=== PATIENT | male | born 1945 | race Caucasian/White ===

== ENCOUNTER 2024-07-22 11:20 | Emergency (ER) | payer MEDICARE, MEDICAID, SELFPAY ==
[2024-07-22] VITALS (18 sets, daily range): BP systolic 132–164; BP diastolic 54–86; PULSE 56–82; RESP 10–20; TEMP 36.4; O2SAT 97–100
--- NOTE | ~2024-07-22 | CT_ITS ---
CT brain wo con Ordering provider: Miller Arevalo MD History: 79 years Male with . syncope . Comparison: None. Technique: CT of the head without contrast. Radiation reduction technique utilized.The dose-length product was 681 mGy-cm. FINDINGS: BRAIN PARENCHYMA AND CSF SPACES: Mild leukoaraiosis and diffuse cortical atrophy. Mild atheromatous d isease. Old lacunar infarct in the body of the left caudate nucleus. No midline shift, mass effect or hemorrhage. The brain parenchyma and CSF spaces are otherwise norm al. VISUALIZED PARANASAL SINUSES: Well aerated. MASTOIDS: Well aerated. BONES: The bones appear intact. SOFT TISSUES: Visualized nasopharynx is normal. Superficial soft tissues are normal. IMPRESSION: No acute intracranial findings. Reviewed, dictated and finalized at location A.
--- NOTE | 2024-07-22 11:27 | ECG_ITS ---
Test Date: 2024-07-22 11:41:22 Measurements Intervals [place] Rate: 61 P: 14 RI: 130 QRS: 47 QRSD: 88 T: 61 QT: 427 QTc: 433 Interpretive Statements SINUS RHYTHM No previous ECG available for comparison Electronically Signed On 07-22-2024 11:55:29 CDT by Real Carr M.D.
[2024-07-22 11:50] LABS: Basophils Absolute Auto 0.1 K/mm3 (0.0-0.1); Basophils Percent Auto 0.6 % (0.2-1.2); Eosinophils Absolute Auto 0.4 K/mm3 (0-0.3); Eosinophils Percent Auto 2.8 % (0-4.4); Hematocrit 35.9 % (42.0-52.0); Hemoglobin 11.6 g/dL (14.0-18.0); Immature Granulocyte Absolute 0.09 K/mm3 (0.00-0.031); Immature Granulocyte Percent A 0.7 % (0-0.5); Lymphocytes Absolute Auto 1.68 K/mm3 (0.9-3.2); Lymphocytes Percent Auto 12.5 % (18.3-44.2); Mean Corpuscular HGB Conc 32.3 g/dl (32-36); Mean Corpuscular Hemoglobin 30.4 pg (26-34); Mean Platelet Volume 11.1 fl (7.4-10.4); Monocytes Absolute Auto 0.8 K/mm3 (0.1-0.6); Neutrophils Absolute Auto 10.4 K/mm3 (1.3-6.7); Neutrophils Percent Auto 77.4 % (45.5-73.1); Platelet Count Result 314 k/mm3 (150-375); Red Blood Count 3.82 M/mm3 (4.6-6.20); Red Cell Distribution Width 15.7 % (11.5-14.5); White Blood Count 13.4 K/mm3 (4.5-10.0)
[2024-07-22 11:57] LABS: Add Urine Microscopic? NO; Appearance Urine Clear (Clear); Bilirubin Urine Negative (Negative); Blood Urine Negative (Negative); Color Urine Yellow (Yellow); Glucose Urine UA Negative (Negative); Ketones Urine Negative (Negative); Leukocyte Esterase Ur Negative LEU/UL (Negative); Nitrate Urine Negative (Negative); Protein Urine Negative (Negative); Specific Grav Ur 1.014 (1.001-1.035); Urobilinogen Urine 0.2 mg/dL (<2.0); pH Urine 5.5 (5.0-9.0)
[2024-07-22 11:58] LABS: Alanine Aminotransferase 14 U/L (6-50); Albumin Level 3.4 g/dL (3.5-5.1); Alkaline Phosphatase 113 U/L (38-126); Anion Gap 11 mmol/L (4-12); Aspartate Amino Transferase 31 U/L (17-59); Bilirubin,Total 0.7 mg/dL (0.2-1.3); Blood Urea Nitrogen 17 mg/dL (9-20); Calcium 8.8 mg/dL (8.4-10.2); Carbon Dioxide 25 mmol/L (22-30); Chloride 103 mmol/L (98-107); Estimated CRCL calculation 43 ml/min; Estimated Glomerular Filt Rate > 60; Glucose 105 mg/dL (65-110); Sodium 139 mmol/L (137-145)
[2024-07-22 13:06] LABS: Troponin I < 0.012 ng/mL (0.000-0.034)
--- NOTE | 2024-07-22 13:10 | ED_ITS ---
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 Today patient presents to the emergency department for evaluation after a witnessed syncopal event. Patient was exercising during physical therapy today his care facility when he felt lightheaded and staff noted that he lost consciousness briefly. Patient presently is awake alert oriented x4 and states that he has no complaints. He states that he was feeling lightheaded and dizzy as he was having to sit up and stand up frequently during the evaluation for physical therapy. He denies any headache or vision changes, no new weakness, denies any chest pain, abdominal pain, back pain. He is answering all questions appropriately and denies any complaints at this time. No fall or trauma. Denies taking blood thinners. Related Data Allergies Allergy/AdvReac Type Severity Reaction Status Date / Time No Known Allergies Allergy Verified 07/22/24 11:26 Review of Systems 2 Review of Systems: As reviewed above in HPI Exam 2 Narrative: GENERAL: Thin and frail, elderly appearing, not in any acute distress, awake and answering questions appropriately per HEAD: [Normocephalic, atraumatic.] EYES: [PERRLA and EOMI.] ENT: Nares clear, no rhinorrhea or epistaxis. Mucous membranes moist. NECK: Supple. CHEST: [Clear to auscultation. No respiratory distress.] HEART: [Regular rate and rhythm]. No murmur heard. [Normal peripheral pulses.] ABDOMEN: [Soft, nondistended], [nontender], [No rigidity or guarding] EXTREMITIES: Normal range of motion. [No edema.] SKIN: Warm, dry, no rash. NEURO: No new focal deficits, hemiparesis affecting his right side, chronic. Awake alert oriented x4, answering questions appropriately. PSYCH: [Normal mood and affect.] Course Vital Signs Vital signs: Vital Signs Temperature 36.4 C 07/22/24 11:18 Pulse Rate 60 07/22/24 11:18 Respiratory Rate 13 07/22/24 11:18 Blood Pressure 132/54 L 07/22/24 11:18 Pulse Oximetry 100 07/22/24 11:18 Oxygen Delivery Room Air 03/10/25 11:18 Temperature 36.4 C 07/22/24 11:18 Pulse Rate 62 07/22/24 14:15 Respiratory Rate 18 07/22/24 13:45 Blood Pressure 154/72 H 07/22/24 14:15 Pulse Oximetry 99 07/22/24 13:45 Oxygen Delivery Room Air 07/22/24 11:33 MDM - Altered Mental Status MDM Narrative Medical decision making narrative: 79-year-old male with a past medical history including prior stroke with residual hemiparesis, vascular dementia. Patient presents to the ED after a syncopal event while exercising for physical therapy. Patient himself remembers the event and states that he was feeling lightheaded and dizzy after having to sit and stand several times repeatedly for PT/OT. He reportedly lost consciousness briefly and is presently awake and answering all questions appropriately. Patient denies any complaints denies any headache, vision change, nausea, vomiting. He has residual hemiparesis from his prior stroke but no new neurological deficits on exam. He has stable vital signs with any tachycardia, fever, hypoxia blood pressure concerns. He appears elderly and thin and frail but not any acute distress. Considerations presently are for orthostasis, vasovagal event, less likely intracranial process such as new stroke or bleed, less likely cardiac syncope. Workup was ordered this time including a CBC, CMP, troponin, EKG, chest x-ray and a CT of the head as well as urinalysis. Patient was placed on cardiac monitoring telemetry and re-evaluated frequently. Patient's workup shows a minor leukocytosis 13.4 but nonspecific as patient has no infectious symptoms and otherwise unremarkable workup. Hemoglobin 11.6 with no baseline to compare to.Normal coagulation studies. Electrolytes all within normal limits, normal renal function panel, normal hepatic function panel. Negative troponin. Urinalysis without any signs of infection. Patient's head CT shows old lacunar infarct but no acute intracranial findings. EKG is nonischemic with normal sinus rhythm. No ectopy or interval prolongation. Orthostatic vitals were obtained and showed no difference. Patient is hemodynamically stable, has no complaints, overall has a likely benign-appearing explanation for his syncope based on the relation to his physical therapy and exercises today. He is safe and stable for discharge home at this time with regular PCP follow-up and patient was comfortable with this plan and expressed desire to be discharged back to his facility as well. Medical Records Attestation: I reviewed the patient's medical records. Lab Data Attestation: I reviewed the patient's lab results. 07/22/24 11:42 07/22/24 11:42 Labs: Lab Results 07/22/24 07/22/24 07/22/24 Range/Units 11:42 11:51 13:12 WBC 13.4 H (4.5-10.0) K/mm3 RBC 3.82 L (4.6-6.20) M/mm3 Hgb 11.6 L (14.0-18.0) g/dL Hct 35.9 L (42.0-52.0) % MCV 94.0 (80-100) fl MCH 30.4 (26-34) pg MCHC 32.3 (32-36) g/dl RDW 15.7 H (11.5-14.5) % Plt Count 314 (150-375) k/mm3 MPV 11.1 H (7.4-10.4) fl Immature Gran % (Auto) 0.7 H (0-0.5) % Neut % (Auto) 77.4 H (45.5-73.1) % Lymph % (Auto) 12.5 L (18.3-44.2) % [place] % (Auto) 6.0 (2.6-8.5) % Eos % (Auto) 2.8 (0-4.4) % Baso % (Auto) 0.6 (0.2-1.2) % Lymph # (Auto) 1.68 (0.9-3.2) K/mm3 [place] # (Auto) 0.8 H (0.1-0.6) K/mm3 Eos # (Auto) 0.4 H (0-0.3) K/mm3 Baso # (Auto) 0.1 (0.0-0.1) K/mm3 Abs Immat Gran (auto) 0.09 H (0.00-0.031) K/mm3 Absolute Neuts (auto) 10.4 H (1.3-6.7) K/mm3 Absolute Nucleated RBC 0.000 (0.0-0.012) K/mm3 Nucleated RBC % 0.0 (0.0-0.2) % PT 13.2 (11.1-14.7) Seconds INR 1.0 APTT 28.3 (22.3-36.8) Seconds Sodium 139 (137-145) mmol/L Potassium 4.0 (3.4-5.0) mmol/L Chloride 103 (98-107) mmol/L Carbon Dioxide 25 (22-30) mmol/L Anion Gap 11 (4-12) mmol/L BUN 17 (9-20) mg/dL Creatinine 1.13 (0.7-1.3) mg/dL Estim Creat Clear Calc 43 ml/min Estimated GFR > 60 (59 - ) Glucose 105 (65-110) mg/dL Calcium 8.8 (8.4-10.2) mg/dL Total Bilirubin 0.7 (0.2-1.3) mg/dL AST 31 (17-59) U/L ALT 14 (6-50) U/L Alkaline Phosphatase 113 (38-126) U/L Troponin I < 0.012 (0.000-0.034) ng/mL Total Protein 6.0 L (6.3-8.2) g/dL Albumin 3.4 L (3.5-5.1) g/dL Urine Color Yellow (Yellow) Urine Appearance Clear (Clear) Urine pH 5.5 (5.0-9.0) Ur Specific [place] 1.014 (1.001-1.035) Urine Protein Negative (Negative) mg/dL Urine Glucose (UA) Negative (Negative) mg/dL Urine Ketones Negative (Negative) mg/dL Ur Blood (Man) Negative (Negative) Urine Nitrate Negative (Negative) Urine Bilirubin Negative (Negative) Urine Urobilinogen 0.2 (<2.0) mg/dL Leukocyte Esterase Rfl Negative (Negative) NOAH/UL Imaging Data Attestation: I personally reviewed and interpreted this imaging study as follows: My impression: Impressions Head CT 07/22/24 12:54 IMPRESSION: No acute intracranial findings. ECG Data EKG #1: Attestation: I personally reviewed and interpreted this ECG as follows: ECG completion date: 07/22/24 ECG completion time: 11:41 Prior ECG tracings: not available for review Interpretation: Normal sinus rhythm, regular rate, regular rhythm and axis. HI interval 130, QTC interval 433, QRS 88. No ST segment elevations, depressions. No previous EKG for comparison. Overall final interpretation normal sinus rhythm. Discharge Plan Discharge Clinical Impression: Syncope, History of stroke Patient Disposition: [facility] Nursing Home/Asst Living Condition: Stable Instructions: Antibiotic Form, Syncope (DC) Additional Instructions: Your cardiac workup was reassuring, head CT without any acute findings. Normal electrolytes and normal organ function. You are safe and stable for discharge at this time, follow-up with regular doctor, return if you have any new or worsening concerns at any time. Patient Language: Georgian Follow-up/Referrals: UNKNOWN,DOCTOR [Primary Care Provider] - Stand Alone Forms: Retirement Discharge Time of Disposition: 14:22
[2024-07-22 13:32] LABS: Prothrombin Time 13.2 Seconds (11.1-14.7)
[2024-07-22 13:33] LABS: Partial Thromboplastin Time 28.3 Seconds (22.3-36.8)
--- NOTE | 2024-07-22 15:00 | PC.NURSE ---
Report called to Simba RICHARDS at [facility]. All questions answered. Awaiting transport.
--- NOTE | 2024-07-22 15:33 | PC.NURSE ---
Patient changed and cleaned up. Waiting on EMS to transport patient back to facility
== END 2024-07-22 16:13 ==
PROVIDERS: Emergency Medicine; Emergency Provider Student in an Organized Health Care Education/Training Program
DX: R55 Syncope and collapse (principal); I69.951 Hemiplegia and hemiparesis following unspecified cerebrovascular disease affecting right dominant side; F01.50 Vascular dementia, unspecified severity, without behavioral disturbance, psychotic disturbance, mood disturbance, and anxiety; K21.9 Gastro-esophageal reflux disease without esophagitis
CPT/HCPCS: 36415; 70450; 80053; 81003; 84484; 85025; 85610; 85730; 93005; 99284

== ENCOUNTER 2024-07-29 11:49 | Inpatient (IN) | payer MEDICARE, MEDICAID, SELFPAY ==
[2024-07-29] VITALS (19 sets, daily range): BP systolic 121–154; BP diastolic 59–87; PULSE 60–79; RESP 11–20; TEMP 36.1–36.6; O2SAT 97–100
--- NOTE | ~2024-07-29 | XR_ITS ---
XR chest 1V Ordering provider: Ludin Ferreira MD History: 79 years Male with . pre-op LEFT SIDE HIP DISLOCATION . Comparison: None. FINDINGS: MEDIASTINUM: The cardiac silhouette is not enlarged. Prominent amber more on the left side. LUNGS: No effusions or pneumothorax. Left perihilar and left lower lobe prominent markings. OTHER: No free air under the diaphragm. IMPRESSION: Prominent markings in the lower lobes more on the left side. Bronchitis cannot be excluded. Clinical correlation advised. Reviewed, dictated and finalized at location A.
--- NOTE | ~2024-07-29 | XR_ITS ---
EXAMINATION: XR hip LT 1V w AP pelvis DATE: 07/31/2024 14:05 INDICATION: Postoperative evaluation TECHNIQUE: 2 views of the left hip were performed FINDINGS: There is a left total hip arthroplasty in expected position. Subcutaneous gas with soft ti ssue swelling are consistent with recent surgery. IMPRESSION: Expected perioperative appearance of a left-sided total hip arthroplasty. Reviewed, dictated and finalized at location A.
--- NOTE | ~2024-07-29 | XR_ITS ---
EXAMINATION: XR hip LT 2V w AP pelvis DATE: 07/29/2024 12:52 INDICATION: Left hip pain and medial rotation of the left leg post fall TECHNIQUE: Anteroposterior view of the pelvis and anteroposterior and cross-table lateral views of th e left hip were obtained. COMPARISON: None. FINDINGS: The entirety of a bipolar type left hip hemiarthroplasty is dislocated from the left acetabulum and a long with the largest left femur is displaced cephalad with inward rotation. No fracture identified. Superolateral rim of the left acetabulum is obscured by the femoral head component of the arthroplast y. No periprosthetic lucency to suggest loosening. Mild right hip and bilateral sacroiliac osteoarthr itis. Likely at least moderate lumbar spondylosis. IMPRESSION: 1. Bipolar type left hip hemiarthroplasty with superior dislocation and rotation. No evident fracture or loosening of the arthroplasty. Reviewed, dictated and finalized at location A. IMPRESSION: 1. Bipolar type left hip hemiarthroplasty with superior dislocation and rotatio n. No evident fracture or loosening of the arthroplasty.
--- NOTE | ~2024-07-29 | CT_ITS ---
Procedure: CT hip LT wo con Ordering provider: Ludin Ferreira MD History: . dislocation . Comparison: None. Technique: Thin slice axial CT of the No IV contrast was given. Sagittal and coronal reformatted imag es were also obtained and reviewed. Radiation reduction technique utilized The dose-length product wa s 464.95 mGy-cm. Findings: BONES: Undisplaced Fracture of the posterior lip of the left acetabulum is seen. Possibility of fract ure of the anterior left is not excluded. JOINT SPACES: Dislocation of the left hip arthroplasty is seen posteriorly. SOFT TISSUES: Soft tissue density is seen in the acetabulum which may be fluid or hematoma. IMPRESSION: Dislocated left hip arthroplasty involving the acetabular and femoral portions. Fracture of the anterior and posterior left the left acetabulum. Reviewed, dictated and finalized at location A.
--- NOTE | ~2024-07-29 | XR_ITS ---
HISTORY: LEFT HIP REDUCTION IN OR WITH XRAY COMPARISON: Reference is made to previous examination performed 4 hours earlier. TECHNIQUE: 2 views of the left hip along with an AP view of the pelvis FINDINGS: Redemonstration of dislocation of the left hip arthroplasty. Diffuse bony demineralization. IMPRESSION: Redemonstration of left hip arthroplasty dislocation Reviewed, dictated and finalized at location A.
--- NOTE | ~2024-07-29 | XR_ITS ---
CORRECTED REPORT corrected order to XR Surgery ortho no charge [facility] 07/31/24 This report was recreated on 07/31/24. Original report was SINGLE VIEW LEFT HIP Ordering provider: Tim Lopez MD History: . REVISION LEFT BIPOLAR . Comparison: None. FINDINGS/impression: Left hip arthroplasty femoral portion is noted with postoperative changes seen in the left subcutaneous tissues. Reviewed, dictated and finalized at location A. [facility]
--- NOTE | ~2024-07-29 | XR_ITS ---
EXAMINATION: XR hip LT 1V DATE: 07/29/2024 14:26 INDICATION: Post attempted reduction left hip dislocation TECHNIQUE: Anteroposterior view of the left hip was obtained. COMPARISON: 07/29/2024 FINDINGS: Bipolar type left hip hemiarthroplasty with persistent superior dislocation of the head of the arthro plasty relative to the left acetabulum. No fracture. Mild osteoarthritis at the bilateral sacral remedios c joints. Moderate to severe lower lumbar spondylosis. There is some heterotopic ossification about t he margins of the left lesser trochanter. IMPRESSION: 1. Persistent superior dislocation of the left hip hemiarthroplasty. Reviewed, dictated and finalized at location A.
--- NOTE | ~2024-07-29 | XR_ITS ---
XR knee LT 3V 08/03/2024 13:28 Indication: Left knee pain Procedure: 3 views left knee Comparison: No prior studies for comparison. 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 No significant joint effusi on. No fracture or traumatic malalignment. Osteopenia. 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 Reviewed, dictated and finalized at location B. 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
[2024-07-29 12:52] LABS: INR 1.1
[2024-07-29 12:53] LABS: Partial Thromboplastin Time 24.8 Seconds (22.3-36.8)
--- NOTE | 2024-07-29 13:35 | ED_ITS ---
HPI - General Adult General Chief complaint: Extremity Injury, Lower Stated complaint: hip pain after fall Time Seen by Provider: 07/29/24 12:14 History of Present Illness HPI narrative: 79-year-old male presenting to the emergency department for evaluation for a left hip distally. Related Data Home Medications ?Medication ?Instructions ?Recorded ?Confirmed ?Last Taken ?Type acetaminophen 325 mg capsule 650 mg PO TID PRN pain 07/29/24 07/29/24 07/29/24 06:55 History amlodipine 10 mg tablet 10 mg PO DAILY 07/29/24 07/29/24 07/29/24 09:05 History aspirin 81 mg tablet,delayed 81 mg PO HS 07/29/24 07/29/24 07/28/24 08:25 History release (Adult Aspirin Regimen) atorvastatin 20 mg tablet 20 mg PO HS 07/29/24 07/29/24 07/28/24 08:25 History bisacodyl 5 mg tablet,delayed 10 mg PO DAILY 07/29/24 07/29/24 Unknown History release bupropion HCl 100 mg tablet,12 hr 100 mg PO DAILY 07/29/24 07/29/24 07/29/24 07:00 History sustained-release (Wellbutrin SR) famotidine 20 mg tablet 20 mg PO HS 07/29/24 07/29/24 Unknown History metoprolol tartrate 25 mg tablet 12.5 mg PO BID 07/29/24 07/29/24 07/29/24 07:00 History pantoprazole 20 mg tablet,delayed 20 mg PO BID 07/29/24 07/29/24 Unknown History release polyethylene glycol 3350 17 17 g PO DAILY 07/29/24 07/29/24 Unknown History gram/dose oral powder (Miralax) sennosides 8.6 mg tablet (senna) 17.2 mg PO BID 07/29/24 07/29/24 Unknown History tramadol 50 mg tablet 50 mg PO Q6H PRN pain 07/29/24 07/29/24 Unknown History Allergies Allergy/AdvReac Type Severity Reaction Status Date / Time No Known Allergies Allergy Verified 07/22/24 11:26 Review of Systems 2 Review of Systems: All systems reviewed & are unremarkable except as noted in HPI and below PMFSH Past Medical History Medical History (Updated 07/29/24 @ 22:12 by Ludin Ferreira MD) Dementia Hypertension CVA (cerebral vascular accident) Exam 2 Narrative: APPEARANCE: Comfortable-appearing at time of examination HEAD: normocephalic, atraumatic. EYES: PERRLA/EOMI, conjunctivae clear. NOSE: Normal no drainage EARS:TMS clear with good light reflex. THROAT: Pharynx clear, no exudate. NECK: Supple. No adenopathy, no masses. RESPIRATORY: Airway patent, respirations nonlabored. Clear to auscultation bilaterally, no rales, rhonchi, wheezing. CARDIOVASCULAR: Regular rate and rhythm without murmurs rubs or gallops. ABDOMINAL: Soft, nontender, nondistended, normal bowel sounds MUSCULOSKELETAL: Left hip dislocation NEURO: Alert. Cranial nerves II through XII intact. Good gait. Good coordination SKIN: Warm, dry. Normal Color Course Vital Signs Vital signs: Vital Signs Temperature 97.6 F 07/29/24 11:57 Pulse Rate 63 07/29/24 11:57 Respiratory Rate 16 07/29/24 11:57 Blood Pressure 124/62 07/29/24 11:57 Pulse Oximetry 100 07/29/24 11:57 Temperature 97.0 F L 07/29/24 17:24 Pulse Rate 67 07/29/24 21:00 Respiratory Rate 16 07/29/24 21:00 Blood Pressure 132/74 07/29/24 21:00 Pulse Oximetry 98 07/29/24 21:00 Oxygen Delivery Room Air 07/29/24 21:00 Oxygen Flow Rate 8 07/29/24 17:50 Procedures Orthopedic Joint Reduction Joint #1: Time Out Performed: Yes Side: left Joint Reduction Location: hip Analgesia: procedural sedation Pre-Procedure Neuro Vascular Exam: normal Shoulder Technique Used (if applicable): traction/counter-traction Technique used: traction/counter-traction Post-reduction neuro exam: intact Post-reduction vascular: intact Post Reduction X-Ray Obtained: Yes Post Reduction X-Ray Results: not reduced Patient Tolerated Procedure: well Additional Comments: Patient did require some bagging Medical Decision Making MDM Narrative Medical decision making narrative: 79-year-old male presents emergency department for evaluation for left hip dislocation. Patient denies any prior issues with sedation. Patient has a Mallampati of 1. Patient's dentures were removed. Patient was ordered to to IV morphine IV fluids and will be sedated using propofol. Reduction of the left hip was not successful. Case was discussed with Orthopedics and they were consulted for taking the patient to the or for reduction. Patient was admitted to the hospitalist. Differential Diagnosis Differential Diagnosis: Hip dislocation, hip fracture Vital Signs Vital Signs: Vital Signs Temperature 97.6 F 07/29/24 11:57 Pulse Rate 63 07/29/24 11:57 Respiratory Rate 16 07/29/24 11:57 Blood Pressure 124/62 07/29/24 11:57 Pulse Oximetry 100 07/29/24 11:57 Temperature 97.0 F L 07/29/24 17:24 Pulse Rate 67 07/29/24 21:00 Respiratory Rate 16 07/29/24 21:00 Blood Pressure 132/74 07/29/24 21:00 Pulse Oximetry 98 07/29/24 21:00 Oxygen Delivery Room Air 07/29/24 21:00 Oxygen Flow Rate 8 07/29/24 17:50 Lab Data Lab results reviewed: Yes I reviewed the patient's lab results. 07/29/24 15:14 Labs: Lab Results 07/29/24 07/29/24 Range/Units 12:32 15:14 WBC 18.2 H (4.5-10.0) K/mm3 RBC 3.60 L (4.6-6.20) M/mm3 Hgb 11.1 L (14.0-18.0) g/dL Hct 34.6 L (42.0-52.0) % MCV 96.1 (80-100) fl MCH 30.8 (26-34) pg MCHC 32.1 (32-36) g/dl RDW 15.9 H (11.5-14.5) % Plt Count 292 (150-375) k/mm3 MPV 11.5 H (7.4-10.4) fl Immature Gran % (Auto) 0.6 H (0-0.5) % Neut % (Auto) 85.5 H (45.5-73.1) % Lymph % (Auto) 7.3 L (18.3-44.2) % [place] % (Auto) 5.4 (2.6-8.5) % Eos % (Auto) 0.8 (0-4.4) % Baso % (Auto) 0.4 (0.2-1.2) % Lymph # (Auto) 1.33 (0.9-3.2) K/mm3 [place] # (Auto) 1.0 H (0.1-0.6) K/mm3 Eos # (Auto) 0.1 (0-0.3) K/mm3 Baso # (Auto) 0.1 (0.0-0.1) K/mm3 Abs Immat Gran (auto) 0.11 H (0.00-0.031) K/mm3 Absolute Neuts (auto) 15.6 H (1.3-6.7) K/mm3 Absolute Nucleated RBC 0.000 (0.0-0.012) K/mm3 Nucleated RBC % 0.0 (0.0-0.2) % PT 14.0 (11.1-14.7) Seconds INR 1.1 APTT 24.8 (22.3-36.8) Seconds Imaging Data Radiologist's impression: Impressions Chest X-Ray 07/29/24 12:54 IMPRESSION: Prominent markings in the lower lobes more on the left side. Bronchitis cannot be excluded. Clinical correlation advised. Hip/Pelvis X-Ray 07/29/24 12:55 IMPRESSION: 1. Bipolar type left hip hemiarthroplasty with superior dislocation and rotation. No evident fracture or loosening of the arthroplasty. Hip X-Ray 07/29/24 14:42 IMPRESSION: 1. Persistent superior dislocation of the left hip hemiarthroplasty. Hip CT 07/29/24 15:03 IMPRESSION: Dislocated left hip arthroplasty involving the acetabular and femoral portions. Fracture of the anterior and posterior left the left acetabulum. Hip/Pelvis X-Ray 07/29/24 18:01 IMPRESSION: Redemonstration of left hip arthroplasty dislocation Discharge Plan Discharge Clinical Impression: Dislocation of hip, left, closed Patient Disposition: Still a Patient Condition: Stable
[2024-07-29] MEDS: SODIUM CHLORIDE 0.9% IV 1,000 ML 125 ML IV CONT (14:00)
[2024-07-29] MEDS: MORPHINE SULFATE (*CRX) 2 MG/ML INJ IV PUSH (14:10)
[2024-07-29] MEDS: PROPOFOL IV EMULSION 200 MG/20 ML VIAL 40 MG IV PUSH (14:15)
--- OUTSIDE RECORDS SUMMARY | 2024-07-29 14:38 | XMS_ITS | Continuity of Care Document ---
Author Organization [employer] [place] Address [address] [place] [address] Phone Care Team Providers Care Sociology Teacher Name Role Phone Angeles Oreilly DO Unavailable Unavailable Allergies, Adverse Reactions, Alerts Substance Reaction Status Criticality No Known Allergies Active No Inform ation Medications Medication Instructions Dosage Effective Dates (start - stop) Status Comments ATORVASTATIN 20 MG TABLET TAKE 1 TABLET BY MOUTH NIGHTLY AT BEDTIME - Active BUPROPION HCL XL 150 MG TABLET TAKE 1 TABLET BY MOUTH EVERY DAY - Active Pepcid 20 mg tablet take 1 tablet by oral route every day at bedtime - Active pantoprazole 20 mg tablet,delayed release take 1 tablet by oral route 2 times every day 20 MG - Active aspirin 81 mg tablet,delayed release take 1 tablet by oral route every other day - Active Century Men 50 Plus 300 mcg-60 mcg-600 mcg-300 mcg tablet take 1 tablet by oral route every day 1 tablet - Active Flonase Allergy Relief 50 mcg/actuation nasal spray,suspension spray 1 - 2 spray by intranasal route every day in each nostril as needed 50-100 MCG - Active Procedures Procedure Date BASIC METABOLIC PANEL(BMP) CBC, INC PLATELETS AND DIFFERENTIAL Pt inelig neg scrn depres Admin influenza virus vac RIV3 VACCINE NO PRESERV IM OFFICE [id number] BODY MASS INDEX DOCD SYST BP >= 140 MM HG6 IT DIAST BP < 80 MM HG ROUTINE VENIPUNCTURE [place] BASIC METABOLIC PANEL(BMP) CBC, INC PLATELETS AND DIFFERENTIAL OFFICE [id number] BODY MASS INDEX DOCD SYST BP LT 130 MM HG DIAST BP < 80 MM HG ROUTINE VENIPUNCTURE [place] BASIC METABOLIC PANEL(BMP) CBC, INC PLATELETS AND DIFFERENTIAL Depression screen annual Clin depression screen doc OFFICE [id number] BODY MASS INDEX DOCD SYST BP LT 130 MM HG DIAST BP < 80 MM HG ROUTINE VENIPUNCTURE [place] Removal Of Sutures Or [place], Not Requi ring Anesthesia OFFICE [id number] BODY MASS INDEX DOCD SYST BP GE 130 - 139MM HG DIAST BP < 80 MM HG ROUTINE VENIPUNCTURE [place] CBC, INC PLATELETS AND DIFFERENTIAL CBC, INC PLATELETS AND DIFFERENTIAL COMPREHEN METABOLIC PANEL CMP LIPID PANEL HEMOGLOBIN A1C HGA1C, GLYCO FALL RISK ASSESSMENT DOC'D PRES/ABSN URINE INCON ASSESS Depression screen annual Clin depression screen doc PNEUMOVAX ADM MEDICARE Pneumococcal Conjugate Vaccine (PCV20) A OFFICE [id number] BODY MASS INDEX DOCD SYST BP >= 140 MM HG6 IT DIAST BP < 80 MM HG ROUTINE VENIPUNCTURE [place] Advance Directives Directive Yes / No Effective Date File Name Life Support Not Answered N/A N/A Intubation Not Answered N/A N/A Antibiotics Not Answered N/A N/A IV Fluid Support Not Answered N/A N/A Tube Feed Not Answered N/A N/A Other Directive N/A N/A WARNING:The information contained in this section is historical and is provided for information only and does not constitute a legal document or any assurance that the information is still accurate. Please verify the information with the monge of the legal document before using it for clinical purposes. Encounters Encounter Description Practice Location Reason(s) For Visit Diagnoses Date Provider Providers Copied on Encounter [facility], [address], [place], [place], [address] , [place] tel: [phone] [facility] [place] No Information 5 Afia Reynoso. [address], [place], [id number] , [place]. tel: [phone] [facility], [address], [place], [place], [address] , [place] tel: [phone] [facility] No Information 4 English Thompson. [address] [place], [place], [address] , [place]. tel: [phone] [facility], [address], [place], [place], [address] , [place] tel: [phone] [facility] No Information 4 Eun Viveros. [address] [address], [place], [place], [address] , [place]. tel: [phone] Referring Provider: Jay Soriano, [address] [place], [address] . tel:[phone] OFFICE [id number]-YF TAILED [facility], [address], [place], [place], [address] , [place] tel: [phone] [facility] chr conditions (chief complaint) Leukocytosis, unspecified typeHypertensive chronic kidney disease with stage 1 through stage 4 chronic kidney disease, or unspecified chronic kidney diseaseHistory of CVA (cerebrovascular accident) 4 English Thompson. [address] [place], [place], [address] , . tel: [phone] Referring Provider: Jay Soriano, [address] [place], [address] . tel:[phone] [facility], [address], [place], [place], [address] , tel: [phone] [facility] No Information 4 Makenna Maria. [address] [place], [place], [address] , [place]. tel: [phone] [facility], [address], [place], [place], [address] , [place] tel: [phone] [facility] No Information 4 Eun Viveros. [address] [place] [address], [id number] , . tel: [phone] Referring Provider: Candace Mensah, [address] [place], [address] . tel:[phone] OFFICE [id number]-TR TAILED [facility], [address], [place], [place], [address] , [place] tel: [phone] [facility] weakness/di zziness (chief complaint) Leukocytosis, unspecified typeHoarseness of voiceHypertensive chronic kidney disease with stage 1 through stage 4 chronic kidney disease, or unspecified chronic kidney diseaseStage 3 chronic kidney disease, unspecified whether stage 3a or 3b CKDHistory of CVA (cerebrovascular accident) 4 Makenna Maria. [address] [place], [place], [address] , [place]. tel: [phone] Referring Provider: Jay Soriano, [address] [place], [address] . tel:[phone] [facility], [address], [place], [place], [address] , tel: [phone] [facility] No Information 4 Eun Fry [address], [id number] , [place]. tel: [phone] Referring Provider: Jay Soriano, [address] [place], [address] . tel:[phone] OFFICE [id number] TAILED [facility], [address], [place], [place], [address] , [place] tel: [phone] [facility] chronic condition (chief complaint) Leukocytosis, unspecified typeHypertensive chronic kidney disease with stage 1 through stage 4 chronic kidney disease, or unspecified chronic kidney diseaseNonhealing skin ulcer, limited to breakdown of skinSenile purpuraHoarseness of voice 4 English Thompson. [address] [place], [place], [address] , [place]. tel: [phone] Referring Provider: Jay Soriano, [place], [address] . tel:[phone] OFFICE JPCON-STY-KW PANDED [facility], [address], [place], [place], [address] , [place] tel: [phone] [facility] ER followup (chief complaint) Laceration of scalp, initial encounterEncounter for removal of sutures 4 Makenna Maria. [address] [place], [place], [address] , [place]. tel: [phone] Referring Provider: Pr[place], [address] . tel:[phone] [facility], [address], [place], [place], [address] , [place] tel: [phone] [facility] Leukocytosis, unspecified type 4 English Thompson. [address] [place], [place], [address] , [place]. tel: [phone] Referring Provider: Pr[place], [address] . tel:[phone] [facility], [address], [place], [place], [address] , tel: [phone] [facility] No Information 4 Eun Viveros. [address], [id number] , . tel: [phone] Referring Provider: Jay Soriano, [address] [place], [address] . tel:[phone] [facility], [address], [place], [place], [address] , tel: [phone] [facility] No Information 4 Eun Viveros. [address], [id number] , . tel: [phone] Referring Provider: Canadce Mensah, [address] [place], [address] . tel:[phone] OFFICE [id number]-QEO-WA -MED [facility], [address], [place], [place], [address] , tel: [phone] [facility] SHIP CARPENTER (chief complaint) Hypertensive chronic kidney disease with stage 1 through stage 4 chronic kidney disease, or unspecified chronic kidney diseaseStage 3 chronic kidney disease, unspecified whether stage 3a or 3b CKDTobacco useHyperlipidemia, unspecified hyperlipidemia typeHistory of CVA (cerebrovascular accident)Hemipares is affecting right side as late effect of strokeRoutine medical examWeaknessGait instabilityDysphag ia, unspecified typeModerate major depressionAlcohol abuse, in remissionElevated glucoseCough, unspecified type 4 Makenna Maria. [address] [place], [place], [address] , [place]. tel: [phone] Referring Provider: Jay Soriano, [address] [place], [address] . tel:[phone] Family History Family Member Type Diagnosis Age At Onset Father Problem Diabetes mellitus Mother Problem Cancer, breast Father Problem Hypertension Immunizations Vaccine Date Status Comments Flublok, Trivalent, preservative free, 18+ yrs, 0.5mL dosage administered Source: New Immuniza tion Record Pneumococcal conjugate PCV20 administered Source: New Immunization Record Payers Payer name Insurance type Covered republican ID Jonathan calle(s) Jiberish [id number] [employer] [id number] Social History Type Description Quantity Date Captured Comments Alcohol Use Details Unknown Caffeine Use Details Unknown Tobacco Use Status Smoking Status No Information Sex Male Sexual Orientation Straight or heterosexual Gender Identity Male Chief Complaint And Reason For Visit No Information Reason For Referral Reason For Referral No Information Plan Of Treatment Date Type Action Status Goal Tobacco cessation counseling completed Goal Tobacco cessation counseling completed Referral Ordered: Physical Therapy (related to History of CVA (cerebrovascular accident)) ordered Referral Referred To: Physical Therapy Ordered: Referrals: Physical Therapy. Evaluate and treat - Level 2 ordered Referral Ordered: Jay Sheth DO -Hematology Oncology (related to Leukocytosis, unspecified type) ordered Referral Referred To: Jay Sheth DO [address] [facility] [place], [phone] Ordered: Referrals: Hematology Oncology. Jay Sheth DO. Evaluation/diagnostic/treatment - Level 3 ordered Referral Ordered: Gary Faith MD -Otolaryngology (related to Hoarseness of voice) ordered Referral Referred To: Gary Faith MD [address] [place], [phone] Ordered: Referrals: Otolaryngology. Gary Faith MD. Evaluation/diagnostic/treatment - Level 3 ordered Referral Ordered: Physical Therapy [facility] Physical Therapy (related to Gait instability) ordered Referral Referred To: Dora Hendrickson
[facility] [address] [place], [phone] Ordered: Chest x-ray, PA and lateral ordered Referral Referred To: Physical Therapy [address] [place], [phone] Ordered: Referrals: Physical Therapy. Location: [facility]. Evaluate and treat - Level 2 ordered Referral Referred To: Dr Castañeda [address] [place], [place], [phone] Ordered: Referrals: Neurology. Dr Castañeda. Evaluation/diagnostic/treatment - Level 3 ordered History Of Present Illness Encounter Date Complaint History Of Prese nt Illness chr conditions left hand weakne ss---- cant fully openct showed lacunar infarctsleujocytosis-- smoking less, never saw hemehad stroke on [facility]-- 140s at home weakness/dizziness 78 year old f mychal who presents for evaluation of falling. He went to physical therapy and they had concern of orthostatic hypotension. He takes HCTZ for HTN. His BP has been 100/60sHe is following with neurologist for weakness, frequent falls with weakness in legs. He has been using a rollator walker. He had MRI brain which showed multiple lacunar infarcts with small vessel disease. MRA head and neck with no significant stenosis. MRI c-cpine showed no cord compression. MRA neck with no ICA stenosis. Per neuro phone message, weakness likely explained by significant cerebral small vessel disease and multiple infarcts. His next appt is 10/24He has had hoarse voice, slurring of speech and difficulty clearing his phlegm. He is following with ENT nowHe is going to PT and OT. He needs reauthorization. He also has elevated white blood cell count. We will refer to administrative office clerk if still elevated chronic condition leukocytosis-- probably from smokinghtn-- controlled on mednon healing mfoot ulcer-- no obvious signs of infectionhoarseness--has long hx of smoking ER followup 78 year old male who presents for ER followup. He was evaluated in ER on 12/05 after a fall. He fell backwards and hit his head. He had episode of dizziness prior to fall. This has been an ongoing complaint and he has been referred to neurologist. He had scalp laceration repaired in ER with [address] He [address] head and Cspine which showed no acute findings. He has had no problems with laceration. Denies pain, drainage, redness, swelling. SHIP CARPENTER Patient presents to establish care as a new patient. Patient's last visit to a primary care provider was in March [address] Polanco. He lives in [place] with his partner. AcutePatient reports having difficulty with movement in hands and having a weaker voice in the past few years. He has history of CVA that affected his right side. He currently has worse symptoms on left side but is also occurring on the right side. He has difficulty gripping. His voice has become weaker over the past year. He is using a walker intermittently but has had 10 falls in the past year due to gait instability and weakness. He has dizziness at times or just collapses from weakness. He reports having difficulty swallowing phlegm and cannot cough it up. His voice is very weaker and clears throat frequentlyHe has depression symptoms and is interested in talking about medication. He thinks this is due mostly to loss of functionChronicAlcohol AbuseHe has been in AA for the past 45 years.HLDTakes atorvastatin daily with no side effects. HTNTakes HCTZHome BP readings: noneAllergiesUses Flonase almost dailyCKDDue to HTN. Reviewed previous labs. Last GFR was 44 in 03/2023Right hemiparesisDue to CVAHistory of CVATakes statin daily. Diagnosed in 2005Tobacco UseSmokes 1/2 ppd x 60 years agoSpecialists/Other Providers: noneAllergies: NKDATobacco/Alcohol/Drugs: 1/2 ppd/former quit 45 years ago/noImmunizationsCOVID - DUE FOR BOOSTERPneumonia - DUE NOWShingrix - DUE NOWScreeningsColonoscopy - DUE NOW Functional Status Date Functional Assessmen t No Information Instructions Date Instruction Additional Infor jesus continue medslow salt dietcheck bmp Related to Hypertensive chronic kidney disease with stage 1 through stage 4 chronic kidney disease, or unspecified chronic kidney disease will send to PT Related to Histo ry of CVA (cerebrovascular accident) will recheck and seen to wilner dunham to Leukocytosis, unspecified type Medication management STOP HYDROCHLOROTHIA ZIDEMonitor BP at home and call us if BP >140/90 consistentlyStay hydrated Related to Hypertensive chronic kidney disease with stage 1 through stage 4 chronic kidney disease, or unspecified chronic kidney disease We will recheck toda yif still high, will send to administrative office clerk/oncologist Related to Leukocytosis, unspecified type Continue to follow with ENT Rela alex to Hoarseness of voice Continue to follow with neurolog ist Related to History of CVA (cerebrovascular accident) We will continue to monitorStay hydrated Related to Stage 3 chronic kidney disease, unspecified whether stage 3a or 3b CKD will send to ENT Related to Hoar seness of voice will continue to monitor Related to Senile purpura will send abx Related to Nonhe aling skin ulcer, limited to breakdown of skin continue medslow salt diet Relat ed to Hypertensive chronic kidney disease with stage 1 through stage 4 chronic kidney disease, or unspecified chronic kidney disease will recheckif still high, will send to heme/onc Related to Leukocytosis, unspecified type Medication management [place] removed with no complicationContinue to use baby soapApply vaseline once daily Related to Encounter for removal of sutures [place] removed with no complicationContinue to use baby soapApply vaseline once daily Related to Laceration of scalp, initial encounter We recommend getting the updated COVID booster if you have not yet. You should wait at least 2 months after your last COVID vaccine to get this updated vaccine Recommend the new Shingrix vaccine- check with insurance to find out what your insurance coverage is for this and go to the pharmacy for administration if you wish to proceed with vaccination. Related to Routine medical exam We will refer you to neurologist today and physical therapy todayUse walker at all times Related to Gait instability We will refer you to neurologist today Related to Hemiparesis affecting right side as late effect of stroke Continue to work on increasing exercise such as walking. Continue to limit salt intake. Monitor your home blood pressure. Call our office if blood pressure is consistently over 140/90 Related to Hypertensive chronic kidney disease with stage 1 through stage 4 chronic kidney disease, or unspecified chronic kidney disease We will continue to monitorStay hydrated Related to Stage 3 chronic kidney disease, unspecified whether stage 3a or 3b CKD Work on cutting back on smokingLet us know if you want us to order low dose CT scan for lung cancer screening Related to Tobacco use Continue to work on low fat diet and increase regular exercise with goal of walking at least 30 minutes 3-5 times per week Related to Hyperlipidemia, unspecified hyperlipidemia type We will refer you to neurologist today Related to History of CVA (cerebrovascular accident) We will refer you to neurologist today Related to Weakness BEGIN TAKING BUPROPI ON DAILYLet us know if you have any side effects on medication or if you do not notice a difference in mood in the next 3 weeks Related to Moderate major depression Continue to abstain from alcohol Related to Alcohol abuse, in remission We will refer you to neurologist today Related to Dysphagia, unspecified type Assessments Type Assessment Date No Information Patient Care Teams Name Effective Dates (start - stop) Status Members No Information
--- NOTE | 2024-07-29 14:46 | PC.NURSE ---
Dr. Ferreira attempted to reduce left hip unsuccessful. Left leg rotated inwards, CMS intact
[2024-07-29 15:18] LABS: Basophils Absolute Auto 0.1 K/mm3 (0.0-0.1); Basophils Percent Auto 0.4 % (0.2-1.2); Eosinophils Absolute Auto 0.1 K/mm3 (0-0.3); Eosinophils Percent Auto 0.8 % (0-4.4); Hematocrit 34.6 % (42.0-52.0); Hemoglobin 11.1 g/dL (14.0-18.0); Immature Granulocyte Absolute 0.11 K/mm3 (0.00-0.031); Immature Granulocyte Percent A 0.6 % (0-0.5); Lymphocytes Absolute Auto 1.33 K/mm3 (0.9-3.2); Lymphocytes Percent Auto 7.3 % (18.3-44.2); Mean Corpuscular HGB Conc 32.1 g/dl (32-36); Mean Corpuscular Hemoglobin 30.8 pg (26-34); Mean Corpuscular Volume 96.1 fl (80-100); Mean Platelet Volume 11.5 fl (7.4-10.4); Monocytes Percent Auto 5.4 % (2.6-8.5); Neutrophils Absolute Auto 15.6 K/mm3 (1.3-6.7); Neutrophils Percent Auto 85.5 % (45.5-73.1); Platelet Count Result 292 k/mm3 (150-375); Red Cell Distribution Width 15.9 % (11.5-14.5); White Blood Count 18.2 K/mm3 (4.5-10.0)
--- NOTE | 2024-07-29 15:32 | PC.NURSE ---
RN called report to 3rd Med Surg. Report given to Stacy RICHARDS
--- NOTE | 2024-07-29 15:40 | P.HP_ITS ---
H&P: HPI History of Present Illness Date/Time: 07/29/24 15:40 Chief Complaint: hip pain after fall Narrative: This is a 79-year-old male with a significant past medical history of Dementia, hypertension, CVA, hyperlipidemia, GERD who presented to the emergency room from [facility] After sustaining a ground level fall in developing left hip pain. Patient has been a resident at [facility] after having left bipolar hemiarthroplasty which was performed at [facility] 3 weeks ago. Patient states that he was sitting in a chair and accidentally dropped his cell phone, he bent over to pick it up when he felt his left hip dislocate causing him to fall. Workup in the hospital included a chest x-ray which showed prominent markings in the lower lobes more on the left side bronchiectasis cannot be excluded. Left hip and pelvis x-ray showed bipolar type left hip hemiarthroplasty was superior dislocation and rotation, no evidence of fracture or loosening of the arthroplasty. Left hip x-ray showed persistent superior dislocation of the left hip hemiarthroplasty. Left hip CT scan showed dislocated left hip arthroplasty involving the AC tab alert in femoral portions, undisplaced fracture of the posterior lip of the left acetabulum. Initial labs showed a white blood cell count of 18.2, RBC 3.60, hemoglobin 11.1, INR 1.1. Patient was given pain medication and sedation while in the ED. ED physician was unsuccessful at reducing the dislocation. Orthopedic surgery was consulted and plans to take patient to the OR for reduction of the dislocation. Review of Systems Review of Systems: All systems reviewed & are unremarkable except as noted in HPI and below PMFSH Past Medical History Medical History (Updated 07/30/24 @ 00:42 by Diana Soliz APRN) Hyperlipidemia GERD (gastroesophageal reflux disease) Dementia Hypertension CVA (cerebral vascular accident) Social History Social History Smoking status: Former smoker Alcohol intake: former Substance use: current Substance use type: marijuana Do You Feel Safe in your Home?: Yes Lack of Transportation: No Lack of Food: Never True Current Housing: I Have Housing Concerned About Future Housing: No Difficulty Paying Gas/Electric Bills: No Difficulty Paying for Meds: No Currently Unemployed: No Education: High School Diploma/GED Difficulty w/ Childcare or Family Care: No Spiritual care concerns: No Meds Home Medications and Allergies Home Medications ?Medication ?Instructions ?Recorded ?Confirmed ?Type acetaminophen 325 mg capsule 650 mg PO TID PRN pain 07/29/24 07/29/24 History amlodipine 10 mg tablet 10 mg PO DAILY 07/29/24 07/29/24 History aspirin 81 mg tablet,delayed 81 mg PO HS 07/29/24 07/29/24 History release (Adult Aspirin Regimen) atorvastatin 20 mg tablet 20 mg PO HS 07/29/24 07/29/24 History bisacodyl 5 mg tablet,delayed 10 mg PO DAILY 07/29/24 07/29/24 History release bupropion HCl 100 mg tablet,12 hr 100 mg PO DAILY 07/29/24 07/29/24 History sustained-release (Wellbutrin SR) diclofenac sodium 1 % topical gel 2 g topical QID 07/29/24 07/29/24 History (Arthritis Pain (diclofenac)) famotidine 20 mg tablet 20 mg PO HS 07/29/24 07/29/24 History magnesium hydroxide 400 mg/5 mL 30 ml PO DAILY PRN constipation 07/29/24 07/29/24 History oral suspension (Dulcolax (magnesium hydroxide)) metoprolol tartrate 25 mg tablet 12.5 mg PO BID 07/29/24 07/29/24 History pantoprazole 20 mg tablet,delayed 20 mg PO BID 07/29/24 07/29/24 History release polyethylene glycol 3350 17 17 g PO DAILY 07/29/24 07/29/24 History gram/dose oral powder (Miralax) sennosides 8.6 mg tablet (senna) 17.2 mg PO BID 07/29/24 07/29/24 History tramadol 50 mg tablet 50 mg PO Q6H PRN pain 07/29/24 07/29/24 History Allergies Allergy/AdvReac Type Severity Reaction Status Date / Time No Known Allergies Allergy Verified 07/22/24 11:26 Vital Signs Vital Signs - 24 hr 07/29/24 11:57 07/29/24 14:15 07/29/24 14:29 Temperature 97.6 F 97.6 F Pulse Rate 63 Pulse Rate [Apical] 60 Respiratory Rate 16 14 16 Blood Pressure 124/62 Blood Pressure [Left Arm] 154/75 H Blood Pressure [Left Radial Artery] Pulse Oximetry 100 99 99 Oxygen Delivery Bag Valve Mask Oxygen Flow Rate 10 07/29/24 14:29 07/29/24 14:30 07/29/24 15:26 Temperature 97.6 F 97.8 F 97.8 F Pulse Rate 68 Pulse Rate [Apical] 68 66 Respiratory Rate 16 16 16 Blood Pressure 128/87 Blood Pressure [Left Arm] 148/63 H Blood Pressure [Left Radial Artery] 121/78 Pulse Oximetry 99 99 99 Oxygen Delivery Nasal Cannula Nasal Cannula Oxygen Flow Rate 2 2 Exam Narrative: General: In no acute distress, well nourished Head: atraumatic, no encephalopathy Eyes: PERRLA, sclera clear ENT: moist mucous membranes, nasal passages clear Neck: supple, no JVD, no adenopathy, trachea midline Cardiac: Normal S1 and S2. No murmur, gallops or friction rubs, peripheral pulses intact. Respiratory: Lungs clear to auscultation, no adventitious lung sounds currently on room air Gastrointestinal: soft, non-distended, non-tender, normoactive bowel sounds. : voiding without difficulty. Extremities: limited range of motion of left lower extremity,moves all other extremities well, no edema Skin: clean, dry, intact. No wounds or lesions. Neuro: Alert and oriented x4, cranial nerves intact, no neuro deficits. Psych: normal mood, normal affect, interactive H&P: Results Labs Labs: Short CBC 07/29/24 Range/Units 15:14 WBC 18.2 H (4.5-10.0) K/mm3 Hgb 11.1 L (14.0-18.0) g/dL Hct 34.6 L (42.0-52.0) % Plt Count 292 (150-375) k/mm3 Imaging Chest x-ray: Radiologist's impression: XR chest 1V Ordering provider: Ludin Ferreira MD History: 79 years Male with . pre-op LEFT SIDE HIP DISLOCATION . Comparison: None. FINDINGS: MEDIASTINUM: The cardiac silhouette is not enlarged. Prominent amber more on the left side. LUNGS: No effusions or pneumothorax. Left perihilar and left lower lobe prominent markings. OTHER: No free air under the diaphragm. IMPRESSION: Prominent markings in the lower lobes more on the left side. Bronchitis cannot be excluded. Clinical correlation advised. Reviewed, dictated and finalized at location A. hip and pelvis x-ray: Radiologist's impression: EXAMINATION: XR hip LT 2V w AP pelvis DATE: 07/29/2024 12:52 INDICATION: Left hip pain and medial rotation of the left leg post fall TECHNIQUE: Anteroposterior view of the pelvis and anteroposterior and cross- table lateral views of the left hip were obtained. COMPARISON: None. FINDINGS: The entirety of a bipolar type left hip hemiarthroplasty is dislocated from the left acetabulum and along with the largest left femur is displaced cephalad with inward rotation. No fracture identified. Superolateral rim of the left acetabulum is obscured by the femoral head component of the arthroplasty. No periprosthetic lucency to suggest loosening. 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 Likely at least moderate lumbar spondylosis. IMPRESSION: 1. Bipolar type left hip hemiarthroplasty with superior dislocation and rotation. No evident fracture or loosening of the arthroplasty. Reviewed, dictated and finalized at location A. left hip x-ray: Radiologist's impression: EXAMINATION: XR hip LT 1V DATE: 07/29/2024 14:26 INDICATION: Post attempted reduction left hip dislocation TECHNIQUE: Anteroposterior view of the left hip was obtained. COMPARISON: 07/29/2024 FINDINGS: Bipolar type left hip hemiarthroplasty with persistent superior dislocation of the head of the arthroplasty relative to the left acetabulum. No fracture. Mild osteoarthritis at the bilateral sacral iliac joints. Moderate to severe lower lumbar spondylosis. There is some heterotopic ossification about the margins of the left lesser trochanter. IMPRESSION: 1. Persistent superior dislocation of the left hip hemiarthroplasty. Reviewed, dictated and finalized at location A. left hip CT: Radiologist's impression: Procedure: CT hip LT wo con Ordering provider: Ludin Ferreira MD History: . dislocation . Comparison: None. Technique: Thin slice axial CT of the No IV contrast was given. Sagittal and coronal reformatted images were also obtained and reviewed. Radiation reduction technique utilized The dose-length product was 464.95 mGy-cm. Findings: BONES: Undisplaced Fracture of the posterior lip of the left acetabulum is seen. Possibility of fracture of the anterior left is not excluded. JOINT SPACES: Dislocation of the left hip arthroplasty is seen posteriorly. SOFT TISSUES: Soft tissue density is seen in the acetabulum which may be fluid or hematoma. IMPRESSION: Dislocated left hip arthroplasty involving the acetabular and femoral portions. Fracture of the anterior and posterior left the left acetabulum. Reviewed, dictated and finalized at location A. Assessment and Plan Assessment and plan (1) Failure of left total hip arthroplasty with dislocation of hip: Code(s): T84.021A - Dislocation of internal left hip prosthesis, initial encounter Status: Acute Assessment and Plan: * left hip and pelvis x-ray showed bipolar type left hip hemiarthroplasty was superior dislocation and rotation, no evidence of fracture or loosening of the arthroplasty * left hip x-ray showed persistent superior dislocation of the left hip hemiarthroplasty * left hip CT showed dislocated left hip arthroplasty involving the acetabulum and femoral portions, fracture of the anterior and posterior left acetabulum * Orthopedic surgery consulted * Plan for reduction with Orthopedic surgery/ anesthesia in the OR * continue pain control * tramadol ordered for pain (2) Fracture of left acetabulum: Code(s): S32.402A - Unspecified fracture of left acetabulum, initial encounter for closed fracture Status: Acute Assessment and Plan: see above plan of care (3) Fall: Code(s): W19.XXXA - Unspecified fall, initial encounter Status: Acute Assessment and Plan: * continue fall precautions * PT and OT ordered (4) Hyperlipidemia: Code(s): E78.5 - Hyperlipidemia, unspecified Status: Acute Assessment and Plan: * continue aspirin and atorvastatin (5) GERD (gastroesophageal reflux disease): Code(s): K21.9 - Gastro-esophageal reflux disease without esophagitis Status: Acute Assessment and Plan: * continue Pepcid Quality VTE Prophylaxis VTE prophylaxis: mechanical ordered Hospitalist MIPS Advance Care Plan I have confirmed that the patient's Advanced Care Plan is present, code status is documented, or surrogate decision maker is listed in patient medical record.: Yes Medication Reconciliation I have utilized all available resources to obtain, update and review the patients current medications (includes all prescriptions, OTC, herbals, cannabis, and nutritional supplements).: Yes
--- NOTE | 2024-07-29 16:24 | P.CONOP_ITS ---
Assessment and Plan Assessment and plan (1) Failure of left total hip arthroplasty with dislocation of hip: Qualifiers: Encounter type: initial encounter Qualified Code(s): T84.021A - Dislocation of internal left hip prosthesis, initial encounter Code(s): T84.021A - Dislocation of internal left hip prosthesis, initial encounter Status: Acute Assessment and Plan: Patient is a 79-year-old gentleman who presented the emergency room from the [facility] where he has been a resident since his left bipolar hemiarthroplasty performed at [facility] 3 weeks ago. Earlier today he was sitting in a chair and dropped his cell phone and bent over to pick it up and in the process he dislocated his left bipolar hemiarthroplasty falling in the process. X-rays were obtained of his left hip on admission which showed posterior superior dislocation. His leg is hyper internally rotated. A CT scan was obtained which showed suggestion of a nondisplaced fracture of the posterior rim of the acetabulum association with a cyst in the bone at that location. The CT scan also shows heterotopic bone formation around the lesser trochanter. No evidence of proximal femur fracture. His laboratory studies show a white count of 18.2. I spoke to his significant other on the telephone, she who is also the patient's [id number]. Telephone [phone]. Apparently during his hospitalization in [facility] his white count was persistently elevated and the never figured out why. A CMP was obtained 1 week ago that is in the records for review. His protime is 14.0 INR is 1.1. APTT is normal. His medication list from the care home includes aspirin 81 mg at bedtime, Tylenol 2 tablets 3 times a day, atorvastatin 20 mg at bedtime, bisacodyl 5 mg tablet once daily 2 tablets. Diclofenac sodium gel 4 times a day to the left knee, metoprolol 25 mg twice a day receiving a half tablet or actually 12.5 mg twice a day. MiraLax 17 g daily, pantoprazole 20 mg 1 twice a day, Pepcid 20 mg at bedtime, senna 8.6 mg 2 tablets twice a day, tramadol 50 mg as needed, Wellbutrin SR 100 mg sustained release once a day, amlodipine 10 mg once a day,. His list of medications includes vascular dementia, history of stroke, hemiplegia hemiparesis affecting the right side, unspecified severe protein calorie malnutrition, essential hypertension, hypercholesterolemia, chronic idiopathic constipation, depression, pain left knee, gastroesophageal reflex disease without esophagitis. Patient was living at home with his significant other Artem until 1 week before . He had been periodically falling but 1 week before he became unresponsive. He was brought to the hospital and evaluated had extensive neurological evaluation and MRI scan showed that he had evidence of several small more recent asymptomatic strokes. He had a significant stroke in 2005. The conclusion was that he had vascular dementia by the [facility] neurologist. He was transferred to the care home in case he feel worried had 4 more falls the last 1 3 weeks ago that resulted in the left femoral neck fracture that was treated with the bipolar hemiarthroplasty. After that surgery he was transferred to [facility] rehab where he has been doing some walking and progressing well. EKG was performed 7 days ago and showed normal sinus rhythm no significant abnormalities. Physical examination On exam today he did answer some yes or no questions. He was not able to communicate more than that. He stated he he could feel me when I touched his toes. He wiggles his toes up and down on command on the left foot. I could not feel pedal pulses. He has a chronic appearing pressure sore in the back the heel which looks like it is partially healed. There is no open area. There is skin desquamation about 3 x 4 cm. He has a normal appearing incision on the posterolateral aspect of his left hip. It was closed with benji in the benji have been removed and there is no erythema or swelling there a looks very benign. His left lower extremity is hyper internally rotated by about 90?. He denies any other injury except for pain in the left hip. Assessment and plan Patient has a posterior dislocation of his bipolar hemiarthroplasty left hip. This occurred when he is essentially fell out of the chair hyper flexing his left hip trying to reach a cell phone between his feet that he had dropped. I have recommended closed reduction under anesthesia with full muscle paralysis. I have discussed this with his significant other Artem. I have explained that there are some risks. It is possible that the dislocation may not be reducible if the femoral head has buttonholed through a longitudinal rent in the posterior capsule. It is possible that the femoral head can associated from the trunnion of the femoral component while trying to reduce it which would require open reduction and replacement onto the trunnion. There is risk of nerve injury and fracture of femur or acetabulum. He does have a small chip fracture of the posterior acetabular margin which is nondisplaced I think it is probably stable and would not be likely to become displaced into the joint with reduction and incarcerated however this is a possibility. After reduction he will need to have extensive protection and usually we would use a abduction pillow a full- time basis removing it only during ambulation to prevent him from hyperflexing his hip again. His elevated white count is of unclear etiology. It is possible he could have a deep infection in the hip wound and have a completely benign appearing incision superficially. We will obtain a C-reactive protein and sedimentation rate and consider aspiration of the hip particularly if the C-reactive protein is greater than 10 times normal range which in the 3 weeks after surgery would be highly suspicious for wound infection. We will proceed shortly as discussed. 60 minutes were spent in total care this patient today to this point (2) Fracture of left acetabulum: Qualifiers: Encounter type: initial encounter Sublocation of acetabulum: posterior wall Fracture type: closed Fracture alignment: nondisplaced Qualified Code(s): S32.425A - Nondisplaced fracture of posterior wall of left acetabulum, initial encounter for closed fracture Code(s): S32.402A - Unspecified fracture of left acetabulum, initial encounter for closed fracture Status: Acute History of Present Illness HPI Consult date: 07/29/24 Chief complaint: hip pain after fall Meds Home Medications and Allergies Allergies Allergy/AdvReac Type Severity Reaction Status Date / Time No Known Allergies Allergy Verified 07/22/24 11:26 Vital Signs Vital Signs - 24 hr 07/29/24 11:57 07/29/24 14:15 07/29/24 14:29 Temperature 36.4 C 36.4 C Pulse Rate 63 Pulse Rate [Apical] 60 Respiratory Rate 16 14 16 Blood Pressure 124/62 Blood Pressure [Left Arm] 154/75 H Blood Pressure [Left Radial Artery] Pulse Oximetry 100 99 99 Oxygen Delivery Bag Valve Mask Oxygen Flow Rate 10 07/29/24 14:29 07/29/24 14:30 07/29/24 15:21 Temperature 36.4 C 36.6 C 36.1 C L Pulse Rate 70 Pulse Rate [Apical] 68 66 Respiratory Rate 16 16 20 Blood Pressure 136/68 Blood Pressure [Left Arm] 148/63 H Blood Pressure [Left Radial Artery] 121/78 Pulse Oximetry 99 99 99 Oxygen Delivery Nasal Cannula Nasal Cannula Nasal Cannula Oxygen Flow Rate 2 2 2 07/29/24 15:26 Temperature 36.6 C Pulse Rate 68 Pulse Rate [Apical] Respiratory Rate 16 Blood Pressure 128/87 Blood Pressure [Left Arm] Blood Pressure [Left Radial Artery] Pulse Oximetry 99 Oxygen Delivery Oxygen Flow Rate Results Labs 07/29/24 15:14 Labs: Abnormal lab results 07/29/24 Range/Units 15:14 WBC 18.2 H (4.5-10.0) K/mm3 RBC 3.60 L (4.6-6.20) M/mm3 Hgb 11.1 L (14.0-18.0) g/dL Hct 34.6 L (42.0-52.0) % RDW 15.9 H (11.5-14.5) % MPV 11.5 H (7.4-10.4) fl Immature Gran % (Auto) 0.6 H (0-0.5) % Neut % (Auto) 85.5 H (45.5-73.1) % Lymph % (Auto) 7.3 L (18.3-44.2) % [place] # (Auto) 1.0 H (0.1-0.6) K/mm3 Abs Immat Gran (auto) 0.11 H (0.00-0.031) K/mm3 Absolute Neuts (auto) 15.6 H (1.3-6.7) K/mm3 H & H 07/29/24 Range/Units 15:14 Hgb 11.1 L (14.0-18.0) g/dL Hct 34.6 L (42.0-52.0) % Coagulation 07/29/24 Range/Units 12:32 INR 1.1 All other labs normal.
--- NOTE | 2024-07-29 16:36 | WPDANESEPPF ---
Anes - Initial Pre Proc Eval Procedure: Operation Date: 07/29/24 16:00 Proposed Procedures p Closed Reduction Left Hip - Tim Lopez MD Date/Time: 07/29/24 16:36 Pre Op Diagnosis: hip pain after fall Patient Data Age: 79 Gender: M Height: 1.77 m Weight: 61.9 kg Last Vital Signs Temp 36.6 C 07/29/24 15:26 Pulse 68 07/29/24 15:26 Resp 16 07/29/24 15:26 BP 128/87 07/29/24 15:26 Pulse Ox 99 07/29/24 15:26 O2 Del Method Nasal Cannula 07/29/24 15:21 O2 Flow Rate 2 07/29/24 15:21 Allergies Allergy/AdvReac Type Severity Reaction Status Date / Time No Known Allergies Allergy Verified 07/22/24 11:26 Laboratory Tests 07/29/24 07/29/24 12:32 15:14 WBC 18.2 H K/mm3 (4.5-10.0) RBC 3.60 L M/mm3 (4.6-6.20) Hgb 11.1 L g/dL (14.0-18.0) Hct 34.6 L % (42.0-52.0) MCV 96.1 fl (80-100) MCH 30.8 pg (26-34) MCHC 32.1 g/dl (32-36) RDW 15.9 H % (11.5-14.5) Plt Count 292 k/mm3 (150-375) MPV 11.5 H fl (7.4-10.4) Immature Gran % (Auto) 0.6 H % (0-0.5) Neut % (Auto) 85.5 H % (45.5-73.1) Lymph % (Auto) 7.3 L % (18.3-44.2) [place] % (Auto) 5.4 % (2.6-8.5) Eos % (Auto) 0.8 % (0-4.4) Baso % (Auto) 0.4 % (0.2-1.2) Lymph # (Auto) 1.33 K/mm3 (0.9-3.2) [place] # (Auto) 1.0 H K/mm3 (0.1-0.6) Eos # (Auto) 0.1 K/mm3 (0-0.3) Baso # (Auto) 0.1 K/mm3 (0.0-0.1) Abs Immat Gran (auto) 0.11 H K/mm3 (0.00-0.031) Absolute Neuts (auto) 15.6 H K/mm3 (1.3-6.7) Absolute Nucleated RBC 0.000 K/mm3 (0.0-0.012) Nucleated RBC % 0.0 % (0.0-0.2) PT 14.0 Seconds (11.1-14.7) INR 1.1 APTT 24.8 Seconds (22.3-36.8) Patient hx anesthesia problems: none Family hx anesthesia problems: none Results Review: All pre-operative results and documents have been reviewed as part of the pre-operative evaluation. [facility] Past Medical History Medical History (Updated 07/29/24 @ 16:51 by Raymond Schwartz DO) Dementia Hypertension CVA (cerebral vascular accident) Anes - Eval Final PreProcedure Day of Procedure 07/29/24 16:36 Patient weight: normal Heart: regular rate and rhythm Lungs: clear to auscultation and normal air movement Airway: Mallampati scale class III Neurological: alert and oriented Last oral intake: >/= 8 hours ASA classification: IV Emergent: no Anesthetic plan: proceed Anesthesia type and monitoring: general GIVS and standard monitoring Results Review: All pre-operative results and documents have been reviewed as part of the pre-operative evaluation. Informed Consent: The patient's anesthetic plan and its attendant risks and benefits were discussed with the patient/family/POA. Questions were solicited and answers provided to the satisfaction of the patient/family/POA.
--- NOTE | 2024-07-29 17:41 | W.PM.PROC2 ---
Procedure Note - Detailed Date of Procedure 07/29/24 Pre-op Diagnosis Dislocation left bipolar hemiarthroplasty Post-op Diagnosis Other (Dissociation of bipolar head from inner head left bipolar hemiarthroplasty) Procedure Performed Attempted close reduction left bipolar hemiarthroplasty dislocation Surgeon Tim Lopez MD Anesthesia General Description of Procedure Patient was brought to the operating room and general anesthesia was administered. He was completely paralyzed with paralyzing agent. I climbed on top of the gurney with the hip flexed 90? and internally rotated and applied gentle traction and the the hip seemed to come out to length but without the usual clunk 1 would expect with a large bipolar head. Intraoperative x-ray showed that the 28 mm inner head resting within the acetabulum but the bipolar head remained posterior improving dissociation of the implant. Cross-table lateral view again suggested the 28 mm head within the acetabular fossa the bipolar head posterior. Since we do not know the brand of implant, I am going to obtain medical records from [facility] to make sure that we would have compatible the implants and he will require revision of the bipolar head component. Since the plastic locking ring mechanism has failed a new one will be necessary to revise the bipolar hemiarthroplasty we will need to obtain the proper implants to do that. In the recovery room, the gentleman had active dorsiflexion of his toes and foot and plantar flexion and he denied numbness to light touch testing in the left foot. [facility] Billing Surgery - Charge Forward: Surgery Billing (Attempted closed reduction dislocated left bipolar hemiarthroplasty)
[2024-07-29] MEDS: LACTATED RINGERS 1,000 ML 30 ML IV CONT (17:42)
--- NOTE | 2024-07-29 18:14 | ECG_ITS ---
Test Date: 2024-07-29 18:35:43 Measurements Intervals [place] Rate: 68 P: 78 LA: 153 QRS: 43 QRSD: 81 T: 70 QT: 405 QTc: 433 Interpretive Statements SINUS RHYTHM Compared to ECG 07/22/2024 11:41:22 No significant changes Electronically Signed On 07-30-2024 16:44:32 CDT by Mathew Sparks M.D.
--- NOTE | 2024-07-29 18:53 | SUR.PHASEI ---
1850 EKG DONE, SHOWS NSR WITH ARTIFACT, RHYTHM SIMILAR TO MONITOR RHYTHM, DR VILLARREAL AND ANESTH. AWARE.
--- NOTE | 2024-07-29 19:24 | SUR.PHASEI ---
PT INCONTINENT, MURIEL CARE GIVEN, NEW DEPENDS APPLIED
--- NOTE | 2024-07-29 19:40 | SUR.PHASEI ---
Less artifact noted on monitor, nsr
--- NOTE | 2024-07-29 20:43 | SUR.PHASEI ---
DELAY IN PT TRANSFER DUE TO REGISTRATION ERROR
[2024-07-29 23:31] LABS: CRP 1.1 mg/dL (<1.0)
[2024-07-30] VITALS (8 sets, daily range): BP systolic 127–128; BP diastolic 55–63; PULSE 63–78; RESP 16–20; TEMP 35.9–37.1; O2SAT 97–98; BMI 19.8
[2024-07-30 00:04] LABS: Erythrocyte Sedimentation Rate 25 mm/hr (0-20)
[2024-07-30] MEDS: traMADol HCL (*CRX) 50 MG TABLET PO (01:33)
[2024-07-30 06:42] LABS: Basophils Absolute Auto 0.1 K/mm3 (0.0-0.1); Basophils Percent Auto 0.6 % (0.2-1.2); Eosinophils Absolute Auto 0.1 K/mm3 (0-0.3); Eosinophils Percent Auto 0.8 % (0-4.4); Hematocrit 31.7 % (42.0-52.0); Hemoglobin 9.8 g/dL (14.0-18.0); Immature Granulocyte Absolute 0.12 K/mm3 (0.00-0.031); Immature Granulocyte Percent A 0.8 % (0-0.5); Lymphocytes Absolute Auto 1.42 K/mm3 (0.9-3.2); Lymphocytes Percent Auto 9.1 % (18.3-44.2); Mean Corpuscular HGB Conc 30.9 g/dl (32-36); Mean Corpuscular Volume 96.9 fl (80-100); Mean Platelet Volume 11.9 fl (7.4-10.4); Monocytes Absolute Auto 1.2 K/mm3 (0.1-0.6); Monocytes Percent Auto 7.4 % (2.6-8.5); Neutrophils Absolute Auto 12.7 K/mm3 (1.3-6.7); Neutrophils Percent Auto 81.3 % (45.5-73.1); Platelet Count Result 270 k/mm3 (150-375); Red Blood Count 3.27 M/mm3 (4.6-6.20); Red Cell Distribution Width 15.9 % (11.5-14.5); White Blood Count 15.6 K/mm3 (4.5-10.0)
[2024-07-30 06:59] LABS: Alanine Aminotransferase 15 U/L (6-50); Albumin Level 3.1 g/dL (3.5-5.1); Alkaline Phosphatase 91 U/L (38-126); Anion Gap 5 mmol/L (4-12); Aspartate Amino Transferase 27 U/L (17-59); Blood Urea Nitrogen 16 mg/dL (9-20); Calcium 8.8 mg/dL (8.4-10.2); Carbon Dioxide 26 mmol/L (22-30); Chloride 106 mmol/L (98-107); Estimated CRCL calculation 42 ml/min; Estimated Glomerular Filt Rate > 60; Glucose 85 mg/dL (65-110); Magnesium 1.8 mg/dL (1.6-2.3); Potassium 4.2 mmol/L (3.4-5.0); Sodium 137 mmol/L (137-145)
--- OUTSIDE RECORDS SUMMARY | 2024-07-30 09:39 | XMS_ITS | Continuity of Care Document ---
Author Organization [employer] [place] Address [address] [place] [address] Phone Care Team Providers Care Heel Cover Softener Name Role Phone Angeles Oreilly DO Unavailable [...] vac RIV3 VACCINE NO PRESERV IM OFFICE [id number] BODY MASS INDEX DOCD SYST BP >= 140 MM HG6 IT DIAST BP < 80 MM HG ROUTINE VENIPUNCTURE [place] BASIC METABOLIC PANEL(BMP) CBC, INC PLATELETS AND DIFFERENTIAL OFFICE [id number] BODY MASS INDEX DOCD SYST BP LT 130 MM HG DIAST BP < 80 MM HG ROUTINE VENIPUNCTURE [place] BASIC METABOLIC PANEL(BMP) CBC, INC PLATELETS AND DIFFERENTIAL Depression screen annual Clin depression screen doc OFFICE [id number]-YHA-[id number] BODY MASS INDEX DOCD SYST BP LT 130 MM HG DIAST BP < 80 MM HG ROUTINE VENIPUNCTURE [place] Removal Of Sutures Or Asia, Not Requi ring Anesthesia OFFICE [id number]-ORL-[id number] BODY MASS INDEX DOCD SYST BP GE [...] MEDICARE Pneumococcal Conjugate Vaccine (PCV20) A OFFICE HKDDC-[id number]-WLOE-MED BODY MASS INDEX DOCD SYST BP >= [...] Diagnoses Date Provider Providers Copied on Encounter [facility], [address], [place], [place], [address] , [place] tel: [phone] [facility] [place] No Information 5 Afia Reynoso. [address] [place], [place], [address] , [place]. tel: [phone] [facility], [address], [place], [place], [address] , [place] tel: [phone] [facility] No Information 4 English Thompson. [address] [place], [place], [address] , [place]. tel: [phone] [facility], [address], [place], [place], [address] , [place] tel: [phone] [facility] No Information 4 Eun Viveros. [address] [address], [place], [place], [address] , [place]. tel: [phone] Referring Provider: Jay Soriano, [address] [place], [address] . tel:[phone] OFFICE IJCYF-UES-ZA TAILED [facility], [address], [place], [place], [address] , [place] tel: [phone] [facility] chr conditions (chief complaint) Leukocytosis, unspecified typeHypertensive chronic kidney disease with stage 1 through stage 4 chronic kidney disease, or unspecified chronic kidney diseaseHistory of CVA (cerebrovascular accident) 4 English Thompson. [address] [place], [place], [address] , . tel: [phone] Referring Provider: Jay Soriano, [address] [place], [address] . tel:[phone] [facility], [address], [place], [place], [address] , tel: [phone] [facility] No Information 4 Makenna Maria. [address] [place], [address] , [place]. tel: [phone] [facility], [address], [place], [place], [address] , [place] tel: [phone] [facility] No Information 4 Eun Viveros. [address] [place] [address], [id number] , . tel: [phone] Referring Provider: Candace Mensah, [address] [place], [address] . tel:[phone] OFFICE ULPAK-EBZ-CW TAILED [facility], [address], [place], [place], [address] , [place] tel: [phone] [facility] weakness/di zziness (chief complaint) Leukocytosis, unspecified typeHoarseness of voiceHypertensive chronic kidney disease with stage 1 through stage 4 chronic kidney disease, or unspecified chronic kidney diseaseStage 3 chronic kidney disease, unspecified whether stage 3a or 3b CKDHistory of CVA (cerebrovascular accident) 4 Makenna Maria. [address] [place], [address] , [place]. tel: [phone] Referring Provider: Jay Soriano, [address] [place], [address] . tel:[phone] [facility], [address], [place], [place], [address] , tel: [phone] [facility] No Information 4 Eun Fry [address], [id number] , [place]. tel: [phone] Referring Provider: Jay Soriano, [address] [place], [address] . tel:[phone] OFFICE QXXSP-LOK-AW TAILED [facility], [address], [place], [place], [address] , [place] tel: [phone] [facility] chronic condition (chief complaint) Leukocytosis, unspecified typeHypertensive chronic kidney disease with stage 1 through stage 4 chronic kidney disease, or unspecified chronic kidney diseaseNonhealing skin ulcer, limited to breakdown of skinSenile purpuraHoarseness of voice 4 English Thompson. [address] [place], [place], [address] , [place]. tel: [phone] Referring Provider: Jay Soriano, [place], [address] . tel:[phone] OFFICE SESUB-YSA-OY PANDED [facility], [address], [place], [place], [address] , [place] tel: [phone] [facility] ER followup (chief complaint) Laceration of scalp, initial encounterEncounter for removal of sutures 4 Makenna Maria. [address] [place], [place], [address] , [place]. tel: [phone] Referring Provider: [place], [address] . tel:[phone] [facility], [address], [place], [place], [address] , [place] tel: [phone] [facility] Leukocytosis, unspecified type 4 English Thompson. [address] [place], [place], [address] , [place]. tel: [phone] Referring Provider: [place], [address] . tel:[phone] [facility], [address], [place], [place], [address] , tel: [phone] [facility] No Information 4 Eun Viveros. [address], [id number] , . tel: [phone] Referring Provider: Jay Soriano, [address] [place], [address] . tel:[phone] [facility], [address], [place], [place], [address] , tel: [phone] [facility] No Information 4 Eun Viveros. [address], [id number] , . tel: [phone] Referring Provider: Candace Mensah, [address] [place], [address] . 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 [address] [place], [address] , [place]. tel: [phone] Referring Provider: Jay Soriano, [address] [place], [address] . tel:[phone] Family History Family Member Type Diagnosis Age At Onset Father Problem Diabetes mellitus Mother Problem Cancer, breast Father Problem Hypertension Immunizations Vaccine Date Status Comments Flublok, Trivalent, preservative free, 18+ yrs, 0.5mL dosage administered Source: New Immuniza tion Record Pneumococcal conjugate PCV20 administered Source: New Immunization Record Payers Payer name Insurance type Covered constitution party ID Jonathan calle(s) Vastari [id number] Vastari [id number] Social History Type Description Quantity Date Captured [...] Referral Referred To: Jay Sheth DO [address] [facility]
[place], [phone] Ordered: Referrals: Hematology Oncology. Jay Sheth DO. Evaluation/diagnostic/treatment - Level 3 ordered Referral Ordered: Gary Faith MD -Otolaryngology (related to Hoarseness of voice) ordered Referral Referred To: Gary Faith MD [address] [place], [phone] Ordered: Referrals: Otolaryngology. Gary Faith MD. Evaluation/diagnostic/treatment - Level 3 ordered Referral Ordered: Physical Therapy [facility] Physical Therapy (related to Gait instability) ordered Referral Referred To: Dora Hendrickson
[facility] [address] [place], [phone] Ordered: Chest x-ray, PA and lateral ordered Referral Referred To: Physical Therapy [address] [place], [phone] Ordered: Referrals: Physical Therapy. Location: [facility]. Evaluate and treat - Level 2 ordered Referral Referred To: Dr Castañeda [address] [place], [place], [phone] Ordered: Referrals: Neurology. Dr Castañeda. Evaluation/diagnostic/treatment - Level 3 ordered History Of Present Illness Encounter Date Complaint History Of Prese nt Illness chr conditions left hand weakne ss---- cant fully openct showed lacunar infarctsleujocytosis-- smoking less, [facility] 140s at home weakness/dizziness 78 year old [...] blood cell count. We will refer to stope miner if still elevated chronic condition leukocytosis-- probably [...] with laceration. Denies pain, drainage, redness, swelling. 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 Patient's last visit to a primary care provider was in March [address] Polanco. He lives in [place] with his partner. AcutePatient reports having difficulty [...] toda yif still high, will send to stope miner/oncologist Related to Leukocytosis, unspecified type Continue to [...] Related to Leukocytosis, unspecified type Medication management [place] removed with no complicationContinue to use baby [...] lung cancer screening Related to Tobacco use We will refer you to neurologist today Related to Weakness Continue to work on low fat diet and increase regular exercise with goal of walking at least 30 minutes 3-5 times per week Related to Hyperlipidemia, unspecified hyperlipidemia type We will refer you to neurologist today Related to History of CVA (cerebrovascular accident) BEGIN TAKING BUPROPI ON DAILYLet us know [...]
--- OUTSIDE RECORDS SUMMARY | 2024-07-30 09:49 | XMS_ITS | Continuity of Care Document ---
Author Organization [employer] [place] Address [address] [place] [address] Phone Care Team Providers Care Printing Services Coordinator Name Role Phone Angeles Oreilly DO Unavailable [...] vac RIV3 VACCINE NO PRESERV IM OFFICE [id number]-ENS-[id number] BODY MASS INDEX DOCD SYST BP >= 140 MM HG6 IT DIAST BP < 80 MM HG ROUTINE VENIPUNCTURE [place] BASIC METABOLIC PANEL(BMP) CBC, INC PLATELETS AND DIFFERENTIAL OFFICE QZNIR-RAS-GDVWENLI BODY MASS INDEX DOCD SYST BP LT 130 MM HG DIAST BP < 80 MM HG ROUTINE VENIPUNCTURE [place] BASIC METABOLIC PANEL(BMP) CBC, INC PLATELETS AND DIFFERENTIAL Depression screen annual Clin depression screen doc OFFICE [id number] BODY MASS INDEX DOCD SYST BP LT 130 MM HG DIAST BP < 80 MM HG ROUTINE VENIPUNCTURE [place] Removal Of Sutures Or Asia, Not Requi ring Anesthesia OFFICE QZHKB-AIG-JVLBEZIY BODY MASS INDEX DOCD SYST BP GE [...] MEDICARE Pneumococcal Conjugate Vaccine (PCV20) A OFFICE QFKBY-UVP-ZIHV-MED BODY MASS INDEX DOCD SYST BP >= [...] Diagnoses Date Provider Providers Copied on Encounter [facility], [address], [place], [place], [address] , [place] tel: [phone] [facility] [place] No Information 5 Afia Reynoso. [address] [place], [place], [address] , [place]. tel: [phone] [facility], [address], [place], [place], [address] , [place] tel: [phone] [facility] No Information 4 English Thompson. [address] [place], [place], [address] , [place]. tel: [phone] [facility], [address], [place], [place], [address] , [place] tel: [phone] [facility] No Information 4 Eun Viveros. [address] [address], [place], [place], [address] , [place]. tel: [phone] Referring Provider: Jay Soriano, [address] [place], [address] . tel:[phone] OFFICE JHERO-XGD-BE TAILED [facility], [address], [place], [place], [address] , [place] tel: [phone] [facility] chr conditions (chief complaint) Leukocytosis, unspecified typeHypertensive chronic kidney disease with stage 1 through stage 4 chronic kidney disease, or unspecified chronic kidney diseaseHistory of CVA (cerebrovascular accident) 4 English Thompson. [address] [place], [place], [address] , . tel: [phone] Referring Provider: Jay Soriano, [address] [place], [address] . tel:[phone] [facility], [address], [place], [place], [address] , tel: [phone] [facility] No Information 4 Makenna Maria. [address] [place], [place], [address] , [place]. tel: [phone] [facility], [address], [place], [place], [address] , [place] tel: [phone] [facility] No Information 4 Eun Viveros. [address] [place] [address], [address] , . tel: [phone] Referring Provider: Candace Mensah, [address] [place], [address] . tel:[phone] OFFICE FIZRC-DPS-XU TAILED [facility], [address], [place], [place], [address] , [place] tel: [phone] [facility] weakness/di zziness (chief complaint) Leukocytosis, unspecified typeHoarseness of voiceHypertensive chronic kidney disease with stage 1 through stage 4 chronic kidney disease, or unspecified chronic kidney diseaseStage 3 chronic kidney disease, unspecified whether stage 3a or 3b CKDHistory of CVA (cerebrovascular accident) 4 Makenna Maria. [address] [place], [place], [address] , [place]. tel: [phone] Referring Provider: Jay Soriano, [address] [place], [address] . tel:[phone] [facility], [address], [place], [place], [address] , tel: [phone] [facility] No Information 4 Eun Fry [address], [id number] , [place]. tel: [phone] Referring Provider: Jay Soriano, [address] [place], [address] . tel:[phone] OFFICE VTZYN-RIW-NG TAILED [facility], [address], [place], [place], [address] , [place] tel: [phone] [facility] chronic condition (chief complaint) Leukocytosis, unspecified typeHypertensive chronic kidney disease with stage 1 through stage 4 chronic kidney disease, or unspecified chronic kidney diseaseNonhealing skin ulcer, limited to breakdown of skinSenile purpuraHoarseness of voice 4 English Thompson. [address] [place], [place], [address] , [place]. tel: [phone] Referring Provider: Jay Soriano, [place], [address] . tel:[phone] OFFICE PHBWZ-LNO-IQ PANDED [facility], [address], [place], [place], [address] , [place] tel: [phone] [facility] ER followup (chief complaint) Laceration of scalp, initial encounterEncounter for removal of sutures 4 Makenna Maria. [address] [place], [place], [address] , [place]. tel: [phone] Referring Provider: [place], [address] . tel:[phone] [facility], [address], [place], [place], [address] , [place] tel: [phone] [facility] Leukocytosis, unspecified type 4 English Thompson. [address] [place], [place], [address] , [place]. tel: [phone] Referring Provider: [place], [address] . tel:[phone] [facility], [address], [place], [place], [address] , tel: [phone] [facility] No Information 4 Eun Viveros. [address], [id number] , . tel: [phone] Referring Provider: Jay Soriano, [address] [place], [address] . tel:[phone] [facility], [address], [place], [place], [address] , tel: [phone] [facility] No Information 4 Eun Viveros. [address], [address] , . tel: [phone] Referring Provider: Candace Mensah, [address] [place], [address] . tel:[phone] OFFICE EKFSN-BJZ-XA -MED 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 [address] [place], [place], [address] , [place]. tel: [phone] Referring Provider: Jay Soriano, [address] [place], [address] . tel:[phone] Family History Family Member Type Diagnosis Age At Onset Father Problem Diabetes mellitus Mother Problem Cancer, breast Father Problem Hypertension Immunizations Vaccine Date Status Comments Flublok, Trivalent, preservative free, 18+ yrs, 0.5mL dosage administered Source: New Immuniza tion Record Pneumococcal conjugate PCV20 administered Source: New Immunization Record Payers Payer name Insurance type Covered republican ID Jonathan calle(s) [email or web address] [id number] [email or web address] [id number] Social History Type Description Quantity Date Captured [...] Referral Referred To: Jay Sheth DO [address] [facility] [place], [phone] Ordered: Referrals: Hematology Oncology. Jay Sheth DO. Evaluation/diagnostic/treatment - Level 3 ordered Referral Ordered: Gary Faith MD -Otolaryngology (related to Hoarseness of voice) ordered Referral Referred To: Gary Faith MD [address] [place], [phone] Ordered: Referrals: Otolaryngology. Gary Faith MD. Evaluation/diagnostic/treatment - Level 3 ordered Referral Ordered: Physical Therapy [facility] Physical Therapy (related to Gait instability) ordered Referral Referred To: Dora Hendrickson
[facility] [address] [place], [phone] Ordered: Chest x-ray, PA and lateral ordered Referral Referred To: Physical Therapy [address] [place], [phone] Ordered: Referrals: Physical Therapy. Location: [facility]. Evaluate and treat - Level 2 ordered Referral Referred To: Dr Castañeda [address] [place], [place], [phone] Ordered: Referrals: Neurology. Dr Castañeda. Evaluation/diagnostic/treatment - Level 3 ordered History Of Present Illness Encounter Date Complaint History Of Prese nt Illness chr conditions left hand weakne ss---- cant fully openct showed lacunar infarctsleujocytosis-- smoking less, never saw hemehad stroke [facility]-- 140s at home weakness/dizziness 78 year [...] blood cell count. We will refer to director special education if still elevated chronic condition leukocytosis-- probably [...] with laceration. Denies pain, drainage, redness, swelling. 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 Patient's last visit to a primary care provider was in March [address] Polanco. He lives in [place] with his partner. AcutePatient reports having difficulty [...] toda yif still high, will send to director special education/oncologist Related to Leukocytosis, unspecified type Continue to [...] Related to Leukocytosis, unspecified type Medication management [place] removed with no complicationContinue to use baby [...]
--- NOTE | 2024-07-30 11:53 | P.PNOP_ITS ---
Progress Note: A&P Assessment and Plan (1) Fracture of left acetabulum: Qualifiers: Encounter type: initial encounter Sublocation of acetabulum: posterior wall Fracture type: closed Fracture alignment: nondisplaced Qualified Code(s): S32.425A - Nondisplaced fracture of posterior wall of left acetabulum, initial encounter for closed fracture Code(s): S32.402A - Unspecified fracture of left acetabulum, initial encounter for closed fracture Status: Acute Assessment and Plan: Patient was seen. He is awake and answers questions yes or no. His memory is poor and he has a hard time providing much history. The denies any numbness to light touch testing in the left foot and he is able to dorsiflex the toes and ankle and plantar flex. He is wearing the abductor pillow and there was no pressure on his heels as he h as a pillow under the calves. The records from [facility] came in last night about 1:00 p.m. and I reviewed these. His surgeon was Dr. Tio Christine and the surgery was on June 19, approximately 5 and half weeks ago. Posterior approach was utilized. Becerra and nephew Richco bipolar hip replacement was utilized. Implant stickers indicated the size 54 head size 28 by +0 inner head. I reviewed the technical manual and the design of the locking mechanism is a ring that is clicked on after the small head is inserted into the bipolar head which will necessitate disimpaction of the 28 mm head from his femoral component to properly assembled the bipolar head construct. I have spoken with Dr. Gtz and he is going to help me with the surgery. He is a posterior approach hip replacement surgeon with vast experience with posterior approach. I am anticipating that there may be difficulty repairing the posterior soft tissues which will put him at increased risk for recurrent dislocation. It is possible that the external rotators may have pulled off prior to his dislocation and may be retracted and may be unable to be mobilized. I spoke with Artem a little while ago his par returning and I explained the revision procedure to her. We would plan to leave the femoral component in place as it is likely fairly well ingrown by now at 5 and half weeks and there should be no reason to exchange that. The bipolar head and in her head will have to be exchanged to complete the reconstruction and then posterior soft tissues repaired. His C-reactive protein was 1.1 normal is 1 and a sedimentation rate was minimally elevated at 25. Is almost normal CRP strongly argues against acute postop infection around the prosthesis. His white count yesterday was 18,000 which raise the concern. Patient had persistently elevated white count even higher than that while he was at [facility] and no explanation for that was identified but it does not seem to be related to any infection as no infection as manifest. Therefore we will give him the normal IV antibiotics preoperatively Ancef and vancomycin. I explained to her that after surgery there is significant risk of recurrent dislocation unfortunately. Therefore I would recommend that he wear a knee brace full-time for 6 weeks holding the knee in full extension so he cannot hyperflex his left hip and hopefully this will be sufficient. Hip guide spica brace is another option but he would have to wear it 247 including sleeping which will be very difficult for him to tolerate. If he does not wear it sleepi ng there is too high a risk that he will inadvertently hyperflexes hip were get out of bed and hyperflex his hip without the guide brace on. Risk of infection, blood clots, nerve injury, and medical complications associated with surgery and anesthesia were reviewed. I explained that I think his risk of DVT may be a little bit higher wearing the brace and having a 2nd surgery and a short period of time and we will plan to use Eliquis for 6 weeks after surgery. All of her questions were answered. We will proceed as discussed. (2) Failure of left total hip arthroplasty with dislocation of hip: Qualifiers: Encounter type: initial encounter Qualified Code(s): T84.021A - Dislocation of internal left hip prosthesis, initial encounter Code(s): T84.021A - Dislocation of internal left hip prosthesis, initial encounter Status: Acute Subjective Subjective Date/Time Seen: 07/30/24 11:53 Objective Data Vital Signs Vital Signs: Vital Signs - 24 hr 07/29/24 11:57 07/29/24 14:15 07/29/24 14:29 Temperature 36.4 C 36.4 C Pulse Rate 63 Pulse Rate [Apical] 60 Respiratory Rate 16 14 16 Blood Pressure 124/62 Blood Pressure [Left Arm] 154/75 H Blood Pressure [Left Radial Artery] Pulse Oximetry 100 99 99 Oxygen Delivery Bag Valve Mask Oxygen Flow Rate 10 07/29/24 14:29 07/29/24 14:30 07/29/24 15:21 Temperature 36.4 C 36.6 C 36.1 C L Pulse Rate 70 Pulse Rate [Apical] 68 66 Respiratory Rate 16 16 20 Blood Pressure 136/68 Blood Pressure [Left Arm] 148/63 H Blood Pressure [Left Radial Artery] 121/78 Pulse Oximetry 99 99 99 Oxygen Delivery Nasal Cannula Nasal Cannula Nasal Cannula Oxygen Flow Rate 2 2 2 07/29/24 15:26 07/29/24 17:24 07/29/24 17:35 Temperature 36.6 C 36.1 C L Pulse Rate 68 60 66 Pulse Rate [Apical] Respiratory Rate 16 20 17 Blood Pressure 128/87 130/62 138/68 Blood Pressure [Left Arm] Blood Pressure [Left Radial Artery] Pulse Oximetry 99 100 100 Oxygen Delivery Simple Face Mask Simple Face Mask Oxygen Flow Rate 8 8 07/29/24 17:50 07/29/24 18:05 07/29/24 18:20 Temperature Pulse Rate 75 65 69 Pulse Rate [Apical] Respiratory Rate 16 18 13 Blood Pressure 146/66 H 135/63 141/59 H Blood Pressure [Left Arm] Blood Pressure [Left Radial Artery] Pulse Oximetry 100 100 97 Oxygen Delivery Simple Face Mask Room Air Room Air Oxygen Flow Rate 8 07/29/24 18:35 07/29/24 18:50 07/29/24 19:05 Temperature Pulse Rate 69 68 65 Pulse Rate [Apical] Respiratory Rate 18 11 L 14 Blood Pressure 123/69 123/69 146/60 H Blood Pressure [Left Arm] Blood Pressure [Left Radial Artery] Pulse Oximetry 97 97 98 Oxygen Delivery Room Air Room Air Room Air Oxygen Flow Rate 07/29/24 19:20 07/29/24 19:35 07/29/24 19:50 Temperature Pulse Rate 65 67 79 Pulse Rate [Apical] Respiratory Rate 20 15 16 Blood Pressure 137/64 138/60 136/62 Blood Pressure [Left Arm] Blood Pressure [Left Radial Artery] Pulse Oximetry 98 98 98 Oxygen Delivery Room Air Room Air Room Air Oxygen Flow Rate 07/29/24 20:30 07/29/24 21:00 07/29/24 21:34 Temperature Pulse Rate 68 67 Pulse Rate [Apical] Respiratory Rate 16 16 Blood Pressure 132/70 132/74 Blood Pressure [Left Arm] Blood Pressure [Left Radial Artery] Pulse Oximetry 98 98 Oxygen Delivery Room Air Room Air Room Air Oxygen Flow Rate 07/30/24 00:00 07/30/24 00:15 07/30/24 04:45 Temperature 37.1 C 35.9 C L Pulse Rate 70 70 63 Pulse Rate [Apical] Respiratory Rate 20 18 Blood Pressure 127/61 127/55 L Blood Pressure [Left Arm] Blood Pressure [Left Radial Artery] Pulse Oximetry 97 98 Oxygen Delivery Oxygen Flow Rate 07/30/24 09:24 Temperature Pulse Rate Pulse Rate [Apical] Respiratory Rate Blood Pressure Blood Pressure [Left Arm] Blood Pressure [Left Radial Artery] Pulse Oximetry 97 Oxygen Delivery Room Air Oxygen Flow Rate Intake/Output Intake/Output: Intake & Output 07/27/24 07/28/24 07/29/24 07/30/24 23:59 23:59 23:59 23:59 Intake Total 1300 50 Output Total 200 Balance 1300 -150 Meds/Results Medications: Active Medications Generic Name Dose Route Start Last Admin Trade Name Freq PRN Reason Stop Dose Admin Acetaminophen 650 mg 07/29/24 15:53 Acetaminophen 325 Mg Tablet PO Q4H PRN Mild Pain (1-3) or Fever Acetaminophen 650 mg 07/29/24 21:05 Acetaminophen 325 Mg Tablet PO TID PRN pain 1-3 Amlodipine Besylate 10 mg 07/30/24 09:00 Amlodipine Besylate 10 Mg Tablet PO DAILY AMELIA Aspirin 81 mg 07/29/24 21:05 07/30/24 00:00 Aspirin 81 Mg Enteric Tablet PO 81 mg HS AMELIA Administration Atorvastatin Calcium 20 mg 07/29/24 21:05 07/30/24 00:00 Atorvastatin 20 Mg Tablet PO 20 mg HS AMELIA Administration Bisacodyl 10 mg 07/30/24 09:00 Bisacodyl 5 Mg Tablet Ec PO DAILY AMELIA Bupropion HCl 100 mg 07/30/24 09:00 Bupropion Hcl Sr (12hr) 100 Mg Tabcr PO DAILY AMELIA Famotidine 20 mg 07/29/24 21:05 07/30/24 00:00 Famotidine 20 Mg Tablet PO 20 mg HS AMELIA Administration Metoprolol Tartrate 12.5 mg 07/29/24 21:00 07/30/24 00:00 Metoprolol Tartrate 12.5 Mg Tablet PO 12.5 mg Q12HR AMELIA Administration Ondansetron HCl 4 mg 07/29/24 15:53 Ondansetron Inj 4 Mg/2 Ml Vial IV PUSH Q6H PRN Nausea And Vomiting Pantoprazole Sodium 20 mg 07/30/24 21:00 Pantoprazole Sod Sesquihydrate 20 Mg Tab PO Q12HR [facility] Polyethylene Glycol 17 gm 07/30/24 09:00 Polyethylene Glycol 3350 17 Gm Powd.Pack PO DAILY [facility] Senna 17.2 mg 07/30/24 09:00 Sennosides 8.6 Mg Tablet PO BID [facility] Tramadol HCl 50 mg 07/29/24 21:05 07/30/24 01:33 Tramadol Hcl (*Crx) 50 Mg Tablet PO 50 mg Q6H PRN Administration pain 4-6 Radiology Results: ITS Impressions Chest X-Ray 07/29/24 12:54 IMPRESSION: Prominent markings in the lower lobes more on the left side. Bronchitis cannot be excluded. Clinical correlation advised. Hip X-Ray 07/29/24 14:42 IMPRESSION: 1. Persistent superior dislocation of the left hip hemiarthroplasty. Hip CT 07/29/24 15:03 IMPRESSION: Dislocated left hip arthroplasty involving the acetabular and femoral portions. Fracture of the anterior and posterior left the left acetabulum. Hip/Pelvis X-Ray 07/29/24 18:01 IMPRESSION: Redemonstration of left hip arthroplasty dislocation Labs Labs: Laboratory Results - last 24 hr 07/29/24 07/29/24 07/29/24 12:32 15:14 23:07 WBC 18.2 H RBC 3.60 L Hgb 11.1 L Hct 34.6 L MCV 96.1 MCH 30.8 MCHC 32.1 RDW 15.9 H Plt Count 292 MPV 11.5 H Immature Gran % (Auto) 0.6 H Neut % (Auto) 85.5 H Lymph % (Auto) 7.3 L [place]mer[place]da % (Auto) 5.4 Eos % (Auto) 0.8 Baso % (Auto) 0.4 Lymph # (Auto) 1.33 [place]mer[place]da # (Auto) 1.0 H Eos # (Auto) 0.1 Baso # (Auto) 0.1 Abs Immat Gran (auto) 0.11 H Absolute Neuts (auto) 15.6 H Absolute Nucleated RBC 0.000 Nucleated RBC % 0.0 ESR 25 H PT 14.0 INR 1.1 APTT 24.8 Sodium Potassium Chloride Carbon Dioxide Anion Gap BUN Creatinine Estim Creat Clear Calc Estimated GFR Glucose Calcium Magnesium Total Bilirubin AST ALT Alkaline Phosphatase C-Reactive Protein 1.1 Total Protein Albumin 07/30/24 06:07 WBC 15.6 H RBC 3.27 L Hgb 9.8 L Hct 31.7 L MCV 96.9 MCH 30.0 MCHC 30.9 L RDW 15.9 H Plt Count 270 MPV 11.9 H Immature Gran % (Auto) 0.8 H Neut % (Auto) 81.3 H Lymph % (Auto) 9.1 L Esmer[place]da % (Auto) 7.4 Eos % (Auto) 0.8 Baso % (Auto) 0.6 Lymph # (Auto) 1.42 [place]mer[place]da # (Auto) 1.2 H Eos # (Auto) 0.1 Baso # (Auto) 0.1 Abs Immat Gran (auto) 0.12 H Absolute Neuts (auto) 12.7 H Absolute Nucleated RBC 0.000 Nucleated RBC % 0.0 ESR PT INR APTT Sodium 137 Potassium 4.2 Chloride 106 Carbon Dioxide 26 Anion Gap 5 BUN 16 Creatinine 1.12 Estim Creat Clear Calc 42 Estimated GFR > 60 Glucose 85 Calcium 8.8 Magnesium 1.8 Total Bilirubin 1.0 AST 27 ALT 15 Alkaline Phosphatase 91 C-Reactive Protein Total Protein 5.0 L Albumin 3.1 L
--- NOTE | 2024-07-30 14:52 | WPDANESPN ---
Anes - Prog Note Post-Op Date/Time: 07/30/24 14:52 Cardiovascular status: normal Respiratory status: normal Airway patency: baseline Mental status: baseline Post-Op hydration status: normal Vital Signs: Last Vital Signs Temp 97.9 F 07/30/24 14:00 Pulse 71 07/30/24 14:00 Resp 16 07/30/24 14:00 BP 128/63 07/30/24 14:00 Pulse Ox 98 07/30/24 14:00 O2 Del Method Room Air 07/30/24 09:24 O2 Flow Rate 8 07/29/24 17:50 Pain Score (VAS): 0/10 I/O: Intake & Output 07/29/24 07/30/24 07/30/24 23:59 07:59 15:59 Intake Total 300 50 Output Total 200 Balance 300 -150 Laboratory Tests 07/30/24 06:07 07/30/24 06:07 07/29/24 07/29/24 07/30/24 15:14 23:07 06:07 WBC 18.2 H 15.6 H RBC 3.60 L 3.27 L Hgb 11.1 L 9.8 L Hct 34.6 L 31.7 L MCV 96.1 96.9 MCH 30.8 30.0 MCHC 32.1 30.9 L RDW 15.9 H 15.9 H Plt Count 292 270 MPV 11.5 H 11.9 H Immature Gran % (Auto) 0.6 H 0.8 H Neut % (Auto) 85.5 H 81.3 H Lymph % (Auto) 7.3 L 9.1 L [place] % (Auto) 5.4 7.4 Eos % (Auto) 0.8 0.8 Baso % (Auto) 0.4 0.6 Lymph # (Auto) 1.33 1.42 [place] # (Auto) 1.0 H 1.2 H Eos # (Auto) 0.1 0.1 Baso # (Auto) 0.1 0.1 Abs Immat Gran (auto) 0.11 H 0.12 H Absolute Neuts (auto) 15.6 H 12.7 H Absolute Nucleated RBC 0.000 0.000 Nucleated RBC % 0.0 0.0 ESR 25 H Sodium 137 Potassium 4.2 Chloride 106 Carbon Dioxide 26 Anion Gap 5 BUN 16 Creatinine 1.12 Estim Creat Clear Calc 42 Estimated GFR > 60 Glucose 85 Calcium 8.8 Magnesium 1.8 Total Bilirubin 1.0 AST 27 ALT 15 Alkaline Phosphatase 91 C-Reactive Protein 1.1 Total Protein 5.0 L Albumin 3.1 L Blood Type Antibody Screen 07/30/24 12:54 WBC RBC Hgb Hct MCV MCH MCHC RDW Plt Count MPV Immature Gran % (Auto) Neut % (Auto) Lymph % (Auto) [place] % (Auto) Eos % (Auto) Baso % (Auto) Lymph # (Auto) [place] # (Auto) Eos # (Auto) Baso # (Auto) Abs Immat Gran (auto) Absolute Neuts (auto) Absolute Nucleated RBC Nucleated RBC % ESR Sodium Potassium Chloride Carbon Dioxide Anion Gap BUN Creatinine Estim Creat Clear Calc Estimated GFR Glucose Calcium Magnesium Total Bilirubin AST ALT Alkaline Phosphatase C-Reactive Protein Total Protein Albumin Blood Type B Positive Antibody Screen Negative Post-procedural complaints: none Patient Feedback: Patient satisfied with anesthetic care.
--- NOTE | 2024-07-30 15:12 | PCPTNOTE ---
Patient is pending surgery. Will follow.
--- NOTE | 2024-07-30 15:20 | SUR.PREOP ---
Patient was brought to Outpatient room 17 to prepare for his upcoming procedure. We were then notified that the patient had to be canceled for today and his procedure would be moved to tomorrow. Patient was promptly returned to his room 322 and report was given to his nurse Rafia.
--- NOTE | 2024-07-30 15:28 | PC.NURSE ---
pt to surgery via bed
--- NOTE | 2024-07-30 15:43 | PC.NURSE ---
pt returned to room, unable to do surgery today due to surgery schedule, I called JEN and updated her on the new time of 1200 07/31/2024
[2024-07-30] MEDS: ENOXAPARIN 40 MG/0.4 ML SYRINGE SUB-Q (17:04)
[2024-07-30] MEDS: METOPROLOL TARTRATE 12.5 MG TABLET PO ×3 (17:04→21:24)
[2024-07-30] MEDS: buPROPion HCL SR (12HR) 100 MG TABCR PO (17:07)
[2024-07-30] MEDS: ACETAMINOPHEN 325 MG TABLET 650 MG PO (17:07)
[2024-07-30] MEDS: ATORVASTATIN 20 MG TABLET PO ×2 (21:24)
[2024-07-30] MEDS: ASPIRIN 81 MG ENTERIC TABLET PO ×2 (21:24)
[2024-07-30] MEDS: PANTOPRAZOLE SOD SESQUIHYDRATE 20 MG TAB PO (21:24)
[2024-07-30] MEDS: FAMOTIDINE 20 MG TABLET PO ×2 (21:24)
[2024-07-31] VITALS (15 sets, daily range): BP systolic 100–158; BP diastolic 47–79; PULSE 58–96; RESP 14–18; TEMP 36.2–37.1; O2SAT 95–100
[2024-07-31 07:00] LABS: Basophils Absolute Auto 0.1 K/mm3 (0.0-0.1); Basophils Percent Auto 0.8 % (0.2-1.2); Eosinophils Absolute Auto 0.4 K/mm3 (0-0.3); Hematocrit 29.5 % (42.0-52.0); Hemoglobin 9.4 g/dL (14.0-18.0); Immature Granulocyte Absolute 0.08 K/mm3 (0.00-0.031); Immature Granulocyte Percent A 0.6 % (0-0.5); Lymphocytes Absolute Auto 1.53 K/mm3 (0.9-3.2); Lymphocytes Percent Auto 11.3 % (18.3-44.2); Mean Corpuscular HGB Conc 31.9 g/dl (32-36); Mean Corpuscular Hemoglobin 30.8 pg (26-34); Mean Corpuscular Volume 96.7 fl (80-100); Monocytes Absolute Auto 1.4 K/mm3 (0.1-0.6); Monocytes Percent Auto 10.1 % (2.6-8.5); Neutrophils Absolute Auto 10.1 K/mm3 (1.3-6.7); Neutrophils Percent Auto 74.2 % (45.5-73.1); Platelet Count Result 247 k/mm3 (150-375); Red Blood Count 3.05 M/mm3 (4.6-6.20); Red Cell Distribution Width 15.6 % (11.5-14.5); White Blood Count 13.6 K/mm3 (4.5-10.0)
[2024-07-31 07:06] LABS: Alanine Aminotransferase 16 U/L (6-50); Albumin Level 2.9 g/dL (3.5-5.1); Alkaline Phosphatase 87 U/L (38-126); Anion Gap 5 mmol/L (4-12); Aspartate Amino Transferase 35 U/L (17-59); Bilirubin,Total 0.6 mg/dL (0.2-1.3); Blood Urea Nitrogen 22 mg/dL (9-20); Calcium 8.9 mg/dL (8.4-10.2); Carbon Dioxide 29 mmol/L (22-30); Chloride 103 mmol/L (98-107); Estimated CRCL calculation 45 ml/min; Estimated Glomerular Filt Rate > 60; Glucose 92 mg/dL (65-110); Magnesium 1.9 mg/dL (1.6-2.3); Potassium 3.9 mmol/L (3.4-5.0); Sodium 137 mmol/L (137-145)
--- NOTE | 2024-07-31 07:54 | P.PNOP_ITS ---
Progress Note: A&P Assessment and Plan (1) Failure of left total hip arthroplasty with dislocation of hip: Qualifiers: Encounter type: initial encounter Qualified Code(s): T84.021A - Dislocation of internal left hip prosthesis, initial encounter Code(s): T84.021A - Dislocation of internal left hip prosthesis, initial encounter Status: Acute Assessment and Plan: We had planned for revision of his bipolar head left hip yesterday at 2:00 p.m. but scheduling problems in the OR prevented that from happening and a have given us 12 noon as a surgical time. Patient is resting comfortably fortunately and he has active dorsiflexion of his left ankle and toes. No signs of sciatic nerve palsy. Plan to proceed as discussed today. I did give him 1 dose of Lovenox 40 mg subQ at approximately 2:00 p.m. yesterday when we learned that the surgery plans were canceled. The Subjective Subjective Date/Time Seen: 07/31/24 07:54 Objective Data Vital Signs Vital Signs: Vital Signs - 24 hr 07/30/24 08:15 07/30/24 09:24 07/30/24 14:00 Temperature 36.6 C Pulse Rate 71 Respiratory Rate 16 Blood Pressure 128/63 Pulse Oximetry 97 98 Oxygen Delivery Room Air Room Air 07/30/24 17:04 07/30/24 20:00 07/30/24 21:24 Temperature Pulse Rate 76 78 Respiratory Rate Blood Pressure Pulse Oximetry Oxygen Delivery Room Air 07/30/24 21:34 07/31/24 05:39 Temperature 36.4 C 36.7 C Pulse Rate 74 58 L Respiratory Rate 16 16 Blood Pressure 127/62 129/48 L Pulse Oximetry 97 98 Oxygen Delivery Intake/Output Intake/Output: Intake & Output 07/28/24 07/29/24 07/30/24 07/31/24 23:59 23:59 23:59 23:59 Intake Total 1300 530 Output Total 800 550 Balance 1300 -270 -550 Meds/Results Medications: Active Medications Generic Name Dose Route Start Last Admin Trade Name Freq PRN Reason Stop Dose Admin Acetaminophen 650 mg 07/29/24 15:53 07/30/24 17:07 Acetaminophen 325 Mg Tablet PO 650 mg Q4H PRN Administration Mild Pain (1-3) or Fever Amlodipine Besylate 10 mg 07/30/24 09:00 07/30/24 09:00 Amlodipine Besylate 10 Mg Tablet PO Not Given DAILY AMELIA Aspirin 81 mg 07/29/24 21:05 07/30/24 21:24 Aspirin 81 Mg Enteric Tablet PO 81 mg HS AMELIA Administration Atorvastatin Calcium 20 mg 07/29/24 21:05 07/30/24 21:24 Atorvastatin 20 Mg Tablet PO 20 mg HS AMELIA Administration Bisacodyl 10 mg 07/30/24 09:00 07/30/24 09:00 Bisacodyl 5 Mg Tablet Ec PO Not Given DAILY AMELIA Bupropion HCl 100 mg 07/30/24 09:00 07/30/24 17:07 Bupropion Hcl Sr (12hr) 100 Mg Tabcr PO 100 mg DAILY AMELIA Administration Famotidine 20 mg 07/29/24 21:05 07/30/24 21:24 Famotidine 20 Mg Tablet PO 20 mg HS AMELIA Administration Tranexamic Acid/Sodium Chloride 1,000 mg in 100 mls @ 200 mls/hr 07/31/24 11:00 Tranexamic Acid 1,000mg/[id number] IVPB 07/31/24 11:29 ONCE ONE Cefazolin Sodium 2 gm in 50 mls @ 100 mls/hr 07/31/24 11:00 Ancef 2 Gm/D5w 50 Ml IVPB 07/31/24 11:29 ONCE ONE Vancomycin HCl 1,000 mg in 250 mls @ 250 mls/hr 07/31/24 10:30 Vancomycin 1,000 Mg/Ns 250 Ml IVPB 07/31/24 11:29 ONCE ONE Metoprolol Tartrate 12.5 mg 07/29/24 21:00 07/30/24 21:24 Metoprolol Tartrate 12.5 Mg Tablet PO 12.5 mg Q12HR AMELIA Administration Ondansetron HCl 4 mg 07/29/24 15:53 Ondansetron Inj 4 Mg/2 Ml Vial IV PUSH Q6H PRN Nausea And Vomiting Pantoprazole Sodium 20 mg 07/30/24 21:00 07/30/24 21:24 Pantoprazole Sod Sesquihydrate 20 Mg Tab PO 20 mg Q12HR AMELIA Administration Polyethylene Glycol 17 gm 07/30/24 09:00 07/30/24 09:00 Polyethylene Glycol 3350 17 Gm Powd.Pack PO Not Given DAILY AMELIA Senna 17.2 mg 07/30/24 09:00 07/30/24 17:07 Sennosides 8.6 Mg Tablet PO Not Given BID AMELIA Tramadol HCl 50 mg 07/29/24 21:05 07/30/24 01:33 Tramadol Hcl (*Crx) 50 Mg Tablet PO 50 mg Q6H PRN Administration pain 4-6 Radiology Results: ITS Impressions Chest X-Ray 07/29/24 12:54 IMPRESSION: Prominent markings in the lower lobes more on the left side. Bronchitis cannot be excluded. Clinical correlation advised. Hip X-Ray 07/29/24 14:42 IMPRESSION: 1. Persistent superior dislocation of the left hip hemiarthroplasty. Hip CT 07/29/24 15:03 IMPRESSION: Dislocated left hip arthroplasty involving the acetabular and femoral portions. Fracture of the anterior and posterior left the left acetabulum. Hip/Pelvis X-Ray 07/29/24 18:01 IMPRESSION: Redemonstration of left hip arthroplasty dislocation Labs Labs: Laboratory Results - last 24 hr 07/30/24 07/31/24 12:54 06:26 WBC 13.6 H RBC 3.05 L Hgb 9.4 L Hct 29.5 L MCV 96.7 MCH 30.8 MCHC 31.9 L RDW 15.6 H Plt Count 247 MPV 12.0 H Immature Gran % (Auto) 0.6 H Neut % (Auto) 74.2 H Lymph % (Auto) 11.3 L [place] % (Auto) 10.1 H Eos % (Auto) 3.0 Baso % (Auto) 0.8 Lymph # (Auto) 1.53 [place] # (Auto) 1.4 H Eos # (Auto) 0.4 H Baso # (Auto) 0.1 Abs Immat Gran (auto) 0.08 H Absolute Neuts (auto) 10.1 H Absolute Nucleated RBC 0.000 Nucleated RBC % 0.0 Sodium 137 Potassium 3.9 Chloride 103 Carbon Dioxide 29 Anion Gap 5 BUN 22 H Creatinine 1.06 Estim Creat Clear Calc 45 Estimated GFR > 60 Glucose 92 Calcium 8.9 Magnesium 1.9 Total Bilirubin 0.6 AST 35 ALT 16 Alkaline Phosphatase 87 Total Protein 5.0 L Albumin 2.9 L Blood Type B Positive Antibody Screen Negative
[2024-07-31] MEDS: VANCOMYCIN 1,000 MG/NS 250 ML 1,000 MG/250 ML BAG 250 MG IVPB ×2 (09:58→22:13)
--- NOTE | 2024-07-31 09:59 | PC.NURSE ---
pt did not want to take PO a.m medications at this time, he states he will take them after he gets his surgery over with, ALFREDOS
--- NOTE | 2024-07-31 10:50 | PC.NURSE ---
pt to surgery via bed
[2024-07-31] MEDS: TRANEXAMIC ACID 1,000MG/ISO100 1,000 MG/100 ML BAG 200 MG IVPB (11:08)
--- NOTE | 2024-07-31 11:49 | WPDANESEPPF ---
Anes - Initial Pre Proc Eval Procedure: Operation Date: 07/29/24 16:00 Proposed Procedures p Closed Reduction Left Hip - Tim Lopez MD Operation Date: 07/31/24 12:00 Proposed Procedures p Revision Left Bipolar Hip Replacement - Tim Lopez MD Date/Time: 07/31/24 11:49 Surgeon: Tim Lopez MD Pre Op Diagnosis: hip pain after fall Patient Data Age: 79 Gender: M Height: 1.77 m Weight: 61.9 kg Last Vital Signs Temp 36.6 C 07/31/24 11:46 Pulse 64 07/31/24 11:46 Resp 16 07/31/24 05:39 BP 148/57 H 07/31/24 11:46 Pulse Ox 98 07/31/24 11:46 O2 Del Method Room Air 07/31/24 11:46 O2 Flow Rate 8 07/29/24 17:50 Allergies Allergy/AdvReac Type Severity Reaction Status Date / Time No Known Allergies Allergy Verified 07/31/24 11:03 Home Medications ?Medication ?Instructions ?Recorded ?Confirmed ?Type acetaminophen 325 mg capsule 650 mg PO TID PRN pain 07/29/24 07/29/24 History amlodipine 10 mg tablet 10 mg PO DAILY 07/29/24 07/29/24 History aspirin 81 mg tablet,delayed 81 mg PO HS 07/29/24 07/29/24 History release (Adult Aspirin Regimen) atorvastatin 20 mg tablet 20 mg PO HS 07/29/24 07/29/24 History bisacodyl 5 mg tablet,delayed 10 mg PO DAILY 07/29/24 07/29/24 History release bupropion HCl 100 mg tablet,12 hr 100 mg PO DAILY 07/29/24 07/29/24 History sustained-release (Wellbutrin SR) diclofenac sodium 1 % topical gel 2 g topical QID 07/29/24 07/29/24 History (Arthritis Pain (diclofenac)) famotidine 20 mg tablet 20 mg PO HS 07/29/24 07/29/24 History magnesium hydroxide 400 mg/5 mL 30 ml PO DAILY PRN constipation 07/29/24 07/29/24 History oral suspension (Dulcolax (magnesium hydroxide)) metoprolol tartrate 25 mg tablet 12.5 mg PO BID 07/29/24 07/29/24 History pantoprazole 20 mg tablet,delayed 20 mg PO BID 07/29/24 07/29/24 History release polyethylene glycol 3350 17 17 g PO DAILY 07/29/24 07/29/24 History gram/dose oral powder (Miralax) sennosides 8.6 mg tablet (senna) 17.2 mg PO BID 07/29/24 07/29/24 History tramadol 50 mg tablet 50 mg PO Q6H PRN pain 07/29/24 07/29/24 History Laboratory Tests 07/30/24 07/31/24 12:54 06:26 WBC 13.6 H K/mm3 (4.5-10.0) RBC 3.05 L M/mm3 (4.6-6.20) Hgb 9.4 L g/dL (14.0-18.0) Hct 29.5 L % (42.0-52.0) MCV 96.7 fl (80-100) MCH 30.8 pg (26-34) MCHC 31.9 L g/dl (32-36) RDW 15.6 H % (11.5-14.5) Plt Count 247 k/mm3 (150-375) MPV 12.0 H fl (7.4-10.4) Immature Gran % (Auto) 0.6 H % (0-0.5) Neut % (Auto) 74.2 H % (45.5-73.1) Lymph % (Auto) 11.3 L % (18.3-44.2) [place] % (Auto) 10.1 H % (2.6-8.5) Eos % (Auto) 3.0 % (0-4.4) Baso % (Auto) 0.8 % (0.2-1.2) Lymph # (Auto) 1.53 K/mm3 (0.9-3.2) [place] # (Auto) 1.4 H K/mm3 (0.1-0.6) Eos # (Auto) 0.4 H K/mm3 (0-0.3) Baso # (Auto) 0.1 K/mm3 (0.0-0.1) Abs Immat Gran (auto) 0.08 H K/mm3 (0.00-0.031) Absolute Neuts (auto) 10.1 H K/mm3 (1.3-6.7) Absolute Nucleated RBC 0.000 K/mm3 (0.0-0.012) Nucleated RBC % 0.0 % (0.0-0.2) Sodium 137 mmol/L (137-145) Potassium 3.9 mmol/L (3.4-5.0) Chloride 103 mmol/L (98-107) Carbon Dioxide 29 mmol/L (22-30) Anion Gap 5 mmol/L (4-12) BUN 22 H mg/dL (9-20) Creatinine 1.06 mg/dL (0.7-1.3) Estim Creat Clear Calc 45 ml/min Estimated GFR > 60 (59 - ) Glucose 92 mg/dL (65-110) Calcium 8.9 mg/dL (8.4-10.2) Magnesium 1.9 mg/dL (1.6-2.3) Total Bilirubin 0.6 mg/dL (0.2-1.3) AST 35 U/L (17-59) ALT 16 U/L (6-50) Alkaline Phosphatase 87 U/L (38-126) Total Protein 5.0 L g/dL (6.3-8.2) Albumin 2.9 L g/dL (3.5-5.1) Blood Type B Positive Antibody Screen Negative Patient hx anesthesia problems: none Family hx anesthesia problems: none Results Review: All pre-operative results and documents have been reviewed as part of the pre-operative evaluation. [facility] Past Medical History Medical History Hyperlipidemia GERD (gastroesophageal reflux disease) Dementia Hypertension CVA (cerebral vascular accident) Social History Social History Smoking status: Former smoker Alcohol intake: former Substance use: current Substance use type: marijuana Do You Feel Safe in your Home?: Yes Lack of Transportation: No Lack of Food: Never True Current Housing: I Have Housing Concerned About Future Housing: No Difficulty Paying Gas/Electric Bills: No Difficulty Paying for Meds: No Currently Unemployed: No Education: High School Diploma/GED Difficulty w/ Childcare or Family Care: No Spiritual care concerns: No Anes - Eval Final PreProcedure Day of Procedure 07/31/24 11:49 Patient weight: thin Heart: regular rate and rhythm Lungs: decreased breath sounds Airway: Mallampati scale class II Neurological: other (alert) Last oral intake: >/= 8 hours ASA classification: IV Emergent: no Anesthetic plan: proceed Anesthesia type and monitoring: general LMA and standard monitoring Results Review: All pre-operative results and documents have been reviewed as part of the pre-operative evaluation. Informed Consent: The patient's anesthetic plan and its attendant risks and benefits were discussed with the patient/family/POA. Questions were solicited and answers provided to the satisfaction of the patient/family/POA.
--- NOTE | 2024-07-31 11:57 | WPDHPUPDATE1 ---
History and Physical Update Update Date/Time: 07/31/24 11:57 History and Physical has been reviewed, including an updated exam of the patient. There are NO changes in the patient's condition.Alert and communicative. Normal motor snsery left ankle. Risks, benefits, and alternatives have been discussed and questions answered. Patient agrees to proceed with procedure.
[2024-07-31] MEDS: LACTATED RINGERS 1,000 ML 30 ML IV CONT ×2 (12:01→13:40)
[2024-07-31] MEDS: ceFAZolin 2 GM/D5W 50 ML 2 GM/50 ML BAG IVPB ×2 (12:03→19:50)
[2024-07-31] MEDS: SODIUM CHLORIDE 0.9% IV 38.7 ML, MORPHINE SULFATE INJ (*CRX) 2 MG, ROPivacaine HCL 1% 2... INFILTRATE (12:56)
[2024-07-31] MEDS: ceFAZolin SODIUM 1 GM VIAL 3 GM (12:58)
[2024-07-31] MEDS: ceFAZolin SODIUM 1 GM VIAL IV PUSH (13:27)
--- NOTE | 2024-07-31 13:29 | W.PM.PROC2 ---
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 Gtz to assist me with this surgery as he is an experienced posterior approach hip surgeon with experience with revision through the posterior approach. Patient was brought to the operative room and general anesthesia was administered. He was placed in lateral decubitus position and the left hip and buttock prepped draped usual fashion after a thorough scrub with chlorhexidine cloth. He received 2 g of Ancef weight based vancomycin of 1 g of TXA preoperatively. The previous incision looks completely benign and well healed and was marked. Previous incision was utilized. The gluteus radha was split just anterior to the line of the incision and the split extended to the iliotibial band distally. There was a deep capsular membrane under the gluteus radha and this was incised and hematoma evacuated. The femoral head was present just posterior to this split the gluteus radha and it was removed without difficulty. On inspection of the bipolar head, the locking mechanism complete appeared completely intact. The external rotators were identified. The stump was covered with a synovial membrane suggesting that they had been pulled off for some time. The split at the superior edge of the piriformis associated with the capsule posterior superior split had retorn on look more fresh. These structures were tagged. A acetabulum looked normal. I could not perceive any fracture of the rim of the acetabulum and the labrum overlying the posterior and anterior acetabulum was intact. There was bulky accumulation of firm tissue anteriorly that with hip dislocated obscured visualization of the anterior acetabular and was firm and I suspected this represented heterotopic ossification similar to what we could see that he had around the lesser trochanter the CT scan unlikely involving the iliopsoas tendon. A small amount of this was debulked as it appeared that it would cause impingement anteriorly and possibly lead to recurrent dislocation of left alone. This gave appropriate exposure of the acetabulum anteriorly. The 28 x 0 femoral head was still attached to the trunnion and this was disengaged easily with a single tapped with a bone tamp. At the end of procedure I did try and push the femoral head back through the polyethylene locking ring but I could not. I felt that a new head should be utilized since the bipolar locking mechanism had failed once it appears that most of failed by Plastic deformation that was transient. We trialed with the 54 head trial which is size that he has and I thought it was a perfect fit and fit snugly the acetabulum. We trialed the +0 head and the 54 bipolar head and took an intraoperative x-ray. It appeared that the leg lengths were equal by a line drawn across the roto gravure press operator foramina referencing the lesser trochanters. I thought the offset was a little bit less on the right than on the left. He had extension of his hip with 0 to 0? when he was a little bit stiff. The femoral head slid out of the acetabulum with adduction and internal rotation without a sense of resistance. We trialed with the +4 head and he had the same extension range 0? but on dislocation maneuver it had a little more resistance dislocation so we felt that since he has had 1 dislocation going up to a +4 head would seem appropriate. The wound was thoroughly irrigated with antibiotic solution. The the +4, 28 mm head was assembled into the 54 mm bipolar head and the locking ring snapped in place without difficulty and after irrigation of the wound and trunnion and drying the 54 head was impacted on the trunnion without difficulty with a tight fit the hip reduced stability range of motion reconfirmed. The external rotators were reconstructed using 5. Ethibonds through the posterior greater trochanter with a [place] type weave in the tendon stumps and the posterior superior capsular split also reapproximated with 5. Ethibond. The gluteus radha split was reapproximated with interrupted 2. Vicryl was and running 1. Unidirectional barbed Stratafix suture and a secure repair particularly the distal part of the split involving the iliotibial band was achieved. Skin was closed with 2.o Vicryl and glue. There is essentially no bleeding during the procedure. I estimated blood loss at most 75 cc. 3rd g of Ancef given at time of wound closure. He was transferred postop recovery room in stable condition. No known complications. He was placed in the abductor pillow. Intraoperative x-ray showed no radiographic complication. Estimated Blood Loss 75 Urine Output 350 [facility] Billing Surgery - Charge Forward: Surgery Billing (Revision bipolar hemiarthroplasty single component left hip)
--- NOTE | 2024-07-31 13:35 | PCPTNOTE ---
Attempted to see for PT evaluation, pt still off floor for surgery at 1335. Will continue to follow.
[2024-07-31] MEDS: fentaNYL CITRATE INJ (*CRX) 100 MCG/2 ML VIAL 25 MCG IV PUSH (14:04)
--- NOTE | 2024-07-31 14:11 | PM.OP ---
Procedure Note - Brief Procedure Note - Brief Date of procedure: 07/31/24 hip pain after fall Procedure performed: Revision left bipolar hemiarthroplasty Surgeon: MONICA Holloway Findings: 79-year-old male who underwent revision of his left bipolar hemiarthroplasty on 07/31. I was involved in the procedure including positioning the patient on the OR table and 1st assisting through the time surgery. Total time spent was 2 hours Urine output (mL): 350
--- NOTE | 2024-07-31 14:42 | P.OP_ITS ---
Procedure Note - Detailed Date of Procedure 07/31/24 Pre-op Diagnosis Prosthetic dissociation of left bipolar hemiarthroplasty Post-op Diagnosis Same Procedure Performed Revision bipolar hemiarthroplasty, left hip. Surgeon Surgeon public aid eligibility assistant: Jevon Gtz MD Anesthesia General Description of Procedure I assisted the procedure due to the requirement for a posterior approach to the hip. This is my routine hip exposure and due to my experience, I assisted with the exposure, acetabular preparation, assembly of trial implants, hip reduction, stability assessment, and capsule and short external rotator closure. Estimated Blood Loss 75 Urine Output 350 Pathology None sent Complications No immediate complications [facility] Billing Surgery - Charge Forward: Surgery Billing (surgeon public aid eligibility assistant)
--- NOTE | 2024-07-31 14:47 | PC.NURSE ---
pt returned from surgery via bed
[2024-07-31] MEDS: SODIUM CHLORIDE 0.9% IV 1,000 ML 125 ML IV CONT (16:15)
--- NOTE | 2024-07-31 16:15 | PC.NURSE ---
pt very sleepy following surgery and he is not wanting to take medications at this time, he had requested to take meds after surgery this morning due to being NPO, starting IVFs due to limited PO intake and being drowsy
[2024-07-31] MEDS: ACETAMINOPHEN 325 MG TABLET 650 MG PO ×2 (18:52→22:13)
[2024-07-31] MEDS: ATORVASTATIN 20 MG TABLET PO (19:49)
[2024-07-31] MEDS: traMADol HCL (*CRX) 50 MG TABLET PO (19:49)
[2024-07-31] MEDS: METOPROLOL TARTRATE 12.5 MG TABLET PO (19:49)
[2024-07-31] MEDS: ASPIRIN 81 MG ENTERIC TABLET PO (19:50)
[2024-07-31] MEDS: PANTOPRAZOLE SOD SESQUIHYDRATE 20 MG TAB PO (19:50)
[2024-07-31] MEDS: FAMOTIDINE 20 MG TABLET PO (19:50)
[2024-08-01] VITALS (7 sets, daily range): BP systolic 110–145; BP diastolic 49–75; PULSE 66–80; RESP 16–18; TEMP 36.1–36.8; O2SAT 98–99; BMI 10.0
[2024-08-01] MEDS: traMADol HCL (*CRX) 50 MG TABLET PO ×3 (03:52→21:06)
[2024-08-01] MEDS: SODIUM CHLORIDE 0.9% IV 1,000 ML 125 ML IV CONT ×3 (03:59→21:08)
[2024-08-01] MEDS: ACETAMINOPHEN 325 MG TABLET 650 MG PO ×5 (03:59→21:07)
[2024-08-01] MEDS: ceFAZolin 2 GM/D5W 50 ML 2 GM/50 ML BAG IVPB ×2 (04:57→13:18)
[2024-08-01 06:58] LABS: Basophils Absolute Auto 0.1 K/mm3 (0.0-0.1); Basophils Percent Auto 0.6 % (0.2-1.2); Eosinophils Absolute Auto 0.1 K/mm3 (0-0.3); Eosinophils Percent Auto 0.9 % (0-4.4); Hematocrit 26.8 % (42.0-52.0); Hemoglobin 8.4 g/dL (14.0-18.0); Immature Granulocyte Absolute 0.08 K/mm3 (0.00-0.031); Immature Granulocyte Percent A 0.6 % (0-0.5); Immature Platelet Fraction Pct 6.1 % (0.9-11.2); Lymphocytes Absolute Auto 1.27 K/mm3 (0.9-3.2); Mean Corpuscular HGB Conc 31.3 g/dl (32-36); Mean Corpuscular Hemoglobin 30.1 pg (26-34); Mean Corpuscular Volume 96.1 fl (80-100); Mean Platelet Volume 12.5 fl (7.4-10.4); Monocytes Absolute Auto 1.5 K/mm3 (0.1-0.6); Monocytes Percent Auto 10.7 % (2.6-8.5); Neutrophils Absolute Auto 11.1 K/mm3 (1.3-6.7); Neutrophils Percent Auto 78.2 % (45.5-73.1); Nucleated Red Blood Cells Perc 0.1 % (0.0-0.2); Platelet Count Result 239 k/mm3 (150-375); Red Blood Count 2.79 M/mm3 (4.6-6.20); Red Cell Distribution Width 15.5 % (11.5-14.5); White Blood Count 14.2 K/mm3 (4.5-10.0)
[2024-08-01 07:14] LABS: Alanine Aminotransferase 12 U/L (6-50); Albumin Level 2.8 g/dL (3.5-5.1); Alkaline Phosphatase 77 U/L (38-126); Anion Gap 8 mmol/L (4-12); Aspartate Amino Transferase 41 U/L (17-59); Bilirubin,Total 0.5 mg/dL (0.2-1.3); Blood Urea Nitrogen 17 mg/dL (9-20); Calcium 8.2 mg/dL (8.4-10.2); Carbon Dioxide 21 mmol/L (22-30); Chloride 107 mmol/L (98-107); Estimated CRCL calculation 49 ml/min; Estimated Glomerular Filt Rate > 60; Glucose 90 mg/dL (65-110); Magnesium 1.8 mg/dL (1.6-2.3); Potassium 3.9 mmol/L (3.4-5.0); Sodium 136 mmol/L (137-145)
[2024-08-01] MEDS: polyethylene glycoL 3350 17 GM POWD.PACK PO (10:29)
[2024-08-01] MEDS: VANCOMYCIN 1,000 MG/NS 250 ML 1,000 MG/250 ML BAG 250 MG IVPB (10:29)
[2024-08-01] MEDS: SENNOSIDES 8.6 MG TABLET 17.2 MG PO ×2 (10:29→17:36)
[2024-08-01] MEDS: BISACODYL 5 MG TABLET EC 10 MG PO (10:29)
[2024-08-01] MEDS: PANTOPRAZOLE SOD SESQUIHYDRATE 20 MG TAB PO ×2 (10:30→21:08)
[2024-08-01] MEDS: buPROPion HCL SR (12HR) 100 MG TABCR PO (10:30)
[2024-08-01] MEDS: amLODIPine BESYLATE 10 MG TABLET PO (10:30)
[2024-08-01] MEDS: METOPROLOL TARTRATE 12.5 MG TABLET PO ×2 (10:30→21:07)
[2024-08-01] MEDS: APIXABAN 2.5 MG TABLET PO ×2 (10:30→21:07)
--- NOTE | 2024-08-01 12:04 | P.PNOP_ITS ---
Progress Note: A&P Assessment and Plan (1) Dislocation of hip, left, closed: Qualifiers: Encounter type: sequela Qualified Code(s): S73.005S - Unspecified dislocation of left hip, sequela Code(s): S73.005A - Unspecified dislocation of left hip, initial encounter Status: Acute (2) Left peroneal nerve palsy: Code(s): G57.32 - Lesion of lateral popliteal nerve, left lower limb Status: Acute Assessment and Plan: Patient is postop day 2 after revision of bipolar hemiarthroplasty left hip. I saw him at 7:15 a.m. this morning and he was in the knee brace overnight and he had no active left foot dorsiflexion eversion or toe extension and reported numbness the top of this foot on questioning. He had normal plantar flexion toe flexion and sensation of the bottom of his foot. I believe this represents a peroneal nerve palsy and I believe this is due to his not tolerating the knee brace therefore removed the knee brace placed him back into the abductor pillow at 7:15 a.m. this morning. I have just reexamine him now at noon and he has 4- /5 dorsiflexion and eversion strength and lesser toe extension strength. Extensor hallucis longus is 3/5 I believe. That is difficult to assess. He reports that he can feel light touch on the top of his foot now but admits that it is diminished compared to the bottom of his foot. This constellation of findings suggests a peroneal nerve palsy at the level of the fibular neck most likely rather than sciatic nerve palsy. The fact that over the last 4-1/2 hours he has had significant improvement in sensory and motor function is promising and hopefully he will have full return peroneal nerve function although the timing is unpredictable. We will follow this along closely and determine whether he will need a brace to prevent footdrop while walking. This morning he asked me about boots that he had had at the other facility. I am going to order [place] vascular boots which I think will be helpful for this gentleman given his propensity for pressure sores. 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 We need to make sure that the pillow was properly positioned under the calf so that the heel is off the bed. He has no drainage from the wound. His hemoglobin this morning is 8.4. White count 14.2. His albumin is low at 2.8 total protein 5.0. His BMI is only 19.9. He is malnourished I believe and does have protein deficiency we will ask the dietitian to see him. Subjective Subjective Date/Time Seen: 08/01/24 12:04 Objective Data Vital Signs Vital Signs: Vital Signs - 24 hr 07/31/24 13:40 07/31/24 13:55 07/31/24 14:05 Temperature 36.2 C L Pulse Rate 96 82 76 Respiratory Rate 14 16 16 Blood Pressure 149/79 H 106/77 100/62 Pulse Oximetry 100 98 100 Oxygen Delivery Simple Face Mask Simple Face Mask Simple Face Mask Oxygen Flow Rate 8 8 8 07/31/24 14:20 07/31/24 14:30 07/31/24 15:00 Temperature 36.2 C L 36.6 C Pulse Rate 66 66 64 Respiratory Rate 16 14 18 Blood Pressure 118/59 L 138/49 L 125/55 L Pulse Oximetry 96 95 97 Oxygen Delivery Room Air Room Air Oxygen Flow Rate 07/31/24 15:15 07/31/24 15:15 07/31/24 15:45 Temperature 36.5 C 36.5 C 36.6 C Pulse Rate 62 62 70 Respiratory Rate 16 16 16 Blood Pressure 117/50 L 117/50 L 124/47 L Pulse Oximetry 98 98 97 Oxygen Delivery Oxygen Flow Rate 07/31/24 16:11 07/31/24 16:45 07/31/24 19:49 Temperature 36.9 C Pulse Rate 66 74 74 Respiratory Rate 18 Blood Pressure 121/57 L Pulse Oximetry 100 Oxygen Delivery Oxygen Flow Rate 07/31/24 20:00 07/31/24 20:22 07/31/24 23:53 Temperature 36.6 C 37.1 C Pulse Rate 86 72 Respiratory Rate 18 16 Blood Pressure 158/52 H 146/63 H Pulse Oximetry 99 98 Oxygen Delivery Room Air Oxygen Flow Rate 08/01/24 04:22 08/01/24 08:22 08/01/24 10:30 Temperature 36.4 C 36.1 C L Pulse Rate 66 66 66 Respiratory Rate 18 18 Blood Pressure 141/49 H 114/52 L Pulse Oximetry 98 98 Oxygen Delivery Oxygen Flow Rate Intake/Output Intake/Output: Intake & Output 07/29/24 07/30/24 07/31/24 08/01/24 23:59 23:59 23:59 23:59 Intake Total 1300 043 359 7116 Output Total 800 2650 400 Balance 9039 -159 -9961 968 Meds/Results Medications: Active Medications Generic Name Dose Route Start Last Admin Trade Name Jacq PRN Reason Stop Dose Admin Acetaminophen 650 mg 07/31/24 15:00 08/01/24 10:44 Acetaminophen 325 Mg Tablet PO 650 mg Q4H AMELIA Administration Amlodipine Besylate 10 mg 07/30/24 09:00 08/01/24 10:30 Amlodipine Besylate 10 Mg Tablet PO 10 mg DAILY AMELIA Administration Apixaban 2.5 mg 08/01/24 09:00 08/01/24 10:30 Apixaban 2.5 Mg Tablet PO 2.5 mg Q12HR AMELIA Administration Aspirin 81 mg 07/29/24 21:05 07/31/24 19:50 Aspirin 81 Mg Enteric Tablet PO 81 mg HS AMELIA Administration Atorvastatin Calcium 20 mg 07/29/24 21:05 07/31/24 19:49 Atorvastatin 20 Mg Tablet PO 20 mg HS AMELIA Administration Bisacodyl 10 mg 07/30/24 09:00 08/01/24 10:29 Bisacodyl 5 Mg Tablet Ec PO 10 mg DAILY AMELIA Administration Bupropion HCl 100 mg 07/30/24 09:00 08/01/24 10:30 Bupropion Hcl Sr (12hr) 100 Mg Tabcr PO 100 mg DAILY AMELIA Administration Famotidine 20 mg 07/29/24 21:05 07/31/24 19:50 Famotidine 20 Mg Tablet PO 20 mg HS AMELIA Administration Sodium Chloride 1,000 mls @ 125 mls/hr 07/31/24 14:37 08/01/24 03:59 Normal Saline Iv IV CONT 125 mls/hr .Q8H AMELIA Administration Cefazolin Sodium 2 gm in 50 mls @ 100 mls/hr 07/31/24 21:00 08/01/24 05:27 Ancef 2 Gm/D5w 50 Ml IVPB 08/01/24 13:29 Infused Q8H AMELIA Infusion Metoprolol Tartrate 12.5 mg 07/29/24 21:00 08/01/24 10:30 Metoprolol Tartrate 12.5 Mg Tablet PO 12.5 mg Q12HR AMELIA Administration Naloxone HCl 0.1 mg 07/31/24 14:37 Naloxone Hcl 0.4 Mg/Ml Vial IV PUSH Q2M PRN Opiate Reversal Ondansetron HCl 4 mg 07/31/24 14:37 Ondansetron Inj 4 Mg/2 Ml Vial IV PUSH Q4H PRN Nausea And Vomiting Pantoprazole Sodium 20 mg 07/30/24 21:00 08/01/24 10:30 Pantoprazole Sod Sesquihydrate 20 Mg Tab PO 20 mg Q12HR AMELIA Administration Polyethylene Glycol 17 gm 07/30/24 09:00 08/01/24 10:29 Polyethylene Glycol 3350 17 Gm Powd.Pack PO 17 gm DAILY AMELIA Administration Senna 17.2 mg 07/30/24 09:00 08/01/24 10:29 Sennosides 8.6 Mg Tablet PO 17.2 mg BID AMELIA Administration Tramadol HCl 50 mg 07/29/24 21:05 08/01/24 10:44 Tramadol Hcl (*Crx) 50 Mg Tablet PO 50 mg Q6H PRN Administration pain 4-6 Radiology Results: ITS Impressions Chest X-Ray 07/29/24 12:54 IMPRESSION: Prominent markings in the lower lobes more on the left side. Bronchitis cannot be excluded. Clinical correlation advised. Hip X-Ray 07/29/24 14:42 IMPRESSION: 1. Persistent superior dislocation of the left hip hemiarthroplasty. Hip CT 07/29/24 15:03 IMPRESSION: Dislocated left hip arthroplasty involving the acetabular and femoral portions. Fracture of the anterior and posterior left the left acetabulum. Hip/Pelvis X-Ray 07/31/24 15:24 IMPRESSION: Expected perioperative appearance of a left-sided total hip arthroplasty. Labs Labs: Laboratory Results - last 24 hr 08/01/24 06:29 WBC 14.2 H RBC 2.79 L Hgb 8.4 L Hct 26.8 L MCV 96.1 MCH 30.1 MCHC 31.3 L RDW 15.5 H Plt Count 239 MPV 12.5 H Immature Gran % (Auto) 0.6 H Neut % (Auto) 78.2 H Lymph % (Auto) 9.0 L [place] % (Auto) 10.7 H Eos % (Auto) 0.9 Baso % (Auto) 0.6 Lymph # (Auto) 1.27 [place] # (Auto) 1.5 H Eos # (Auto) 0.1 Baso # (Auto) 0.1 Abs Immat Gran (auto) 0.08 H Absolute Neuts (auto) 11.1 H Absolute Nucleated RBC 0.020 H Nucleated RBC % 0.1 % Immature Plt Fraction 6.1 Sodium 136 L Potassium 3.9 Chloride 107 Carbon Dioxide 21 L Anion Gap 8 BUN 17 Creatinine 0.96 Estim Creat Clear Calc 49 Estimated GFR > 60 Glucose 90 Calcium 8.2 L Magnesium 1.8 Total Bilirubin 0.5 AST 41 ALT 12 Alkaline Phosphatase 77 Total Protein 5.0 L Albumin 2.8 L
--- NOTE | 2024-08-01 13:46 | P.PNAN_ITS ---
Anes - Prog Note Post-Op Date/Time: 08/01/24 13:46 Cardiovascular status: normal Respiratory status: normal Airway patency: baseline Mental status: baseline Post-Op hydration status: normal Vital Signs: Last Vital Signs Temp 96.9 F L 08/01/24 08:22 Pulse 66 08/01/24 10:30 Resp 18 08/01/24 08:22 BP 114/52 L 08/01/24 08:22 Pulse Ox 98 08/01/24 08:22 O2 Del Method Room Air 07/31/24 20:00 O2 Flow Rate 8 07/31/24 14:05 Pain Score (VAS): 0/10 I/O: Intake & Output 07/31/24 08/01/24 08/01/24 23:59 07:59 15:59 Intake Total 540 1250 118 Output Total 1050 400 Balance -510 850 118 Laboratory Tests 08/01/24 06:29 08/01/24 06:29 08/01/24 06:29 WBC 14.2 H RBC 2.79 L Hgb 8.4 L Hct 26.8 L MCV 96.1 MCH 30.1 MCHC 31.3 L RDW 15.5 H Plt Count 239 MPV 12.5 H Immature Gran % (Auto) 0.6 H Neut % (Auto) 78.2 H Lymph % (Auto) 9.0 L [place] % (Auto) 10.7 H Eos % (Auto) 0.9 Baso % (Auto) 0.6 Lymph # (Auto) 1.27 [place] # (Auto) 1.5 H Eos # (Auto) 0.1 Baso # (Auto) 0.1 Abs Immat Gran (auto) 0.08 H Absolute Neuts (auto) 11.1 H Absolute Nucleated RBC 0.020 H Nucleated RBC % 0.1 % Immature Plt Fraction 6.1 Sodium 136 L Potassium 3.9 Chloride 107 Carbon Dioxide 21 L Anion Gap 8 BUN 17 Creatinine 0.96 Estim Creat Clear Calc 49 Estimated GFR > 60 Glucose 90 Calcium 8.2 L Magnesium 1.8 Total Bilirubin 0.5 AST 41 ALT 12 Alkaline Phosphatase 77 Total Protein 5.0 L Albumin 2.8 L Post-procedural complaints: none Patient Feedback: Patient satisfied with anesthetic care.
[2024-08-01] MEDS: ASPIRIN 81 MG ENTERIC TABLET PO (21:06)
[2024-08-01] MEDS: FAMOTIDINE 20 MG TABLET PO (21:07)
[2024-08-01] MEDS: ATORVASTATIN 20 MG TABLET PO (21:07)
[2024-08-02] VITALS: BP 113/71; PULSE 77; RESP 16; O2SAT 96
[2024-08-02] MEDS: SODIUM CHLORIDE 0.9% IV 1,000 ML 125 ML IV CONT ×3 (06:06→13:44)
[2024-08-02 06:11] LABS: Basophils Absolute Auto 0.1 K/mm3 (0.0-0.1); Basophils Percent Auto 0.6 % (0.2-1.2); Eosinophils Absolute Auto 0.5 K/mm3 (0-0.3); Eosinophils Percent Auto 4.3 % (0-4.4); Hematocrit 25.6 % (42.0-52.0); Hemoglobin 8.1 g/dL (14.0-18.0); Immature Granulocyte Absolute 0.07 K/mm3 (0.00-0.031); Immature Granulocyte Percent A 0.6 % (0-0.5); Lymphocytes Percent Auto 9.7 % (18.3-44.2); Mean Corpuscular HGB Conc 31.6 g/dl (32-36); Mean Corpuscular Hemoglobin 31.2 pg (26-34); Mean Corpuscular Volume 98.5 fl (80-100); Mean Platelet Volume 12.2 fl (7.4-10.4); Monocytes Absolute Auto 1.3 K/mm3 (0.1-0.6); Monocytes Percent Auto 10.1 % (2.6-8.5); Neutrophils Absolute Auto 9.3 K/mm3 (1.3-6.7); Neutrophils Percent Auto 74.7 % (45.5-73.1); Platelet Count Result 235 k/mm3 (150-375); Red Cell Distribution Width 15.5 % (11.5-14.5); White Blood Count 12.4 K/mm3 (4.5-10.0)
[2024-08-02 06:22] LABS: Alanine Aminotransferase 10 U/L (6-50); Albumin Level 2.7 g/dL (3.5-5.1); Alkaline Phosphatase 76 U/L (38-126); Anion Gap 8 mmol/L (4-12); Aspartate Amino Transferase 37 U/L (17-59); Bilirubin,Total 0.6 mg/dL (0.2-1.3); Blood Urea Nitrogen 13 mg/dL (9-20); Calcium 8.3 mg/dL (8.4-10.2); Carbon Dioxide 24 mmol/L (22-30); Chloride 107 mmol/L (98-107); Estimated CRCL calculation 60 ml/min; Estimated Glomerular Filt Rate > 60; Glucose 82 mg/dL (65-110); Potassium 3.3 mmol/L (3.4-5.0); Sodium 139 mmol/L (137-145)
[2024-08-02 08:00] VITALS: O2SAT 96
[2024-08-02] MEDS: polyethylene glycoL 3350 17 GM POWD.PACK PO (09:03)
[2024-08-02] MEDS: buPROPion HCL SR (12HR) 100 MG TABCR PO (09:03)
[2024-08-02] MEDS: SENNOSIDES 8.6 MG TABLET 17.2 MG PO (09:03)
[2024-08-02] MEDS: PANTOPRAZOLE SOD SESQUIHYDRATE 20 MG TAB PO ×2 (09:03→20:38)
[2024-08-02 09:04] VITALS: PULSE 81
[2024-08-02] MEDS: METOPROLOL TARTRATE 12.5 MG TABLET PO ×2 (09:04→20:40)
[2024-08-02] MEDS: APIXABAN 2.5 MG TABLET PO ×2 (09:04→20:38)
[2024-08-02] MEDS: amLODIPine BESYLATE 10 MG TABLET PO (09:04)
--- NOTE | 2024-08-02 10:01 | PM.PNORT ---
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 He exhibited a week dorsiflexion once and then after that he would wiggle his right foot up and down but not the left foot. He tends to plantar flex the left foot actively. He has not had the knee brace on since I examined him yesterday afternoon and this information causes me to change my opinion regarding possible peroneal nerve palsy. I had concluded that he had peroneal nerve palsy because of his inability to actively dorsiflex the left ankle yesterday morning which then improved after we removed the brace by mid day where was essentially the way it was preop where a I assessed his active range of motion but did not wish to assess his strength with his intra prosthetic dislocation at the left hip for fear of aggravating symptoms there. If the brace was causing a peroneal nerve palsy we would not see it improved and then worsened again with him not using the brace. I think it is more likely that we are seen FX of his left hemiplegia which waxes and wanes depending on his neurologic status. He has decerebrate posturing of the left upper extremity with fixed left elbow flexion contracture and therefore some degree of chronic weakness left lower extremity would be expected. I cannot rule out the possibility of superimposed sciatic nerve problem in the buttock but I think this is unlikely as similarly it would not 10 to wax and wane. I removed peroneal nerve palsy from the diagnosis list since I believe that is not a correct diagnosis. His only complaint when I examined him early yesterday morning was pain the back of his left heel. He was not complaining of any new numbness or weakness that he had noticed. I have encouraged him to try to get up and walk a little bit today and we will see how he does. I spoke to the orthotics specialist at [facility] and they are going to bring the [employer] vascular boots later today if they arrive by overnight male as they were order yesterday morning. Hopefully these will make him more comfortable with respect to his left heel sore. Subjective Subjective Date/Time Seen: 08/02/24 10:01 Objective Data Vital Signs Vital Signs: Vital Signs - 24 hr 08/01/24 10:30 08/01/24 12:22 08/01/24 13:43 Temperature 36.2 C L Pulse Rate 66 74 Respiratory Rate 18 Blood Pressure 110/61 Pulse Oximetry 98 Oxygen Delivery Room Air 08/01/24 16:22 08/01/24 20:00 08/01/24 22:02 Temperature 36.8 C 36.5 C Pulse Rate 80 74 74 Respiratory Rate 16 16 16 Blood Pressure 145/75 H 125/66 Pulse Oximetry 99 98 98 Oxygen Delivery Room Air 08/02/24 00:00 08/02/24 09:04 Temperature Pulse Rate 77 81 Respiratory Rate 16 Blood Pressure 113/71 Pulse Oximetry 96 Oxygen Delivery Intake/Output Intake/Output: Intake & Output 07/30/24 07/31/24 08/01/24 08/02/24 23:59 23:59 23:59 23:59 Intake Total 652 852 0893.3 1372.9 Output Total 800 2650 1700 Balance -270 -1735 1909.3 1372.9 Meds/Results Medications: Active Medications Generic Name Dose Route Start Last Admin Trade Name Jacq PRN Reason Stop Dose Admin Acetaminophen 650 mg 07/31/24 15:00 08/02/24 06:06 Acetaminophen 325 Mg Tablet PO Not Given Q4H AMELIA Amlodipine Besylate 10 mg 07/30/24 09:00 08/02/24 09:04 Amlodipine Besylate 10 Mg Tablet PO 10 mg DAILY AMELIA Administration Apixaban 2.5 mg 08/01/24 09:00 08/02/24 09:04 Apixaban 2.5 Mg Tablet PO 2.5 mg Q12HR AMELIA Administration Aspirin 81 mg 07/29/24 21:05 08/01/24 21:06 Aspirin 81 Mg Enteric Tablet PO 81 mg HS AMELIA Administration Atorvastatin Calcium 20 mg 07/29/24 21:05 08/01/24 21:07 Atorvastatin 20 Mg Tablet PO 20 mg HS AMELIA Administration Bisacodyl 10 mg 07/30/24 09:00 08/02/24 09:05 Bisacodyl 5 Mg Tablet Ec PO Not Given DAILY AMELIA Bupropion HCl 100 mg 07/30/24 09:00 08/02/24 09:03 Bupropion Hcl Sr (12hr) 100 Mg Tabcr PO 100 mg DAILY AMELIA Administration Famotidine 20 mg 07/29/24 21:05 08/01/24 21:07 Famotidine 20 Mg Tablet PO 20 mg HS AMELIA Administration Sodium Chloride 1,000 mls @ 125 mls/hr 07/31/24 14:37 08/02/24 09:05 Normal Saline Iv IV CONT 125 mls/hr .Q8H AMELIA Administration Metoprolol Tartrate 12.5 mg 07/29/24 21:00 08/02/24 09:04 Metoprolol Tartrate 12.5 Mg Tablet PO 12.5 mg Q12HR AMELIA Administration Naloxone HCl 0.1 mg 07/31/24 14:37 Naloxone Hcl 0.4 Mg/Ml Vial IV PUSH Q2M PRN Opiate Reversal Ondansetron HCl 4 mg 07/31/24 14:37 Ondansetron Inj 4 Mg/2 Ml Vial IV PUSH Q4H PRN Nausea And Vomiting Pantoprazole Sodium 20 mg 07/30/24 21:00 08/02/24 09:03 Pantoprazole Sod Sesquihydrate 20 Mg Tab PO 20 mg Q12HR AMELIA Administration Polyethylene Glycol 17 gm 07/30/24 09:00 08/02/24 09:03 Polyethylene Glycol 3350 17 Gm Powd.Pack PO 17 gm DAILY AMELIA Administration Senna 17.2 mg 07/30/24 09:00 08/02/24 09:03 Sennosides 8.6 Mg Tablet PO 17.2 mg BID AMELIA Administration Tramadol HCl 50 mg 07/29/24 21:05 08/01/24 21:06 Tramadol Hcl (*Crx) 50 Mg Tablet PO 50 mg Q6H PRN Administration pain 4-6 Radiology Results: ITS Impressions Chest X-Ray 07/29/24 12:54 IMPRESSION: Prominent markings in the lower lobes more on the left side. Bronchitis cannot be excluded. Clinical correlation advised. Hip X-Ray 07/29/24 14:42 IMPRESSION: 1. Persistent superior dislocation of the left hip hemiarthroplasty. Hip CT 07/29/24 15:03 IMPRESSION: Dislocated left hip arthroplasty involving the acetabular and femoral portions. Fracture of the anterior and posterior left the left acetabulum. Hip/Pelvis X-Ray 07/31/24 15:24 IMPRESSION: Expected perioperative appearance of a left-sided total hip arthroplasty. Labs Labs: Laboratory Results - last 24 hr 08/02/24 05:39 WBC 12.4 H RBC 2.60 L Hgb 8.1 L Hct 25.6 L MCV 98.5 MCH 31.2 MCHC 31.6 L RDW 15.5 H Plt Count 235 MPV 12.2 H Immature Gran % (Auto) 0.6 H Neut % (Auto) 74.7 H Lymph % (Auto) 9.7 L [place] % (Auto) 10.1 H Eos % (Auto) 4.3 Baso % (Auto) 0.6 Lymph # (Auto) 1.20 [place] # (Auto) 1.3 H Eos # (Auto) 0.5 H Baso # (Auto) 0.1 Abs Immat Gran (auto) 0.07 H Absolute Neuts (auto) 9.3 H Absolute Nucleated RBC 0.000 Nucleated RBC % 0.0 Sodium 139 Potassium 3.3 L Chloride 107 Carbon Dioxide 24 Anion Gap 8 BUN 13 Creatinine 0.86 Estim Creat Clear Calc 60 Estimated GFR > 60 Glucose 82 Calcium 8.3 L Total Bilirubin 0.6 AST 37 ALT 10 Alkaline Phosphatase 76 Total Protein 5.0 L Albumin 2.7 L
[2024-08-02] MEDS: CEFDINIR 300 MG CAPSULE PO ×2 (10:39→20:38)
[2024-08-02] MEDS: ACETAMINOPHEN 325 MG TABLET 650 MG PO ×4 (10:39→22:31)
[2024-08-02 14:00] VITALS: BP 150/66; PULSE 72; RESP 20; TEMP 36.4; O2SAT 97
[2024-08-02] MEDS: ATORVASTATIN 20 MG TABLET PO (20:38)
[2024-08-02] MEDS: FAMOTIDINE 20 MG TABLET PO (20:38)
[2024-08-02] MEDS: ASPIRIN 81 MG ENTERIC TABLET PO (20:38)
[2024-08-02 20:40] VITALS: PULSE 76
[2024-08-02 21:50] VITALS: BP 120/69; PULSE 77; RESP 16; TEMP 36.6; O2SAT 98
[2024-08-02] MEDS: traMADol HCL (*CRX) 50 MG TABLET PO (23:02)
[2024-08-03] MEDS: ACETAMINOPHEN 325 MG TABLET 650 MG PO ×5 (05:51→22:58)
[2024-08-03 06:38] VITALS: BP 126/71; PULSE 72; RESP 16; TEMP 36.7; O2SAT 95
[2024-08-03 06:59] LABS: Basophils Absolute Auto 0.1 K/mm3 (0.0-0.1); Basophils Percent Auto 0.6 % (0.2-1.2); Eosinophils Absolute Auto 0.8 K/mm3 (0-0.3); Eosinophils Percent Auto 6.9 % (0-4.4); Hematocrit 25.2 % (42.0-52.0); Hemoglobin 8.1 g/dL (14.0-18.0); Immature Granulocyte Absolute 0.07 K/mm3 (0.00-0.031); Immature Granulocyte Percent A 0.6 % (0-0.5); Lymphocytes Absolute Auto 1.38 K/mm3 (0.9-3.2); Lymphocytes Percent Auto 11.8 % (18.3-44.2); Mean Corpuscular HGB Conc 32.1 g/dl (32-36); Mean Corpuscular Hemoglobin 30.8 pg (26-34); Mean Corpuscular Volume 95.8 fl (80-100); Mean Platelet Volume 11.9 fl (7.4-10.4); Monocytes Absolute Auto 1.1 K/mm3 (0.1-0.6); Monocytes Percent Auto 9.1 % (2.6-8.5); Neutrophils Absolute Auto 8.3 K/mm3 (1.3-6.7); Platelet Count Result 266 k/mm3 (150-375); Red Blood Count 2.63 M/mm3 (4.6-6.20); Red Cell Distribution Width 15.5 % (11.5-14.5); White Blood Count 11.7 K/mm3 (4.5-10.0)
[2024-08-03 07:09] LABS: Alanine Aminotransferase 11 U/L (6-50); Albumin Level 2.6 g/dL (3.5-5.1); Alkaline Phosphatase 83 U/L (38-126); Anion Gap 7 mmol/L (4-12); Aspartate Amino Transferase 37 U/L (17-59); Bilirubin,Total 0.6 mg/dL (0.2-1.3); Blood Urea Nitrogen 13 mg/dL (9-20); Calcium 8.1 mg/dL (8.4-10.2); Carbon Dioxide 24 mmol/L (22-30); Chloride 106 mmol/L (98-107); Estimated CRCL calculation 65 ml/min; Estimated Glomerular Filt Rate > 60; Glucose 124 mg/dL (65-110); Potassium 2.9 mmol/L (3.4-5.0); Sodium 137 mmol/L (137-145)
[2024-08-03] MEDS: METOPROLOL TARTRATE 12.5 MG TABLET PO ×2 (08:36→20:10)
[2024-08-03] MEDS: PANTOPRAZOLE SOD SESQUIHYDRATE 20 MG TAB PO ×2 (08:36→20:09)
[2024-08-03] MEDS: buPROPion HCL SR (12HR) 100 MG TABCR PO (08:36)
[2024-08-03] MEDS: amLODIPine BESYLATE 10 MG TABLET PO (08:36)
[2024-08-03] MEDS: polyethylene glycoL 3350 17 GM POWD.PACK PO (08:36)
[2024-08-03] MEDS: BISACODYL 5 MG TABLET EC 10 MG PO (08:36)
[2024-08-03] MEDS: SENNOSIDES 8.6 MG TABLET 17.2 MG PO (08:36)
[2024-08-03] MEDS: APIXABAN 2.5 MG TABLET PO ×2 (08:36→20:09)
[2024-08-03] MEDS: CEFDINIR 300 MG CAPSULE PO ×2 (08:36→20:09)
--- NOTE | 2024-08-03 11:20 | PM.PNORT ---
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 I have put in an additional communication to the physical therapist who asked about the flexion restriction of the left hip and that is that we strictly avoid flexion past 90? the left hip and the purpose of the knee brace when he is out of bed is to hopefully prevent him from hyperflexing his left hip while he is in the chair and not being observed. He does have dementia and will not be able to reliably remember to observe this restriction and simply having the brace on his leg when he is out of bed should help with that. His hemoglobin is 8.1. He shows no evidence of low blood pressure were tachycardia. His hemoglobin yesterday was 8 point once this is a normal red cell indices. Platelets [id number]. He is on the aspirin for stroke prevention and is on Eliquis for DVT prophylaxis since he is so in mobile which puts him at increased risk for DVT. Patient is more alert and communicative again this afternoon. He is wearing the [employer] vascular boots. He has several little sores around his but no erythema or signs of active pressure now. The The posterolateral left hip incision has had no drainage on the Aquacel dressing. He has no swelling there. His neurologic function left foot shows active eversion dorsiflexion and inversion on command. Again he does have significant left sided hemiplegia. He denies numbness light touch testing in left foot today. His only complaint today is pain below the kneecap of his left knee he does have a 1 in area of ecchymosis the and this is just lateral to the inferior pole of patella and just distal. Palpation of this area shows tenderness. He did not have any effusion in his knee. 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 We will obtain x-rays of his left knee today. Clinically, it is probable that this is a contusion from his fall based on the absence of palpable effusion in the knee or swelling. He states physical therapy is coming back this afternoon and he has decided he is going to try to the chair today. Subjective Subjective Date/Time Seen: 08/03/24 11:20 Objective Data Vital Signs Vital Signs: Vital Signs - 24 hr 08/02/24 14:00 08/02/24 20:00 08/02/24 20:40 Temperature 36.4 C Pulse Rate 72 76 Respiratory Rate 20 Blood Pressure 150/66 H Pulse Oximetry 97 Oxygen Delivery Room Air 08/02/24 21:50 08/03/24 06:38 Temperature 36.6 C 36.7 C Pulse Rate 77 72 Respiratory Rate 16 16 Blood Pressure 120/69 126/71 Pulse Oximetry 98 95 Oxygen Delivery Intake/Output Intake/Output: Intake & Output 07/31/24 08/01/24 08/02/24 08/03/24 23:59 23:59 23:59 23:59 Intake Total 915 3609.3 4174.2 773 Output Total 2650 1700 1350 1250 Balance -1735 1909.3 2824.2 -477 Meds/Results Medications: Active Medications Generic Name Dose Route Start Last Admin Trade Name Jacq PRN Reason Stop Dose Admin Acetaminophen 650 mg 07/31/24 15:00 08/03/24 05:51 Acetaminophen 325 Mg Tablet PO 650 mg Q4H AMELIA Administration Amlodipine Besylate 10 mg 07/30/24 09:00 08/03/24 08:36 Amlodipine Besylate 10 Mg Tablet PO 10 mg DAILY AMELIA Administration Apixaban 2.5 mg 08/01/24 09:00 08/03/24 08:36 Apixaban 2.5 Mg Tablet PO 2.5 mg Q12HR AMELIA Administration Aspirin 81 mg 07/29/24 21:05 08/02/24 20:38 Aspirin 81 Mg Enteric Tablet PO 81 mg HS AMELIA Administration Atorvastatin Calcium 20 mg 07/29/24 21:05 08/02/24 20:38 Atorvastatin 20 Mg Tablet PO 20 mg HS AMELIA Administration Bisacodyl 10 mg 07/30/24 09:00 08/03/24 08:36 Bisacodyl 5 Mg Tablet Ec PO 10 mg DAILY AMELIA Administration Bupropion HCl 100 mg 07/30/24 09:00 08/03/24 08:36 Bupropion Hcl Sr (12hr) 100 Mg Tabcr PO 100 mg DAILY AMELIA Administration Cefdinir 300 mg 08/02/24 10:15 08/03/24 08:36 Cefdinir 300 Mg Capsule PO 300 mg Q12HR AMELIA Administration Famotidine 20 mg 07/29/24 21:05 08/02/24 20:38 Famotidine 20 Mg Tablet PO 20 mg HS AMELIA Administration Metoprolol Tartrate 12.5 mg 07/29/24 21:00 08/03/24 08:36 Metoprolol Tartrate 12.5 Mg Tablet PO 12.5 mg Q12HR AMELIA Administration Naloxone HCl 0.1 mg 07/31/24 14:37 Naloxone Hcl 0.4 Mg/Ml Vial IV PUSH Q2M PRN Opiate Reversal Ondansetron HCl 4 mg 07/31/24 14:37 Ondansetron Inj 4 Mg/2 Ml Vial IV PUSH Q4H PRN Nausea And Vomiting Pantoprazole Sodium 20 mg 07/30/24 21:00 08/03/24 08:36 Pantoprazole Sod Sesquihydrate 20 Mg Tab PO 20 mg Q12HR AMELIA Administration Polyethylene Glycol 17 gm 07/30/24 09:00 08/03/24 08:36 Polyethylene Glycol 3350 17 Gm Powd.Pack PO 17 gm DAILY AMELIA Administration Senna 17.2 mg 07/30/24 09:00 08/03/24 08:36 Sennosides 8.6 Mg Tablet PO 17.2 mg BID AMELIA Administration Tramadol HCl 50 mg 07/29/24 21:05 08/02/24 23:02 Tramadol Hcl (*Crx) 50 Mg Tablet PO 50 mg Q6H PRN Administration pain 4-6 Radiology Results: ITS Impressions Chest X-Ray 07/29/24 12:54 IMPRESSION: Prominent markings in the lower lobes more on the left side. Bronchitis cannot be excluded. Clinical correlation advised. Hip X-Ray 07/29/24 14:42 IMPRESSION: 1. Persistent superior dislocation of the left hip hemiarthroplasty. Hip CT 07/29/24 15:03 IMPRESSION: Dislocated left hip arthroplasty involving the acetabular and femoral portions. Fracture of the anterior and posterior left the left acetabulum. Hip/Pelvis X-Ray 07/31/24 15:24 IMPRESSION: Expected perioperative appearance of a left-sided total hip arthroplasty. Labs Labs: Laboratory Results - last 24 hr 08/03/24 06:34 WBC 11.7 H RBC 2.63 L Hgb 8.1 L Hct 25.2 L MCV 95.8 MCH 30.8 MCHC 32.1 RDW 15.5 H Plt Count 266 MPV 11.9 H Immature Gran % (Auto) 0.6 H Neut % (Auto) 71.0 Lymph % (Auto) 11.8 L [place] % (Auto) 9.1 H Eos % (Auto) 6.9 H Baso % (Auto) 0.6 Lymph # (Auto) 1.38 [place] # (Auto) 1.1 H Eos # (Auto) 0.8 H Baso # (Auto) 0.1 Abs Immat Gran (auto) 0.07 H Absolute Neuts (auto) 8.3 H Absolute Nucleated RBC 0.000 Nucleated RBC % 0.0 Sodium 137 Potassium 2.9 L Chloride 106 Carbon Dioxide 24 Anion Gap 7 BUN 13 Creatinine 0.79 Estim Creat Clear Calc 65 Estimated GFR > 60 Glucose 124 H Calcium 8.1 L Total Bilirubin 0.6 AST 37 ALT 11 Alkaline Phosphatase 83 Total Protein 5.0 L Albumin 2.6 L
--- NOTE | 2024-08-03 11:35 | P.PNIM_ITS ---
Progress Note: A&P Assessment and Plan (1) Failure of left total hip arthroplasty with dislocation of hip: Qualifiers: Encounter type: initial encounter Qualified Code(s): T84.021A - Dislocation of internal left hip prosthesis, initial encounter Code(s): T84.021A - Dislocation of internal left hip prosthesis, initial encounter Status: Acute Assessment and Plan: * left hip and pelvis x-ray showed bipolar type left hip hemiarthroplasty was superior dislocation and rotation, no evidence of fracture or loosening of the arthroplasty * left hip x-ray showed persistent superior dislocation of the left hip hemiarthroplasty * left hip CT showed dislocated left hip arthroplasty involving the acetabulum and femoral portions, fracture of the anterior and posterior left acetabulum * Orthopedic surgery following * Plan for reduction with Orthopedic surgery/ anesthesia in the OR on 07/30/24 and was unsuccessful at reducing the hip joint. * Patient was taken back to OR on the and is currently 3 days post op from revision of left bipolar hemiarthroplasty * hip abduction pillow in place * Continue pain control * Case coordination following for discharge needs (2) Fracture of left acetabulum: Qualifiers: Encounter type: initial encounter Fracture alignment: nondisplaced Fracture type: closed Sublocation of acetabulum: posterior wall Qualified Code(s): S32.425A - Nondisplaced fracture of posterior wall of left acetabulum, initial encounter for closed fracture Code(s): S32.402A - Unspecified fracture of left acetabulum, initial encounter for closed fracture Status: Acute Assessment and Plan: see above plan of care (3) Fall: Code(s): W19.XXXA - Unspecified fall, initial encounter Status: Acute Assessment and Plan: * continue fall precautions * PT and OT ordered (4) Hyperlipidemia: Code(s): E78.5 - Hyperlipidemia, unspecified Status: Acute Assessment and Plan: * continue aspirin and atorvastatin (5) GERD (gastroesophageal reflux disease): Code(s): K21.9 - Gastro-esophageal reflux disease without esophagitis Status: Acute Assessment and Plan: * continue Pepcid Time Spent With Patient Time with patient: 25 - 35 minutes Subjective Date/time seen: 08/03/24 11:35 Interval history: Interval summary: This is a 79-year-old male with a significant past medical history of Dementia, hypertension, CVA, hyperlipidemia, GERD who presented to the emergency room from [facility] After sustaining a ground level fall in developing left hip pain. Patient has been a resident at [facility] after having left bipolar hemiarthroplasty which was performed at [facility] 3 weeks ago. Patient states that he was sitting in a chair and accidentally dropped his cell phone, he bent over to pick it up when he felt his left hip dislocate causing him to fall. Workup in the hospital included a chest x-ray which showed prominent markings in the lower lobes more on the left side bronchiectasis cannot be excluded. Left hip and pelvis x-ray showed bipolar type left hip hemiarthroplasty was superior dislocation and rotation, no evidence of fracture or loosening of the arthroplasty. Left hip x-ray showed persistent superior dislocation of the left hip hemiarthroplasty. Left hip CT scan showed dislocated left hip arthroplasty involving the AC tab alert in femoral portions, undisplaced fracture of the posterior lip of the left acetabulum. Initial labs showed a white blood cell count of 18.2, RBC 3.60, hemoglobin 11.1, INR 1.1. Patient was given pain medication and sedation while in the ED. ED physician was unsuccessful at reducing the dislocation. Orthopedic surgery was consulted and plans to take patient to the OR for reduction of the dislocation. Subjective: Patient denies any new complaints today. Labs reviewed. Review of Systems Review of Systems: All systems reviewed & are unremarkable except as noted in HPI and below Exam Narrative: General: In no acute distress, well nourished Cardiac: Normal S1 and S2. No murmur, gallops or friction rubs, peripheral pulses intact. Respiratory: Lungs clear to auscultation, no adventitious lung sounds currently on room air Gastrointestinal: soft, non-distended, non-tender, normoactive bowel sounds. : voiding without difficulty. Extremities: limited range of motion of left lower extremity,hip abduction pillow in place Skin: OR dressing to left hip Neuro: Alert and oriented x3, cranial nerves intact, no neuro deficits. Objective Data Vital Signs Vital Signs: Vital Signs - 24 hr 08/02/24 14:00 08/02/24 20:00 08/02/24 20:40 Temperature 97.6 F Pulse Rate 72 76 Respiratory Rate 20 Blood Pressure 150/66 H Pulse Oximetry 97 Oxygen Delivery Room Air 08/02/24 21:50 08/03/24 06:38 Temperature 97.9 F 98.0 F Pulse Rate 77 72 Respiratory Rate 16 16 Blood Pressure 120/69 126/71 Pulse Oximetry 98 95 Oxygen Delivery Intake/Output Intake/Output: Intake & Output 07/31/24 08/01/24 08/02/24 08/03/24 23:59 23:59 23:59 23:59 Intake Total 915 3609.3 4174.2 773 Output Total 2650 1700 1350 1250 Balance -1735 1909.3 2824.2 -477 Meds/Results Medications: Active Medications Generic Name Dose Route Start Last Admin Trade Name Freq PRN Reason Stop Dose Admin Acetaminophen 650 mg 07/31/24 15:00 08/03/24 05:51 Acetaminophen 325 Mg Tablet PO 650 mg Q4H AMELIA Administration Amlodipine Besylate 10 mg 07/30/24 09:00 08/03/24 08:36 Amlodipine Besylate 10 Mg Tablet PO 10 mg DAILY AMELIA Administration Apixaban 2.5 mg 08/01/24 09:00 08/03/24 08:36 Apixaban 2.5 Mg Tablet PO 2.5 mg Q12HR AMELIA Administration Aspirin 81 mg 07/29/24 21:05 08/02/24 20:38 Aspirin 81 Mg Enteric Tablet PO 81 mg HS AMELIA Administration Atorvastatin Calcium 20 mg 07/29/24 21:05 08/02/24 20:38 Atorvastatin 20 Mg Tablet PO 20 mg HS AMELIA Administration Bisacodyl 10 mg 07/30/24 09:00 08/03/24 08:36 Bisacodyl 5 Mg Tablet Ec PO 10 mg DAILY AMELIA Administration Bupropion HCl 100 mg 07/30/24 09:00 08/03/24 08:36 Bupropion Hcl Sr (12hr) 100 Mg Tabcr PO 100 mg DAILY AMELIA Administration Cefdinir 300 mg 08/02/24 10:15 08/03/24 08:36 Cefdinir 300 Mg Capsule PO 300 mg Q12HR AMELIA Administration Famotidine 20 mg 07/29/24 21:05 08/02/24 20:38 Famotidine 20 Mg Tablet PO 20 mg HS AMELIA Administration Metoprolol Tartrate 12.5 mg 07/29/24 21:00 08/03/24 08:36 Metoprolol Tartrate 12.5 Mg Tablet PO 12.5 mg Q12HR AMELIA Administration Naloxone HCl 0.1 mg 07/31/24 14:37 Naloxone Hcl 0.4 Mg/Ml Vial IV PUSH Q2M PRN Opiate Reversal Ondansetron HCl 4 mg 07/31/24 14:37 Ondansetron Inj 4 Mg/2 Ml Vial IV PUSH Q4H PRN Nausea And Vomiting Pantoprazole Sodium 20 mg 07/30/24 21:00 08/03/24 08:36 Pantoprazole Sod Sesquihydrate 20 Mg Tab PO 20 mg Q12HR AMELIA Administration Polyethylene Glycol 17 gm 07/30/24 09:00 08/03/24 08:36 Polyethylene Glycol 3350 17 Gm Powd.Pack PO 17 gm DAILY AMELIA Administration Senna 17.2 mg 07/30/24 09:00 08/03/24 08:36 Sennosides 8.6 Mg Tablet PO 17.2 mg BID AMELIA Administration Tramadol HCl 50 mg 07/29/24 21:05 08/02/24 23:02 Tramadol Hcl (*Crx) 50 Mg Tablet PO 50 mg Q6H PRN Administration pain 4-6 Radiology Results: ITS Impressions Chest X-Ray 07/29/24 12:54 IMPRESSION: Prominent markings in the lower lobes more on the left side. Bronchitis cannot be excluded. Clinical correlation advised. Hip X-Ray 07/29/24 14:42 IMPRESSION: 1. Persistent superior dislocation of the left hip hemiarthroplasty. Hip CT 07/29/24 15:03 IMPRESSION: Dislocated left hip arthroplasty involving the acetabular and femoral portions. Fracture of the anterior and posterior left the left acetabulum. Hip/Pelvis X-Ray 07/31/24 15:24 IMPRESSION: Expected perioperative appearance of a left-sided total hip arthroplasty. Labs Labs: Laboratory Results - last 24 hr 08/03/24 06:34 WBC 11.7 H RBC 2.63 L Hgb 8.1 L Hct 25.2 L MCV 95.8 MCH 30.8 MCHC 32.1 RDW 15.5 H Plt Count 266 MPV 11.9 H Immature Gran % (Auto) 0.6 H Neut % (Auto) 71.0 Lymph % (Auto) 11.8 L [place] % (Auto) 9.1 H Eos % (Auto) 6.9 H Baso % (Auto) 0.6 Lymph # (Auto) 1.38 [place] # (Auto) 1.1 H Eos # (Auto) 0.8 H Baso # (Auto) 0.1 Abs Immat Gran (auto) 0.07 H Absolute Neuts (auto) 8.3 H Absolute Nucleated RBC 0.000 Nucleated RBC % 0.0 Sodium 137 Potassium 2.9 L Chloride 106 Carbon Dioxide 24 Anion Gap 7 BUN 13 Creatinine 0.79 Estim Creat Clear Calc 65 Estimated GFR > 60 Glucose 124 H Calcium 8.1 L Total Bilirubin 0.6 AST 37 ALT 11 Alkaline Phosphatase 83 Total Protein 5.0 L Albumin 2.6 L Quality VTE Prophylaxis VTE prophylaxis: mechanical ordered
[2024-08-03 14:35] VITALS: BP 124/56; PULSE 80; RESP 18; TEMP 36.2; O2SAT 98
[2024-08-03] MEDS: traMADol HCL (*CRX) 50 MG TABLET PO (14:51)
[2024-08-03] MEDS: ATORVASTATIN 20 MG TABLET PO (20:09)
[2024-08-03] MEDS: ASPIRIN 81 MG ENTERIC TABLET PO (20:09)
[2024-08-03] MEDS: FAMOTIDINE 20 MG TABLET PO (20:09)
[2024-08-03] MEDS: POTASSIUM CHLORIDE 20 MEQ PACKET (FOR LIQUID) 40 MEQ PO (20:15)
[2024-08-03] MEDS: POTASSIUM CHLORIDE INJ 40 MEQ in SODIUM CHLORIDE 0.9% IV 500 ML 130 MEQ IVPB (20:15)
[2024-08-03 21:27] VITALS: BP 128/62; PULSE 83; RESP 18; TEMP 36.9; O2SAT 99
[2024-08-04 04:59] VITALS: BP 107/55; PULSE 74; RESP 18; TEMP 37; O2SAT 99
[2024-08-04] MEDS: ACETAMINOPHEN 325 MG TABLET 650 MG PO ×2 (07:13→11:31)
[2024-08-04 07:38] LABS: Basophils Absolute Auto 0.1 K/mm3 (0.0-0.1); Basophils Percent Auto 0.8 % (0.2-1.2); Eosinophils Absolute Auto 0.8 K/mm3 (0-0.3); Eosinophils Percent Auto 6.5 % (0-4.4); Hemoglobin 8.6 g/dL (14.0-18.0); Immature Granulocyte Absolute 0.09 K/mm3 (0.00-0.031); Immature Granulocyte Percent A 0.7 % (0-0.5); Lymphocytes Absolute Auto 1.54 K/mm3 (0.9-3.2); Lymphocytes Percent Auto 12.8 % (18.3-44.2); Mean Corpuscular HGB Conc 31.9 g/dl (32-36); Mean Corpuscular Hemoglobin 31.3 pg (26-34); Mean Corpuscular Volume 98.2 fl (80-100); Monocytes Absolute Auto 1.1 K/mm3 (0.1-0.6); Monocytes Percent Auto 9.1 % (2.6-8.5); Neutrophils Absolute Auto 8.4 K/mm3 (1.3-6.7); Neutrophils Percent Auto 70.1 % (45.5-73.1); Platelet Count Result 307 k/mm3 (150-375); Red Blood Count 2.75 M/mm3 (4.6-6.20); Red Cell Distribution Width 15.7 % (11.5-14.5); White Blood Count 12.1 K/mm3 (4.5-10.0)
[2024-08-04 07:50] LABS: Alanine Aminotransferase 19 U/L (6-50); Albumin Level 2.9 g/dL (3.5-5.1); Alkaline Phosphatase 101 U/L (38-126); Anion Gap 5 mmol/L (4-12); Aspartate Amino Transferase 47 U/L (17-59); Bilirubin,Total 0.6 mg/dL (0.2-1.3); Blood Urea Nitrogen 18 mg/dL (9-20); Calcium 8.4 mg/dL (8.4-10.2); Carbon Dioxide 27 mmol/L (22-30); Chloride 105 mmol/L (98-107); Estimated CRCL calculation 60 ml/min; Estimated Glomerular Filt Rate > 60; Glucose 99 mg/dL (65-110); Potassium 4.4 mmol/L (3.4-5.0); Sodium 137 mmol/L (137-145)
--- NOTE | 2024-08-04 07:53 | PM.DS ---
DS: Admitting Diagnosis Discharge Date 08/04/24 Admitting Diagnosis Failure of left total hip arthroplasty with dislocation of hip Fracture of left acetabulum Fall Gerd DS: Discharge Diagnosis Discharge Diagnosis (1) Failure of left total hip arthroplasty with dislocation of hip: Qualifiers: Encounter type: initial encounter Qualified Code(s): T84.021A - Dislocation of internal left hip prosthesis, initial encounter Code(s): T84.021A - Dislocation of internal left hip prosthesis, initial encounter Status: Acute (2) Fracture of left acetabulum: Qualifiers: Encounter type: initial encounter Fracture alignment: nondisplaced Fracture type: closed Sublocation of acetabulum: posterior wall Qualified Code(s): S32.425A - Nondisplaced fracture of posterior wall of left acetabulum, initial encounter for closed fracture Code(s): S32.402A - Unspecified fracture of left acetabulum, initial encounter for closed fracture Status: Acute (3) Fall: Code(s): W19.XXXA - Unspecified fall, initial encounter Status: Acute (4) Hyperlipidemia: Code(s): E78.5 - Hyperlipidemia, unspecified Status: Acute (5) GERD (gastroesophageal reflux disease): Code(s): K21.9 - Gastro-esophageal reflux disease without esophagitis Status: Acute DS: Summary Hospital Course Reason for hospitalization: Failure of left total hip arthroplasty with dislocation of hip Fracture of left acetabulum Fall Gerd Hospital Course: This is a 79-year-old male with a significant past medical history of Dementia, hypertension, CVA, hyperlipidemia, GERD who presented to the emergency room from [facility] After sustaining a ground level fall in developing left hip pain. Patient has been a resident at [facility] after having left bipolar hemiarthroplasty which was performed at [facility] 3 weeks ago. Patient states that he was sitting in a chair and accidentally dropped his cell phone, he bent over to pick it up when he felt his left hip dislocate causing him to fall. Workup in the hospital included a chest x-ray which showed prominent markings in the lower lobes more on the left side bronchiectasis cannot be excluded. Left hip and pelvis x-ray showed bipolar type left hip hemiarthroplasty was superior dislocation and rotation, no evidence of fracture or loosening of the arthroplasty. Left hip x-ray showed persistent superior dislocation of the left hip hemiarthroplasty. Left hip CT scan showed dislocated left hip arthroplasty involving the AC tab alert in femoral portions, undisplaced fracture of the posterior lip of the left acetabulum. Initial labs showed a white blood cell count of 18.2, RBC 3.60, hemoglobin 11.1, INR 1.1. Patient was given pain medication and sedation while in the ED. ED physician was unsuccessful at reducing the dislocation. Orthopedic surgery was consulted and plans to take patient to the OR for reduction of the dislocation. Patient was taken to the OR on 07/29/24 for attempted close reduction left bipolar hemiarthroplasty dislocation and was taken back to the OR on 07/31/2024 for revision bipolar hemiarthroplasty of the left hip. 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 No murmur, gallops or friction rubs, peripheral pulses intact. Respiratory: Lungs clear to auscultation, no adventitious lung sounds currently on room air Gastrointestinal: soft, non-distended, non-tender, normoactive bowel sounds. : voiding without difficulty. Extremities: limited range of motion of left lower extremity,hip abduction pillow in place Skin: OR dressing to left hip Neuro: Alert and oriented x3, cranial nerves intact, no neuro deficits. DS: Data Data Completed and Pending Completed studies during hospitalization: Head CT Chest x-ray Hip/pelvis x-ray x4 Hip x-ray x2 Hip CT Knee x-ray Intraoperative x-ray Pending studies at discharge: None Labs on day of discharge: Labs from last 24 hours 08/04/24 07:12 WBC 12.1 H RBC 2.75 L Hgb 8.6 L Hct 27.0 L MCV 98.2 MCH 31.3 MCHC 31.9 L RDW 15.7 H Plt Count 307 MPV 12.0 H Immature Gran % (Auto) 0.7 H Neut % (Auto) 70.1 Lymph % (Auto) 12.8 L [place] % (Auto) 9.1 H Eos % (Auto) 6.5 H Baso % (Auto) 0.8 Lymph # (Auto) 1.54 [place] # (Auto) 1.1 H Eos # (Auto) 0.8 H Baso # (Auto) 0.1 Abs Immat Gran (auto) 0.09 H Absolute Neuts (auto) 8.4 H Absolute Nucleated RBC 0.000 Nucleated RBC % 0.0 Sodium 137 Potassium 4.4 Chloride 105 Carbon Dioxide 27 Anion Gap 5 BUN 18 Creatinine 0.85 Estim Creat Clear Calc 60 Estimated GFR > 60 Glucose 99 Calcium 8.4 Total Bilirubin 0.6 AST 47 ALT 19 Alkaline Phosphatase 101 Total Protein 6.0 L Albumin 2.9 L Procedures/Treatments: Attempted closed reduction left bipolar hemiarthroplasty dislocation on 07/29/2024 Revision bipolar hemiarthroplasty of the left hip on 07/31/2024 Discharge Plan Discharge Attending physician on discharge: Phil Flowers Consulting providers: Tim Lopez; Diana Soliz Discharging Clinician: Diana Soliz Anticipated Discharge Date/Time: 08/04/24 07:49 Patient Disposition: NH Snf/Asst Living Activity: as tolerated Diet: as tolerated Wound Care Instructions: other - see discharge instructions Discharge Instructions: Patient will remain on the Eliquis 2.5 mg twice daily for 6 weeks postop for DVT prophylaxis. Nursing orders: Patient has a chronic nearly healed pressure sore on the bottom of his left heel and pressure must be kept off the back of the heel by using a pillow under the calves while he is in bed. The [employer] vascular boots are to be worn while the patient is in bed. He has absent pulses and multiple small sores on his feet and ankles and the vascular will optimize blood flow and minimize likelihood of pressure sores. Those boots are not for ambulation. He may wear slippers or shoes for ambulation. Before he gets out of bed the knee immobilizer should be applied to the left leg. The purpose of this is to keep the left knee fairly straight which prevents the left hip from hyperflexing. When he is sitting in a chair with the knee immobilizer on, it will be difficult for him to flex the hip past 90? and preventing flexion of the left hip past 90? is the goal to minimize risk of recurrent dislocation. The knee immobilizer can be removed when he is back in bed and he should be placed back in the abductor pillow when he is in bed and the [employer] vascular boots should be reapplied when he is back in bed. And a pillow late cross ways underneath both calves so there was no pressure the backs of his heels. Remove Aquacel dressing on August 14 and leave incision open to air left hip Physical therapy orders: Patient may be weight-bearing as tolerated on left leg. He has a fairly severe hemiplegia on the left side. Consider walker with forearm rest on the left. Take care to avoid additional internal rotation of the left hip which could stretch the posterior hip soft tissue repair. Please utilize passive abduction to 30? and gentle passive external rotation on the left hip to gently stretch those tight structures. Patient may do quad sets and straight leg raises actively. Has the knee immobilizer applied to the left leg before getting him out of bed and maintains the left knee these are worn while he is out of bed and removed the left knee immobilizer when he is back in bed re-applying the [employer] vascular boot send the abductor pillow with a regular pillow under both calves to keep pressure off the posterior heels. Labs CBC every Monday. Call MD if hemoglobin less than 8 platelets less than 100,000. Patient Instructions: Antibiotic Form, Apixaban (By mouth) Patient Language: Mongolian Stand Alone Forms: General Discharge Information, Usp Discharge Follow-up/Referrals: Tim Lopez MD [Physician] - 08/28/24 Discharge Medications: New cefdinir 300 mg Capsule 300 mg PO Q12HR Qty: 10 0RF Eliquis 2.5 mg Tablet 2.5 mg PO Q12HR Qty: 80 0RF Continued atorvastatin 20 mg tablet 20 mg PO HS pantoprazole 20 mg tablet,delayed release (DR/EC) 20 mg PO BID famotidine 20 mg tablet 20 mg PO HS acetaminophen 325 mg capsule 650 mg PO TID PRN (Reason: pain) aspirin [Adult Aspirin Regimen] 81 mg tablet,delayed release (DR/EC) 81 mg PO HS bisacodyl 5 mg tablet,delayed release (DR/EC) 10 mg PO DAILY metoprolol tartrate 25 mg tablet 12.5 mg PO BID polyethylene glycol 3350 [Miralax] 17 gram/dose powder 17 g PO DAILY sennosides [senna] 8.6 mg tablet 17.2 mg PO BID tramadol 50 mg tablet 50 mg PO Q6H PRN (Reason: pain) bupropion HCl [Wellbutrin SR] 100 mg tablet sustained-release 12 hr 100 mg PO DAILY amlodipine 10 mg tablet 10 mg PO DAILY magnesium hydroxide [Dulcolax (magnesium hydroxide)] 400 mg/5 mL suspension 30 ml PO DAILY PRN (Reason: constipation) Discontinued diclofenac sodium [Arthritis Pain (diclofenac)] 1 % gel 2 g topical QID Rx Instructions: left knee Date of admission: 07/30/24 09:37 Primary Care Provider: UNKNOWN,DOCTOR Admitting Provider: Erica Roy Attending physician on admission: Diana Soliz Condition: Improved Quality VTE Prophylaxis VTE prophylaxis: mechanical ordered Hospitalist MIPS Heart Failure (Exclusion) Patient has history of Heart Transplant or Left Ventricular Assistive Device?: No IF YES, STOP HERE Heart Failure (Qualifier) Patient has current or prior documentation of LVEF less than or equal to 40%, or mod/servere depressed LVSF?: No IF NO, STOP HERE
[2024-08-04 08:43] VITALS: PULSE 76
[2024-08-04] MEDS: polyethylene glycoL 3350 17 GM POWD.PACK PO (08:43)
[2024-08-04] MEDS: buPROPion HCL SR (12HR) 100 MG TABCR PO (08:43)
[2024-08-04] MEDS: METOPROLOL TARTRATE 12.5 MG TABLET PO (08:43)
[2024-08-04] MEDS: SENNOSIDES 8.6 MG TABLET 17.2 MG PO (08:43)
[2024-08-04] MEDS: PANTOPRAZOLE SOD SESQUIHYDRATE 20 MG TAB PO (08:43)
[2024-08-04] MEDS: amLODIPine BESYLATE 10 MG TABLET PO (08:43)
[2024-08-04] MEDS: CEFDINIR 300 MG CAPSULE PO (08:43)
[2024-08-04] MEDS: BISACODYL 5 MG TABLET EC 10 MG PO (08:43)
[2024-08-04] MEDS: APIXABAN 2.5 MG TABLET PO (08:57)
== END 2024-08-04 14:30 | DRG 466 ==
LOC: ANHED 16:13 → ANH3MEDSUR 16:17 → ANHED 07-30 09:11 → ANH3MEDSUR 07-30 09:11
PROVIDERS: Orthopaedic Surgery; Admitting Provider Hospitalist; Emergency Provider Emergency Medicine; Visit Provider Nurse Practitioner Acute Care
PROC: 0SPS0JZ Removal of Synthetic Substitute from Left Hip Joint, Femoral Surface, Open Approach (ICD-10-PCS; principal; 2024-07-29 16:00)
PROC: (CPT 27125; principal; 2024-07-31 12:00)
DX: T84.021A Dislocation of internal left hip prosthesis, initial encounter (principal); S32.492A Other specified fracture of left acetabulum, initial encounter for closed fracture; I69.354 Hemiplegia and hemiparesis following cerebral infarction affecting left non-dominant side; I10 Essential (primary) hypertension; E78.5 Hyperlipidemia, unspecified; K21.9 Gastro-esophageal reflux disease without esophagitis; W07.XXXA Fall from chair, initial encounter; F03.90 Unspecified dementia, unspecified severity, without behavioral disturbance, psychotic disturbance, mood disturbance, and anxiety; Z79.82 Long term (current) use of aspirin; Z87.891 Personal history of nicotine dependence
CPT/HCPCS: 27265; 36415; 71045; 73501; 73502; 73562; 73700; 80053; 83735; 85025; 85055; 85610; 85652; 85730; 86140; 86850; 86900; 86901; 93005; 96374; 96375; 96376; 97110; 97161; 97166; 97530; 97535; 99199; 99212; 99285; A9270; G0378; G0463; J0171; J0461; J0690; J1650; J2270; J2371; J2704; J2795; J3010; J3370; J3480; J7030; J7040; J7120; L1830

== ENCOUNTER 2024-10-24 00:33 | Inpatient (IN) | payer MEDICARE, MEDICAID, SELFPAY ==
[2024-10-24] VITALS (35 sets, daily range): BP systolic 137–179; BP diastolic 59–86; PULSE 67–89; RESP 16–32; TEMP 35.9–36.6; O2SAT 91–96; BMI 17.7
--- NOTE | ~2024-10-24 | CT_ITS ---
Clinical Indication: Altered mental status CT Scan of the Chest, Abdomen, and Pelvis with Contrast: Technique: Contiguous sections were acquired throughout the chest, abdomen, and pelvis after intraven ous administration of 100 cc of Omnipaque 350. Dose reduction technique was used on this scan by [place]uilar[place] automated exposure control and iterative reconstruction technique. The dose-length product (DL P) was 416.91 mGy-cm. Findings: Single borderline enlarged right paratracheal lymph nodes, nonspecific.. The mediastinal soft tissues otherwise appear normal. No pulmonary embolus seen. No aortic aneurysm or dissection. There is no evidence of pleural or pericardial effusion. There is extensive patchy bibasilar consolidation the lower lobes. There is moderate to advanced emph ysema. The liver, spleen, pancreas, gallbladder, adrenals and right kidney are within normal limits. 4.3 cm heterogeneously enhancing mass present at the upper pole the left kidney. There is 3.4 cm infrarenal abdominal aortic aneurysm with extensive atherosclerotic calcification. No lymphadenopathy. No bowel obstruction or bowel wall thickening. There is no evidence to suggest acute appendicitis. Probable circumferential urinary bladder wall thickening. There is streak artifact in the pelvis from left hip arthroplasty. No pelvic mass evident. No ascites. Impression: 4.3 cm left upper pole solid renal mass, suspicious for renal cell carcinoma until proven otherwise. Extensive patchy consolidation in both lower lobes, suspicious for bilateral pneumonia, possibly due to aspiration. Dependent atelectatic changes and alternative consideration. Moderate to advanced emphysema. Probable cystitis. Correlate with urinalysis. 3.4 cm infrarenal abdominal aortic aneurysm. Reviewed, dictated and finalized at [facility]. Impression: 4.3 cm left upper pole solid renal mass, suspicious for renal cell carcinoma un til proven otherwise. Extensive patchy consolidation in both lower lobes, suspicious for bilateral pn eumonia, possibly due to aspiration. Dependent atelectatic changes and alternat esther consideration. Moderate to advanced emphysema. Probable cystitis. Correlate with urinalysis. 3.4 cm infrarenal abdominal aortic aneurysm.
--- NOTE | ~2024-10-24 | XR_ITS ---
XR chest 1V portable Ordering provider: Sadia Coon PA-C History: 79 years Male with . sob . Comparison: July 29, 2024 FINDINGS: MEDIASTINUM: The cardiac silhouette is not enlarged. LUNGS: No effusions or pneumothorax. Bibasilar opacification more on the left side OTHER: No free air under the diaphragm. IMPRESSION: Bibasilar atelectasis versus pneumonia more on the left side. Reviewed, dictated and finalized at location A.
--- NOTE | ~2024-10-24 | XR_ITS ---
MODIFIED ESOPHAGRAM HISTORY: Coughing with liquids TECHNIQUE: Modified barium esophagram was performed on 10/24/2024. I administered fluoroscopy and perf ormed the exam with speech pathologist. Patient was seated for lateral fluoroscopic imaging for vero stion of thin liquids, pudding, solids and quantified amounts, followed by thin liquids in uncontroll ed amounts. This was recorded on tape. A single fluoroscopic spot image was also recorded. The DAP fo r this procedure was 2.545 Gycm2. The amount of fluoroscopy time used during this procedure was 4.9 m inutes. FINDINGS: Oral stage: There is reduced lingual movement. Pharyngeal stage: Reduced laryngeal elevation and adduction. Reduced tongue base retraction and phary ngeal squeeze. There is vallecular residue. There is laryngeal penetration and aspiration. Cervical/esophageal stage: Adequate function. IMPRESSION: Oral pharyngeal dysphagia with laryngeal penetration and aspiration. Please correlate [facility] speech pathologist findings and specific feeding recommendations. Reviewed, dictated and finalized at location A. IMPRESSION: Oral pharyngeal dysphagia with laryngeal penetration and aspiration . Please correlate with speech pathologist findings and specific feeding recom mendations.
--- NOTE | ~2024-10-24 | CT_ITS ---
CT head without contrast Indication: Altered mental status COMPARISON: 07/22/2024 Technique: Serial scans were obtained through the brain without the administration of contrast. Dose reduction technique was used on this scan by utilizing automated exposure control and iterative recon struction technique. The dose-length product (DLP) was 681.00 mGy-cm. Findings: There is no evidence of intracranial hemorrhage, mass lesion, or acute infarct. The ventri cles and subarachnoid spaces are dilated, consistent with moderate atrophy. Low attenuation regions are seen within the periventricular white matter bilaterally, likely representing changes from chroni c microvascular ischemic disease. There is no evidence of edema, mass effect or midline shift. The visualized paranasal sinuses and mastoid air cells are clear. Impression: No intracranial hemorrhage, mass, or acute infarct. Atrophy and chronic white matter changes, as above. Reviewed, dictated and finalized at location . Impression: No intracranial hemorrhage, mass, or acute infarct. Atrophy and chronic white matter changes, as above.
--- NOTE | ~2024-10-24 | MR_ITS ---
MRI of the abdomen: Clinical indication: Renal mass. Technique: Coronal SSFSE ARC, WATER:coronal LAVA-FLEX, Coronal 2D FIESTA FatSat, Axial SSFSE BH ARC, Axial 3D DualEcho BH, Axial SSFSE-IR, Axial DWI b=500, Axial 2D FIESTA FatSat, pre and dynamic postco ntrast Axial LAVA ARC, postcontrast Coronal In and Opposed phase LAVA FLEX . Following intravenous ad ministration of 12 cc MultiHance gadolinium, T1-weighted fat-sat imaging was performed in the axial a nd coronal planes. COMPARISON: CT scan dated 10/24/2024 Findings: Gallbladder unremarkable. The common bile duct is normal in course and caliber. No filling defects are seen within the CBD. No evidence of intrahepatic biliary ductal dilatation. The pancreati c duct is normal in size. As seen on recent CT scan, there is a 3.9 cm left upper pole solid renal mass with heterogeneous post contrast enhancement, compatible with renal cell carcinoma until proven otherwise. Additional simple bilateral renal cysts are present. Liver, spleen, pancreas, and adrenal glands appear normal. The aorta and the paraaortic regions appea r normal. Impression: 3.9 cm solid left upper pole renal mass is compatible with renal cell carcinoma until proven otherwis e. This correlates with prior CT finding. Reviewed, dictated and finalized at [facility]. Impression: 3.9 cm solid left upper pole renal mass is compatible with renal cell carcinoma until proven otherwise. This correlates with prior CT finding.
--- NOTE | 2024-10-24 00:40 | ECG_ITS ---
Test Date: 2024-10-24 00:40:39 Measurements Intervals [place] Rate: 78 P: -27 ME: 100 QRS: 7 QRSD: 85 T: 50 QT: 345 QTc: 395 Interpretive Statements SINUS RHYTHM WITH SHORT ME INTERVAL NONSPECIFIC ST & T-WAVE ABNORMALITY- INFEIROR LEADS BASELINE ARTIFACT- I, II, III, AVR, AVF, V4-V6 BORDERLINE ECG Compared to ECG 07/29/2024 18:35:43 Short ME interval now present Electronically Signed On 10-24-2024 11:01:04 CDT by Roosevelt Spivey D.O.
--- OUTSIDE RECORDS SUMMARY | 2024-10-24 00:41 | XMS_ITS | Clinical Summary ---
Author Organization [facility] [place] Address [address] [place] [address] Care Team Providers Care Director Corporate Sales Name Role Phone Eritrean, Jay Lerner MD Primary Care Provider [phone] Maddy, Juan Carlos Cortez MD Unavailable Allergies No known active allergies Medications atorvastatin (LIPITOR) 20 mg tabletIndications:D yslipidemia,TIA (transient ischemic attack) Take 1 tablet (20 mg total) by mouth nightly 4 Active famotidine (PEPCID) 20 mg tabletIndications:R einke's edema of vocal folds Take 1 tablet (20 mg total) by mouth nightly [address] (PROTONIX) 20 mg EC tabletIndications:R einke's edema of vocal folds Take 1 tablet (20 mg total) by mouth 2 (two) times a day 4 Active acetaminophen (TYLENOL) 325 mg tablet Take 2 tablets (650 mg total) by mouth 3 (three) times a day Active amLODIPine (NORVASC) 10 mg tablet Take 1 tablet (10 mg total) by mouth daily Active buPROPion SR (WELLBUTRIN SR) 100 mg 12 hr tablet Take 1 tablet (100 mg total) by mouth daily Active senna-docusate (PERICOLACE) 8.6-50 mg Take 2 tablets by mouth 2 (two) times a day Active bisacodyL 5 mg tablet Take 10 mg by mouth daily Active diclofenac sodium (VOLTAREN) 1 % gel Apply 2 g topically 4 (four) times a day Left knee Active magnesium hydroxide (MILK OF MAGNESIA) suspension 400 mg/5 mL Take 30 mL by mouth nightly as needed (constipation ) Active polyethylene glycol (MIRALAX) 17 gram packetIndications:c onstipation Take 1 packet (17 g total) by mouth daily Active metoprolol tartrate (LOPRESSOR) 25 mg immediate release tablet Take 0.5 tablets (12.5 mg total) by mouth 2 (two) times a day 30 tablet 11 5 026 Active traMADoL (ULTRAM) 50 mg tabletIndications:P ain Take 1 tablet (50 mg total) by mouth every 6 (six) hours as needed for pain 15 tablet 5 Active aspirin 81 mg enteric coated tablet Take 1 tablet (81 mg total) by mouth 2 (two) times a day for 9 days 18 tablet 5 Active aspirin 81 mg enteric coated tabletIndications:T IA (transient ischemic attack),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 WBC currently 12.6. Continue to monitor. Assessment & Plan (05/27/2024 12:05 PM FIELD INSPECTOR): Etiology unclear - no infectious symptoms. UA checked previously and WNL. Prob inflammatory. Continue to monitor Severe vascular dementia wit hout behavioral disturbance, psychotic disturbance, mood disturbance, or anxiety 05/17/2024 Assessment & Plan (05/21/2024 12:19 PM FIELD INSPECTOR): MOCA 03/08, indicating severe cognitive decline. Patient has become much more interactive, appears to be sleeping better. After discussion with social sciences chair and patient's significant other/caregiver he will need to discharge to a higher level of care after completing rehab. Continue bupropion for mood control, melatonin for sleep. Assessment & Plan (05/17/2024 1:05 PM FIELD INSPECTOR): With history of underlying CVA. [place] 10 indicating significant cognitive decline. Family reports that this has been progressively worsening with an ongoing physical decline as well. SAMPLE SELECTOR following, patient will likely need higher level of care at discharge. Pseudofolliculitis barbae 05/13/2024 Assessment & Plan (05/13/2024 9:42 PM FIELD INSPECTOR): Significant irritation after shaving turner. Continue moisturizer. Will monitor for secondary infection. [employer] notified. Stage 3a chronic kidney disease 05/06/2024 Assessment & Plan (05/31/2024 6:29 PM FIELD INSPECTOR): Renal function stable, BUN/creatinine 26/1.36 with a GFR of 53 Assessment & Plan (05/27/2024 12:02 PM FIELD INSPECTOR): Renal function stable/improved. Bun/Cr 20/1.34, GFR 54. Continue to monitor Assessment & Plan (05/21/2024 12:18 PM FIELD INSPECTOR): Renal function about at baseline, BUN/creatinine 32/1.50 with a GFR of 47 Assessment & Plan (05/13/2024 9:38 PM FIELD INSPECTOR): Renal function about at baseline, BUN/creatinine 25/1.41. With a GFR 51 Constipation 05/06/2024 Assessment & Plan (05/21/2024 12:20 PM FIELD INSPECTOR): Increase Daysi Colace to 1 tablet b.i.d., add MiraLax daily, milk of magnesia p.r.n. Assessment & Plan (05/14/2024 8:28 AM FIELD INSPECTOR): He complains of lack of bowel movement. Milk of magnesia ordered Depression 05/06/2024 Assessment & Plan (05/17/2024 1:04 PM FIELD INSPECTOR): Affect flat, patient remains withdrawn. Patient occasionally has difficulty participating with therapy likely due to underlying dementia. Continue bupropion 100 mg daily Assessment & Plan (05/14/2024 8:28 AM FIELD INSPECTOR): This is chronic and stable. Continue bupropion 100 mg daily. TIA (transient ischemic attack) 04/30/2024 Unresponsiveness 04/30/2024 Assessment & Plan (05/27/2024 12:07 PM FIELD INSPECTOR): Pt with vagel episode this am after a large BM - recovered quickly. Increased bowel regimen to reduce straining. 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 Chronic rhinitis 07/20/2021 Hydrocele 08/07/2017 Actinic keratosis 10/29/2015 Essential hypertension 10/29/2015 Assessment & Plan (05/31/2024 6:28 PM FIELD INSPECTOR): Blood pressure stable, continue amlodipine Assessment & Plan (05/27/2024 12:01 PM FIELD INSPECTOR): Stable, continue norvasc Assessment & Plan (05/21/2024 12:18 PM FIELD INSPECTOR): Blood pressure well controlled, continue amlodipine 10 mg daily Assessment & Plan (05/17/2024 1:03 PM FIELD INSPECTOR): Blood pressure well controlled, continue amlodipine 10 mg daily Assessment & Plan (05/14/2024 8:28 AM FIELD INSPECTOR): This is chronic and currently stable. Continue to monitor serial vital signs for trending. Continue amlodipine as scripted Assessment & Plan (05/13/2024 9:37 PM FIELD INSPECTOR): BP controlled, continue norvasc 10mg daily. 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 Assessment & Plan (05/17/2024 1:06 PM FIELD INSPECTOR): Continue post stroke prophylaxis with aspirin, statin, blood pressure control Assessment & Plan (05/13/2024 9:39 PM FIELD INSPECTOR): No new neurologic changes, therapies are in place, monitor patient's progress. Continue post stroke prophylaxis with aspirin, atorvastatin, blood pressure management Resolved Problems Problem Noted Date Diagnosed Date Resolved Date Upper respiratory infection 06/14/2018 06/02/2024 Encounters Date Type Department Care Team Description 10/03/2024 2:00 PM CDT Office Visit [facility] [address] [place] [id number] Juan Carlos Castañeda Si, MD Multiple lacunar infarcts (HCC) (Primary Dx); Dysarthria; Mild cognitive impairment from Last 3 Months Medical History Medical History Date Comments Anxiety Depression Hypertension Stroke (HCC) Dizziness Family History Medical History Relation Name Comments No Known Problems Father No Known Problems Mother Relation Name Status Comments Father Mother Social History Tobacco Use Types Packs/Day Years Used Date Smoking Tobacco: Every Day Cigarettes 0.2 60 Smokeless Tobacco: Never Tobacco Cessation:Ready to Q uit: Not Asked; Counseling Given: Not Answered [facility] Utilities Answer Date Recorded In the past 12 months has th e [employer], gas, oil, or water [employer] threatened to shut off services in your home? No 06/20/2024 Social Connection and Isolation Panel [NHANES] A nswer Date Recorded In a typical week, how many times do you talk on the phone with family, friends, or neighbors? Three times a week 06/20/2024 How often do you get togethe r with friends or relatives? Three times a week 06/20/2024 How often do you attend [facility] or judaism services? Never 06/20/2024 Do you belong to any clubs o r organizations such as taoism groups, unions, fraternal or athletic groups, or school groups? No 06/20/2024 How often do you attend meet ings of the clubs or organizations you belong to? Never 06/20/2024 Are you , , di vorced, , never , or living with a partner? 06/20/2024 Overall Financial Resource Strain (CARDIA) Answe r Date Recorded How hard is it for you to pa y for the very basics like food, housing, medical care, and heating? Not hard at all 06/20/2024 Hunger Vital Sign Answer Date Recorded Within the past 12 months, y ou worried that your food would run out before you got the money to buy more. Never true 06/20/19 25 Within the past 12 months, t he food you bought just didn't last and you didn't have money to get more. Never true 06/20/2024 PRAPARE - Transportation Answer Date Re corded In the past 12 months, has l ack of transportation kept you from medical appointments or from getting medications? No 10/2024 In the past 12 months, has l ack of transportation kept you from meetings, work, or from getting things needed for daily living? No 06/20/2024 Housing Stability Vital Sign Answer Doron e Recorded In the last 12 months, was t here a time when you were not able to pay the mortgage or rent on time? No 06/20/2024 In the past 12 months, how m any times have you moved where you were living? 0 06/20/2024 At any time in the past 12 m [facility], were you homeless or living in a fpc (including now)? No 06/20/2024 Personal Safety Answer Date Recorded Have you ever been in or are you currently in a harmful physical or emotional relationship or is someone making you feel afraid or unsafe? Denies 06/18/2024 Sex and Gender Information Value Date Recorded Sex Assigned at Not on file Legal Sex Male 4:14 PM CDT Gender Identity Not on file Sexual Orientation Not on file Obstetrics History Last Filed Vital Signs Vital Sign Reading Time Taken Comments Blood Pressure 124/72 10/03/2024 1:58 PM CDT Pulse 86 10/03/2024 1:58 PM CDT Temperature 36.4 C (97.5 F) 06/24/2024 7:35 AM FIELD INSPECTOR Respiratory Rate 16 06/24/2024 7:35 AM FIELD INSPECTOR Oxygen Saturation 100% 10/03/2024 1:58 PM CDT Inhaled Oxygen Concentration - - Weight 62.6 kg (138 lb) 10/03/2024 1:58 PM CDT Height 182.9 cm (6' 0.01) 10/03/2024 1:58 PM CD T Body Mass Index 18.71 10/03/2024 1:58 PM CDT Plan of Treatment Health Maintenance Due Date Last Done Comments Depression Screening 1945 Hepatitis C Screening 1945 DTaP/Tdap/Td Vaccine (1 - Tdap) 1957 Hepatitis B Screening 1964 Zoster Vaccine (1 of 2) 1996 Well Visit 65+ 2011 Covid-19 Vaccine (2023-2 5 season) 2024 04/17/2021, 08/29/2020, 08/06/2020 Fall Risk Assessment 06/24/2025 06/24/2024 Pneumococcal vaccine 65+ Completed 09/07/2023, 03/16 Influenza Vaccine Completed 03/14/2024, , 03/24/2014, Additional history exists Medical Devices Implanted Type Area Simonizer Device Identifier Shelf Expiration Date Model / Serial / Lot [employer]/ Ortho [place] 28mm Taper Neck Primary Hip +0mm 04/27 Head Femoral Cocr [id number] - [id number] Implanted:Qty: 1 on 06/19/2024 by Sky Diaz MD at [facility] Left: Hip [employer]/Or tho [id number] 11/27/2033 [id number] / / [id number] [employer]/ Ortho Tandem Od54 Mm; Id28 Mm Acetabulum Shell/Liner Bipolar Uhmwpe; Co [id number] - [id number] Implanted:Qty: 1 on 06/19/2024 by Sky Diaz MD at [facility] Left: Hip [employer]/Or tho [id number] 04/01/2033 [id number] / / [id number] [employer]/ Ortho Synergy 15mm 165mm Standard Offset Hip Stem Femoral Titanium [id number] - [id number] Implanted:Qty: 1 on 06/19/2024 by Sky Diaz MD at [facility] Left: Hip [employer]/Or tho [id number] 10/10/2033 [id number] / / [id number] [employer]/ Ortho Tandem Od54 Mm; Id28 Mm Acetabulum Shell/Liner Bipolar Uhmwpe; Co [id number] - [id number] Implanted:Qty: 1 on 06/19/2024 by Sky Diaz MD at [facility] Left: Hip [employer]/Or tho [id number] 07/23/2033 [id number] / / [id number] [address] [place] [place] [address] [facility] Advance Directives For more information, please contact: [phone] Documents on File Type Date Recorded Patient Machine Loader Expl anation ADVANCE DIRECTIVE 06/21/2024 10:54 AM Power of Pastor-Medical * Full Code (Latest Code Status on File) Date Activated Date Inactivated Comments 06/19/2024 11:17 AM 06/24/2024 7:18 PM * LIMITED - No CPR Date Activated Date Inactivated Comments 06/18/2024 10:47 PM 06/19/2024 11:17 AM Question Answer Comments Provide aggressive medical m anagement before a full cardiopulmonary arrest occurs. Use antibiotics, IV Fluids, and medical treatment unless specifically selected below: No intubation * LIMITED - No CPR Date Activated Date Inactivated Comments 04/30/2024 6:43 PM 05/04/2024 8:05 PM Question Answer Comments Provide aggressive medical m anagement before a full cardiopulmonary arrest occurs. Use antibiotics, IV Fluids, and medical treatment unless specifically selected below: No intubation Care Teams Director Corporate Sales Relationship Specialty Start Date End Date Jay Soriano MD PCP - General Internal Medicine 09/08/23 MaddyJuan Carlos awan Si, MD [address] [place] [address] [place] [phone] Consulting Physician Neurology 05/04/24
--- OUTSIDE RECORDS SUMMARY | 2024-10-24 00:41 | XMS_ITS | Continuity of Care Document ---
Author Organization [facility] Address [address] [place] [address] Phone Care Team Providers Care Rollway Worker Name Role Phone Surinamese Jay TURNER Unavailable Unavailable Allergies, Adverse Reactions, Alerts Substance [...] vac RIV3 VACCINE NO PRESERV IM OFFICE [id number]-PMR-[id number] BODY MASS INDEX DOCD SYST BP >= 140 MM HG6 IT DIAST BP < 80 MM HG ROUTINE VENIPUNCTURE [place] BASIC METABOLIC PANEL(BMP) CBC, INC PLATELETS AND DIFFERENTIAL OFFICE [id number]-[id number]-[id number] BODY MASS INDEX DOCD SYST BP LT 130 MM HG DIAST BP < 80 MM HG ROUTINE VENIPUNCTURE [place] BASIC METABOLIC PANEL(BMP) CBC, INC PLATELETS AND DIFFERENTIAL Depression screen annual Clin depression screen doc OFFICE [id number] BODY MASS INDEX DOCD SYST BP LT 130 MM HG DIAST BP < 80 MM HG ROUTINE VENIPUNCTURE [place] Removal Of Sutures Or Grimes, Not Requi ring Anesthesia OFFICE [id number]-ILB-[id number] BODY MASS INDEX DOCD SYST BP GE [...] MEDICARE Pneumococcal Conjugate Vaccine (PCV20) A OFFICE [id number]-CIR-EXHP-MED BODY MASS INDEX DOCD SYST BP >= 140 MM HG6 IT DIAST BP < 80 MM HG ROUTINE VENIPUNCTURE [place] Advance Directives Directive Yes / No Effective Date File Name No Information Encounters Encounter Description Practice Location Reason(s) For Visit Diagnoses Date Provider Providers Copied on Encounter [facility], [address], [place], [place], [address] , [place] tel: [phone] [facility] Information 5 English Thompson. [address] [place], [place], [address] , [place]. tel: [phone] Referring Provider: Jay Soriano [address] [place], [address] . tel:[phone] [facility], [address], [place], [place], [address] , [place] tel: [phone] [facility] No Information 4 English Thompson. [address] [place], [place], [address] , [place]. tel: [phone] [facility], [address], [place], [place], [address] , [place] tel: [phone] [facility] No Information 4 Eun Viveros. [address] [address], [place], [place], [address] , [place]. tel: [phone] Referring Provider: [place], [address] . tel:[phone] OFFICE BWRHA-TPF-YY TAILED [facility], [address], [place], [place], [address] , tel: [phone] [facility] chr conditions (chief complaint) Leukocytosis, unspecified typeHypertensive chronic kidney disease with stage 1 through stage 4 chronic kidney disease, or unspecified chronic kidney diseaseHistory of CVA (cerebrovascular accident) 4 English Thompson. Priscila [place], [address] , [place]. tel: [phone] Referring Provider: [place], [address] . tel:[phone] [facility], [address], [place], [place], [address] , [place] tel: [phone] [facility] No Information 4 Makenna Maria. [address] [place], [place], [address] , . tel: [phone] [facility], [address], [place], [place], [address] , tel: [phone] [facility] No Information 4 Eun Viveros. [address] [place] [address], [id number] , . tel: [phone] Referring Provider: Candace Mensah, [address] [place], [address] . tel:[phone] OFFICE HAKPD-TVC-ER [facility], [address], [place], [place], [address] , tel: [phone] [facility] weakness/di zziness (chief complaint) Leukocytosis, unspecified typeHoarseness of voiceHypertensive chronic kidney disease with stage 1 through stage 4 chronic kidney disease, or unspecified chronic kidney diseaseStage 3 chronic kidney disease, unspecified whether stage 3a or 3b CKDHistory of CVA (cerebrovascular accident) 4 Makenna Maria. [address] [place], [place], [address] , [place]. tel: [phone] Referring Provider: Jay Soriano, [address] [place], [address] . tel:[phone] [facility] [address], [place], [place], [address] , tel: [phone] [facility] No Information 4 Eun Viveros. [address] [place] [address], [id number] , . tel: [phone] Referring Provider: Jay Soriano, [address] [place], [address] . tel:[phone] OFFICE VQEZR-SRM-DY [facility], [address] [place] [address], [id number] , [place] tel: [phone] [facility] chronic condition (chief complaint) Leukocytosis, unspecified typeHypertensive chronic kidney disease with stage 1 through stage 4 chronic kidney disease, or unspecified chronic kidney diseaseNonhealing skin ulcer, limited to breakdown of skinSenile purpuraHoarseness of voice 4 English Thompson. [address] [place], [place], [address] , [place]. tel: [phone] Referring Provider: [place], [address] . tel:[phone] OFFICE DXVTS-KBL-ZE PANDED [facility], [address], [place], [place], [address] , [place] tel: [phone] [facility] ER followup (chief complaint) Laceration of scalp, initial encounterEncounter for removal of sutures 4 Makenna Maria. [address] [place], [place], [address] , [place]. tel: [phone] Referring Provider: [place], [address] . tel:[phone] [facility], [address], [place], [place], [address] , [place] tel: [phone] [facility] Leukocytosis, unspecified type 4 English Thompson. Priscila [place], [address] , [place]. tel:[phone] Referring Provider: [place], [address] . tel:[phone] [facility], [address], [place], [place], [address] , [place] tel: [phone] [facility] No Information 4 Eun Viveros. [address] [facility] [address], [place], [place], [address] , [place]. tel: [phone] Referring Provider: [place], [address] . tel:[phone] [facility], [address], [place], [place], [address] , [place] tel: [phone] [facility] No Information 4 Eun Viveros. [address] [facility] [address], [place], [place], [address] , [place]. tel: [phone] Referring Provider: Candace Mensah, [address] [place], [address] . 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 [address] [place], [place], [address] , [place]. tel: [phone] Referring Provider: Jay Soriano, [address] [place], [address] . tel:[phone] Family History Family Member Type Diagnosis Age At Onset Father Problem Diabetes mellitus Mother Problem Cancer, breast Father Problem Hypertension Immunizations Vaccine Date Status Comments Flublok, Trivalent, preservative free, 18+ yrs, 0.5mL dosage administered Source: New Immuniza tion Record Pneumococcal conjugate PCV20 administered Source: New Immunization Record Payers Payer name Insurance type Covered alliance party ID Authoriza tion(s) [employer] [id number] [employer] [id number] Social History Type Description Quantity Date Captured Comments Sex Male Smoking Status No Information Sexual Orientation Straight or heterosexual Gender Identity [...] Referral Referred To: Jay Sheth DO [address] [facility] [place], [phone] Ordered: Referrals: Hematology Oncology. Jay Sheth DO. Evaluation/diagnostic/treatment - Level 3 ordered Referral Ordered: Gary Faith MD -Otolaryngology (related to Hoarseness of voice) ordered Referral Referred To: Gary Faith MD [address] [place], [phone] Ordered: Referrals: Otolaryngology. Gary Faith MD. Evaluation/diagnostic/treatment - Level 3 ordered Referral Ordered: Physical Therapy [facility] Physical [facility] (related to Gait instability) ordered Referral Referred To: [address]
[facility] [address] [place], [phone] Ordered: Chest x-ray, PA and lateral ordered Referral Referred To: Physical Therapy [address] [place], [phone] Ordered: Referrals: Physical Therapy. Location: [facility]. Evaluate and treat - Level 2 ordered Referral Referred To: Dr Castañeda [address] [place], [place], [phone] Ordered: Referrals: Neurology. Dr Castañeda. Evaluation/diagnostic/treatment - Level 3 ordered History Of Present Illness Encounter Date Complaint History Of Prese nt Illness chr conditions left hand weakne ss---- cant fully openct showed lacunar infarctsleujocytosis-- smoking less, never saw hemehad stroke on rigth sidehtn-- 140s at home weakness/dizziness 78 year old [...] blood cell count. We will refer to motor expert if still elevated chronic condition leukocytosis-- probably [...] scalp laceration repaired in ER with [address] head and Cspine which showed no acute findings. He has had no problems with laceration. Denies pain, drainage, redness, swelling. 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 Patient's last visit to a primary care provider was in March [address] Polanco. He lives in [place] with his partner. AcutePatient reports having difficulty [...] 1/2 ppd x 60 years agoSpecialists/Other Providers: Jinaergies: NKDATobacco/Alcohol/Drugs: 05/16 ppd/former quit 45 years ago/noImmunizationsCOVID - DUE [...] accident) will recheck and seen to wilner fernándezd to Leukocytosis, unspecified type Medication management STOP HYDROCHLOROTHIA ZIDEMonitor BP at home and call us if BP >140/90 consistentlyStay hydrated Related to Hypertensive chronic kidney disease with stage 1 through stage 4 chronic kidney disease, or unspecified chronic kidney disease We will recheck toda yif still high, will send to motor expert/oncologist Related to Leukocytosis, unspecified type Continue to [...] Related to Leukocytosis, unspecified type Medication management Grimes removed with no complicationContinue to use baby soapApply vaseline once daily Related to Encounter for removal of sutures Benji removed with no complicationContinue to use baby [...]
--- OUTSIDE RECORDS SUMMARY | 2024-10-24 00:41 | XMS_ITS | Referral Summary ---
Author Organization [facility] Address [address] [place] [address] Care Team Providers Care Typesetter Perforator Operator Name Role Phone Jay Soriano MD Primary Care Provider [phone] Maddy, Juan Carlos Cortez MD Unavailable Encounters Date Type Department Care Team Description 10/03/2024 2:00 PM CDT Office Visit [facility] Neurology [address] [facility] [address] [place] [address] Maddy, Juan Carlos Cortez MD Multiple lacunar infarcts (HCC) (Primary Dx); Dysarthria; Mild cognitive impairment from Last 3 Months Allergies No known active allergies Medications atorvastatin [...] 05/27/2024 Assessment & Plan (05/31/2024 6:30 PM BOX ANNEALER): Patient remains asymptomatic, afebrile. WBC currently 12.6. Continue to monitor. Assessment & Plan (05/27/2024 12:05 PM BOX ANNEALER): Etiology unclear - no infectious symptoms. UA checked previously and WNL. Prob inflammatory. Continue to monitor Severe vascular dementia wit hout behavioral disturbance, psychotic disturbance, mood disturbance, or anxiety 05/17/2024 Assessment & Plan (05/21/2024 12:19 PM BOX ANNEALER): MOCA 10/25, indicating severe cognitive decline. Patient has become much more interactive, appears to be sleeping better. After discussion with child welfare social worker and patient's significant other/caregiver he will need to discharge to a higher level of care after completing rehab. Continue bupropion for mood control, melatonin for sleep. Assessment & Plan (05/17/2024 1:05 PM BOX ANNEALER): With history of underlying CVA. [place] [address] indicating significant cognitive decline. Family reports that this has been progressively worsening with an ongoing physical decline as well. SOFTWARE ASSET MANAGER following, patient will likely need higher level of care at discharge. 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 Continue moisturizer. Will monitor for secondary infection. Podiatric Medicine Professor notified. Stage 3a chronic kidney disease 05/06/2024 Assessment & Plan (05/31/2024 6:29 PM BOX ANNEALER): Renal function stable, BUN/creatinine 26/1.36 with a GFR of 53 Assessment & Plan (05/27/2024 12:02 PM BOX ANNEALER): Renal function stable/improved. Bun/Cr 20/1.34, GFR 54. Continue to monitor Assessment & Plan (05/21/2024 12:18 PM BOX ANNEALER): Renal function about at baseline, BUN/creatinine 32/1.50 with a GFR of 47 Assessment & Plan (05/13/2024 9:38 PM BOX ANNEALER): Renal function about at baseline, BUN/creatinine 25/1.41. With a GFR 51 Constipation 05/06/2024 Assessment & Plan (05/21/2024 12:20 PM BOX ANNEALER): Increase Daysi Colace to 1 tablet b.i.d., add MiraLax daily, milk of magnesia p.r.n. Assessment & Plan (05/14/2024 8:28 AM BOX ANNEALER): He complains of lack of bowel movement. Milk of magnesia ordered Depression 05/06/2024 Assessment & Plan (05/17/2024 1:04 PM BOX ANNEALER): Affect flat, patient remains withdrawn. Patient occasionally has difficulty participating with therapy likely due to underlying dementia. Continue bupropion 100 mg daily Assessment & Plan (05/14/2024 8:28 AM BOX ANNEALER): This is chronic and stable. Continue bupropion 100 mg daily. TIA (transient ischemic attack) 04/30/2024 Unresponsiveness 04/30/2024 Assessment & Plan (05/27/2024 12:07 PM BOX ANNEALER): Pt with vagel episode this am after a large BM - recovered quickly. Increased bowel regimen to reduce straining. 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 Chronic rhinitis 07/20/2021 Hydrocele 08/07/2017 Actinic keratosis 10/29/2015 Essential hypertension 10/29/2015 Assessment & Plan (05/31/2024 6:28 PM BOX ANNEALER): Blood pressure stable, continue amlodipine Assessment & Plan (05/27/2024 12:01 PM BOX ANNEALER): Stable, continue norvasc Assessment & Plan (05/21/2024 12:18 PM BOX ANNEALER): Blood pressure well controlled, continue amlodipine 10 mg daily Assessment & Plan (05/17/2024 1:03 PM BOX ANNEALER): Blood pressure well controlled, continue amlodipine 10 mg daily Assessment & Plan (05/14/2024 8:28 AM BOX ANNEALER): This is chronic and currently stable. Continue to monitor serial vital signs for trending. Continue amlodipine as scripted Assessment & Plan (05/13/2024 9:37 PM BOX ANNEALER): BP controlled, continue norvasc 10mg daily. 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 Assessment & Plan (05/17/2024 1:06 PM BOX ANNEALER): Continue post stroke prophylaxis with aspirin, statin, blood pressure control Assessment & Plan (05/13/2024 9:39 PM BOX ANNEALER): No new neurologic changes, therapies are in place, monitor patient's progress. Continue post stroke prophylaxis with aspirin, atorvastatin, blood pressure management Resolved Problems Problem Noted Date Diagnosed Date Resolved Date Upper respiratory infection 06/14/2018 06/02/2024 Social History Tobacco Use Types Packs/Day Years Used Date Smoking Tobacco: Every Day Cigarettes 0.2 60 Smokeless Tobacco: Never Tobacco Cessation:Ready to Q uit: Not Asked; Counseling Given: Not Answered [facility] Utilities Answer Date Recorded In the past 12 months has [employer], [employer], or water [employer] threatened to shut off services in your [...] week 06/20/2024 How often do you attend chur or hoahaoism services? Never 06/20/2024 Do you belong to any clubs o r organizations such as religion groups, unions, fraternal or athletic groups, or [...] any time in the past 12 [facility], were you homeless or living in a long-term (including now)? No 06/20/2024 Personal Safety Answer [...] on file Sexual Orientation Not on file Last Filed Vital Signs Vital Sign Reading Time Taken Comments Blood Pressure 124/72 10/03/2024 1:58 PM CDT Pulse 86 10/03/2024 1:58 PM CDT Temperature 36.4 C (97.5 F) 06/24/2024 7:35 AM BOX ANNEALER Respiratory Rate 16 06/24/2024 7:35 AM BOX ANNEALER Oxygen Saturation 100% 10/03/2024 1:58 PM CDT Inhaled Oxygen Concentration - - Weight 62.6 kg (138 lb) 10/03/2024 1:58 PM CDT Height 182.9 cm (6' 0.01) 10/03/2024 1:58 PM CD T Body Mass Index 18.71 10/03/2024 1:58 PM CDT Plan of Treatment Not on file Medical Devices Implanted Type Area Hospice Educator Device Identifier Shelf Expiration Date Model / Serial / Lot [employer]/ Ortho [place] 28mm Taper Neck Primary Hip +0mm 04/27 Head Femoral Cocr [id number] - [id number] Implanted:Qty: 1 on 06/19/2024 by Sky Diaz MD at [facility] Left: Hip [employer]/Or tho [id number] 11/27/2033 [id number] / / [id number] [employer]/ Ortho Tandem Od54 Mm; Id28 Mm Acetabulum Shell/Liner Bipolar Uhmwpe; Co [id number] - [id number] Implanted:Qty: 1 on 06/19/2024 by Sky Diaz MD at [facility] Left: Hip [employer]/Or tho [id number] 04/01/2033 [id number] / / [id number] [employer]/ Ortho Synergy 15mm 165mm Standard Offset Hip Stem Femoral Titanium [id number] - [id number] Implanted:Qty: 1 on 06/19/2024 by Sky Diaz MD at [facility] Left: Hip [employer]/Or tho [id number] 10/10/2033 [id number] / / [id number] [employer]/ Ortho Tandem Od54 Mm; Id28 Mm Acetabulum Shell/Liner Bipolar Uhmwpe; Co [id number] - [id number] Implanted:Qty: 1 on 06/19/2024 by Sky Diaz MD at [facility] Left: Hip [employer]/Or tho [id number] 07/23/2033 [id number] / / [id number] Insurance [facility] Advance Directives For more information, please contact: [phone] Documents on File Type Date Recorded Patient Bartender Manager Expl anation ADVANCE DIRECTIVE 06/21/2024 10:54 AM Power of General Pediatrician-Medical * Full Code (Latest Code Status on [...] specifically selected below: No intubation Care Teams Typesetter Perforator Operator Relationship Specialty Start Date End Date Jay Soriano MD PCP - General Internal Medicine [facility] [address] [address] Consulting Physician Neurology 05/04/24
[2024-10-24 01:07] LABS: Lactic Acid Reflex 1.2 mmol/L (0.7-2.0)
[2024-10-24 01:07] LABS: Alanine Aminotransferase 15 U/L (6-50); Albumin Level 3.2 g/dL (3.5-5.1); Alkaline Phosphatase 111 U/L (38-126); Anion Gap 10 mmol/L (4-12); Aspartate Amino Transferase 32 U/L (17-59); Bilirubin,Total 0.5 mg/dL (0.2-1.3); Blood Urea Nitrogen 28 mg/dL (9-20); Calcium 9.4 mg/dL (8.4-10.2); Carbon Dioxide 28 mmol/L (22-30); Chloride 104 mmol/L (98-107); Estimated CRCL calculation 84 ml/min; Estimated Glomerular Filt Rate > 60; Glucose 111 mg/dL (65-110); Potassium 2.9 mmol/L (3.4-5.0); Sodium 142 mmol/L (137-145); Total Protein 6.6 g/dL (6.3-8.2)
[2024-10-24 01:14] LABS: Add Urine Microscopic? YES; Appearance Urine Turbid (Clear); Bacteria Urine 4+ /hpf; Bilirubin Urine Negative (Negative); Blood Urine 1+ (Negative); Color Urine Dark Yellow (Yellow); Glucose Urine UA Negative (Negative); Ketones Urine 1+ mg/dL (Negative); Leukocyte Esterase Ur 3+ LEU/UL (Negative); Nitrate Urine Negative (Negative); Protein Urine 2+ mg/dL (Negative); RBC Urine 0-2 /hpf (0-2); Specific Grav Ur 1.023 (1.001-1.035); Squamous Epithelial Cell Urine Few /hpf (Few); WBC Urine >100 /hpf (0-3); pH Urine 5.5 (5.0-9.0)
[2024-10-24 01:20] LABS: Basophils Absolute Auto 0.1 K/mm3 (0.0-0.1); Basophils Percent Auto 0.2 % (0.2-1.2); Eosinophils Percent Auto 0.1 % (0-4.4); Hematocrit 39.6 % (42.0-52.0); Hemoglobin 12.6 g/dL (14.0-18.0); Immature Granulocyte Absolute 0.75 K/mm3 (0.00-0.031); Immature Granulocyte Percent A 2.9 % (0-0.5); Lymphocytes Absolute Auto 0.81 K/mm3 (0.9-3.2); Lymphocytes Percent Auto 3.1 % (18.3-44.2); Mean Corpuscular HGB Conc 31.8 g/dl (32-36); Mean Corpuscular Hemoglobin 29.3 pg (26-34); Mean Corpuscular Volume 92.1 fl (80-100); Mean Platelet Volume 11.4 fl (7.4-10.4); Monocytes Absolute Auto 1.3 K/mm3 (0.1-0.6); Monocytes Percent Auto 4.9 % (2.6-8.5); Neutrophils Absolute Auto 23.2 K/mm3 (1.3-6.7); Neutrophils Percent Auto 88.8 % (45.5-73.1); Platelet Count Result 401 k/mm3 (150-375); Red Cell Distribution Width 14.3 % (11.5-14.5); White Blood Count 26.1 K/mm3 (4.5-10.0)
[2024-10-24 01:39] LABS: Influenza A QL RT-PCR Negative (Negative); Influenza B QL RT-PCR Negative (Negative); RSV RNA, RT-PCR Negative (Negative); SARS-CoV-2 RNA PCR Negative (Negative)
[2024-10-24 01:39] LABS: INR 1.3; Partial Thromboplastin Time 33.2 Seconds (22.3-36.8); Prothrombin Time 16.1 Seconds (11.1-14.7)
[2024-10-24] MEDS: POTASSIUM CHLORIDE INJ 40 MEQ in SODIUM CHLORIDE 0.9% IV 500 ML 130 MEQ IVPB ×2 (02:01→17:46)
[2024-10-24 02:03] LABS: Anisocytosis 1+; Burr Cells 1+; Ovalocytes 1+; Platelet Estimate Increased (Adequate); Schistocytes None Seen
[2024-10-24] MEDS: LACTATED RINGERS 800 ML 999 ML IV CONT (02:18)
[2024-10-24] MEDS: LACTATED RINGERS 1,000 ML 999 ML IV CONT (02:18)
[2024-10-24] MEDS: SODIUM CHLORIDE 0.9% IV 1,000 ML 100 ML (02:20)
--- NOTE | 2024-10-24 03:10 | PC.NURSE ---
Pt goes by Babatunde Edmond [phone]
[2024-10-24] MEDS: DOXYCYCLINE 100 MG/NS 100 ML 100 MG/100 ML BAG IVPB ×2 (03:14→14:17)
--- NOTE | 2024-10-24 03:59 | ED.GENADULT ---
HPI - General Adult General Chief complaint: Altered Mental Status Stated complaint: sob, ams History of Present Illness HPI narrative: This is a 79-year-old male presenting ED for altered mental status and shortness of breath. The patient is alert but cannot provide me any meaningful information other than his name. long term said that he is usually A&O x4 and he is now A&O times 1-2. Per EMS he was found to be saturating 80% on room air at the [place] [facility], however he is 94% on room air in the ED. Related Data Home Medications ?Medication ?Instructions ?Recorded ?Confirmed ?Last Taken ?Type acetaminophen 325 mg capsule 650 mg PO TID PRN pain 07/29/24 07/29/24 07/29/24 06:55 History amlodipine 10 mg tablet 10 mg PO DAILY 07/29/24 07/29/24 07/29/24 09:05 History aspirin 81 mg tablet,delayed 81 mg PO HS 07/29/24 07/29/24 07/28/24 08:25 History release (Adult Aspirin Regimen) atorvastatin 20 mg tablet 20 mg PO HS 07/29/24 07/29/24 07/28/24 08:25 History bisacodyl 5 mg tablet,delayed 10 mg PO DAILY 07/29/24 07/29/24 Unknown History release bupropion HCl 100 mg tablet,12 hr 100 mg PO DAILY 07/29/24 07/29/24 07/29/24 07:00 History sustained-release (Wellbutrin SR) famotidine 20 mg tablet 20 mg PO HS 07/29/24 07/29/24 Unknown History magnesium hydroxide 400 mg/5 mL 30 ml PO DAILY PRN constipation 07/29/24 07/29/24 Unknown History oral suspension (Dulcolax (magnesium hydroxide)) metoprolol tartrate 25 mg tablet 12.5 mg PO BID 07/29/24 07/29/24 07/29/24 07:00 History pantoprazole 20 mg tablet,delayed 20 mg PO BID 07/29/24 07/29/24 Unknown History release polyethylene glycol 3350 17 17 g PO DAILY 07/29/24 07/29/24 Unknown History gram/dose oral powder (Miralax) sennosides 8.6 mg tablet (senna) 17.2 mg PO BID 07/29/24 07/29/24 Unknown History tramadol 50 mg tablet 50 mg PO Q6H PRN pain 07/29/24 07/29/24 Unknown History Allergies Allergy/AdvReac Type Severity Reaction Status Date / Time No Known Allergies Allergy Verified 09/02/24 11:03 [facility] Past Medical History Medical History Hyperlipidemia GERD (gastroesophageal reflux disease) Dementia Hypertension CVA (cerebral vascular accident) Social History Social History Smoking status: Former smoker Alcohol intake: former Substance use: current Substance use type: marijuana Do You Feel Safe in your Home?: Yes Lack of Transportation: No Lack of Food: Never True Current Housing: I Have Housing Concerned About Future Housing: No Difficulty Paying Gas/Electric Bills: No Difficulty Paying for Meds: No Currently Unemployed: No Education: High School Diploma/GED Difficulty w/ Childcare or Family Care: No Spiritual care concerns: No Exam Narrative: APPEARANCE: Chronically ill-appearing, A&O x1, not answering questions appropriately Head: atraumatic. EYES: EOMI, NOSE: Atraumatic NECK: Trachea midline RESPIRATORY: No increased rate of breathing, bibasilar rhonchi CARDIOVASCULAR: RRR, no peripheral edema ABDOMINAL: Non-distended soft nontender MUSCULOSKELETAl: Left leg is in a knee immobilizer NEURO: Alert. Moving 4/4 extremities SKIN:: Unstageable eschar over the left heel and the left 5th toe. PSYCHIATRIC: Normal affect Course Vital Signs Vital signs: Vital Signs Temperature 97.7 F 10/24/24 00:33 Pulse Rate 30 L 10/24/24 00:33 Respiratory Rate 79 H 10/24/24 00:33 Blood Pressure 168/86 H 10/24/24 00:33 Pulse Oximetry 94 10/24/24 00:33 Oxygen Delivery Room Air 10/24/24 00:33 Temperature 97.7 F 10/24/24 00:33 Pulse Rate 80 10/24/24 00:55 Respiratory Rate 79 H 10/24/24 00:33 Blood Pressure 168/86 H 10/24/24 00:33 Pulse Oximetry 94 10/24/24 00:33 Oxygen Delivery Room Air 10/24/24 00:33 Medical Decision Making [facility] Narrative Medical decision making narrative: -Course: 79-year-old [place] [facility] resident presenting for altered mental status. He can not provide no information to guide a workup. Sepsis workup with [place]os scan obtained. Patient found have bilateral pneumonia, urinary tract infection and a kidney mass concerning for renal cell carcinoma. Review of the nursing patient does not mention any known renal cell carcinoma. Patient received doxycycline and ceftriaxone with 30 cc/kilogram bolus. Patient will be admitted hospital for further management. -DDX includes but is not limited to: Pneumonia UTI sepsis dehydration Vital Signs Vital Signs: Vital Signs Temperature 97.7 F 10/24/24 00:33 Pulse Rate 30 L 10/24/24 00:33 Respiratory Rate 79 H 10/24/24 00:33 Blood Pressure 168/86 H 10/24/24 00:33 Pulse Oximetry 94 10/24/24 00:33 Oxygen Delivery Room Air 10/24/24 00:33 Temperature 97.7 F 10/24/24 00:33 Pulse Rate 80 10/24/24 00:55 Respiratory Rate 79 H 10/24/24 00:33 Blood Pressure 168/86 H 10/24/24 00:33 Pulse Oximetry 94 10/24/24 00:33 Oxygen Delivery Room Air 10/24/24 00:33 Lab Data 10/24/24 00:51 10/24/24 00:50 Labs: Lab Results 10/24/24 10/24/24 Range/Units 00:50 00:51 WBC 26.1 H (4.5-10.0) K/mm3 RBC 4.30 L (4.6-6.20) M/mm3 Hgb 12.6 L D (14.0-18.0) g/dL Hct 39.6 L (42.0-52.0) % MCV 92.1 (80-100) fl MCH 29.3 (26-34) pg MCHC 31.8 L (32-36) g/dl RDW 14.3 (11.5-14.5) % Plt Count 401 H (150-375) k/mm3 MPV 11.4 H (7.4-10.4) fl Immature Gran % (Auto) 2.9 H (0-0.5) % Neut % (Auto) 88.8 H (45.5-73.1) % Lymph % (Auto) 3.1 L (18.3-44.2) % Hardin % (Auto) 4.9 (2.6-8.5) % Eos % (Auto) 0.1 (0-4.4) % Baso % (Auto) 0.2 (0.2-1.2) % Lymph # (Auto) 0.81 L (0.9-3.2) K/mm3 Hardin # (Auto) 1.3 H (0.1-0.6) K/mm3 Eos # (Auto) 0.0 (0-0.3) K/mm3 Baso # (Auto) 0.1 (0.0-0.1) K/mm3 Abs Immat Gran (auto) 0.75 H (0.00-0.031) K/mm3 Absolute Neuts (auto) 23.2 H (1.3-6.7) K/mm3 Absolute Nucleated RBC 0.000 (0.0-0.012) K/mm3 Band Neutrophils % Not Reportable Nucleated RBC % 0.0 (0.0-0.2) % Platelet Estimate Increased (Adequate) Anisocytosis 1+ Ovalocytes 1+ Genet Cells 1+ Schistocytes None seen PT 16.1 H (11.1-14.7) Seconds INR 1.3 APTT 33.2 (22.3-36.8) Seconds Sodium 142 (137-145) mmol/L Potassium 2.9 L (3.4-5.0) mmol/L Chloride 104 (98-107) mmol/L Carbon Dioxide 28 (22-30) mmol/L Anion Gap 10 (4-12) mmol/L BUN 28 H D (9-20) mg/dL Creatinine 0.89 (0.7-1.3) mg/dL Estim Creat Clear Calc 84 ml/min Estimated GFR > 60 (59 - ) Glucose 111 H (65-110) mg/dL Lactic Acid 1.2 (0.7-2.0) mmol/L Calcium 9.4 (8.4-10.2) mg/dL Total Bilirubin 0.5 (0.2-1.3) mg/dL AST 32 (17-59) U/L ALT 15 (6-50) U/L Alkaline Phosphatase 111 (38-126) U/L Total Protein 6.6 (6.3-8.2) g/dL Albumin 3.2 L (3.5-5.1) g/dL Urine Color Dark yellow (Yellow) Urine Appearance Turbid H (Clear) Urine pH 5.5 (5.0-9.0) Ur Specific [place] 1.023 (1.001-1.035) Urine Protein 2+ H (Negative) mg/dL Urine Glucose (UA) Negative (Negative) mg/dL Urine Ketones 1+ H (Negative) mg/dL Ur Blood (Man) 1+ H (Negative) Urine Nitrate Negative (Negative) Urine Bilirubin Negative (Negative) Urine Urobilinogen 1.0 (<2.0) mg/dL Leukocyte Esterase Rfl 3+ H (Negative) NOAH/UL Urine RBC 0-2 (0-2) /hpf Urine WBC >100 H (0-3) /hpf Ur Squamous Epith Cells Few (Few) /hpf Urine Bacteria 4+ H /hpf Urine Casts 11-20 Influenza A (RT-PCR) Negative (Negative) Influenza B (RT-PCR) Negative (Negative) RSV (RT-PCR) Negative (Negative) SARS-CoV-2 RNA (RT-PCR) Negative (Negative) Discharge Plan Discharge Clinical Impression: Sepsis, AMS (altered mental status), PNA (pneumonia), Acute UTI Patient Disposition: Still a Patient Condition: Stable Patient Language: Yakut Prescriptions: No Action atorvastatin 20 mg tablet 20 mg PO HS pantoprazole 20 mg tablet,delayed release (DR/EC) 20 mg PO BID famotidine 20 mg tablet 20 mg PO HS acetaminophen 325 mg capsule 650 mg PO TID PRN (Reason: pain) aspirin [Adult Aspirin Regimen] 81 mg tablet,delayed release (DR/EC) 81 mg PO HS bisacodyl 5 mg tablet,delayed release (DR/EC) 10 mg PO DAILY metoprolol tartrate 25 mg tablet 12.5 mg PO BID polyethylene glycol 3350 [Miralax] 17 gram/dose powder 17 g PO DAILY sennosides [senna] 8.6 mg tablet 17.2 mg PO BID tramadol 50 mg tablet 50 mg PO Q6H PRN (Reason: pain) bupropion HCl [Wellbutrin SR] 100 mg tablet sustained-release 12 hr 100 mg PO DAILY amlodipine 10 mg tablet 10 mg PO DAILY magnesium hydroxide [Dulcolax (magnesium hydroxide)] 400 mg/5 mL suspension 30 ml PO DAILY PRN (Reason: constipation) cefdinir 300 mg Capsule 300 mg PO Q12HR Qty: 10 0RF Eliquis 2.5 mg Tablet 2.5 mg PO Q12HR Qty: 80 0RF Follow-up/Referrals: PHYSICIAN NOT ON STAFF,NONSTAFF [Primary Care Provider] -
--- NOTE | 2024-10-24 05:58 | ADMGEN ---
This patient, Chris Cooley, was admitted to [facility] Surg Room 332-02 @0532. Patient/family oriented to hospital policies and general routines including ID bracelet, bed and alarms, visiting hours, pain management, procedures, bathroom and other care routines, personal items, smoking policy, room service/diet, and visiting hours. Information on how to activate the Rapid Response Team has been discussed. Patient/Family are encouraged to report perceived risks to care and to ask questions if they do not understand what they are told or what they should do.
--- NOTE | 2024-10-24 09:41 | PCSTNOTE ---
Please refer to the Bedside Swallow Evaluation in the EMR. Please note, silent aspiration cannot be ruled out at bedside.
--- NOTE | 2024-10-24 10:28 | P.HP_ITS ---
H&P: HPI History of Present Illness Date/Time: 10/24/24 10:28 Chief Complaint: shortness of breath Narrative: 79 year old male with past medical history of hypertension, CVA, dementia AOx 1- 2 per NH, hyperlipidemia, and GERD presents to the hospital via EMS from halfway for shortness of breath and altered mental status. On assessment patient is at baseline AOx2 (self, year). Patient has no complaints during assessment denying shortness of breath and chest pain. However unsure how accurate given mental status. He does note a slight cough but cannot further elaborate duration and if it is productive. Majority of history and physical obtained via [facility] and EMR. Call made to [facility] to further discuss patient. Per [facility] RN patient has had no complaints that she is aware of. She does state that he has intermittent coughing with meals but is unaware of any prior aspiration concerns. Denies patient complaining of chest pain, shortness of breath, palpitations, nausea/vomiting. She also notes that patient has not had any urinary complaints either. She notes that patient is bed bound at this point. Discussed code status with [facility] and patient is currently a full code per POA. ED workup: CBC with WBC 26.1 without bandemia, H/H 12.6/39.6, and PLT 401. CMP with Na 142 and K 2.9. BUN/Cr 28/0.89 with GFR >60. Glucose 111. Lactic 1.2. LFT WNL. Procal 0.7. UA: Turbid appearance with 2+ protein, 1+ ketones, 1+ blood, 3+ leukocytes, negative nitrates, greater than 100 WBC and 4+ bacteria. UC obtained on 10/24, pending. Chest/abdomen/pelvis CT: Extensive patchy consolidation in both lower lobes, suspicious for bilateral pneumonia, possibly due to aspiration. Dependent atelectatic changes and alternative consideration. Moderate to advanced emphysema. Probable cystitis. 3.4 cm infrarenal abdominal aortic aneurysm. 4.3 cm left upper pole solid renal mass, suspicious for renal cell carcinoma. Review of Systems Review of Systems: ROS unobtainable: Yes unobtainable due to mental status [facility] Past Medical History Medical History (Updated 10/24/24 @ 10:41 by Sadia Coon PA-C) Hyperlipidemia GERD (gastroesophageal reflux disease) Dementia Hypertension CVA (cerebral vascular accident) Surgical History Surgical History (Updated 10/24/24 @ 10:33 by Sadia Coon PA-C) History of hemiarthroplasty of hip Family History Family History (Updated 10/24/24 @ 08:06 by Laisha Kenyon RN) Other Unknown family medical history Social History Social History Smoking status: Former smoker Alcohol intake: former Substance use: former Substance use type: marijuana Last use: 50 yrs ago Do You Feel Safe in your Home?: Yes Lack of Transportation: No Lack of Food: Never True Current Housing: I Have Housing Concerned About Future Housing: No Difficulty Paying Gas/Electric Bills: No Difficulty Paying for Meds: No Currently Unemployed: No Education: High School Diploma/GED Difficulty w/ Childcare or Family Care: No Spiritual care concerns: No Meds Home Medications and Allergies Home Medications ?Medication ?Instructions ?Recorded ?Confirmed ?Type acetaminophen 325 mg capsule 650 mg PO TID PRN pain 07/29/24 10/24/24 History aspirin 81 mg tablet,delayed 81 mg PO HS 07/29/24 10/24/24 History release (Adult Aspirin Regimen) atorvastatin 20 mg tablet 20 mg PO HS 07/29/24 10/24/24 History bisacodyl 5 mg tablet,delayed 10 mg PO DAILY 07/29/24 10/24/24 History release bupropion HCl 100 mg tablet,12 hr 100 mg PO DAILY 07/29/24 10/24/24 History sustained-release (Wellbutrin SR) magnesium hydroxide 400 mg/5 mL 30 ml PO DAILY PRN constipation 07/29/24 10/24/24 History oral suspension (Dulcolax (magnesium hydroxide)) metoprolol tartrate 25 mg tablet 25 mg PO BID 07/29/24 10/24/24 History pantoprazole 20 mg tablet,delayed 20 mg PO BID 07/29/24 10/24/24 History release polyethylene glycol 3350 17 17 g PO DAILY 07/29/24 10/24/24 History gram/dose oral powder (Miralax) sennosides 8.6 mg tablet (senna) 17.2 mg PO BID 07/29/24 10/24/24 History tramadol 50 mg tablet 50 mg PO Q6H PRN pain 07/29/24 10/24/24 History melatonin 3 mg capsule 3 mg PO HS PRN insomnia 10/24/24 10/24/24 History sertraline 50 mg tablet 50 mg PO DAILY 10/24/24 10/24/24 History Allergies Allergy/AdvReac Type Severity Reaction Status Date / Time No Known Allergies Allergy Verified 10/24/24 08:03 Vital Signs Vital Signs - 24 hr 10/24/24 00:33 10/24/24 00:37 10/24/24 00:38 Temperature 97.7 F Pulse Rate 69 79 78 Respiratory Rate 30 H 23 H 29 H Blood Pressure 168/86 H 168/86 H Pulse Oximetry 94 93 94 Oxygen Delivery Room Air 10/24/24 00:45 10/24/24 00:46 10/24/24 00:55 Temperature Pulse Rate 80 78 80 Respiratory Rate 26 H 28 H Blood Pressure 163/81 H Pulse Oximetry 92 93 Oxygen Delivery 10/24/24 01:00 10/24/24 01:01 10/24/24 01:15 Temperature Pulse Rate 81 81 81 Respiratory Rate 30 H 31 H 30 H Blood Pressure 160/82 H Pulse Oximetry 92 92 91 Oxygen Delivery 10/24/24 01:36 10/24/24 01:58 10/24/24 01:59 Temperature Pulse Rate 79 78 78 Respiratory Rate 28 H 29 H 31 H Blood Pressure 173/73 H Pulse Oximetry 91 94 94 Oxygen Delivery 10/24/24 02:00 10/24/24 02:01 10/24/24 02:31 Temperature Pulse Rate 80 80 72 Respiratory Rate 28 H 26 H 26 H Blood Pressure 179/73 H 165/70 H Pulse Oximetry 94 94 94 Oxygen Delivery 10/24/24 02:32 10/24/24 03:19 10/24/24 03:30 Temperature Pulse Rate 72 78 70 Respiratory Rate 27 H 28 H 23 H Blood Pressure Pulse Oximetry 94 94 Oxygen Delivery 10/24/24 03:31 10/24/24 03:45 10/24/24 03:46 Temperature Pulse Rate 71 69 69 Respiratory Rate 24 H 25 H 25 H Blood Pressure 178/76 H 169/80 H Pulse Oximetry Oxygen Delivery 10/24/24 04:26 10/24/24 05:09 10/24/24 05:17 Temperature 97.9 F Pulse Rate 69 67 76 Respiratory Rate 22 H 22 H 25 H Blood Pressure 174/70 H Pulse Oximetry 94 93 Oxygen Delivery 10/24/24 06:00 10/24/24 06:40 10/24/24 08:00 Temperature 96.7 F L Pulse Rate 71 Respiratory Rate 32 H 32 H Blood Pressure 164/66 H Pulse Oximetry 94 94 94 Oxygen Delivery Room Air Room Air 10/24/24 08:00 Temperature Pulse Rate 68 Respiratory Rate Blood Pressure Pulse Oximetry Oxygen Delivery Exam Narrative: AF HR 74 RR 16 Spo2 94 BP 137/59 General: male in no acute respiratory distress who is nontoxic appearing, lying semi recumbent in bed. HEENT: Normocephalic. Atraumatic. Extraocular movement intact. Sclera clear and anicteric. No facial asymmetry. Neck: Neck was supple. No dominant adenopathy, thyromegaly or masses. Chest: Lungs are coarse to auscultation bilaterally. No wheezes or crackles. CV: Heart was regular rate and rhythm. S1/S2. No murmurs, gallops, or rubs. Abd: Abdomen was soft. Nontender. Nondistended. Positive bowel sounds. Ext: No clubbing, cyanosis, or edema. DP pulses bilaterally. Neuro: Patient is alert and oriented x2 (self and year). Intermittently follows commands. Skin: Warm and dry. No rashes noted. H&P: Results Labs Labs: Short CBC 10/24/24 Range/Units 00:51 WBC 26.1 H (4.5-10.0) K/mm3 Hgb 12.6 L D (14.0-18.0) g/dL Hct 39.6 L (42.0-52.0) % Plt Count 401 H (150-375) k/mm3 BMP 10/24/24 00:50 Sodium 142 Potassium 2.9 L Chloride 104 Carbon Dioxide 28 BUN 28 H D Creatinine 0.89 Glucose 111 H Calcium 9.4 Liver Function 10/24/24 Range/Units 00:50 Total Bilirubin 0.5 (0.2-1.3) mg/dL AST 32 (17-59) U/L ALT 15 (6-50) U/L Alkaline Phosphatase 111 (38-126) U/L Albumin 3.2 L (3.5-5.1) g/dL Urine 10/24/24 Range/Units 00:51 Urine Color Dark yellow (Yellow) Urine Appearance Turbid H (Clear) Urine pH 5.5 (5.0-9.0) Ur Specific [place] 1.023 (1.001-1.035) Urine Protein 2+ H (Negative) mg/dL Urine Glucose (UA) Negative (Negative) mg/dL Assessment and Plan Assessment and plan (1) AMS (altered mental status): Code(s): R41.82 - Altered mental status, unspecified Status: Acute Assessment and Plan: Patient is AOx2 (person, year) on assessment. Spoke with NH and he is AOx1-2 at baseline. - Head CT showed no intracranial hemorrhage, mass or acute infarct. Atophy and chronic white matter changes noted. - Monitor (2) Sepsis: Code(s): A41.9 - Sepsis, unspecified organism Status: Acute Assessment and Plan: Meets SIRS criteria: leukocytosis, tachypnea - lactic acid: 1.2 - sepsis fluids given in ED - suspected source: coccurrent UTI and pneumonia - blood cultures drawn on 10/24, pending - UA: Turbid appearance with 2+ protein, 1+ ketones, 1+ blood, 3+ leukocytes, negative nitrates, greater than 100 WBC and 4+ bacteria. - UC obtained on 10/24, pending - Chest/abdomen/pelvis CT: Extensive patchy consolidation in both lower lobes, suspicious for bilateral pneumonia, possibly due to aspiration. Dependent atelectatic changes and alternative consideration. Moderate to advanced emphysema. - see plans for UTI and pneumonia below Remains hemodynamically stable. (3) Acute UTI: Code(s): N39.0 - Urinary tract infection, site not specified Status: Acute Assessment and Plan: - UA: Turbid appearance with 2+ protein, 1+ ketones, 1+ blood, 3+ leukocytes, negative nitrates, greater than 100 WBC and 4+ bacteria. - UC obtained on 10/24, pending - Chest/abdomen/pelvis showed probable cystitis - No previous micro to be reviewed - started on rocephin on 10/24 (4) PNA (pneumonia): Code(s): J18.9 - Pneumonia, unspecified organism Status: Acute Assessment and Plan: Chest/abdomen/pelvis CT: Extensive patchy consolidation in both lower lobes, suspicious for bilateral pneumonia, possibly due to aspiration. Dependent atelectatic changes and alternative consideration. Moderate to advanced emphysema. - started on CAP tx: Rocephin and doxycycline 10/24, flagyl added for aspiration concern - Viral PCR: negative for Flu/COVID/RSV - MRSA swab ordered - legionella, mycoplasma and pneumococcal ordered - sputum culture ordered - no supplemental O2 requirement - Monitor vital signs, I&Os, neuro status and patient is a fall risk - Follow WBC, serum electrolytes, temperature curves and cultures (5) Hypokalemia: Code(s): E87.6 - Hypokalemia Status: Acute Assessment and Plan: K 2.9 on admission, previously 2.9 on 08/03 and resolved with supplementation Repeat K Continue to monitor Tele (6) Renal mass: Code(s): N28.89 - Other specified disorders of kidney and ureter Status: Acute Assessment and Plan: CT chest/abdomen/pelvis showed 4.3 cm left upper pole solid renal mass, suspicious for renal cell carcinoma until proven otherwise. (7) Hypertension: Code(s): I10 - Essential (primary) hypertension Status: Acute Assessment and Plan: Chronic, continue home medications -metoprolol 25 mg twice a day -blood pressures stable, continue to monitor Quality VTE Prophylaxis VTE prophylaxis: pharmacologic ordered Hospitalist [facility] Advance Care Plan I have confirmed that the patient's Advanced Care Plan is present, code status is documented, or surrogate decision maker is listed in patient medical record.: Yes Medication Reconciliation I have utilized all available resources to obtain, update and review the patients current medications (includes all prescriptions, OTC, herbals, cannabis, and nutritional supplements).: Yes
[2024-10-24] MEDS: amLODIPine BESYLATE 10 MG TABLET PO (11:18)
[2024-10-24] MEDS: METOPROLOL TARTRATE 12.5 MG TABLET PO (11:18)
[2024-10-24] MEDS: PANTOPRAZOLE SOD SESQUIHYDRATE 20 MG TAB PO ×2 (11:21→20:34)
[2024-10-24] MEDS: buPROPion HCL SR (12HR) 100 MG TABCR PO (11:21)
[2024-10-24 11:47] LABS: Procalcitonin 0.7 ng/mL
--- NOTE | 2024-10-24 16:37 | PCSTNOTE ---
Please refer to the Modified Barium Swallow Evaluation in the EMR.
[2024-10-24 16:59] LABS: Potassium 2.9 mmol/L (3.4-5.0)
[2024-10-24] MEDS: metroNIDAZOLE 500 MG/ISO 100ML 500 MG/100 ML BAG 100 MG IVPB ×2 (17:00→22:06)
[2024-10-24] MEDS: ASPIRIN 81 MG ENTERIC TABLET PO (20:33)
[2024-10-24] MEDS: METOPROLOL TARTRATE 25 MG TABLET PO (20:33)
[2024-10-24] MEDS: ATORVASTATIN 20 MG TABLET PO (20:34)
[2024-10-24 20:49] LABS: Glucose Point of Care 125 mg/dl (65-105)
[2024-10-25] VITALS (11 sets, daily range): BP systolic 127–167; BP diastolic 64–70; PULSE 69–79; RESP 18–24; TEMP 35.8–36.5; O2SAT 90–95
[2024-10-25] MEDS: DOXYCYCLINE 100 MG/NS 100 ML 100 MG/100 ML BAG IVPB ×2 (01:46→14:16)
[2024-10-25] MEDS: metroNIDAZOLE 500 MG/ISO 100ML 500 MG/100 ML BAG 100 MG IVPB ×3 (06:23→21:03)
[2024-10-25 06:31] LABS: Basophils Absolute Auto 0.1 K/mm3 (0.0-0.1); Basophils Percent Auto 0.3 % (0.2-1.2); Eosinophils Absolute Auto 0.1 K/mm3 (0-0.3); Eosinophils Percent Auto 0.7 % (0-4.4); Hematocrit 36.9 % (42.0-52.0); Hemoglobin 11.3 g/dL (14.0-18.0); Immature Granulocyte Absolute 0.41 K/mm3 (0.00-0.031); Immature Granulocyte Percent A 2.2 % (0-0.5); Lymphocytes Absolute Auto 1.12 K/mm3 (0.9-3.2); Mean Corpuscular HGB Conc 30.6 g/dl (32-36); Mean Corpuscular Hemoglobin 29.2 pg (26-34); Mean Corpuscular Volume 95.3 fl (80-100); Mean Platelet Volume 11.3 fl (7.4-10.4); Monocytes Absolute Auto 0.9 K/mm3 (0.1-0.6); Neutrophils Absolute Auto 16.1 K/mm3 (1.3-6.7); Neutrophils Percent Auto 85.8 % (45.5-73.1); Platelet Count Result 338 k/mm3 (150-375); Red Blood Count 3.87 M/mm3 (4.6-6.20); Red Cell Distribution Width 14.5 % (11.5-14.5); White Blood Count 18.8 K/mm3 (4.5-10.0)
--- NOTE | 2024-10-25 06:43 | P.CDI_ITS ---
CDI Query Clarification Request BMI: 17.8 Nutritional Diagnostic Statement: Please refer to the comprehensive nutrition assessment for further information. If you agree with diagnosis of Moderate protein calorie malnutrition related to chronic illness, dementia as evidenced by weight loss 7%/3 months (not meeting ASPEN criteria); intakes <75% needs >1 month severe muscle wasting and fat loss. Please specify severity if known: * Mild * Moderate * Severe * Other/Unknown <Natasha Aguilar RN - Last Filed: 10/25/24 06:56> Clarified Diagnosis Clarified Diagnosis: moderate protein calorie malnutrition <Sadia Coon PA-C - Last Filed: 10/25/24 16:09>
[2024-10-25 06:46] LABS: Alanine Aminotransferase 15 U/L (6-50); Albumin Level 2.9 g/dL (3.5-5.1); Alkaline Phosphatase 100 U/L (38-126); Anion Gap 8 mmol/L (4-12); Aspartate Amino Transferase 34 U/L (17-59); Bilirubin,Total 0.3 mg/dL (0.2-1.3); Blood Urea Nitrogen 17 mg/dL (9-20); Calcium 8.8 mg/dL (8.4-10.2); Carbon Dioxide 25 mmol/L (22-30); Chloride 109 mmol/L (98-107); Estimated CRCL calculation 63 ml/min; Estimated Glomerular Filt Rate > 60; Glucose 93 mg/dL (65-110); Sodium 142 mmol/L (137-145); Total Protein 6.1 g/dL (6.3-8.2)
[2024-10-25] MEDS: polyethylene glycoL 3350 17 GM POWD.PACK PO (08:46)
[2024-10-25] MEDS: ENOXAPARIN 40 MG/0.4 ML SYRINGE SUB-Q (08:49)
[2024-10-25] MEDS: SERTRALINE HCL 50 MG TABLET PO (08:54)
[2024-10-25] MEDS: PANTOPRAZOLE SOD SESQUIHYDRATE 20 MG TAB PO ×2 (08:54→20:55)
[2024-10-25] MEDS: METOPROLOL TARTRATE 25 MG TABLET PO ×2 (08:54→20:55)
[2024-10-25] MEDS: buPROPion HCL SR (12HR) 100 MG TABCR PO (08:54)
--- NOTE | 2024-10-25 09:30 | P.PNIM_ITS ---
Progress Note: A&P Assessment and Plan (1) AMS (altered mental status): Code(s): R41.82 - Altered mental status, unspecified Status: Acute Assessment and Plan: Patient is AOx3 (person, states hospital, month, and year) on assessment. Spoke with NH and he is AOx1-2 at baseline. - Head CT showed no intracranial hemorrhage, mass or acute infarct. Atophy and chronic white matter changes noted. - Monitor (2) Sepsis: Code(s): A41.9 - Sepsis, unspecified organism Status: Acute Assessment and Plan: Meets SIRS criteria: leukocytosis, tachypnea - lactic acid: 1.2 - sepsis fluids given in ED - suspected source: coccurrent UTI and pneumonia - blood cultures drawn on 10/24, pending - UA: Turbid appearance with 2+ protein, 1+ ketones, 1+ blood, 3+ leukocytes, negative nitrates, greater than 100 WBC and 4+ bacteria. - UC obtained on 10/24, ecoli with sensitivities pending - Chest/abdomen/pelvis CT: Extensive patchy consolidation in both lower lobes, suspicious for bilateral pneumonia, possibly due to aspiration. Dependent atelectatic changes and a lternative consideration. Moderate to advanced emphysema. - see plans for UTI and pneumonia below Remains hemodynamically stable. (3) Acute UTI: Code(s): N39.0 - Urinary tract infection, site not specified Status: Acute Assessment and Plan: - UA: Turbid appearance with 2+ protein, 1+ ketones, 1+ blood, 3+ leukocytes, negative nitrates, greater than 100 WBC and 4+ bacteria. - UC obtained on 10/24, E coli with sensitivity pending - Chest/abdomen/pelvis showed probable cystitis - No previous micro to be reviewed - started on rocephin on 10/24 (4) PNA (pneumonia): Code(s): J18.9 - Pneumonia, unspecified organism Status: Acute Assessment and Plan: Chest/abdomen/pelvis CT: Extensive patchy consolidation in both lower lobes, suspicious for bilateral pneumonia, possibly due to aspiration. Dependent atelectatic changes and alternative consideration. Moderate to advanced emphysema. - started on CAP tx: Rocephin and doxycycline 10/24, flagyl added for aspiration concern - Viral PCR: negative for Flu/COVID/RSV - MRSA swab negative - legionella, mycoplasma and pneumococcal ordered - sputum culture ordered - mucinex ordered given productive cough with dificulty clearing, if no improvement consider mucomyst. Unsure how patient would tolerate PEP therapy. - no supplemental O2 requirement - Monitor vital signs, I&Os, neuro status and patient is a fall risk - Follow WBC, serum electrolytes, temperature curves and cultures - evaluated by speech therapy given concern of at patient in and minced moist diet with mildly thick liquids. Speech continues to follow. (5) Hypokalemia: Code(s): E87.6 - Hypokalemia Status: Acute Assessment and Plan: K 2.9 on admission, previously 2.9 on 08/03 and resolved with supplementation K 3.0 on am labs, given 40 meq IV x1 Mag and phos ordered Continue to monitor Tele (6) Renal mass: Code(s): N28.89 - Other specified disorders of kidney and ureter Status: Acute Assessment and Plan: CT chest/abdomen/pelvis showed 4.3 cm left upper pole solid renal mass, suspicious for renal cell carcinoma until proven otherwise. Heme/onc consulted (7) Hypertension: Code(s): I10 - Essential (primary) hypertension Status: Acute Assessment and Plan: Chronic, continue home medications -metoprolol 25 mg twice a day -blood pressures stable, continue to monitor Time Spent With Patient Time with patient: 25 - 35 minutes Subjective Date/time seen: 10/25/24 09:30 Interval history: 79 year old male with past medical history of hypertension, CVA, dementia AOx 1- 2 per NH, hyperlipidemia, and GERD presents to the hospital via EMS [facility] for shortness of breath and altered mental status. Patient is pleasant sitting up comfortably in his bed. He is alert and oriented x3 at time of assessment. He is much more alert compared to yesterday's admission. Patient does endorse a wet productive cough that he states he has difficulty clearing. Started on Mucinex. He continues to have intermittent confusion but has no other complaints at this time denying chest pain, shortness a breath, palpitations, nausea/vomiting, abdominal pain, dysuria/hematuria. Discussed with patient med he has a mass on his kidney is that is concerning for cancer and he states that he would like to be seen by Heme-Onc. Consult placed. Review of Systems Review of Systems: All systems reviewed & are unremarkable except as noted in HPI and below Exam Narrative: AF HR 76 RR 18 Spo2 90 BP 127/64 General: male in no acute respiratory distress who is nontoxic appearing, sitting up in bed HEENT: Normocephalic. Atraumatic. Extraocular movement intact. Sclera clear and anicteric. No facial asymmetry. Chest: Lungs are coarse to auscultation bilaterally. No wheezes or crackles. Wet productive cough. CV: Heart was regular rate and rhythm. S1/S2. No murmurs, gallops, or rubs. Abd: Abdomen was soft. Nontender. Nondistended. Positive bowel sounds. Ext: No clubbing, cyanosis, or edema. DP pulses bilaterally. Neuro: Patient is alert and oriented x3 (self, place, and month/year). Intermittent confusion. Skin: Warm and dry. No rashes noted. Objective Data Vital Signs Vital Signs: Vital Signs - 24 hr 10/24/24 11:17 10/24/24 11:18 10/24/24 12:00 Temperature Pulse Rate 82 79 Respiratory Rate Blood Pressure 161/76 H Pulse Oximetry 10/24/24 14:00 10/24/24 16:00 10/24/24 20:00 Temperature 97.4 F L Pulse Rate 74 83 84 Respiratory Rate 16 Blood Pressure 137/59 L Pulse Oximetry 94 10/24/24 20:33 10/24/24 21:37 10/25/24 00:00 Temperature 97.4 F L Pulse Rate 89 89 72 Respiratory Rate 16 Blood Pressure 149/76 H Pulse Oximetry 96 10/25/24 04:00 10/25/24 06:00 10/25/24 08:54 Temperature 97.0 F L Pulse Rate 76 70 77 Respiratory Rate 20 Blood Pressure 167/70 H Pulse Oximetry 95 Intake/Output Intake/Output: Intake & Output 10/22/24 10/23/24 10/24/24 10/25/24 23:59 23:59 23:59 23:59 Intake Total 1570 100 Output Total 200 800 Balance 1370 -700 Meds/Results Medications: Active Medications Generic Name Dose Route Start Last Admin Trade Name Freq PRN Reason Stop Dose Admin Aspirin 81 mg 10/24/24 21:00 10/24/24 20:33 Aspirin 81 Mg Enteric Tablet PO 81 mg HS AMELIA Administration Atorvastatin Calcium 20 mg 10/24/24 21:00 10/24/24 20:34 Atorvastatin 20 Mg Tablet PO 20 mg HS AMELIA Administration Bupropion HCl 100 mg 10/24/24 11:00 10/25/24 08:54 Bupropion Hcl Sr (12hr) 100 Mg Tabcr PO 100 mg DAILY AMELIA Administration Enoxaparin Sodium 40 mg 10/25/24 09:00 10/25/24 08:49 Enoxaparin 40 Mg/0.4 Ml Syringe SUB-Q 40 mg DAILY AMELIA Administration Ceftriaxone Sodium 1 gm in 50 mls @ 100 mls/hr 10/25/24 02:00 10/25/24 01:09 Rocephin 1 Gm/Ns 50 Ml IVPB 100 mls/hr Q24H AMELIA Administration Doxycycline Hyclate 100 mg in 100 mls @ 100 mls/hr 10/24/24 14:00 10/25/24 01:46 Vibramycin 100 Mg/Ns 100 Ml IVPB 100 mls/hr Q12H AMELIA Administration Metronidazole 500 mg in 100 mls @ 100 mls/hr 10/24/24 16:30 10/25/24 07:23 Flagyl 500 Mg/Iso Soln 100 Ml IVPB Infused Q8HR AMELIA Infusion Magnesium Hydroxide 30 ml 10/24/24 10:49 Magnesium Hydroxide Susp 30 Ml Udc PO DAILY PRN constipation Metoprolol Tartrate 25 mg 10/24/24 21:00 10/25/24 08:54 Metoprolol Tartrate 25 Mg Tablet PO 25 mg Q12HR AMELIA Administration Pantoprazole Sodium 20 mg 10/24/24 11:00 10/25/24 08:54 Pantoprazole Sod Sesquihydrate 20 Mg Tab PO 20 mg Q12HR AMELIA Administration Polyethylene Glycol 17 gm 10/24/24 11:00 10/25/24 08:46 Polyethylene Glycol 3350 17 Gm Powd.Pack PO 17 gm DAILY AMELIA Administration Sertraline HCl 50 mg 10/25/24 09:00 10/25/24 08:54 Sertraline Hcl 50 Mg Tablet PO 50 mg DAILY AMELIA Administration Tramadol HCl 50 mg 10/24/24 10:49 Tramadol Hcl (*Crx) 50 Mg Tablet PO Q6H PRN pain Radiology Results: ITS Impressions Chest/Abdomen/Pelvis CT 10/24/24 05:27 Impression: 4.3 cm left upper pole solid renal mass, suspicious for renal cell carcinoma until proven otherwise. Extensive patchy consolidation in both lower lobes, suspicious for bilateral pneumonia, possibly due to aspiration. Dependent atelectatic changes and alternative consideration. Moderate to advanced emphysema. Probable cystitis. Correlate with urinalysis. 3.4 cm infrarenal abdominal aortic aneurysm. Head CT 10/24/24 05:32 Impression: No intracranial hemorrhage, mass, or acute infarct. Atrophy and chronic white matter changes, as above. Modified Barium Swallow 10/24/24 16:28 IMPRESSION: Oral pharyngeal dysphagia with laryngeal penetration and aspiration. Please correlate with speech pathologist findings and specific feeding recommendations. Labs Labs: Laboratory Results - last 24 hr 10/24/24 10/24/24 10/24/24 11:00 16:49 20:33 WBC RBC Hgb Hct MCV MCH MCHC RDW Plt Count MPV Immature Gran % (Auto) Neut % (Auto) Lymph % (Auto) [place] % (Auto) Eos % (Auto) Baso % (Auto) Lymph # (Auto) [place] # (Auto) Eos # (Auto) Baso # (Auto) Abs Immat Gran (auto) Absolute Neuts (auto) Absolute Nucleated RBC Nucleated RBC % Sodium Potassium 2.9 L Chloride Carbon Dioxide Anion Gap BUN Creatinine Estim Creat Clear Calc Estimated GFR Glucose POC Capillary Glucose 125 H Calcium Total Bilirubin AST ALT Alkaline Phosphatase Total Protein Albumin Procalcitonin 0.7 10/25/24 05:59 WBC 18.8 H RBC 3.87 L Hgb 11.3 L Hct 36.9 L MCV 95.3 MCH 29.2 MCHC 30.6 L RDW 14.5 Plt Count 338 MPV 11.3 H Immature Gran % (Auto) 2.2 H Neut % (Auto) 85.8 H Lymph % (Auto) 6.0 L [place] % (Auto) 5.0 Eos % (Auto) 0.7 Baso % (Auto) 0.3 Lymph # (Auto) 1.12 [place] # (Auto) 0.9 H Eos # (Auto) 0.1 Baso # (Auto) 0.1 Abs Immat Gran (auto) 0.41 H Absolute Neuts (auto) 16.1 H Absolute Nucleated RBC 0.000 Nucleated RBC % 0.0 Sodium 142 Potassium 3.0 L Chloride 109 H Carbon Dioxide 25 Anion Gap 8 BUN 17 D Creatinine 0.70 Estim Creat Clear Calc 63 Estimated GFR > 60 Glucose 93 POC Capillary Glucose Calcium 8.8 Total Bilirubin 0.3 AST 34 ALT 15 Alkaline Phosphatase 100 Total Protein 6.1 L Albumin 2.9 L Procalcitonin Quality VTE Prophylaxis VTE prophylaxis: pharmacologic ordered
[2024-10-25] MEDS: POTASSIUM CHLORIDE INJ 40 MEQ in SODIUM CHLORIDE 0.9% IV 500 ML 130 MEQ IVPB (09:42)
[2024-10-25 09:57] LABS: Magnesium 1.5 mg/dL (1.6-2.3); Phosphorus 2.7 mg/dL (2.5-4.5)
--- NOTE | 2024-10-25 18:55 | P.CONONC_ITS ---
Assessment and Plan Assessment and plan (1) Renal mass: Code(s): N28.89 - Other specified disorders of kidney and ureter Status: Acute Plan This is the 79-year-old male with history of stroke, dementia and hypertension came into the hospital with shortness of breath and altered mental status. Labs showed elevated WBC count and UA came back positive for UTI. CT head showed no intracranial hemorrhage mass. CT scan showed 4.3 cm left upper pole of the kidney mass suspicious for renal cell carcinoma. Patient denies any previous history of malignancy. These findings are suspicious for renal cell carcinoma. I will order MRI abdomen and pelvis to look into this finding further. I would also recommend urology consultation. I have provided him my office information. I tried to contact patient's significant other without any luck. Patient should follow-up in the office after urology consultation. HPI Data of Consult Date/Time: 10/25/24 18:55 Requesting Physician: Sadia Coon PA-C Primary Care Provider: PHYSICIAN NOT ON STAFF Consult Narrative Narrative: Chris Cooley is a 79 year old male the history hypertension, dementia, CVA, GERD and hyperlipidemia brought in to the hospital from the skilled nursing. Patient is not a good historian. He has been dealing with some confusion. He denies any previous history of malignancy. Labs in the ER showed elevated WBC count of 26,000 and UA showed finding consistent with UTI. CT scan chest abdomen and pelvis showed 4.3 cm left upper pole of the kidney mass suspicious for renal cell carcinoma. Review of Systems 2 Review of Systems: Review of system as per HPI otherwise negative [facility] Past Medical History Medical History (Updated 10/24/24 @ 10:41 by Sadia Coon PA-C) Hyperlipidemia GERD (gastroesophageal reflux disease) Dementia Hypertension CVA (cerebral vascular accident) Surgical History Surgical History (Updated 10/24/24 @ 10:33 by Sadia Coon PA-C) History of hemiarthroplasty of hip Family History Family History (Updated 10/24/24 @ 08:06 by Laisha Kenyon RN) Other Unknown family medical history Social History Social History Smoking status: Former smoker Alcohol intake: former Substance use: former Substance use type: marijuana Last use: 50 yrs ago Do You Feel Safe in your Home?: Yes Lack of Transportation: No Lack of Food: Never True Current Housing: I Have Housing Concerned About Future Housing: No Difficulty Paying Gas/Electric Bills: No Difficulty Paying for Meds: No Currently Unemployed: No Education: High School Diploma/GED Difficulty w/ Childcare or Family Care: No Spiritual care concerns: No Meds Home Medications and Allergies Home Medications ?Medication ?Instructions ?Recorded ?Confirmed ?Type acetaminophen 325 mg capsule 650 mg PO TID PRN pain 07/29/24 10/24/24 History aspirin 81 mg tablet,delayed 81 mg PO HS 07/29/24 10/24/24 History release (Adult Aspirin Regimen) atorvastatin 20 mg tablet 20 mg PO HS 07/29/24 10/24/24 History bisacodyl 5 mg tablet,delayed 10 mg PO DAILY 07/29/24 10/24/24 History release bupropion HCl 100 mg tablet,12 hr 100 mg PO DAILY 07/29/24 10/24/24 History sustained-release (Wellbutrin SR) magnesium hydroxide 400 mg/5 mL 30 ml PO DAILY PRN constipation 07/29/24 10/24/24 History oral suspension (Dulcolax (magnesium hydroxide)) metoprolol tartrate 25 mg tablet 25 mg PO BID 07/29/24 10/24/24 History pantoprazole 20 mg tablet,delayed 20 mg PO BID 07/29/24 10/24/24 History release polyethylene glycol 3350 17 17 g PO DAILY 07/29/24 10/24/24 History gram/dose oral powder (Miralax) sennosides 8.6 mg tablet (senna) 17.2 mg PO BID 07/29/24 10/24/24 History tramadol 50 mg tablet 50 mg PO Q6H PRN pain 07/29/24 10/24/24 History melatonin 3 mg capsule 3 mg PO HS PRN insomnia 10/24/24 10/24/24 History sertraline 50 mg tablet 50 mg PO DAILY 10/24/24 10/24/24 History Allergies Allergy/AdvReac Type Severity Reaction Status Date / Time No Known Allergies Allergy Verified 10/24/24 08:03 Vital Signs Vital Signs - 24 hr 10/24/24 20:00 10/24/24 20:33 10/24/24 21:37 Temperature 36.3 C L Pulse Rate 84 89 89 Respiratory Rate 16 Blood Pressure 149/76 H Pulse Oximetry 96 Oxygen Delivery 10/25/24 00:00 10/25/24 04:00 10/25/24 06:00 Temperature 36.1 C L Pulse Rate 72 76 70 Respiratory Rate 20 Blood Pressure 167/70 H Pulse Oximetry 95 Oxygen Delivery 10/25/24 08:00 10/25/24 08:00 10/25/24 08:54 Temperature Pulse Rate 77 69 77 Respiratory Rate Blood Pressure Pulse Oximetry 90 Oxygen Delivery Room Air 10/25/24 12:00 10/25/24 14:00 10/25/24 16:00 Temperature 36.5 C Pulse Rate 74 76 75 Respiratory Rate 18 Blood Pressure 127/64 Pulse Oximetry 90 Oxygen Delivery Exam 2 Narrative: Lungs are clear to auscultation bilaterally Cardiovascular regular rate rhythm no murmurs Abdomen soft nontender nondistended Extremities no edema Results Labs 10/25/24 05:59 10/25/24 05:59 Labs: Short CBC 10/25/24 Range/Units 05:59 WBC 18.8 H (4.5-10.0) K/mm3 Hgb 11.3 L (14.0-18.0) g/dL Hct 36.9 L (42.0-52.0) % Plt Count 338 (150-375) k/mm3 [facility] 10/25/24 05:59 Sodium 142 Potassium 3.0 L Chloride 109 H Carbon Dioxide 25 BUN 17 D Creatinine 0.70 Glucose 93 Calcium 8.8 Liver Function 10/25/24 Range/Units 05:59 Total Bilirubin 0.3 (0.2-1.3) mg/dL AST 34 (17-59) U/L ALT 15 (6-50) U/L Alkaline Phosphatase 100 (38-126) U/L Albumin 2.9 L (3.5-5.1) g/dL
[2024-10-25] MEDS: ASPIRIN 81 MG ENTERIC TABLET PO (20:55)
[2024-10-25] MEDS: ATORVASTATIN 20 MG TABLET PO (20:55)
[2024-10-25] MEDS: guaiFENesin 12 HR 600 MG TABCR PO (20:55)
[2024-10-26] VITALS (12 sets, daily range): BP systolic 166–182; BP diastolic 71–84; PULSE 65–80; RESP 16–20; TEMP 35.7–36.6; O2SAT 93–96
[2024-10-26] MEDS: DOXYCYCLINE 100 MG/NS 100 ML 100 MG/100 ML BAG IVPB ×2 (03:40→14:45)
[2024-10-26] MEDS: metroNIDAZOLE 500 MG/ISO 100ML 500 MG/100 ML BAG 100 MG IVPB ×3 (05:36→20:43)
[2024-10-26 06:34] LABS: Basophils Absolute Auto 0.1 K/mm3 (0.0-0.1); Basophils Percent Auto 0.4 % (0.2-1.2); Eosinophils Absolute Auto 0.1 K/mm3 (0-0.3); Eosinophils Percent Auto 0.6 % (0-4.4); Hemoglobin 11.8 g/dL (14.0-18.0); Immature Granulocyte Absolute 0.49 K/mm3 (0.00-0.031); Immature Granulocyte Percent A 2.7 % (0-0.5); Lymphocytes Absolute Auto 0.82 K/mm3 (0.9-3.2); Lymphocytes Percent Auto 4.6 % (18.3-44.2); Mean Corpuscular HGB Conc 31.1 g/dl (32-36); Mean Corpuscular Hemoglobin 29.8 pg (26-34); Mean Platelet Volume 11.2 fl (7.4-10.4); Monocytes Absolute Auto 0.8 K/mm3 (0.1-0.6); Monocytes Percent Auto 4.5 % (2.6-8.5); Neutrophils Absolute Auto 15.6 K/mm3 (1.3-6.7); Neutrophils Percent Auto 87.2 % (45.5-73.1); Nucleated Red Blood Cells Perc 0.3 % (0.0-0.2); Platelet Count Result 347 k/mm3 (150-375); Red Blood Count 3.96 M/mm3 (4.6-6.20); Red Cell Distribution Width 14.4 % (11.5-14.5); White Blood Count 17.9 K/mm3 (4.5-10.0)
[2024-10-26 06:48] LABS: Alanine Aminotransferase 12 U/L (6-50); Albumin Level 2.5 g/dL (3.5-5.1); Alkaline Phosphatase 93 U/L (38-126); Anion Gap 8 mmol/L (4-12); Aspartate Amino Transferase 31 U/L (17-59); Bilirubin,Total 0.4 mg/dL (0.2-1.3); Blood Urea Nitrogen 16 mg/dL (9-20); Calcium 8.6 mg/dL (8.4-10.2); Carbon Dioxide 23 mmol/L (22-30); Chloride 109 mmol/L (98-107); Estimated CRCL calculation 76 ml/min; Estimated Glomerular Filt Rate > 60; Glucose 81 mg/dL (65-110); Potassium 3.7 mmol/L (3.4-5.0); Sodium 140 mmol/L (137-145); Total Protein 5.4 g/dL (6.3-8.2)
--- NOTE | 2024-10-26 09:14 | PM.IMPN ---
Progress Note: A&P Assessment and Plan (1) AMS (altered mental status): Code(s): R41.82 - Altered mental status, unspecified Status: Acute Assessment and Plan: Patient is AOx3 (person, hospital, month, and year) on assessment. Spoke with NH and he is AOx1-2 at baseline. - Head CT showed no intracranial hemorrhage, mass or acute infarct. Atophy and chronic white matter changes noted. - Monitor (2) Sepsis: Code(s): A41.9 - Sepsis, unspecified organism Status: Acute Assessment and Plan: Meets SIRS criteria: leukocytosis, tachypnea - lactic acid: 1.2 - sepsis fluids given in ED - suspected source: coccurrent UTI and pneumonia - blood cultures drawn on 10/24, NGTD - UA: Turbid appearance with 2+ protein, 1+ ketones, 1+ blood, 3+ leukocytes, negative nitrates, greater than 100 WBC and 4+ bacteria. - UC obtained on 10/24, ecoli with sensitivities pending - Chest/abdomen/pelvis CT: Extensive patchy consolidation in both lower lobes, suspicious for bilateral pneumonia, possibly due to aspiration. Dependent atelectatic changes and alternative consideration. Moderate to advanced emphysema. - see plans for UTI and pneumonia below Remains hemodynamically stable. (3) Acute UTI: Code(s): N39.0 - Urinary tract infection, site not specified Status: Acute Assessment and Plan: - UA: Turbid appearance with 2+ protein, 1+ ketones, 1+ blood, 3+ leukocytes, negative nitrates, greater than 100 WBC and 4+ bacteria. - UC obtained on 10/24, E coli with sensitivity pending - Chest/abdomen/pelvis showed probable cystitis - No previous micro to be reviewed - started on rocephin on 10/24 (4) PNA (pneumonia): Code(s): J18.9 - Pneumonia, unspecified organism Status: Acute Assessment and Plan: Chest/abdomen/pelvis CT: Extensive patchy consolidation in both lower lobes, suspicious for bilateral pneumonia, possibly due to aspiration. Dependent atelectatic changes and alternative consideration. Moderate to advanced emphysema. - started on CAP tx: Rocephin and doxycycline 10/24, flagyl added for aspiration concern - Viral PCR: negative for Flu/COVID/RSV - MRSA swab negative - legionella, mycoplasma and pneumococcal pending - sputum culture ordered - mucinex ordered given productive cough with difficulty clearing - started on mucomyst, RT consulted for CPT following treatment - no supplemental O2 requirement - Monitor vital signs, I&Os, neuro status and patient is a fall risk - Follow WBC, serum electrolytes, temperature curves and cultures - evaluated by speech therapy given concern of at patient in and minced moist diet with mildly thick liquids. Speech continues to follow. (5) Hypokalemia: Code(s): E87.6 - Hypokalemia Status: Acute Assessment and Plan: K 2.9 on admission, previously 2.9 on 08/03 and resolved with supplementation K 3.7 on am labs Mag 1.5, given 2g Mag sulfate x1 on 10/26 Phos WNL Continue to monitor Tele (6) Renal mass: Code(s): N28.89 - Other specified disorders of kidney and ureter Status: Acute Assessment and Plan: CT chest/abdomen/pelvis showed 4.3 cm left upper pole solid renal mass, suspicious for renal cell carcinoma until proven otherwise. MRI ordered Heme/onc consulted Would also recommend urology consultation. I have provided him my office information. I tried to contact patient's significant other without any luck. Patient should follow-up in the office after urology consultation. - Urology consulted Will need to have a conversation with the patient and his family in terms of next steps for care for this renal mass. Options could include partial nephrectomy, cryotherapy, radical nephrectomy, or potentially active surveillance which would have to be a nuanced conversation due to his comorbidities, patient age overall. currently no acute surgical intervention is required while inpatient. Continued evaluation for this mass is reasonable and could be continued inpatient versus outpatient depending on the patient's ability in order to have a appropriate follow-up. (7) Hypertension: Code(s): I10 - Essential (primary) hypertension Status: Acute Assessment and Plan: Chronic, continue home medications -metoprolol 25 mg twice a day -blood pressures stable, continue to monitor Time Spent With Patient Time with patient: Greater than 35 minutes Subjective Date/time seen: 10/26/24 09:14 Interval history: 79 year old male with past medical history of hypertension, CVA, dementia AOx 1-2 per NH, hyperlipidemia, and GERD presents to the hospital via EMS from assisted for shortness of breath and altered mental status. Patient is pleasant lying comfortably in his bed. He remains alert and oriented X 3 (person, place, month/year). Patient has no other complaints denying chest pain, shortness of breath, palpitations, nausea/vomiting and abdominal pain. Spoke with patients significant other. Updates were given and all questions were answered at that time. Plans to come up to hospital tomorrow to discuss plan. Review of Systems Review of Systems: All systems reviewed & are unremarkable except as noted in HPI and below Exam Narrative: AF HR 70 RR 20 SpO2 93 BP 166/71 General: male in no acute respiratory distress who is nontoxic appearing, sitting up in bed HEENT: Normocephalic. Atraumatic. Extraocular movement intact. Sclera clear and anicteric. No facial asymmetry. Chest: Lungs are coarse to auscultation bilaterally. No wheezes or crackles. Wet productive cough. CV: Heart was regular rate and rhythm. S1/S2. No murmurs, gallops, or rubs. Abd: Abdomen was soft. Nontender. Nondistended. Positive bowel sounds. Ext: No clubbing, cyanosis, or edema. DP pulses bilaterally. Neuro: Patient is alert and oriented x3 (self, place, and month/year). Intermittent confusion. Skin: Warm and dry. No rashes noted. Objective Data Vital Signs Vital Signs: Vital Signs - 24 hr 10/25/24 12:00 10/25/24 14:00 10/25/24 16:00 Temperature 97.7 F Pulse Rate 74 76 75 Respiratory Rate 18 Blood Pressure 127/64 Pulse Oximetry 90 10/25/24 20:00 10/25/24 20:55 10/25/24 22:00 Temperature 96.5 F L Pulse Rate 78 75 79 Respiratory Rate 24 H Blood Pressure 155/69 H Pulse Oximetry 91 10/26/24 00:00 10/26/24 04:00 10/26/24 06:00 Temperature 97 F L Pulse Rate 72 71 70 Respiratory Rate 20 Blood Pressure 166/71 H Pulse Oximetry 93 Intake/Output Intake/Output: Intake & Output 10/23/24 10/24/24 10/25/24 10/26/24 23:59 23:59 23:59 23:59 Intake Total 1570 1210 250 Output Total 200 1150 250 Balance 1370 60 0 Meds/Results Medications: Active Medications Generic Name Dose Route Start Last Admin Trade Name Freq PRN Reason Stop Dose Admin Aspirin 81 mg 10/24/24 21:00 10/25/24 20:55 Aspirin 81 Mg Enteric Tablet PO 81 mg HS AMELIA Administration Atorvastatin Calcium 20 mg 10/24/24 21:00 10/25/24 20:55 Atorvastatin 20 Mg Tablet PO 20 mg HS AMELIA Administration Bupropion HCl 100 mg 10/24/24 11:00 10/25/24 08:54 Bupropion Hcl Sr (12hr) 100 Mg Tabcr PO 100 mg DAILY AMELIA Administration Enoxaparin Sodium 40 mg 10/25/24 09:00 10/25/24 08:49 Enoxaparin 40 Mg/0.4 Ml Syringe SUB-Q 40 mg DAILY AMELIA Administration Guaifenesin 600 mg 10/25/24 21:00 10/25/24 20:55 Guaifenesin 12 Hr 600 Mg Tabcr PO 600 mg Q12HR AMELIA Administration Ceftriaxone Sodium 1 gm in 50 mls @ 100 mls/hr 10/25/24 02:00 10/26/24 04:00 Rocephin 1 Gm/Ns 50 Ml IVPB Infused Q24H AMELIA Infusion Doxycycline Hyclate 100 mg in 100 mls @ 100 mls/hr 10/24/24 14:00 10/26/24 04:40 Vibramycin 100 Mg/Ns 100 Ml IVPB Infused Q12H AMELIA Infusion Metronidazole 500 mg in 100 mls @ 100 mls/hr 10/24/24 16:30 10/26/24 06:42 Flagyl 500 Mg/Iso Soln 100 Ml IVPB Infused Q8HR AMELIA Infusion Magnesium Hydroxide 30 ml 10/24/24 10:49 Magnesium Hydroxide Susp 30 Ml Udc PO DAILY PRN constipation Metoprolol Tartrate 25 mg 10/24/24 21:00 10/25/24 20:55 Metoprolol Tartrate 25 Mg Tablet PO 25 mg Q12HR AMELIA Administration Pantoprazole Sodium 20 mg 10/24/24 11:00 10/25/24 20:55 Pantoprazole Sod Sesquihydrate 20 Mg Tab PO 20 mg Q12HR AMELIA Administration Polyethylene Glycol 17 gm 10/24/24 11:00 10/25/24 08:46 Polyethylene Glycol 3350 17 Gm Powd.Pack PO 17 gm DAILY AMELIA Administration Sertraline HCl 50 mg 10/25/24 09:00 10/25/24 08:54 Sertraline Hcl 50 Mg Tablet PO 50 mg DAILY AMELIA Administration Tramadol HCl 50 mg 10/24/24 10:49 Tramadol Hcl (*Crx) 50 Mg Tablet PO Q6H PRN pain Radiology Results: ITS Impressions Chest/Abdomen/Pelvis CT 10/24/24 05:27 Impression: 4.3 cm left upper pole solid renal mass, suspicious for renal cell carcinoma until proven otherwise. Extensive patchy consolidation in both lower lobes, suspicious for bilateral pneumonia, possibly due to aspiration. Dependent atelectatic changes and alternative consideration. Moderate to advanced emphysema. Probable cystitis. Correlate with urinalysis. 3.4 cm infrarenal abdominal aortic aneurysm. Head CT 10/24/24 05:32 Impression: No intracranial hemorrhage, mass, or acute infarct. Atrophy and chronic white matter changes, as above. Modified Barium Swallow 10/24/24 16:28 IMPRESSION: Oral pharyngeal dysphagia with laryngeal penetration and aspiration. Please correlate with speech pathologist findings and specific feeding recommendations. Labs Labs: Laboratory Results - last 24 hr 10/25/24 10/26/24 05:54 05:55 WBC 17.9 H RBC 3.96 L Hgb 11.8 L Hct 38.0 L MCV 96.0 MCH 29.8 MCHC 31.1 L RDW 14.4 Plt Count 347 MPV 11.2 H Immature Gran % (Auto) 2.7 H Neut % (Auto) 87.2 H Lymph % (Auto) 4.6 L [place] % (Auto) 4.5 Eos % (Auto) 0.6 Baso % (Auto) 0.4 Lymph # (Auto) 0.82 L [place] # (Auto) 0.8 H Eos # (Auto) 0.1 Baso # (Auto) 0.1 Abs Immat Gran (auto) 0.49 H Absolute Neuts (auto) 15.6 H Absolute Nucleated RBC 0.050 H Nucleated RBC % 0.3 H Sodium 140 Potassium 3.7 Chloride 109 H Carbon Dioxide 23 Anion Gap 8 BUN 16 Creatinine 0.57 L Estim Creat Clear Calc 76 Estimated GFR > 60 Glucose 81 Calcium 8.6 Phosphorus 2.7 Magnesium 1.5 L Total Bilirubin 0.4 AST 31 ALT 12 Alkaline Phosphatase 93 Total Protein 5.4 L Albumin 2.5 L Quality VTE Prophylaxis VTE prophylaxis: pharmacologic ordered
[2024-10-26] MEDS: PANTOPRAZOLE SOD SESQUIHYDRATE 20 MG TAB PO ×2 (10:07→20:43)
[2024-10-26] MEDS: SERTRALINE HCL 50 MG TABLET PO (10:07)
[2024-10-26] MEDS: METOPROLOL TARTRATE 25 MG TABLET PO ×2 (10:07→20:43)
[2024-10-26] MEDS: ENOXAPARIN 40 MG/0.4 ML SYRINGE SUB-Q (10:09)
[2024-10-26] MEDS: guaiFENesin 12 HR 600 MG TABCR PO ×2 (10:09→20:43)
[2024-10-26] MEDS: buPROPion HCL SR (12HR) 100 MG TABCR PO (10:09)
[2024-10-26] MEDS: MAGNESIUM SULF 2 GM/WATER 50ML 2 GM/50 ML BAG IVPB (10:20)
--- NOTE | 2024-10-26 14:37 | P.CONUR_ITS ---
Assessment and Plan Assessment and plan (1) Renal mass: Code(s): N28.89 - Other specified disorders of kidney and ureter Status: Acute Assessment and Plan: -patient with left 4.3 cm upper pole lesion suspicious for renal cell carcinoma. Oncologist team has also been consulted, and recommended an MRI which I believe is also reasonable. Patient is voiding well with a low PVR, his creatinine is within normal limits since I did not feel that he requires a catheter, and he does have urinary tract infection which is being treated via antibiotics. -I was unable to contact the patient's family. However, we will need to have a conversation with the patient and his family in terms of next steps for care for this renal mass. The options could include partial nephrectomy, cryotherapy, radical nephrectomy, or potentially active surveillance which would have to be a nuanced conversation due to his comorbidities, patient age overall. -currently no acute surgical intervention is required while inpatient. However, continued evaluation for this mass is reasonable and could be continued inpatient versus outpatient depending on the patient's ability in order to have a appropriate follow-up. Balance of care per primary team is appropriate for the patient's urinary tract infection as well as shortness of breath evaluation. Urology Consult Note HPI Date Seen: 10/26/24 Requesting Physician: Sadia Coon PA-C Primary Care Provider: PHYSICIAN NOT ON STAFF Consult Narrative Narrative: Chris Cooley is a 79 year old male with multiple comorbidities who presents to the emergency room from long-term and was admitted for shortness of breath and altered mental status. During his evaluation for this, he was found to have signs of urinary tract infection and started on antibiotics for this. However, also during the evaluation he had a CT scan was performed which showed a left 4.3 cm upper pole mass of the kidney which was suspicious for renal cell carcinoma. His creatinine is normal, and he is voiding appropriately. He had a bladder scan which showed his PVR was 150 cc. There is no hematuria is noted grossly. Patient is not quite alert and oriented, and unfortunately I was unable to contact his family. [facility] Past Medical History Medical History (Updated 10/24/24 @ 10:41 by Sadia Coon PA-C) Hyperlipidemia GERD (gastroesophageal reflux disease) Dementia Hypertension CVA (cerebral vascular accident) Surgical History Surgical History (Updated 10/24/24 @ 10:33 by Sadia Coon PA-C) History of hemiarthroplasty of hip Family History Family History (Updated 10/24/24 @ 08:06 by Laisha Kenyon RN) Other Unknown family medical history Social History Social History Smoking status: Former smoker Alcohol intake: former Substance use: former Substance use type: marijuana Last use: 50 yrs ago Do You Feel Safe in your Home?: Yes Lack of Transportation: No Lack of Food: Never True Current Housing: I Have Housing Concerned About Future Housing: No Difficulty Paying Gas/Electric Bills: No Difficulty Paying for Meds: No Currently Unemployed: No Education: High School Diploma/GED Difficulty w/ Childcare or Family Care: No Spiritual care concerns: No Meds Home Medications and Allergies Home Medications ?Medication ?Instructions ?Recorded ?Confirmed ?Type acetaminophen 325 mg capsule 650 mg PO TID PRN pain 07/29/24 10/24/24 History aspirin 81 mg tablet,delayed 81 mg PO HS 07/29/24 10/24/24 History release (Adult Aspirin Regimen) atorvastatin 20 mg tablet 20 mg PO HS 07/29/24 10/24/24 History bisacodyl 5 mg tablet,delayed 10 mg PO DAILY 07/29/24 10/24/24 History release bupropion HCl 100 mg tablet,12 hr 100 mg PO DAILY 07/29/24 10/24/24 History sustained-release (Wellbutrin SR) magnesium hydroxide 400 mg/5 mL 30 ml PO DAILY PRN constipation 07/29/24 10/24/24 History oral suspension (Dulcolax (magnesium hydroxide)) metoprolol tartrate 25 mg tablet 25 mg PO BID 07/29/24 10/24/24 History pantoprazole 20 mg tablet,delayed 20 mg PO BID 07/29/24 10/24/24 History release polyethylene glycol 3350 17 17 g PO DAILY 07/29/24 10/24/24 History gram/dose oral powder (Miralax) sennosides 8.6 mg tablet (senna) 17.2 mg PO BID 07/29/24 10/24/24 History tramadol 50 mg tablet 50 mg PO Q6H PRN pain 07/29/24 10/24/24 History melatonin 3 mg capsule 3 mg PO HS PRN insomnia 10/24/24 10/24/24 History sertraline 50 mg tablet 50 mg PO DAILY 10/24/24 10/24/24 History Allergies Allergy/AdvReac Type Severity Reaction Status Date / Time No Known Allergies Allergy Verified 10/24/24 08:03 Vital Signs Vital Signs - 24 hr 10/25/24 16:00 10/25/24 20:00 10/25/24 20:55 Temperature Pulse Rate 75 78 75 Respiratory Rate Blood Pressure Pulse Oximetry 10/25/24 22:00 10/26/24 00:00 10/26/24 04:00 Temperature 35.8 C L Pulse Rate 79 72 71 Respiratory Rate 24 H Blood Pressure 155/69 H Pulse Oximetry 91 10/26/24 06:00 10/26/24 10:07 Temperature 36.1 C L Pulse Rate 70 79 Respiratory Rate 20 Blood Pressure 166/71 H Pulse Oximetry 93 Exam 2 Const: Other: Alert and oriented x1 GI: Other: Nondistended : Other: No CVA tenderness Results Labs 10/26/24 05:55 10/26/24 05:55 Labs: Short CBC 10/26/24 Range/Units 05:55 WBC 17.9 H (4.5-10.0) K/mm3 Hgb 11.8 L (14.0-18.0) g/dL Hct 38.0 L (42.0-52.0) % Plt Count 347 (150-375) k/mm3 [facility] 10/26/24 05:55 Sodium 140 Potassium 3.7 Chloride 109 H Carbon Dioxide 23 BUN 16 Creatinine 0.57 L Glucose 81 Calcium 8.6 Liver Function 10/26/24 Range/Units 05:55 Total Bilirubin 0.4 (0.2-1.3) mg/dL AST 31 (17-59) U/L ALT 12 (6-50) U/L Alkaline Phosphatase 93 (38-126) U/L Albumin 2.5 L (3.5-5.1) g/dL
--- NOTE | 2024-10-26 17:08 | PC.NURSE ---
On 10/26/24, the DIRECTOR PROPERTY, [Amber ELLIS ], provided care and completed [employer] documentation on this patient. I have reviewed the DIRECTOR PROPERTY's documentation and agree with the findings.
[2024-10-26 18:02] LABS: Legionella pneumophila Ag Ur. NOT DETECTED
[2024-10-26] MEDS: ASPIRIN 81 MG ENTERIC TABLET PO (20:43)
[2024-10-26] MEDS: ATORVASTATIN 20 MG TABLET PO (20:43)
[2024-10-26] MEDS: traMADol HCL (*CRX) 50 MG TABLET PO (20:43)
[2024-10-26] MEDS: ALBUTEROL SULFATE NEB 2.5 MG/3 ML INH INHALATION (21:48)
[2024-10-26] MEDS: ACETYLCYSTEINE 20% INHAL SOLN 800 MG/4 ML VIAL 200 MG INHALATION (21:53)
[2024-10-27] VITALS (16 sets, daily range): BP systolic 136–179; BP diastolic 71–78; PULSE 64–82; RESP 14–20; TEMP 36.4–36.5; O2SAT 92–96
--- NOTE | 2024-10-27 00:47 | PCRCNOTE ---
New nebulized Albuterol and Mucomyst started, followed by CPT via [place]; patient unable to blow hard enough to actuate the flutter valve or create any resistance. CPT via vest performed, set to 02/21/10 using Medium wrap. Patient has a decent reactive/spontaneous cough with CPT but can not cough on command. Open suction catheter on standby in room; NTS not performed this pm; patient breath sounds clear to auscultation, SpO2: 94%; secretions viewed in back of throat.
[2024-10-27] MEDS: DOXYCYCLINE 100 MG/NS 100 ML 100 MG/100 ML BAG IVPB ×2 (02:14→14:10)
[2024-10-27] MEDS: ALBUTEROL SULFATE NEB 2.5 MG/3 ML INH INHALATION ×4 (02:23→20:49)
[2024-10-27] MEDS: ACETYLCYSTEINE 20% INHAL SOLN 800 MG/4 ML VIAL 200 MG INHALATION ×4 (02:23→20:49)
[2024-10-27] MEDS: metroNIDAZOLE 500 MG/ISO 100ML 500 MG/100 ML BAG 100 MG IVPB ×3 (05:34→22:26)
[2024-10-27 07:29] LABS: Basophils Absolute Auto 0.1 K/mm3 (0.0-0.1); Basophils Percent Auto 0.3 % (0.2-1.2); Eosinophils Absolute Auto 0.1 K/mm3 (0-0.3); Eosinophils Percent Auto 0.5 % (0-4.4); Hematocrit 40.5 % (42.0-52.0); Hemoglobin 12.6 g/dL (14.0-18.0); Immature Granulocyte Absolute 0.43 K/mm3 (0.00-0.031); Immature Granulocyte Percent A 2.7 % (0-0.5); Lymphocytes Percent Auto 7.6 % (18.3-44.2); Mean Corpuscular HGB Conc 31.1 g/dl (32-36); Mean Corpuscular Volume 93.1 fl (80-100); Mean Platelet Volume 11.3 fl (7.4-10.4); Monocytes Absolute Auto 0.7 K/mm3 (0.1-0.6); Monocytes Percent Auto 4.6 % (2.6-8.5); Neutrophils Absolute Auto 13.2 K/mm3 (1.3-6.7); Neutrophils Percent Auto 84.3 % (45.5-73.1); Platelet Count Result 362 k/mm3 (150-375); Red Blood Count 4.35 M/mm3 (4.6-6.20); Red Cell Distribution Width 14.6 % (11.5-14.5); White Blood Count 15.7 K/mm3 (4.5-10.0)
[2024-10-27 07:45] LABS: Alanine Aminotransferase 13 U/L (6-50); Albumin Level 2.9 g/dL (3.5-5.1); Alkaline Phosphatase 96 U/L (38-126); Anion Gap 11 mmol/L (4-12); Aspartate Amino Transferase 28 U/L (17-59); Bilirubin,Total 0.4 mg/dL (0.2-1.3); Blood Urea Nitrogen 15 mg/dL (9-20); Calcium 8.5 mg/dL (8.4-10.2); Carbon Dioxide 22 mmol/L (22-30); Chloride 106 mmol/L (98-107); Estimated CRCL calculation 69 ml/min; Estimated Glomerular Filt Rate > 60; Glucose 88 mg/dL (65-110); Potassium 3.3 mmol/L (3.4-5.0); Sodium 139 mmol/L (137-145); Total Protein 6.1 g/dL (6.3-8.2)
[2024-10-27] MEDS: POTASSIUM CHLORIDE 20 MEQ PACKET (FOR LIQUID) 40 MEQ PO (09:26)
[2024-10-27] MEDS: guaiFENesin 12 HR 600 MG TABCR PO ×2 (09:26→22:25)
[2024-10-27] MEDS: traMADol HCL (*CRX) 50 MG TABLET PO (09:26)
[2024-10-27] MEDS: SERTRALINE HCL 50 MG TABLET PO (09:27)
[2024-10-27] MEDS: buPROPion HCL SR (12HR) 100 MG TABCR PO (09:27)
[2024-10-27] MEDS: polyethylene glycoL 3350 17 GM POWD.PACK PO (09:27)
[2024-10-27] MEDS: PANTOPRAZOLE SOD SESQUIHYDRATE 20 MG TAB PO ×2 (09:27→22:25)
[2024-10-27] MEDS: METOPROLOL TARTRATE 25 MG TABLET PO ×2 (09:27→22:24)
--- NOTE | 2024-10-27 09:27 | P.PNIM_ITS ---
Progress Note: A&P Assessment and Plan (1) AMS (altered mental status): Code(s): R41.82 - Altered mental status, unspecified Status: Acute Assessment and Plan: Patient is AOx3 (person, hospital, month, and year) on assessment. Spoke with NH and he is AOx1-2 at baseline. - Head CT showed no intracranial hemorrhage, mass or acute infarct. Atophy and chronic white matter changes noted. - Monitor (2) Sepsis: Code(s): A41.9 - Sepsis, unspecified organism Status: Acute Assessment and Plan: Meets SIRS criteria: leukocytosis, tachypnea - lactic acid: 1.2 - sepsis fluids given in ED - suspected source: coccurrent UTI and pneumonia - blood cultures drawn on 10/24, NGTD - UA: Turbid appearance with 2+ protein, 1+ ketones, 1+ blood, 3+ leukocytes, negative nitrates, greater than 100 WBC and 4+ bacteria. - UC obtained on 10/24, ecoli with sensitivities pending - Chest/abdomen/pelvis CT: Extensive patchy consolidation in both lower lobes, suspicious for bilateral pneumonia, possibly due to aspiration. Dependent atelectatic changes and alternative consideration. Moderate to advanced emphysema. - see plans for UTI and pneumonia below WBC continues to improve on current regimen. Remains hemodynamically stable. (3) Acute UTI: Code(s): N39.0 - Urinary tract infection, site not specified Status: Acute Assessment and Plan: - UA: Turbid appearance with 2+ protein, 1+ ketones, 1+ blood, 3+ leukocytes, negative nitrates, greater than 100 WBC and 4+ bacteria. - UC obtained on 10/24, E coli with intermediate response to fluoroquinolones and Unasyn, resistance to Bactrim - Chest/abdomen/pelvis showed probable cystitis - No previous micro to be reviewed - started on Rocephin on 10/24 (4) PNA (pneumonia): Code(s): J18.9 - Pneumonia, unspecified organism Status: Acute Assessment and Plan: Chest/abdomen/pelvis CT: Extensive patchy consolidation in both lower lobes, suspicious for bilateral pneumonia, possibly due to aspiration. Dependent atelectatic changes and alternative consideration. Moderate to advanced emphysema. - started on CAP tx: Rocephin and doxycycline 10/24, flagyl added for aspiration concern - Viral PCR: negative for Flu/COVID/RSV - MRSA swab negative - legionella and pneumococcal negative. Mycoplasma pending - sputum culture ordered - mucinex ordered given productive cough with difficulty clearing - started on mucomyst, RT consulted for CPT following treatment - no supplemental O2 requirement - Monitor vital signs, I&Os, neuro status and patient is a fall risk - Follow WBC, serum electrolytes, temperature curves and cultures - evaluated by speech therapy given concern of at patient in and minced moist diet with mildly thick liquids. Speech continues to follow. (5) Hypokalemia: Code(s): E87.6 - Hypokalemia Status: Acute Assessment and Plan: K 2.9 on admission, previously 2.9 on 08/03 and resolved with supplementation K 3.9 on am labs Mag 1.5 on 10/26, given 2g Mag sulfate x1 on 10/26 Phos WNL Continue to monitor Tele (6) Renal mass: Code(s): N28.89 - Other specified disorders of kidney and ureter Status: Acute Assessment and Plan: CT chest/abdomen/pelvis showed 4.3 cm left upper pole solid renal mass, suspicious for renal cell carcinoma until proven otherwise. Abdomen MRI showed 3.9 cm solid left upper pole renal mass is compatible with renal cell carcinoma until proven otherwise. Renal US biopsy ordered Heme/onc consulted Would also recommend urology consultation. I have provided him my office information. I tried to contact patient's significant other without any luck. Patient should follow-up in the office after urology consultation. - Urology consulted Options could include partial nephrectomy, cryotherapy, radical nephrectomy, or potentially active surveillance which would have to be a nuanced conversation due to his comorbidities, patient age overall. currently no acute surgical intervention is required while inpatient. (7) Hypertension: Code(s): I10 - Essential (primary) hypertension Status: Acute Assessment and Plan: Chronic, continue home medications -metoprolol 25 mg twice a day -blood pressures stable, continue to monitor Time Spent With Patient Time with patient: 25 - 35 minutes Subjective Date/time seen: 10/27/24 09:27 Interval history: 79 year old male with past medical history of hypertension, CVA, dementia AOx 1- 2 per NH, hyperlipidemia, and GERD presents to the hospital via [facility] for shortness of breath and altered mental status. Patient is pleasant lying in bed. He is AOx3 on assessment. He is increasingly difficult to understand as his voice is so quiet. He continues to have no complaints denying chest pain, shortness of breath, palpitations, nausea/vomiting and abdominal pain. Review of Systems Review of Systems: All systems reviewed & are unremarkable except as noted in HPI and below Exam Narrative: AF HR 76 RR 18 SpO2 96 BP 136/71 General: male in no acute respiratory distress who is nontoxic appearing, sitting up in bed HEENT: Normocephalic. Atraumatic. Extraocular movement intact. Sclera clear and anicteric. No facial asymmetry. Chest: Lungs are diminished to auscultation bilaterally. No wheezes or crackles. Weak wet cough, unable to clear. CV: Heart was regular rate and rhythm. S1/S2. No murmurs, gallops, or rubs. Abd: Abdomen was soft. Nontender. Nondistended. Positive bowel sounds. Ext: No clubbing, cyanosis, or edema. DP pulses bilaterally. Neuro: Patient is alert and oriented x3 (self, place, and month/year). Intermittent confusion. Speech is extremely soft and difficult to hear/unders tand. Skin: Warm and dry. No rashes noted. Objective Data Vital Signs Vital Signs: Vital Signs - 24 hr 10/26/24 10:07 10/26/24 12:00 10/26/24 14:51 Temperature 97.9 F Pulse Rate 79 65 77 Respiratory Rate 20 Blood Pressure 173/84 H Pulse Oximetry 95 Oxygen Delivery 10/26/24 16:00 10/26/24 20:00 10/26/24 20:00 Temperature Pulse Rate 75 72 Respiratory Rate Blood Pressure Pulse Oximetry Oxygen Delivery Room Air 10/26/24 20:43 10/26/24 20:55 10/26/24 21:48 Temperature 96.3 F L Pulse Rate 80 73 68 Respiratory Rate 18 16 Blood Pressure 182/82 H Pulse Oximetry 96 Oxygen Delivery 10/27/24 00:00 10/27/24 02:24 10/27/24 04:00 Temperature Pulse Rate 64 66 69 Respiratory Rate 14 Blood Pressure Pulse Oximetry Oxygen Delivery 10/27/24 06:00 10/27/24 08:00 10/27/24 08:00 Temperature 97.5 F L Pulse Rate 73 70 Respiratory Rate 20 Blood Pressure 179/78 H Pulse Oximetry 94 Oxygen Delivery Room Air 10/27/24 09:00 10/27/24 09:00 Temperature Pulse Rate 67 Respiratory Rate 20 Blood Pressure Pulse Oximetry 92 Oxygen Delivery Room Air Intake/Output Intake/Output: Intake & Output 10/24/24 10/25/24 10/26/24 10/27/24 23:59 23:59 23:59 23:59 Intake Total 1570 1210 1150 250 Output Total 200 1150 850 Balance 1370 60 300 250 Meds/Results Medications: Active Medications Generic Name Dose Route Start Last Admin Trade Name Freq PRN Reason Stop Dose Admin Acetylcysteine 200 mg 10/26/24 20:00 10/27/24 08:57 Acetylcysteine 20% Inhal Soln 800 Mg/4 Ml Vial INHALATION 200 mg Q6HRT AMELIA Administration Albuterol 2.5 mg 10/26/24 20:00 10/27/24 08:57 Albuterol Sulfate Neb 2.5 Mg/3 Ml Inh INHALATION 2.5 mg Q6HRT AMELIA Administration Aspirin 81 mg 10/24/24 21:00 10/26/24 20:43 Aspirin 81 Mg Enteric Tablet PO 81 mg HS AMELIA Administration Atorvastatin Calcium 20 mg 10/24/24 21:00 10/26/24 20:43 Atorvastatin 20 Mg Tablet PO 20 mg HS AMELIA Administration Bupropion HCl 100 mg 10/24/24 11:00 10/26/24 10:09 Bupropion Hcl Sr (12hr) 100 Mg Tabcr PO 100 mg DAILY AMELIA Administration Enoxaparin Sodium 40 mg 10/25/24 09:00 10/26/24 10:09 Enoxaparin 40 Mg/0.4 Ml Syringe SUB-Q 40 mg DAILY AMELIA Administration Guaifenesin 600 mg 10/25/24 21:00 10/26/24 20:43 Guaifenesin 12 Hr 600 Mg Tabcr PO 600 mg Q12HR AMELIA Administration Ceftriaxone Sodium 1 gm in 50 mls @ 100 mls/hr 10/25/24 02:00 10/27/24 02:44 Rocephin 1 Gm/Ns 50 Ml IVPB Infused Q24H AMELIA Infusion Doxycycline Hyclate 100 mg in 100 mls @ 100 mls/hr 10/24/24 14:00 10/27/24 03:14 Vibramycin 100 Mg/Ns 100 Ml IVPB Infused Q12H AMELIA Infusion Metronidazole 500 mg in 100 mls @ 100 mls/hr 10/24/24 16:30 10/27/24 06:34 Flagyl 500 Mg/Iso Soln 100 Ml IVPB Infused Q8HR AMELIA Infusion Magnesium Hydroxide 30 ml 10/24/24 10:49 Magnesium Hydroxide Susp 30 Ml Udc PO DAILY PRN constipation Metoprolol Tartrate 25 mg 10/24/24 21:00 10/26/24 20:43 Metoprolol Tartrate 25 Mg Tablet PO 25 mg Q12HR AMELIA Administration Pantoprazole Sodium 20 mg 10/24/24 11:00 10/26/24 20:43 Pantoprazole Sod Sesquihydrate 20 Mg Tab PO 20 mg Q12HR AMELIA Administration Polyethylene Glycol 17 gm 10/24/24 11:00 10/26/24 10:21 Polyethylene Glycol 3350 17 Gm Powd.Pack PO Not Given DAILY AMELIA Sertraline HCl 50 mg 10/25/24 09:00 10/26/24 10:07 Sertraline Hcl 50 Mg Tablet PO 50 mg DAILY AMELIA Administration Tramadol HCl 50 mg 10/24/24 10:49 10/26/24 20:43 Tramadol Hcl (*Crx) 50 Mg Tablet PO 50 mg Q6H PRN Administration pain Radiology Results: ITS Impressions Chest/Abdomen/Pelvis CT 10/24/24 05:27 Impression: 4.3 cm left upper pole solid renal mass, suspicious for renal cell carcinoma until proven otherwise. Extensive patchy consolidation in both lower lobes, suspicious for bilateral pneumonia, possibly due to aspiration. Dependent atelectatic changes and alterna tive consideration. Moderate to advanced emphysema. Probable cystitis. Correlate with urinalysis. 3.4 cm infrarenal abdominal aortic aneurysm. Head CT 10/24/24 05:32 Impression: No intracranial hemorrhage, mass, or acute infarct. Atrophy and chronic white matter changes, as above. Modified Barium Swallow 10/24/24 16:28 IMPRESSION: Oral pharyngeal dysphagia with laryngeal penetration and aspiration. Please correlate with speech pathologist findings and specific feeding recommendations. Labs Labs: Laboratory Results - last 24 hr 10/24/24 10/27/24 11:50 06:30 WBC 15.7 H RBC 4.35 L Hgb 12.6 L Hct 40.5 L MCV 93.1 MCH 29.0 MCHC 31.1 L RDW 14.6 H Plt Count 362 MPV 11.3 H Immature Gran % (Auto) 2.7 H Neut % (Auto) 84.3 H Lymph % (Auto) 7.6 L [place] % (Auto) 4.6 Eos % (Auto) 0.5 Baso % (Auto) 0.3 Lymph # (Auto) 1.20 [place] # (Auto) 0.7 H Eos # (Auto) 0.1 Baso # (Auto) 0.1 Abs Immat Gran (auto) 0.43 H Absolute Neuts (auto) 13.2 H Absolute Nucleated RBC 0.000 Nucleated RBC % 0.0 Sodium 139 Potassium 3.3 L Chloride 106 Carbon Dioxide 22 Anion Gap 11 BUN 15 Creatinine 0.63 L Estim Creat Clear Calc 69 Estimated GFR > 60 Glucose 88 Calcium 8.5 Total Bilirubin 0.4 AST 28 ALT 13 Alkaline Phosphatase 96 Total Protein 6.1 L Albumin 2.9 L Ur L.pneumophila Ag Not detected Urine Pneumococcal Ag Not detected Quality VTE Prophylaxis VTE prophylaxis: pharmacologic ordered
[2024-10-27] MEDS: ENOXAPARIN 40 MG/0.4 ML SYRINGE SUB-Q (09:32)
--- NOTE | 2024-10-27 14:13 | WPDUROPN2 ---
Progress Note: A&P Assessment and Plan (1) Renal mass: Code(s): N28.89 - Other specified disorders of kidney and ureter Status: Acute Assessment and Plan: -patient with left 4 cm upper pole lesion suspicious for renal cell carcinoma. Oncology is on board and recommended a MRI, which was performed, pending results. Also potentially planning a biopsy while inpatient in the near future. -patient continues to void well with a low PVR, creatinine is within normal limits. Urinary tract infection is being treated with antibiotics. Patient also with pneumonia and so does have some leukocytosis which is up trending down. -I had a discussion with the patient's partner, Artem today. We discussed potential next steps for care for this renal mass on MRI and biopsy results are back.. The options could include partial nephrectomy, cryotherapy, radical nephrectomy, or potentially active surveillance. I discussed I am not an expert in this, but we would ensure after all results are back that we had a conversation with them with 1 of my colleagues who is more of a specialist and kidney masses -this would have to be a nuanced conversation due to his comorbidities, patient age overall. Patient and his partner endorsed understanding. -currently no acute surgical intervention is required while inpatient. However, continued evaluation for this mass is reasonable and could be continued inpatient versus outpatient depending on the patient's ability in order to have a appropriate follow-up. Balance of care per primary team is appropriate for the patient's urinary tract infection as well as shortness of breath evaluation. Subjective Subjective Date/Time Seen: 10/27/24 14:13 Interval history: NAEO. Patient doing well, his partner is at bedside today. No issues with voiding. Exam Narrative: Alert GI: Other: Undescended : Other: No CVA tenderness Objective Data Vital Signs Vital Signs: Vital Signs - 24 hr 10/26/24 14:51 10/26/24 16:00 10/26/24 20:00 Temperature 36.6 C Pulse Rate 77 75 Respiratory Rate 20 Blood Pressure 173/84 H Pulse Oximetry 95 Oxygen Delivery Room Air 10/26/24 20:00 10/26/24 20:43 10/26/24 20:55 Temperature 35.7 C L Pulse Rate 72 80 73 Respiratory Rate 18 Blood Pressure 182/82 H Pulse Oximetry 96 Oxygen Delivery 10/26/24 21:48 10/27/24 00:00 10/27/24 02:24 Temperature Pulse Rate 68 64 66 Respiratory Rate 16 14 Blood Pressure Pulse Oximetry Oxygen Delivery 10/27/24 04:00 10/27/24 06:00 10/27/24 08:00 Temperature 36.4 C L Pulse Rate 69 73 Respiratory Rate 20 Blood Pressure 179/78 H Pulse Oximetry 94 Oxygen Delivery Room Air 10/27/24 08:00 10/27/24 09:00 10/27/24 09:00 Temperature Pulse Rate 70 67 Respiratory Rate 20 Blood Pressure Pulse Oximetry 92 Oxygen Delivery Room Air 10/27/24 09:27 Temperature Pulse Rate 80 Respiratory Rate Blood Pressure Pulse Oximetry Oxygen Delivery Intake/Output Intake/Output: Intake & Output 10/24/24 10/25/24 10/26/24 10/27/24 23:59 23:59 23:59 23:59 Intake Total 1570 1210 1150 330 Output Total 200 1150 850 Balance 1370 60 300 330 Meds/Results Medications: Active Medications Generic Name Dose Route Start Last Admin Trade Name Freq PRN Reason Stop Dose Admin Acetylcysteine 200 mg 10/26/24 20:00 10/27/24 08:57 Acetylcysteine 20% Inhal Soln 800 Mg/4 Ml Vial INHALATION 200 mg Q6HRT AMELIA Administration Albuterol 2.5 mg 10/26/24 20:00 10/27/24 08:57 Albuterol Sulfate Neb 2.5 Mg/3 Ml Inh INHALATION 2.5 mg Q6HRT AMELIA Administration Aspirin 81 mg 10/24/24 21:00 10/26/24 20:43 Aspirin 81 Mg Enteric Tablet PO 81 mg HS AMELIA Administration Atorvastatin Calcium 20 mg 10/24/24 21:00 10/26/24 20:43 Atorvastatin 20 Mg Tablet PO 20 mg HS AMELIA Administration Bupropion HCl 100 mg 10/24/24 11:00 10/27/24 09:27 Bupropion Hcl Sr (12hr) 100 Mg Tabcr PO 100 mg DAILY AMELIA Administration Enoxaparin Sodium 40 mg 10/25/24 09:00 10/27/24 09:32 Enoxaparin 40 Mg/0.4 Ml Syringe SUB-Q 40 mg DAILY AMELIA Administration Guaifenesin 600 mg 10/25/24 21:00 10/27/24 09:26 Guaifenesin 12 Hr 600 Mg Tabcr PO 600 mg Q12HR AMELIA Administration Ceftriaxone Sodium 1 gm in 50 mls @ 100 mls/hr 10/25/24 02:00 10/27/24 02:44 Rocephin 1 Gm/Ns 50 Ml IVPB Infused Q24H AMELIA Infusion Doxycycline Hyclate 100 mg in 100 mls @ 100 mls/hr 10/24/24 14:00 10/27/24 14:10 Vibramycin 100 Mg/Ns 100 Ml IVPB 100 mls/hr Q12H AMELIA Administration Metronidazole 500 mg in 100 mls @ 100 mls/hr 10/24/24 16:30 10/27/24 14:10 Flagyl 500 Mg/Iso Soln 100 Ml IVPB 100 mls/hr Q8HR AMELIA Administration Magnesium Hydroxide 30 ml 10/24/24 10:49 Magnesium Hydroxide Susp 30 Ml Udc PO DAILY PRN constipation Metoprolol Tartrate 25 mg 10/24/24 21:00 10/27/24 09:27 Metoprolol Tartrate 25 Mg Tablet PO 25 mg Q12HR AMELIA Administration Pantoprazole Sodium 20 mg 10/24/24 11:00 10/27/24 09:27 Pantoprazole Sod Sesquihydrate 20 Mg Tab PO 20 mg Q12HR AMELIA Administration Polyethylene Glycol 17 gm 10/24/24 11:00 10/27/24 09:27 Polyethylene Glycol 3350 17 Gm Powd.Pack PO 17 gm DAILY AMELIA Administration Sertraline HCl 50 mg 10/25/24 09:00 10/27/24 09:27 Sertraline Hcl 50 Mg Tablet PO 50 mg DAILY AMELIA Administration Tramadol HCl 50 mg 10/24/24 10:49 10/27/24 09:26 Tramadol Hcl (*Crx) 50 Mg Tablet PO 50 mg Q6H PRN Administration pain Radiology Results: ITS Impressions Chest/Abdomen/Pelvis CT 10/24/24 05:27 Impression: 4.3 cm left upper pole solid renal mass, suspicious for renal cell carcinoma until proven otherwise. Extensive patchy consolidation in both lower lobes, suspicious for bilateral pneumonia, possibly due to aspiration. Dependent atelectatic changes and alternative consideration. Moderate to advanced emphysema. Probable cystitis. Correlate with urinalysis. 3.4 cm infrarenal abdominal aortic aneurysm. Head CT 10/24/24 05:32 Impression: No intracranial hemorrhage, mass, or acute infarct. Atrophy and chronic white matter changes, as above. Modified Barium Swallow 10/24/24 16:28 IMPRESSION: Oral pharyngeal dysphagia with laryngeal penetration and aspiration. Please correlate with speech pathologist findings and specific feeding recommendations. Abdomen MRI 10/27/24 13:41 Impression: 3.9 cm solid left upper pole renal mass is compatible with renal cell carcinoma until proven otherwise. This correlates with prior CT finding. Labs Labs: Laboratory Results - last 24 hr 10/24/24 10/27/24 11:50 06:30 WBC 15.7 H RBC 4.35 L Hgb 12.6 L Hct 40.5 L MCV 93.1 MCH 29.0 MCHC 31.1 L RDW 14.6 H Plt Count 362 MPV 11.3 H Immature Gran % (Auto) 2.7 H Neut % (Auto) 84.3 H Lymph % (Auto) 7.6 L [place] % (Auto) 4.6 Eos % (Auto) 0.5 Baso % (Auto) 0.3 Lymph # (Auto) 1.20 [place] # (Auto) 0.7 H Eos # (Auto) 0.1 Baso # (Auto) 0.1 Abs Immat Gran (auto) 0.43 H Absolute Neuts (auto) 13.2 H Absolute Nucleated RBC 0.000 Nucleated RBC % 0.0 Sodium 139 Potassium 3.3 L Chloride 106 Carbon Dioxide 22 Anion Gap 11 BUN 15 Creatinine 0.63 L Estim Creat Clear Calc 69 Estimated GFR > 60 Glucose 88 Calcium 8.5 Total Bilirubin 0.4 AST 28 ALT 13 Alkaline Phosphatase 96 Total Protein 6.1 L Albumin 2.9 L Ur L.pneumophila Ag Not detected Urine Pneumococcal Ag Not detected
--- NOTE | 2024-10-27 15:45 | PC.NURSE ---
On 10/27/24, the [employer], [Amber ELLIS ], provided care and completed [employer] documentation on this patient. I have reviewed the [employer]'s documentation and agree with the findings.
[2024-10-27] MEDS: ATORVASTATIN 20 MG TABLET PO (22:25)
[2024-10-27] MEDS: ASPIRIN 81 MG ENTERIC TABLET PO (22:25)
[2024-10-28] VITALS (20 sets, daily range): BP systolic 156–167; BP diastolic 77–78; PULSE 66–83; RESP 16–28; TEMP 36.4–36.7; O2SAT 92–96
[2024-10-28] MEDS: ALBUTEROL SULFATE NEB 2.5 MG/3 ML INH INHALATION ×4 (02:08→20:15)
[2024-10-28] MEDS: ACETYLCYSTEINE 20% INHAL SOLN 800 MG/4 ML VIAL 200 MG INHALATION ×4 (02:08→20:15)
[2024-10-28] MEDS: DOXYCYCLINE 100 MG/NS 100 ML 100 MG/100 ML BAG IVPB ×2 (03:57→14:32)
[2024-10-28] MEDS: metroNIDAZOLE 500 MG/ISO 100ML 500 MG/100 ML BAG 100 MG IVPB ×3 (05:57→21:29)
[2024-10-28 06:05] LABS: Basophils Percent Auto 0.3 % (0.2-1.2); Eosinophils Absolute Auto 0.1 K/mm3 (0-0.3); Eosinophils Percent Auto 0.6 % (0-4.4); Hematocrit 34.4 % (42.0-52.0); Immature Granulocyte Absolute 0.34 K/mm3 (0.00-0.031); Immature Granulocyte Percent A 2.2 % (0-0.5); Lymphocytes Absolute Auto 1.13 K/mm3 (0.9-3.2); Lymphocytes Percent Auto 7.2 % (18.3-44.2); Mean Corpuscular Hemoglobin 29.7 pg (26-34); Mean Platelet Volume 11.6 fl (7.4-10.4); Monocytes Percent Auto 6.3 % (2.6-8.5); Neutrophils Absolute Auto 13.2 K/mm3 (1.3-6.7); Neutrophils Percent Auto 83.4 % (45.5-73.1); Platelet Count Result 353 k/mm3 (150-375); Red Cell Distribution Width 14.6 % (11.5-14.5); White Blood Count 15.8 K/mm3 (4.5-10.0)
[2024-10-28 06:23] LABS: Alanine Aminotransferase 12 U/L (6-50); Albumin Level 2.6 g/dL (3.5-5.1); Alkaline Phosphatase 86 U/L (38-126); Anion Gap 7 mmol/L (4-12); Aspartate Amino Transferase 28 U/L (17-59); Bilirubin,Total 0.3 mg/dL (0.2-1.3); Blood Urea Nitrogen 21 mg/dL (9-20); Calcium 8.6 mg/dL (8.4-10.2); Carbon Dioxide 26 mmol/L (22-30); Chloride 108 mmol/L (98-107); Estimated CRCL calculation 65 ml/min; Estimated Glomerular Filt Rate > 60; Glucose 94 mg/dL (65-110); INR 1.2; Potassium 3.5 mmol/L (3.4-5.0); Prothrombin Time 15.5 Seconds (11.1-14.7); Sodium 141 mmol/L (137-145); Total Protein 5.6 g/dL (6.3-8.2)
[2024-10-28 06:24] LABS: Partial Thromboplastin Time 35.3 Seconds (22.3-36.8)
--- NOTE | 2024-10-28 08:14 | PM.IMPN ---
Progress Note: A&P Assessment and Plan (1) AMS (altered mental status): Code(s): R41.82 - Altered mental status, unspecified Status: Acute Assessment and Plan: Patient is AOx3 (person, hospital, month, and year) on assessment. Spoke with NH and he is AOx1-2 at baseline. - Head CT showed no intracranial hemorrhage, mass or acute infarct. Atophy and chronic white matter changes noted. - Monitor Resolved. (2) Sepsis: Code(s): A41.9 - Sepsis, unspecified organism Status: Acute Assessment and Plan: Meets SIRS criteria: leukocytosis, tachypnea - lactic acid: 1.2 - sepsis fluids given in ED - suspected source: coccurrent UTI and pneumonia - blood cultures drawn on 10/24, NGTD - UA: Turbid appearance with 2+ protein, 1+ ketones, 1+ blood, 3+ leukocytes, negative nitrates, greater than 100 WBC and 4+ bacteria. - UC obtained on 10/24, ecoli with intermediate response to fluoroquinolones and Unasyn, resistance to Bactrim - Chest/abdomen/pelvis CT: Extensive patchy consolidation in both lower lobes, suspicious for bilateral pneumonia, possibly due to aspiration. Dependent atelectatic changes and alternative consideration. Moderate to advanced emphysema. - see plans for UTI and pneumonia below WBC continues to improve on current regimen. Remains hemodynamically stable. (3) Acute UTI: Code(s): N39.0 - Urinary tract infection, site not specified Status: Acute Assessment and Plan: - UA: Turbid appearance with 2+ protein, 1+ ketones, 1+ blood, 3+ leukocytes, negative nitrates, greater than 100 WBC and 4+ bacteria. - UC obtained on 10/24, E coli with intermediate response to fluoroquinolones and Unasyn, resistance to Bactrim - Chest/abdomen/pelvis showed probable cystitis - No previous micro to be reviewed - started on Rocephin on 10/24 (4) PNA (pneumonia): Code(s): J18.9 - Pneumonia, unspecified organism Status: Acute Assessment and Plan: Chest/abdomen/pelvis CT: Extensive patchy consolidation in both lower lobes, suspicious for bilateral pneumonia, possibly due to aspiration. Dependent atelectatic changes and alternative consideration. Moderate to advanced emphysema. - started on CAP tx: Rocephin and doxycycline 6/12, flagyl added for aspiration concern - Viral PCR: negative for Flu/COVID/RSV - MRSA swab negative - legionella and pneumococcal negative. Mycoplasma pending - sputum culture ordered - mucinex ordered given productive cough with difficulty clearing - started on mucomyst, RT consulted for CPT following treatment - no supplemental O2 requirement - Monitor vital signs, I&Os, neuro status and patient is a fall risk - Follow WBC, serum electrolytes, temperature curves and cultures - evaluated by speech therapy given concern of at patient in and minced moist diet with mildly thick liquids. Speech continues to follow. Cough and SOB improving. Continue treatment plan. (5) Hypokalemia: Code(s): E87.6 - Hypokalemia Status: Acute Assessment and Plan: K 2.9 on admission, previously 2.9 on 08/03 and resolved with supplementation K 3.5 on am labs Mag 1.5 on 10/26, given 2g Mag sulfate x1 on 10/26 Phos WNL Continue to monitor Tele (6) Renal mass: Code(s): N28.89 - Other specified disorders of kidney and ureter Status: Acute Assessment and Plan: CT chest/abdomen/pelvis showed 4.3 cm left upper pole solid renal mass, suspicious for renal cell carcinoma until proven otherwise. Abdomen MRI showed 3.9 cm solid left upper pole renal mass is compatible with renal cell carcinoma until proven otherwise. Renal US biopsy ordered, updated that radiology recommends an ablation or resection prior to biopsy. Biopsy canceled. Heme/onc consulted Would also recommend urology consultation. I have provided him my office information. I tried to contact patient's significant other without any luck. Patient should follow-up in the office after urology consultation. - Urology consulted Options could include partial nephrectomy, cryotherapy, radical nephrectomy, or potentially active surveillance which would have to be a nuanced conversation due to his comorbidities, patient age overall. currently no acute surgical intervention is required while inpatient. (7) Hypertension: Code(s): I10 - Essential (primary) hypertension Status: Acute Assessment and Plan: Chronic, continue home medications -metoprolol 25 mg twice a day -blood pressures stable, continue to monitor Time Spent With Patient Time with patient: 25 - 35 minutes Subjective Date/time seen: 10/28/24 08:14 Interval history: 79 year old male with past medical history of hypertension, CVA, dementia AOx 1-2 per NH, hyperlipidemia, and GERD presents to the hospital via EMS from assisted for shortness of breath and altered mental status. Patient is pleasant lying in bed. He remains AOx3. He states that his cough has improved and denies shortness of breath. He has no other complaints denying chest pain, palpitations, nausea/vomiting and abdominal pain. Review of Systems Review of Systems: All systems reviewed & are unremarkable except as noted in HPI and below Exam Narrative: AF HR 77 RR 16 SpO2 92 BP 156/77 General: male in no acute respiratory distress who is nontoxic appearing, sitting up in bed HEENT: Normocephalic. Atraumatic. Extraocular movement intact. Sclera clear and anicteric. No facial asymmetry. Chest: Lungs are diminished to auscultation bilaterally. No wheezes or crackles. Weak cough. CV: Heart was regular rate and rhythm. S1/S2. No murmurs, gallops, or rubs. Abd: Abdomen was soft. Nontender. Nondistended. Positive bowel sounds. Ext: No clubbing, cyanosis, or edema. DP pulses bilaterally. Neuro: Patient is alert and oriented x3 (self, place, and month/year). Intermittent confusion. Speech is extremely soft and difficult to hear/understand. Objective Data Vital Signs Vital Signs: Vital Signs - 24 hr 10/27/24 09:00 10/27/24 09:00 10/27/24 09:27 Temperature Pulse Rate 67 80 Respiratory Rate 20 Blood Pressure Pulse Oximetry 92 Oxygen Delivery Room Air Fraction of Inspired Oxygen 10/27/24 12:00 10/27/24 14:00 10/27/24 14:29 Temperature 97.5 F L Pulse Rate 72 76 71 Respiratory Rate 18 20 Blood Pressure 136/71 Pulse Oximetry 96 Oxygen Delivery Fraction of Inspired Oxygen 10/27/24 16:00 10/27/24 20:00 10/27/24 20:51 Temperature Pulse Rate 79 81 74 Respiratory Rate 20 Blood Pressure Pulse Oximetry Oxygen Delivery Fraction of Inspired Oxygen 10/27/24 21:02 10/27/24 22:00 10/27/24 22:24 Temperature 97.7 F Pulse Rate 78 82 82 Respiratory Rate 20 16 Blood Pressure 148/78 H Pulse Oximetry 95 Oxygen Delivery Fraction of Inspired Oxygen 10/28/24 00:00 10/28/24 02:09 10/28/24 02:15 Temperature Pulse Rate 71 70 70 Respiratory Rate 20 20 Blood Pressure Pulse Oximetry Oxygen Delivery Fraction of Inspired Oxygen 10/28/24 04:00 10/28/24 06:00 10/28/24 07:18 Temperature 97.5 F L Pulse Rate 75 71 Respiratory Rate 16 Blood Pressure 167/78 H Pulse Oximetry 96 92 Oxygen Delivery Room Air Fraction of Inspired Oxygen 21 10/28/24 07:18 10/28/24 07:28 Temperature Pulse Rate 72 75 Respiratory Rate 20 20 Blood Pressure Pulse Oximetry Oxygen Delivery Fraction of Inspired Oxygen Intake/Output Intake/Output: Intake & Output 10/25/24 10/26/24 10/27/24 10/28/24 23:59 23:59 23:59 23:59 Intake Total 1210 1150 750 Output Total 1150 850 200 50 Balance 60 300 550 -50 Meds/Results Medications: Active Medications Generic Name Dose Route Start Last Admin Trade Name Freq PRN Reason Stop Dose Admin Acetylcysteine 200 mg 10/26/24 20:00 10/28/24 07:18 Acetylcysteine 20% Inhal Soln 800 Mg/4 Ml Vial INHALATION 200 mg Q6HRT AMELIA Administration Albuterol 2.5 mg 10/26/24 20:00 10/28/24 07:18 Albuterol Sulfate Neb 2.5 Mg/3 Ml Inh INHALATION 2.5 mg Q6HRT AMELIA Administration Aspirin 81 mg 10/24/24 21:00 10/27/24 22:25 Aspirin 81 Mg Enteric Tablet PO 81 mg HS AMELIA Administration Atorvastatin Calcium 20 mg 10/24/24 21:00 10/27/24 22:25 Atorvastatin 20 Mg Tablet PO 20 mg HS AMELIA Administration Bupropion HCl 100 mg 10/24/24 11:00 10/27/24 09:27 Bupropion Hcl Sr (12hr) 100 Mg Tabcr PO 100 mg DAILY AMELIA Administration Enoxaparin Sodium 40 mg 10/25/24 09:00 10/27/24 09:32 Enoxaparin 40 Mg/0.4 Ml Syringe SUB-Q 40 mg DAILY AMELIA Administration Guaifenesin 600 mg 10/25/24 21:00 10/27/24 22:25 Guaifenesin 12 Hr 600 Mg Tabcr PO 600 mg Q12HR AMELIA Administration Ceftriaxone Sodium 1 gm in 50 mls @ 100 mls/hr 10/25/24 02:00 10/28/24 03:55 Rocephin 1 Gm/Ns 50 Ml IVPB 100 mls/hr Q24H AMELIA Administration Doxycycline Hyclate 100 mg in 100 mls @ 100 mls/hr 10/24/24 14:00 10/28/24 03:57 Vibramycin 100 Mg/Ns 100 Ml IVPB 100 mls/hr Q12H AMELIA Administration Metronidazole 500 mg in 100 mls @ 100 mls/hr 10/24/24 16:30 10/28/24 05:57 Flagyl 500 Mg/Iso Soln 100 Ml IVPB 100 mls/hr Q8HR AMELIA Administration Magnesium Hydroxide 30 ml 10/24/24 10:49 Magnesium Hydroxide Susp 30 Ml Udc PO DAILY PRN constipation Metoprolol Tartrate 25 mg 10/24/24 21:00 10/27/24 22:24 Metoprolol Tartrate 25 Mg Tablet PO 25 mg Q12HR AMELIA Administration Pantoprazole Sodium 20 mg 10/24/24 11:00 10/27/24 22:25 Pantoprazole Sod Sesquihydrate 20 Mg Tab PO 20 mg Q12HR AMELIA Administration Polyethylene Glycol 17 gm 10/24/24 11:00 10/27/24 09:27 Polyethylene Glycol 3350 17 Gm Powd.Pack PO 17 gm DAILY AMELIA Administration Sertraline HCl 50 mg 10/25/24 09:00 10/27/24 09:27 Sertraline Hcl 50 Mg Tablet PO 50 mg DAILY AMELIA Administration Tramadol HCl 50 mg 10/24/24 10:49 10/27/24 09:26 Tramadol Hcl (*Crx) 50 Mg Tablet PO 50 mg Q6H PRN Administration pain Radiology Results: ITS Impressions Chest/Abdomen/Pelvis CT 10/24/24 05:27 Impression: 4.3 cm left upper pole solid renal mass, suspicious for renal cell carcinoma until proven otherwise. Extensive patchy consolidation in both lower lobes, suspicious for bilateral pneumonia, possibly due to aspiration. Dependent atelectatic changes and alternative consideration. Moderate to advanced emphysema. Probable cystitis. Correlate with urinalysis. 3.4 cm infrarenal abdominal aortic aneurysm. Head CT 10/24/24 05:32 Impression: No intracranial hemorrhage, mass, or acute infarct. Atrophy and chronic white matter changes, as above. Modified Barium Swallow 10/24/24 16:28 IMPRESSION: Oral pharyngeal dysphagia with laryngeal penetration and aspiration. Please correlate with speech pathologist findings and specific feeding recommendations. Abdomen MRI 10/27/24 13:41 Impression: 3.9 cm solid left upper pole renal mass is compatible with renal cell carcinoma until proven otherwise. This correlates with prior CT finding. Labs Labs: Laboratory Results - last 24 hr 10/28/24 05:41 WBC 15.8 H RBC 3.70 L Hgb 11.0 L Hct 34.4 L MCV 93.0 MCH 29.7 MCHC 32.0 RDW 14.6 H Plt Count 353 MPV 11.6 H Immature Gran % (Auto) 2.2 H Neut % (Auto) 83.4 H Lymph % (Auto) 7.2 L [place] % (Auto) 6.3 Eos % (Auto) 0.6 Baso % (Auto) 0.3 Lymph # (Auto) 1.13 [place] # (Auto) 1.0 H Eos # (Auto) 0.1 Baso # (Auto) 0.0 Abs Immat Gran (auto) 0.34 H Absolute Neuts (auto) 13.2 H Absolute Nucleated RBC 0.000 Nucleated RBC % 0.0 PT 15.5 H INR 1.2 APTT 35.3 Sodium 141 Potassium 3.5 Chloride 108 H Carbon Dioxide 26 Anion Gap 7 BUN 21 H Creatinine 0.68 L Estim Creat Clear Calc 65 Estimated GFR > 60 Glucose 94 Calcium 8.6 Total Bilirubin 0.3 AST 28 ALT 12 Alkaline Phosphatase 86 Total Protein 5.6 L Albumin 2.6 L Quality VTE Prophylaxis VTE prophylaxis: pharmacologic ordered
[2024-10-28] MEDS: METOPROLOL TARTRATE 25 MG TABLET PO ×2 (08:42→21:28)
--- NOTE | 2024-10-28 11:26 | PCNFU ---
Nutrition Follow-Up Complete: Moderate protein calorie malnutrition related to chronic illness, dementia as evidenced by weight loss 7%/3 months (not meeting ASPEN criteria); intakes <75% needs >1 month severe muscle wasting and fat loss. Goal:Meet estimated nutrition needs Textures appropriate for patient needs Pt current nutrition is NPO today, was heart healthy, minced and moist level 5, mildly thick liquids level 2. Nutrition recommendation: resume previous diet orders, Add STEPHANIE for wound healing, add nutrition ice cream cups for supplement, resume Ensure TID Last recorded weight is 59.4 kg. Bowel Motility: +BM 10/27 Labs Reviewed: Hgb:11, HCT:34.4, BUN:21, Cr:0.68 Meds Noted: protonix, miralax, lovenox Skin: Left buttocks DTPI, Left heel unstageable, Left foot unstageable Additional Notes: Pt NPO today for a renal biopsy. Was on a heart healthy minced and moist level 5 diet with mildly thickened liquids, intake overall is poor at 10-25%. Recommend to resume diet after procedure. Add STEPHANIE BID for wound healing, resume Ensure Enlive TID, and add nutrition ice cream cups BID. Monitoring intakes, weights, labs, supplement tolerance, swallowing ability Follow up in 3 days
[2024-10-28] MEDS: buPROPion HCL SR (12HR) 100 MG TABCR PO (12:13)
[2024-10-28] MEDS: polyethylene glycoL 3350 17 GM POWD.PACK PO (12:13)
[2024-10-28] MEDS: SERTRALINE HCL 50 MG TABLET PO (12:14)
[2024-10-28] MEDS: PANTOPRAZOLE SOD SESQUIHYDRATE 20 MG TAB PO ×2 (12:14→21:28)
[2024-10-28 18:58] LABS: Mycoplasma IgM Antibody Titer. 20 U/mL
[2024-10-28] MEDS: ATORVASTATIN 20 MG TABLET PO (21:28)
[2024-10-28] MEDS: guaiFENesin 12 HR 600 MG TABCR PO (21:28)
[2024-10-28] MEDS: ASPIRIN 81 MG ENTERIC TABLET PO (21:29)
[2024-10-29] VITALS (16 sets, daily range): BP systolic 131–173; BP diastolic 72–83; PULSE 66–78; RESP 14–20; TEMP 35.8–36.4; O2SAT 95–98
[2024-10-29] MEDS: ALBUTEROL SULFATE NEB 2.5 MG/3 ML INH INHALATION ×4 (02:21→21:23)
[2024-10-29] MEDS: ACETYLCYSTEINE 20% INHAL SOLN 800 MG/4 ML VIAL 200 MG INHALATION ×4 (02:21→21:23)
[2024-10-29] MEDS: DOXYCYCLINE 100 MG/NS 100 ML 100 MG/100 ML BAG IVPB (02:40)
[2024-10-29] MEDS: metroNIDAZOLE 500 MG/ISO 100ML 500 MG/100 ML BAG 100 MG IVPB (06:29)
[2024-10-29 06:37] LABS: Basophils Absolute Auto 0.1 K/mm3 (0.0-0.1); Basophils Percent Auto 0.3 % (0.2-1.2); Eosinophils Absolute Auto 0.2 K/mm3 (0-0.3); Hematocrit 35.1 % (42.0-52.0); Hemoglobin 11.2 g/dL (14.0-18.0); Immature Granulocyte Absolute 0.35 K/mm3 (0.00-0.031); Immature Granulocyte Percent A 1.9 % (0-0.5); Lymphocytes Absolute Auto 1.32 K/mm3 (0.9-3.2); Mean Corpuscular HGB Conc 31.9 g/dl (32-36); Mean Corpuscular Hemoglobin 29.7 pg (26-34); Mean Corpuscular Volume 93.1 fl (80-100); Mean Platelet Volume 11.1 fl (7.4-10.4); Monocytes Absolute Auto 1.1 K/mm3 (0.1-0.6); Monocytes Percent Auto 5.8 % (2.6-8.5); Neutrophils Absolute Auto 15.8 K/mm3 (1.3-6.7); Platelet Count Result 343 k/mm3 (150-375); Red Blood Count 3.77 M/mm3 (4.6-6.20); Red Cell Distribution Width 14.7 % (11.5-14.5); White Blood Count 18.8 K/mm3 (4.5-10.0)
[2024-10-29 07:02] LABS: Alanine Aminotransferase 13 U/L (6-50); Albumin Level 2.6 g/dL (3.5-5.1); Alkaline Phosphatase 83 U/L (38-126); Anion Gap 6 mmol/L (4-12); Aspartate Amino Transferase 34 U/L (17-59); Bilirubin,Total 0.3 mg/dL (0.2-1.3); Blood Urea Nitrogen 18 mg/dL (9-20); Calcium 8.5 mg/dL (8.4-10.2); Carbon Dioxide 25 mmol/L (22-30); Chloride 107 mmol/L (98-107); Estimated CRCL calculation 65 ml/min; Estimated Glomerular Filt Rate > 60; Glucose 95 mg/dL (65-110); Potassium 3.4 mmol/L (3.4-5.0); Sodium 138 mmol/L (137-145); Total Protein 5.5 g/dL (6.3-8.2)
--- NOTE | 2024-10-29 08:14 | PM.IMPN ---
Progress Note: A&P Assessment and Plan (1) AMS (altered mental status): Code(s): R41.82 - Altered mental status, unspecified Status: Acute Assessment and Plan: Patient is AOx3 (person, hospital, month, and year) on assessment. Spoke with NH and he is AOx1-2 at baseline. - Head CT showed no intracranial hemorrhage, mass or acute infarct. Atophy and chronic white matter changes noted. - Monitor Resolved. (2) Sepsis: Code(s): A41.9 - Sepsis, unspecified organism Status: Acute Assessment and Plan: Meets SIRS criteria: leukocytosis, tachypnea - lactic acid: 1.2 - sepsis fluids given in ED - suspected source: coccurrent UTI and pneumonia - blood cultures drawn on 10/24, NGTD - UA: Turbid appearance with 2+ protein, 1+ ketones, 1+ blood, 3+ leukocytes, negative nitrates, greater than 100 WBC and 4+ bacteria. - UC obtained on 10/24, ecoli with intermediate response to fluoroquinolones and Unasyn, resistance to Bactrim - Chest/abdomen/pelvis CT: Extensive patchy consolidation in both lower lobes, suspicious for bilateral pneumonia, possibly due to aspiration. Dependent atelectatic changes and alternative consideration. Moderate to advanced emphysema. - see plans for UTI and pneumonia below WBC elevated today on am labs. Discussed patient with ID pharmacy and antibiotics transitioned to monotherapy zosyn on 10/29. Remains hemodynamically stable. (3) Acute UTI: Code(s): N39.0 - Urinary tract infection, site not specified Status: Acute Assessment and Plan: - UA: Turbid appearance with 2+ protein, 1+ ketones, 1+ blood, 3+ leukocytes, negative nitrates, greater than 100 WBC and 4+ bacteria. - UC obtained on 10/24, E coli with intermediate response to fluoroquinolones and Unasyn, resistance to Bactrim - Chest/abdomen/pelvis showed probable cystitis - No previous micro to be reviewed - started on Rocephin on 10/24, transitioned to zosyn 10/29 (4) PNA (pneumonia): Code(s): J18.9 - Pneumonia, unspecified organism Status: Acute Assessment and Plan: Chest/abdomen/pelvis CT: Extensive patchy consolidation in both lower lobes, suspicious for bilateral pneumonia, possibly due to aspiration. Dependent atelectatic changes and alternative consideration. Moderate to advanced emphysema. - started on CAP tx: Rocephin and doxycycline 10/24, flagyl added for aspiration concern. Transitioned to zosyn for monotherapy after discussing with ID pharm. - Viral PCR: negative for Flu/COVID/RSV - MRSA swab negative - legionella and pneumococcal negative. Mycoplasma pending - sputum culture ordered - mucinex ordered given productive cough with difficulty clearing - started on mucomyst, RT consulted for CPT following treatment - no supplemental O2 requirement - Monitor vital signs, I&Os, neuro status and patient is a fall risk - Follow WBC, serum electrolytes, temperature curves and cultures - evaluated by speech therapy given concern of at patient in and minced moist diet with mildly thick liquids. Speech continues to follow. Endorsing increased shortness of breath but notes cough has improved. Repeat CXR obtained given increased WBC which showed bibasilar atelectasis vs pneumonia more on the left. Transitioned to zosyn for monotherapy after discussing with ID pharmacy. (5) Hypokalemia: Code(s): E87.6 - Hypokalemia Status: Acute Assessment and Plan: K 2.9 on admission, previously 2.9 on 08/03 and resolved with supplementation K 3.4 on am labs Mag 1.5 on 10/26, given 2g Mag sulfate x1 on 10/26 Phos WNL Continue to monitor Tele (6) Renal mass: Code(s): N28.89 - Other specified disorders of kidney and ureter Status: Acute Assessment and Plan: CT chest/abdomen/pelvis showed 4.3 cm left upper pole solid renal mass, suspicious for renal cell carcinoma until proven otherwise. Abdomen MRI showed 3.9 cm solid left upper pole renal mass is compatible with renal cell carcinoma until proven otherwise. Renal US biopsy ordered, updated that radiology recommends an ablation or resection prior to biopsy. Biopsy canceled. Heme/onc consulted Would also recommend urology consultation. I have provided him my office information. I tried to contact patient's significant other without any luck. Patient should follow-up in the office after urology consultation. - Urology consulted Options could include partial nephrectomy, cryotherapy, radical nephrectomy, or potentially active surveillance which would have to be a nuanced conversation due to his comorbidities, patient age overall. currently no acute surgical intervention is required while inpatient. Call made to urology to update about IR wanting ablation or resection prior to Bx. Voicemail left. (7) Hypertension: Code(s): I10 - Essential (primary) hypertension Status: Acute Assessment and Plan: Chronic, continue home medications -metoprolol 25 mg twice a day -blood pressures stable, continue to monitor Time Spent With Patient Time with patient: 25 - 35 minutes Subjective Date/time seen: 10/29/24 08:14 Interval history: 79 year old male with past medical history of hypertension, CVA, dementia AOx 1-2 per NH, hyperlipidemia, and GERD presents to the hospital [facility] for shortness of breath and altered mental status. Patient is pleasant sitting up comfortably in bed. He endorses mild shortness of breath but notes that the cough continues to improve. He has no other complaints denying chest pain, palpitations, nausea/vomiting, abdominal pain, and pain/burning with urination. Patient did have an increase in his white blood cell count on a.m. labs. Discussed patient with ID pharmacy and antibiotics were broadened. Attempted to call urology about possible ablation or a section of the renal mass given that IR once this performed prior to the biopsy. Voicemail was left. Review of Systems Review of Systems: All systems reviewed & are unremarkable except as noted in HPI and below Exam Narrative: AF HR 76 RR 20 SPO2 97 BP 131/79 General: male in no acute respiratory distress who is nontoxic appearing, sitting up in bed HEENT: Normocephalic. Atraumatic. Extraocular movement intact. Sclera clear and anicteric. No facial asymmetry. Chest: Lungs are diminished to auscultation bilaterally with slight coarseness to the left base. No wheezes or crackles. Weak cough. CV: Heart was regular rate and rhythm. S1/S2. No murmurs, gallops, or rubs. Abd: Abdomen was soft. Nontender. Nondistended. Positive bowel sounds. Ext: No clubbing, cyanosis, or edema. DP pulses bilaterally. Neuro: Patient is alert and oriented x3 (self, place, and month/year). Intermittent confusion. Speech remains soft and difficult to hear/understand, improved since admission. Objective Data Vital Signs Vital Signs: Vital Signs - 24 hr 10/28/24 08:42 10/28/24 12:00 10/28/24 13:46 Temperature Pulse Rate 74 74 Respiratory Rate Blood Pressure Pulse Oximetry 94 Oxygen Delivery Room Air Fraction of Inspired Oxygen 21 10/28/24 13:46 10/28/24 13:57 10/28/24 14:00 Temperature 98.1 F Pulse Rate 77 71 77 Respiratory Rate 20 20 16 Blood Pressure 156/77 H Pulse Oximetry 92 Oxygen Delivery Fraction of Inspired Oxygen 10/28/24 16:00 10/28/24 20:00 10/28/24 20:15 Temperature Pulse Rate 72 78 66 Respiratory Rate 18 Blood Pressure Pulse Oximetry Oxygen Delivery Fraction of Inspired Oxygen 10/28/24 20:35 10/28/24 21:28 10/28/24 22:00 Temperature 97.5 F L Pulse Rate 66 80 79 Respiratory Rate 18 28 H Blood Pressure 160/77 H Pulse Oximetry 92 Oxygen Delivery Fraction of Inspired Oxygen 10/28/24 23:57 10/29/24 00:00 10/29/24 02:06 Temperature Pulse Rate 67 66 Respiratory Rate 18 Blood Pressure Pulse Oximetry 93 Oxygen Delivery Room Air Fraction of Inspired Oxygen 21 10/29/24 02:19 10/29/24 04:00 10/29/24 06:00 Temperature 96.4 F L Pulse Rate 66 70 72 Respiratory Rate 18 20 Blood Pressure 173/72 H Pulse Oximetry 95 Oxygen Delivery Fraction of Inspired Oxygen 10/29/24 07:37 10/29/24 07:37 10/29/24 07:50 Temperature Pulse Rate 75 75 Respiratory Rate 14 14 Blood Pressure Pulse Oximetry 98 Oxygen Delivery Room Air Fraction of Inspired Oxygen Intake/Output Intake/Output: Intake & Output 10/26/24 10/27/24 10/28/24 10/29/24 23:59 23:59 23:59 23:59 Intake Total 1150 750 830 100 Output Total 850 200 250 650 Balance 300 550 580 -550 Meds/Results Medications: Active Medications Generic Name Dose Route Start Last Admin Trade Name Freq PRN Reason Stop Dose Admin Acetylcysteine 200 mg 10/26/24 20:00 10/29/24 07:36 Acetylcysteine 20% Inhal Soln 800 Mg/4 Ml Vial INHALATION 200 mg Q6HRT AMELIA Administration Albuterol 2.5 mg 10/26/24 20:00 10/29/24 07:36 Albuterol Sulfate Neb 2.5 Mg/3 Ml Inh INHALATION 2.5 mg Q6HRT AMELIA Administration Aspirin 81 mg 10/24/24 21:00 10/28/24 21:29 Aspirin 81 Mg Enteric Tablet PO 81 mg HS AMELIA Administration Atorvastatin Calcium 20 mg 10/24/24 21:00 10/28/24 21:28 Atorvastatin 20 Mg Tablet PO 20 mg HS AMELIA Administration Bupropion HCl 100 mg 10/24/24 11:00 10/28/24 12:13 Bupropion Hcl Sr (12hr) 100 Mg Tabcr PO 100 mg DAILY AMELIA Administration Enoxaparin Sodium 40 mg 10/25/24 09:00 10/28/24 12:12 Enoxaparin 40 Mg/0.4 Ml Syringe SUB-Q Not Given DAILY AMELIA Guaifenesin 600 mg 10/25/24 21:00 10/28/24 21:28 Guaifenesin 12 Hr 600 Mg Tabcr PO 600 mg Q12HR AMELIA Administration Ceftriaxone Sodium 1 gm in 50 mls @ 100 mls/hr 10/25/24 02:00 10/29/24 02:40 Rocephin 1 Gm/Ns 50 Ml IVPB 100 mls/hr Q24H AMELIA Administration Doxycycline Hyclate 100 mg in 100 mls @ 100 mls/hr 10/24/24 14:00 10/29/24 02:40 Vibramycin 100 Mg/Ns 100 Ml IVPB 100 mls/hr Q12H AMELIA Administration Metronidazole 500 mg in 100 mls @ 100 mls/hr 10/24/24 16:30 10/29/24 06:29 Flagyl 500 Mg/Iso Soln 100 Ml IVPB 100 mls/hr Q8HR AMELIA Administration Magnesium Hydroxide 30 ml 10/24/24 10:49 Magnesium Hydroxide Susp 30 Ml Udc PO DAILY PRN constipation Metoprolol Tartrate 25 mg 10/24/24 21:00 10/28/24 21:28 Metoprolol Tartrate 25 Mg Tablet PO 25 mg Q12HR AMELIA Administration Pantoprazole Sodium 20 mg 10/24/24 11:00 10/28/24 21:28 Pantoprazole Sod Sesquihydrate 20 Mg Tab PO 20 mg Q12HR AMELIA Administration Polyethylene Glycol 17 gm 10/24/24 11:00 10/28/24 12:13 Polyethylene Glycol 3350 17 Gm Powd.Pack PO 17 gm DAILY AMELIA Administration Sertraline HCl 50 mg 10/25/24 09:00 10/28/24 12:14 Sertraline Hcl 50 Mg Tablet PO 50 mg DAILY AMELIA Administration Tramadol HCl 50 mg 10/24/24 10:49 10/27/24 09:26 Tramadol Hcl (*Crx) 50 Mg Tablet PO 50 mg Q6H PRN Administration pain Radiology Results: ITS Impressions Chest/Abdomen/Pelvis CT 10/24/24 05:27 Impression: 4.3 cm left upper pole solid renal mass, suspicious for renal cell carcinoma until proven otherwise. Extensive patchy consolidation in both lower lobes, suspicious for bilateral pneumonia, possibly due to aspiration. Dependent atelectatic changes and alternative consideration. Moderate to advanced emphysema. Probable cystitis. Correlate with urinalysis. 3.4 cm infrarenal abdominal aortic aneurysm. Head CT 10/24/24 05:32 Impression: No intracranial hemorrhage, mass, or acute infarct. Atrophy and chronic white matter changes, as above. Modified Barium Swallow 10/24/24 16:28 IMPRESSION: Oral pharyngeal dysphagia with laryngeal penetration and aspiration. Please correlate with speech pathologist findings and specific feeding recommendations. Abdomen MRI 10/27/24 13:41 Impression: 3.9 cm solid left upper pole renal mass is compatible with renal cell carcinoma until proven otherwise. This correlates with prior CT finding. Labs Labs: Laboratory Results - last 24 hr 10/24/24 10/29/24 11:00 06:24 WBC 18.8 H RBC 3.77 L Hgb 11.2 L Hct 35.1 L MCV 93.1 MCH 29.7 MCHC 31.9 L RDW 14.7 H Plt Count 343 MPV 11.1 H Immature Gran % (Auto) 1.9 H Neut % (Auto) 84.0 H Lymph % (Auto) 7.0 L [place] % (Auto) 5.8 Eos % (Auto) 1.0 Baso % (Auto) 0.3 Lymph # (Auto) 1.32 [place] # (Auto) 1.1 H Eos # (Auto) 0.2 Baso # (Auto) 0.1 Abs Immat Gran (auto) 0.35 H Absolute Neuts (auto) 15.8 H Absolute Nucleated RBC 0.000 Nucleated RBC % 0.0 Sodium 138 Potassium 3.4 Chloride 107 Carbon Dioxide 25 Anion Gap 6 BUN 18 Creatinine 0.68 L Estim Creat Clear Calc 65 Estimated GFR > 60 Glucose 95 Calcium 8.5 Total Bilirubin 0.3 AST 34 ALT 13 Alkaline Phosphatase 83 Total Protein 5.5 L Albumin 2.6 L Mycoplasma pneumon IgM 20 Quality VTE Prophylaxis VTE prophylaxis: pharmacologic ordered
[2024-10-29] MEDS: ENOXAPARIN 40 MG/0.4 ML SYRINGE SUB-Q (08:28)
[2024-10-29] MEDS: polyethylene glycoL 3350 17 GM POWD.PACK PO (08:28)
[2024-10-29] MEDS: PANTOPRAZOLE SOD SESQUIHYDRATE 20 MG TAB PO ×2 (08:29→20:16)
[2024-10-29] MEDS: guaiFENesin 12 HR 600 MG TABCR PO ×2 (08:29→20:17)
[2024-10-29] MEDS: METOPROLOL TARTRATE 25 MG TABLET PO ×2 (08:29→20:16)
[2024-10-29] MEDS: buPROPion HCL SR (12HR) 100 MG TABCR PO (08:29)
[2024-10-29] MEDS: SERTRALINE HCL 50 MG TABLET PO (08:29)
[2024-10-29] MEDS: PIPERACILLIN/TAZ 4.5G/NS 100ML 4.5 GM/100 ML BAG IVPB ×2 (10:13→16:25)
[2024-10-29] MEDS: ASPIRIN 81 MG ENTERIC TABLET PO (20:16)
[2024-10-29] MEDS: ATORVASTATIN 20 MG TABLET PO (20:24)
[2024-10-30] VITALS (18 sets, daily range): BP systolic 140–155; BP diastolic 64–70; PULSE 62–82; RESP 12–19; TEMP 36.3–37; O2SAT 92–95
[2024-10-30] MEDS: PIPERACILLIN/TAZ 4.5G/NS 100ML 4.5 GM/100 ML BAG IVPB ×4 (00:17→17:08)
[2024-10-30] MEDS: traMADol HCL (*CRX) 50 MG TABLET PO (00:22)
[2024-10-30] MEDS: ALBUTEROL SULFATE NEB 2.5 MG/3 ML INH INHALATION ×4 (02:17→21:16)
[2024-10-30] MEDS: ACETYLCYSTEINE 20% INHAL SOLN 800 MG/4 ML VIAL 200 MG INHALATION ×3 (02:18→21:16)
[2024-10-30] MEDS: polyethylene glycoL 3350 17 GM POWD.PACK PO (08:43)
[2024-10-30] MEDS: ENOXAPARIN 40 MG/0.4 ML SYRINGE SUB-Q (08:44)
[2024-10-30] MEDS: PANTOPRAZOLE SOD SESQUIHYDRATE 20 MG TAB PO ×2 (08:44→20:45)
[2024-10-30] MEDS: buPROPion HCL SR (12HR) 100 MG TABCR PO (08:44)
[2024-10-30] MEDS: guaiFENesin 12 HR 600 MG TABCR PO ×2 (08:44→20:45)
[2024-10-30] MEDS: SERTRALINE HCL 50 MG TABLET PO (08:44)
[2024-10-30] MEDS: METOPROLOL TARTRATE 25 MG TABLET PO ×2 (08:45→20:51)
--- NOTE | 2024-10-30 13:42 | P.PNIM_ITS ---
Progress Note: A&P Assessment and Plan (1) Sepsis: Code(s): A41.9 - Sepsis, unspecified organism Status: Acute Assessment and Plan: Meets SIRS criteria: leukocytosis, tachypnea - lactic acid: 1.2 - sepsis fluids given in ED - suspected source: coccurrent UTI and pneumonia - blood cultures drawn on 10/24, NGTD - UA: Turbid appearance with 2+ protein, 1+ ketones, 1+ blood, 3+ leukocytes, negative nitrates, greater than 100 WBC and 4+ bacteria. - UC obtained on 10/24, ecoli with intermediate response to fluoroquinolones and Unasyn, resistance to Bactrim - Chest/abdomen/pelvis CT: Extensive patchy consolidation in both lower lobes, suspicious for bilateral pneumonia, possibly due to aspiration. Dependent atelectatic changes and alternative consideration. Moderate to advanced emphysema. - see plans for UTI and pneumonia below WBC elevated today on am labs. Discussed patient with ID pharmacy and antibiotics transitioned to monotherapy zosyn on 10/29. Remains hemodynamically stable. daily labs added trend cbc, temp (2) Acute UTI: Code(s): N39.0 - Urinary tract infection, site not specified Status: Acute Assessment and Plan: - UA: Turbid appearance with 2+ protein, 1+ ketones, 1+ blood, 3+ leukocytes, negative nitrates, greater than 100 WBC and 4+ bacteria. - UC obtained on 10/24, E coli with intermediate response to fluoroquinolones and Unasyn, resistance to Bactrim - Chest/abdomen/pelvis showed probable cystitis - No previous micro to be reviewed - started on Rocephin on 10/24, transitioned to zosyn 10/29 (3) PNA (pneumonia): Code(s): J18.9 - Pneumonia, unspecified organism Status: Acute Assessment and Plan: Chest/abdomen/pelvis CT: Extensive patchy consolidation in both lower lobes, suspicious for bilateral pneumonia, possibly due to aspiration. Dependent atelectatic changes and alternative consideration. Moderate to advanced emphysema. - started on CAP tx: Rocephin and doxycycline 10/24, flagyl added for aspiration concern. Transitioned to zosyn for monotherapy after discussing with ID pharm. - Viral PCR: negative for Flu/COVID/RSV - MRSA swab negative - legionella and pneumococcal negative. Mycoplasma pending - sputum culture ordered - mucinex ordered given productive cough with difficulty clearing - started on mucomyst, RT consulted for CPT following treatment - no supplemental O2 requirement - Monitor vital signs, I&Os, neuro status and patient is a fall risk - Follow WBC, serum electrolytes, temperature curves and cultures - evaluated by speech therapy given concern of at patient in and minced moist diet with mildly thick liquids. Speech continues to follow. Endorsing increased shortness of breath but notes cough has improved. Repeat CXR obtained given increased WBC which showed bibasilar atelectasis vs pneumonia more on the left. Transitioned to zosyn for monotherapy after discussing with ID pharmacy. (4) Hypokalemia: Code(s): E87.6 - Hypokalemia Status: Acute Assessment and Plan: K 2.9 on admission, previously 2.9 on 08/03 and resolved with supplementation K 3.4 on am labs Mag 1.5 on 10/26, given 2g Mag sulfate x1 on 10/26 Phos WNL Continue to monitor Tele 10/30- k 3.4 daily replacement ordered (5) Renal mass: Code(s): N28.89 - Other specified disorders of kidney and ureter Status: Acute Assessment and Plan: CT chest/abdomen/pelvis showed 4.3 cm left upper pole solid renal mass, suspicious for renal cell carcinoma until proven otherwise. Abdomen MRI showed 3.9 cm solid left upper pole renal mass is compatible with renal cell carcinoma until proven otherwise. Renal US biopsy ordered, updated that radiology recommends an ablation or resection prior to biopsy. Biopsy canceled. Heme/onc consulted Would also recommend urology consultation. I have provided him my office information. I tried to contact patient's significant other without any luck. Patient should follow-up in the office after urology consultation. - Urology consulted Options could include partial nephrectomy, cryotherapy, radical nephrectomy, or potentially active surveillance which would have to be a nuanced conversation due to his comorbidities, patient age overall. currently no acute surgical intervention is required while inpatient. Call made to urology to update about IR wanting ablation or resection prior to Bx. Voicemail left. waiting for urology for further plan of care recommendation (6) Hypertension: Code(s): I10 - Essential (primary) hypertension Status: Acute Assessment and Plan: Chronic, continue home medications -metoprolol 25 mg twice a day -blood pressures stable, continue to monitor Time Spent With Patient Time with patient: 25 - 35 minutes Subjective Date/time seen: 10/30/24 13:42 Interval history: 79 year old male with past medical history of hypertension, CVA, dementia AOx 1-2 per NH, hyperlipidemia, and GERD presents to the hospital via EMS from retirement for shortness of breath and altered mental status. Patient is pleasant, resting comfortably in bed. His shortness of breath is better and cough continues to improve. He has no other complaints -no chest pain, palpitations, nausea/vomiting, abdominal pain, and pain/burning with urination. Patient did have an increase in his white blood cell count on a.m. labs. Discussed patient with ID pharmacy and antibiotics were broadened. Attempted to call urology per previous provider about possible ablation or a section of the renal mass given that IR once this performed prior to the biopsy. Voicemail was left. Called [facility] [phone]- no answers. Review of Systems Review of Systems: All systems reviewed & are unremarkable except as noted in HPI and below Exam Narrative: General: male in no acute respiratory distress who is nontoxic appearing HEENT: Normocephalic. Atraumatic. Extraocular movement intact. Sclera clear and anicteric. No facial asymmetry. Chest: Lungs are diminished to auscultation bilaterally with slight coarseness to the left base. No wheezes or crackles. Weak cough. CV: Heart was regular rate and rhythm. S1/S2. No murmurs, gallops, or rubs. Abd: Abdomen was soft. Nontender. Nondistended. Positive bowel sounds. Ext: No clubbing, cyanosis, or edema. DP pulses bilaterally. Neuro: Patient is alert and oriented x3 (self, place, and month/year). Intermittent confusion. Speech remains soft and difficult to hear/understand, improved since admission. Objective Data Vital Signs Vital Signs: Vital Signs - 24 hr 10/29/24 13:50 10/29/24 16:00 10/29/24 20:00 Temperature 96.5 F L Pulse Rate 76 75 72 Respiratory Rate 20 16 Blood Pressure 131/79 Pulse Oximetry 97 95 Oxygen Delivery Room Air Fraction of Inspired Oxygen 21 10/29/24 20:00 10/29/24 20:16 10/29/24 21:32 Temperature 97.5 F L Pulse Rate 78 75 72 Respiratory Rate 16 Blood Pressure 157/83 H Pulse Oximetry 95 Oxygen Delivery Fraction of Inspired Oxygen 10/30/24 00:00 10/30/24 02:19 10/30/24 04:00 Temperature Pulse Rate 66 72 66 Respiratory Rate 16 Blood Pressure Pulse Oximetry Oxygen Delivery Fraction of Inspired Oxygen 10/30/24 06:00 10/30/24 08:00 10/30/24 08:00 Temperature 98.0 F Pulse Rate 68 70 Respiratory Rate 17 Blood Pressure 155/64 H Pulse Oximetry 95 95 Oxygen Delivery Room Air Fraction of Inspired Oxygen 10/30/24 08:39 10/30/24 08:45 10/30/24 08:50 Temperature Pulse Rate 82 69 82 Respiratory Rate 12 14 Blood Pressure Pulse Oximetry 92 Oxygen Delivery Room Air Fraction of Inspired Oxygen 10/30/24 12:00 Temperature Pulse Rate 62 Respiratory Rate Blood Pressure Pulse Oximetry Oxygen Delivery Fraction of Inspired Oxygen Intake/Output Intake/Output: Intake & Output 10/27/24 10/28/24 10/29/24 10/30/24 23:59 23:59 23:59 23:59 Intake Total 750 830 710 340 Output Total 200 250 950 500 Balance 550 018 -240 160 Meds/Results Medications: Active Medications Generic Name Dose Route Start Last Admin Trade Name Freq PRN Reason Stop Dose Admin Acetylcysteine 200 mg 10/26/24 20:00 10/30/24 08:42 Acetylcysteine 20% Inhal Soln 800 Mg/4 Ml Vial INHALATION 200 mg Q6HRT AMELIA Administration Albuterol 2.5 mg 10/26/24 20:00 10/30/24 08:42 Albuterol Sulfate Neb 2.5 Mg/3 Ml Inh INHALATION 2.5 mg Q6HRT AMELIA Administration Aspirin 81 mg 10/24/24 21:00 10/29/24 20:16 Aspirin 81 Mg Enteric Tablet PO 81 mg HS AMELIA Administration Atorvastatin Calcium 20 mg 10/24/24 21:00 10/29/24 20:24 Atorvastatin 20 Mg Tablet PO 20 mg HS AMELIA Administration Bupropion HCl 100 mg 10/24/24 11:00 10/30/24 08:44 Bupropion Hcl Sr (12hr) 100 Mg Tabcr PO 100 mg DAILY AMELIA Administration Enoxaparin Sodium 40 mg 10/25/24 09:00 10/30/24 08:44 Enoxaparin 40 Mg/0.4 Ml Syringe SUB-Q 40 mg DAILY AMELIA Administration Guaifenesin 600 mg 10/25/24 21:00 10/30/24 08:44 Guaifenesin 12 Hr 600 Mg Tabcr PO 600 mg Q12HR AMELIA Administration Piperacillin Sod/Tazobactam Sod 4.5 gm in 100 mls @ 200 mls/hr 10/29/24 10:00 10/30/24 11:41 Zosyn 4.5 Gm/Ns 100 Ml IVPB 100 mls/hr Q6HR AMELIA Administration Magnesium Hydroxide 30 ml 10/24/24 10:49 Magnesium Hydroxide Susp 30 Ml Udc PO DAILY PRN constipation Metoprolol Tartrate 25 mg 10/24/24 21:00 10/30/24 08:45 Metoprolol Tartrate 25 Mg Tablet PO 25 mg Q12HR AMELIA Administration Pantoprazole Sodium 20 mg 10/24/24 11:00 10/30/24 08:44 Pantoprazole Sod Sesquihydrate 20 Mg Tab PO 20 mg Q12HR AMELIA Administration Polyethylene Glycol 17 gm 10/24/24 11:00 10/30/24 08:43 Polyethylene Glycol 3350 17 Gm Powd.Pack PO 17 gm DAILY AMELIA Administration Sertraline HCl 50 mg 10/25/24 09:00 10/30/24 08:44 Sertraline Hcl 50 Mg Tablet PO 50 mg DAILY AMELIA Administration Tramadol HCl 50 mg 10/24/24 10:49 10/30/24 00:22 Tramadol Hcl (*Crx) 50 Mg Tablet PO 50 mg Q6H PRN Administration pain Radiology Results: ITS Impressions Chest/Abdomen/Pelvis CT 10/24/24 05:27 Impression: 4.3 cm left upper pole solid renal mass, suspicious for renal cell carcinoma until proven otherwise. Extensive patchy consolidation in both lower lobes, suspicious for bilateral pneumonia, possibly due to aspiration. Dependent atelectatic changes and alternative consideration. Moderate to advanced emphysema. Probable cystitis. Correlate with urinalysis. 3.4 cm infrarenal abdominal aortic aneurysm. Head CT 10/24/24 05:32 Impression: No intracranial hemorrhage, mass, or acute infarct. Atrophy and chronic white matter changes, as above. Modified Barium Swallow 10/24/24 16:28 IMPRESSION: Oral pharyngeal dysphagia with laryngeal penetration and aspiration. Please correlate with speech pathologist findings and specific feeding recommendations. Abdomen MRI 10/27/24 13:41 Impression: 3.9 cm solid left upper pole renal mass is compatible with renal cell carcinoma until proven otherwise. This correlates with prior CT finding. Chest X-Ray 10/29/24 11:07 IMPRESSION: Bibasilar atelectasis versus pneumonia more on the left side. Quality VTE Prophylaxis VTE prophylaxis: pharmacologic ordered
[2024-10-30] MEDS: ASPIRIN 81 MG ENTERIC TABLET PO (20:45)
[2024-10-30] MEDS: ATORVASTATIN 20 MG TABLET PO (20:45)
[2024-10-31] VITALS (18 sets, daily range): BP systolic 145–174; BP diastolic 69–77; PULSE 63–77; RESP 16–20; TEMP 35.6–36.5; O2SAT 92–98
[2024-10-31] MEDS: PIPERACILLIN/TAZ 4.5G/NS 100ML 4.5 GM/100 ML BAG IVPB ×5 (00:30→23:05)
[2024-10-31] MEDS: ALBUTEROL SULFATE NEB 2.5 MG/3 ML INH INHALATION ×4 (02:28→21:04)
[2024-10-31] MEDS: ACETYLCYSTEINE 20% INHAL SOLN 800 MG/4 ML VIAL 200 MG INHALATION ×4 (02:28→21:04)
[2024-10-31 05:53] LABS: Hematocrit 37.3 % (42.0-52.0); Hemoglobin 11.7 g/dL (14.0-18.0); Mean Corpuscular HGB Conc 31.4 g/dl (32-36); Mean Corpuscular Hemoglobin 29.4 pg (26-34); Mean Corpuscular Volume 93.7 fl (80-100); Mean Platelet Volume 11.5 fl (7.4-10.4); Platelet Count Result 327 k/mm3 (150-375); Red Blood Count 3.98 M/mm3 (4.6-6.20); Red Cell Distribution Width 14.8 % (11.5-14.5)
[2024-10-31 06:06] LABS: Anion Gap 6 mmol/L (4-12); Blood Urea Nitrogen 19 mg/dL (9-20); Calcium 8.6 mg/dL (8.4-10.2); Carbon Dioxide 24 mmol/L (22-30); Chloride 105 mmol/L (98-107); Estimated CRCL calculation 56 ml/min; Estimated Glomerular Filt Rate > 60; Glucose 84 mg/dL (65-110); Potassium 3.6 mmol/L (3.4-5.0); Sodium 135 mmol/L (137-145)
--- NOTE | 2024-10-31 08:05 | P.PNIM_ITS ---
Progress Note: A&P Assessment and Plan (1) Sepsis: Code(s): A41.9 - Sepsis, unspecified organism Status: Acute Assessment and Plan: Meets SIRS criteria: leukocytosis, tachypnea * lactic acid: 1.2 * sepsis fluids given in ED * suspected source: coccurrent UTI and pneumonia * blood cultures drawn on 10/24, NGTD * UA: Turbid appearance with 2+ protein, 1+ ketones, 1+ blood, 3+ leukocytes, negative nitrates, greater than 100 WBC and 4+ bacteria. * UC obtained on 10/24, ecoli with intermediate response to fluoroquinolones and Unasyn, resistance to Bactrim * Chest/abdomen/pelvis CT: Extensive patchy consolidation in both lower lobes, suspicious for bilateral pneumonia, possibly due to aspiration. Dependent atelectatic changes and alternative consideration. Moderate to advanced emphysema. * see plans for UTI and pneumonia below * WBC improved, down from 18.8 -> 16.0 * Remains hemodynamically stable - afebrile (2) Acute UTI: Code(s): N39.0 - Urinary tract infection, site not specified Status: Acute Assessment and Plan: * UA: Turbid appearance with 2+ protein, 1+ ketones, 1+ blood, 3+ leukocytes, negative nitrates, greater than 100 WBC and 4+ bacteria. * UC obtained on 10/24, E coli with intermediate response to fluoroquinolones and Unasyn, resistance to Bactrim * Chest/abdomen/pelvis showed probable cystitis * No previous micro to be reviewed * started on Rocephin on 10/24, transitioned to zosyn on 10/29 (3) PNA (pneumonia): Code(s): J18.9 - Pneumonia, unspecified organism Status: Acute Assessment and Plan: * Chest/abdomen/pelvis CT: Extensive patchy consolidation in both lower lobes, suspicious for bilateral pneumonia, possibly due to aspiration. Dependent atelectatic changes and alternative consideration. Moderate to advanced emphysema. * started on CAP tx: Rocephin and doxycycline 10/24, flagyl added for aspiration concern. Transitioned to zosyn for monotherapy after discussing with ID pharm. * Viral PCR: negative for Flu/COVID/RSV * legionella and pneumococcal negative. Mycoplasma pending * Sputum culture ordered - still pending * Mucinex ordered given productive cough with difficulty clearing * Started on mucomyst, RT consulted for CPT following treatment * no supplemental O2 requirement * Monitor vital signs, I&Os, neuro status and patient is a fall risk * Follow WBC, serum electrolytes, temperature curves and cultures * evaluated by speech therapy given concern of at patient in and minced moist diet with mildly thick liquids. Speech continues to follow. * MRSA (+) on 10/31, see below (4) Hypokalemia: Code(s): E87.6 - Hypokalemia Status: Acute Assessment and Plan: * K 2.9 on admission, previously 2.9 on 08/03 and resolved with supplementation * K 3.4 on am labs * Mag 1.5 on 10/26, given 2g Mag sulfate x1 on 10/26 * Phos WNL * Continue to monitor * Tele * 10/31 K 3.6 (5) Renal mass: Code(s): N28.89 - Other specified disorders of kidney and ureter Status: Acute Assessment and Plan: * CT chest/abdomen/pelvis showed 4.3 cm left upper pole solid renal mass, suspicious for renal cell carcinoma until proven otherwise. * Abdomen MRI showed 3.9 cm solid left upper pole renal mass is compatible with renal cell carcinoma until proven otherwise. * Renal US biopsy ordered, updated that radiology recommends an ablation or resection prior to biopsy. Biopsy canceled. * Heme/onc consulted * Would also recommend urology consultation. I have provided him my office information. I tried to contact patient's significant other without any luck. Patient should follow-up in the office after urology consultation. * Urology consulted * Options could include partial nephrectomy, cryotherapy, radical nephrectomy, or potentially active surveillance which would have to be a nuanced conversation due to his comorbidities, patient age overall. * Currently no acute surgical intervention is required while inpatient. 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 - Carrier or suspected carrier of Methicillin resistant Staphylococcus aureus Status: Acute Assessment and Plan: * Nasal MRSA (+) on 10/31 * Will initiate Zyvox * Add on mupirocin nare ointment * Placed on isolation (7) Hypertension: Code(s): I10 - Essential (primary) hypertension Status: Acute Assessment and Plan: * Chronic, continue home medications * metoprolol 25 mg twice a day * blood pressures stable, continue to monitor Subjective Date/time seen: 10/31/24 08:05 Interval history: 79 year old male with past medical history of hypertension, CVA, dementia AOx 1- 2 per NH, hyperlipidemia, and GERD presents to the hospital via EMS from care home for shortness of breath and altered mental status. 10/31/2024 Pt sitting comfortably in bed at time of examination. Denies any chest pain, SOB, n/v, abdominal pain at this time. Found to be MRSA +, started on Zyvox and mupirocin ointment was added. Placed in isolation. Still in process of contacting Urology regarding renal mass, resection vs ablation. Review of Systems Review of Systems: All systems reviewed & are unremarkable except as noted in HPI and below ROS unobtainable: Yes unobtainable due to mental status Exam Narrative: General: male in no acute respiratory distress who is nontoxic appearing HEENT: Normocephalic. Atraumatic. Extraocular movement intact. Sclera clear and anicteric. No facial asymmetry. Chest: Lungs are diminished to auscultation bilaterally with slight coarseness to the left base. No wheezes or crackles. Weak cough. CV: Heart was regular rate and rhythm. S1/S2. No murmurs, gallops, or rubs. Abd: Abdomen was soft. Nontender. Nondistended. Positive bowel sounds. Ext: No clubbing, cyanosis, or edema. DP pulses bilaterally. Neuro: Patient is alert and oriented x3 (self, place, and month/year). Intermittent confusion. Speech remains soft and difficult to hear/understand, improved since admission. Objective Data Vital Signs Vital Signs: Vital Signs - 24 hr 10/30/24 08:39 10/30/24 08:45 10/30/24 08:50 Temperature Pulse Rate 82 69 82 Respiratory Rate 12 14 Blood Pressure Pulse Oximetry 92 Oxygen Delivery Room Air 10/30/24 12:00 10/30/24 14:00 10/30/24 15:16 Temperature 97.3 F L Pulse Rate 62 64 63 Respiratory Rate 16 12 Blood Pressure 142/65 H Pulse Oximetry 95 Oxygen Delivery 10/30/24 16:00 10/30/24 20:00 10/30/24 20:00 Temperature Pulse Rate 67 78 Respiratory Rate Blood Pressure Pulse Oximetry Oxygen Delivery Room Air 10/30/24 20:48 10/30/24 20:51 10/30/24 21:16 Temperature 98.6 F Pulse Rate 73 73 Respiratory Rate 19 Blood Pressure 144/70 H Pulse Oximetry 95 92 Oxygen Delivery Room Air 10/30/24 21:17 10/30/24 22:55 10/31/24 00:00 Temperature 97.3 F L Pulse Rate 72 67 63 Respiratory Rate 14 17 Blood Pressure 140/66 Pulse Oximetry 94 Oxygen Delivery 10/31/24 04:00 10/31/24 04:51 10/31/24 08:02 Temperature 97.7 F Pulse Rate 71 63 Respiratory Rate 16 Blood Pressure 174/77 H Pulse Oximetry 98 92 Oxygen Delivery Room Air 10/31/24 08:02 Temperature Pulse Rate 67 Respiratory Rate 18 Blood Pressure Pulse Oximetry Oxygen Delivery Intake/Output Intake/Output: Intake & Output 10/28/24 10/29/24 10/30/24 10/31/24 23:59 23:59 23:59 23:59 Intake Total 830 710 740 320 Output Total 250 950 750 400 Balance 580 -240 -10 -80 Meds/Results Medications: Active Medications Generic Name Dose Route Start Last Admin Trade Name Freq PRN Reason Stop Dose Admin Acetylcysteine 200 mg 10/26/24 20:00 10/31/24 07:59 Acetylcysteine 20% Inhal Soln 800 Mg/4 Ml Vial INHALATION 200 mg Q6HRT AMELIA Administration Albuterol 2.5 mg 10/26/24 20:00 10/31/24 07:59 Albuterol Sulfate Neb 2.5 Mg/3 Ml Inh INHALATION 2.5 mg Q6HRT AMELIA Administration Aspirin 81 mg 10/24/24 21:00 10/30/24 20:45 Aspirin 81 Mg Enteric Tablet PO 81 mg HS AMELIA Administration Atorvastatin Calcium 20 mg 10/24/24 21:00 10/30/24 20:45 Atorvastatin 20 Mg Tablet PO 20 mg HS AMELIA Administration Bupropion HCl 100 mg 10/24/24 11:00 10/30/24 08:44 Bupropion Hcl Sr (12hr) 100 Mg Tabcr PO 100 mg DAILY AMELIA Administration Enoxaparin Sodium 40 mg 10/25/24 09:00 10/30/24 08:44 Enoxaparin 40 Mg/0.4 Ml Syringe SUB-Q 40 mg DAILY AMELIA Administration Guaifenesin 600 mg 10/25/24 21:00 10/30/24 20:45 Guaifenesin 12 Hr 600 Mg Tabcr PO 600 mg Q12HR AMELIA Administration Piperacillin Sod/Tazobactam Sod 4.5 gm in 100 mls @ 200 mls/hr 10/29/24 10:00 10/31/24 06:13 Zosyn 4.5 Gm/Ns 100 Ml IVPB Infused Q6HR AMELIA Infusion Magnesium Hydroxide 30 ml 10/24/24 10:49 Magnesium Hydroxide Susp 30 Ml Udc PO DAILY PRN constipation Metoprolol Tartrate 25 mg 10/24/24 21:00 10/30/24 20:51 Metoprolol Tartrate 25 Mg Tablet PO 25 mg Q12HR AMELIA Administration Pantoprazole Sodium 20 mg 10/24/24 11:00 10/30/24 20:45 Pantoprazole Sod Sesquihydrate 20 Mg Tab PO 20 mg Q12HR AMELIA Administration Polyethylene Glycol 17 gm 10/24/24 11:00 10/30/24 08:43 Polyethylene Glycol 3350 17 Gm Powd.Pack PO 17 gm DAILY AMELIA Administration Potassium Chloride 20 meq 10/31/24 09:00 Potassium Chloride 20 Meq Packet (For Liquid) PO DAILY AMELIA Sertraline HCl 50 mg 10/25/24 09:00 10/30/24 08:44 Sertraline Hcl 50 Mg Tablet PO 50 mg DAILY AMELIA Administration Tramadol HCl 50 mg 10/24/24 10:49 10/30/24 00:22 Tramadol Hcl (*Crx) 50 Mg Tablet PO 50 mg Q6H PRN Administration pain Radiology Results: ITS Impressions Chest/Abdomen/Pelvis CT 10/24/24 05:27 Impression: 4.3 cm left upper pole solid renal mass, suspicious for renal cell carcinoma until proven otherwise. Extensive patchy consolidation in both lower lobes, suspicious for bilateral pneumonia, possibly due to aspiration. Dependent atelectatic changes and alternative consideration. Moderate to advanced emphysema. Probable cystitis. Correlate with urinalysis. 3.4 cm infrarenal abdominal aortic aneurysm. Head CT 10/24/24 05:32 Impression: No intracranial hemorrhage, mass, or acute infarct. Atrophy and chronic white matter changes, as above. Modified Barium Swallow 10/24/24 16:28 IMPRESSION: Oral pharyngeal dysphagia with laryngeal penetration and aspiration. Please correlate with speech pathologist findings and specific feeding recommendations. Abdomen MRI 10/27/24 13:41 Impression: 3.9 cm solid left upper pole renal mass is compatible with renal cell carcinoma until proven otherwise. This correlates with prior CT finding. Chest X-Ray 10/29/24 11:07 IMPRESSION: Bibasilar atelectasis versus pneumonia more on the left side. Labs Labs: Laboratory Results - last 24 hr 10/31/24 05:42 WBC 16.0 H RBC 3.98 L Hgb 11.7 L Hct 37.3 L MCV 93.7 MCH 29.4 MCHC 31.4 L RDW 14.8 H Plt Count 327 MPV 11.5 H Sodium 135 L Potassium 3.6 Chloride 105 Carbon Dioxide 24 Anion Gap 6 BUN 19 Creatinine 0.80 Estim Creat Clear Calc 56 Estimated GFR > 60 Glucose 84 Calcium 8.6 Quality VTE Prophylaxis VTE prophylaxis: pharmacologic ordered
[2024-10-31] MEDS: POTASSIUM CHLORIDE 20 MEQ PACKET (FOR LIQUID) PO (10:19)
[2024-10-31] MEDS: METOPROLOL TARTRATE 25 MG TABLET PO ×2 (10:20→21:44)
[2024-10-31] MEDS: SERTRALINE HCL 50 MG TABLET PO (10:20)
[2024-10-31] MEDS: ENOXAPARIN 40 MG/0.4 ML SYRINGE SUB-Q (12:47)
[2024-10-31 12:59] LABS: MRSA (PCR) DETECTED (NOT DETECTE)
--- NOTE | 2024-10-31 13:06 | PCNFU ---
Nutrition Follow-Up Complete: Moderate protein calorie malnutrition related to chronic illness, dementia as evidenced by weight loss 7%/3 months (not meeting ASPEN criteria); intakes <75% needs >1 month severe muscle wasting and fat loss. Meet estimated nutrition needs Textures appropriate for patient needs Goal: Pt current nutrition is Heart healthy, minced&moist L5, mildly thick L2 liquids. Ensure Enlive TIS (350 kcal, 20 g protein). Nutrition recommendation: No new recommendations. Continue current nutrition care plan and orders Last recorded weight is 59.4 kg. Bowel Motility: +1 BM 10/30 Labs Reviewed: Hgb 11.7, Hct 37.3, Na 135 Meds Noted: Miralax Skin: Deep tissue PI L buttock; unstageable L heel, L foot Additional Notes: Intakes improving to 4050% last 48 hours. Full assistance with meals. Continue same orders Monitoring intakes, weights, labs, supplement tolerance, swallowing ability Follow up in 3 days
--- NOTE | 2024-10-31 14:52 | P.PNUR_ITS ---
Progress Note: A&P Assessment and Plan (1) Renal mass: Code(s): N28.89 - Other specified disorders of kidney and ureter Status: Acute Assessment and Plan: -MRI reveals 3.9 cm solid left upper pole renal mass is compatible with renal cell carcinoma until proven otherwise. This correlates with prior CT finding. -patient continues to void well with a low PVR, creatinine is within normal l imits at 0.80 today. -I had a discussion with the patient's partner, Artem today. We discussed potential next steps for care for this renal mass on MRI. After discussion with Dr. Hart and Artem(partner), patient will have active surveillance of RCC. -Patient will need f/u in [address] ABD WO CON and office visit with Dr. Hart. -currently no acute surgical intervention is required while inpatient. Subjective Subjective Date/Time Seen: 10/31/24 14:52 Interval history: 79 year old male with past medical history of hypertension, CVA, dementia AOx 1- 2 per NH, hyperlipidemia, and GERD presents to the hospital via EMS from half-way for shortness of breath and altered mental status. 10/31/2024 Pt sitting comfortably in bed at time of exam. He is concerned about the neb mask and doesnt want to keep it on. Exam Narrative: Alert Const: Other: Alert and oriented x1 : Other: No CVA tenderness Objective Data Vital Signs Vital Signs: Vital Signs - 24 hr 10/30/24 15:16 10/30/24 16:00 10/30/24 20:00 Temperature Pulse Rate 63 67 Respiratory Rate 12 Blood Pressure Pulse Oximetry Oxygen Delivery Room Air 10/30/24 20:00 10/30/24 20:48 10/30/24 20:51 Temperature 98.6 F Pulse Rate 78 73 73 Respiratory Rate 19 Blood Pressure 144/70 H Pulse Oximetry 95 Oxygen Delivery 10/30/24 21:16 10/30/24 21:17 10/30/24 22:55 Temperature 97.3 F L Pulse Rate 72 67 Respiratory Rate 14 17 Blood Pressure 140/66 Pulse Oximetry 92 94 Oxygen Delivery Room Air 10/31/24 00:00 10/31/24 04:00 10/31/24 04:51 Temperature 97.7 F Pulse Rate 63 71 63 Respiratory Rate 16 Blood Pressure 174/77 H Pulse Oximetry 98 Oxygen Delivery 10/31/24 08:02 10/31/24 08:02 10/31/24 10:20 Temperature Pulse Rate 67 68 Respiratory Rate 18 Blood Pressure Pulse Oximetry 92 Oxygen Delivery Room Air 10/31/24 13:52 Temperature 96.4 F L Pulse Rate 63 Respiratory Rate 18 Blood Pressure 152/74 H Pulse Oximetry 96 Oxygen Delivery Intake/Output Intake/Output: Intake & Output 10/28/24 10/29/24 10/30/24 10/31/24 23:59 23:59 23:59 23:59 Intake Total 830 710 740 560 Output Total 250 950 750 400 Balance 580 -240 -10 160 Meds/Results Medications: Active Medications Generic Name Dose Route Start Last Admin Trade Name Freq PRN Reason Stop Dose Admin Acetylcysteine 200 mg 10/26/24 20:00 10/31/24 07:59 Acetylcysteine 20% Inhal Soln 800 Mg/4 Ml Vial INHALATION 200 mg Q6HRT AMELIA Administration Albuterol 2.5 mg 10/26/24 20:00 10/31/24 07:59 Albuterol Sulfate Neb 2.5 Mg/3 Ml Inh INHALATION 2.5 mg Q6HRT AMELIA Administration Aspirin 81 mg 10/24/24 21:00 10/30/24 20:45 Aspirin 81 Mg Enteric Tablet PO 81 mg HS AMELIA Administration Atorvastatin Calcium 20 mg 10/24/24 21:00 10/30/24 20:45 Atorvastatin 20 Mg Tablet PO 20 mg HS AMELIA Administration Enoxaparin Sodium 40 mg 10/25/24 09:00 10/31/24 12:47 Enoxaparin 40 Mg/0.4 Ml Syringe SUB-Q 40 mg DAILY AMELIA Administration Guaifenesin 200 mg 10/31/24 13:06 Guaifenesin 200 Mg/10 Ml Udc PO Q4H PRN Cough Piperacillin Sod/Tazobactam Sod 4.5 gm in 100 mls @ 200 mls/hr 10/29/24 10:00 10/31/24 12:46 Zosyn 4.5 Gm/Ns 100 Ml IVPB 200 mls/hr Q6HR AMELIA Administration Linezolid 600 mg 10/31/24 13:10 Linezolid 600 Mg Tablet PO 11/06/24 21:01 Q12HR AMELIA Magnesium Hydroxide 30 ml 10/24/24 10:49 Magnesium Hydroxide Susp 30 Ml Udc PO DAILY PRN constipation Metoprolol Tartrate 25 mg 10/24/24 21:00 10/31/24 10:20 Metoprolol Tartrate 25 Mg Tablet PO 25 mg Q12HR AMELIA Administration Mupirocin 1 applic 10/31/24 21:00 Mupirocin 2% Oint 22 Gm Tube EACH NARE 11/05/24 09:01 Q12HR AMELIA Pantoprazole Sodium 40 mg 10/31/24 14:00 Pantoprazole Sodium Iv 40 Mg Vial IV PUSH QAM AMELIA Polyethylene Glycol 17 gm 10/24/24 11:00 10/30/24 08:43 Polyethylene Glycol 3350 17 Gm Powd.Pack PO 17 gm DAILY AMELIA Administration Potassium Chloride 20 meq 10/31/24 09:00 10/31/24 10:19 Potassium Chloride 20 Meq Packet (For Liquid) PO 20 meq DAILY AMELIA Administration Sertraline HCl 50 mg 10/25/24 09:00 10/31/24 10:20 Sertraline Hcl 50 Mg Tablet PO 50 mg DAILY AMELIA Administration Tramadol HCl 50 mg 10/24/24 10:49 10/30/24 00:22 Tramadol Hcl (*Crx) 50 Mg Tablet PO 50 mg Q6H PRN Administration pain Radiology Results: ITS Impressions Chest/Abdomen/Pelvis CT 10/24/24 05:27 Impression: 4.3 cm left upper pole solid renal mass, suspicious for renal cell carcinoma until proven otherwise. Extensive patchy consolidation in both lower lobes, suspicious for bilateral pneumonia, possibly due to aspiration. Dependent atelectatic changes and alternative consideration. Moderate to advanced emphysema. Probable cystitis. Correlate with urinalysis. 3.4 cm infrarenal abdominal aortic aneurysm. Head CT 10/24/24 05:32 Impression: No intracranial hemorrhage, mass, or acute infarct. Atrophy and chronic white matter changes, as above. Modified Barium Swallow 10/24/24 16:28 IMPRESSION: Oral pharyngeal dysphagia with laryngeal penetration and aspiration. Please correlate with speech pathologist findings and specific feeding recommendations. Abdomen MRI 10/27/24 13:41 Impression: 3.9 cm solid left upper pole renal mass is compatible with renal cell carcinoma until proven otherwise. This correlates with prior CT finding. Chest X-Ray 10/29/24 11:07 IMPRESSION: Bibasilar atelectasis versus pneumonia more on the left side. Labs Labs: Laboratory Results - last 24 hr 10/31/24 10/31/24 05:42 10:40 WBC 16.0 H RBC 3.98 L Hgb 11.7 L Hct 37.3 L MCV 93.7 MCH 29.4 MCHC 31.4 L RDW 14.8 H Plt Count 327 MPV 11.5 H Sodium 135 L Potassium 3.6 Chloride 105 Carbon Dioxide 24 Anion Gap 6 BUN 19 Creatinine 0.80 Estim Creat Clear Calc 56 Estimated GFR > 60 Glucose 84 Calcium 8.6 Nasal MRSA (PCR) Detected A*
[2024-10-31] MEDS: LINEZOLID 600 MG TABLET PO ×2 (16:38→21:44)
[2024-10-31] MEDS: PANTOPRAZOLE SODIUM IV 40 MG VIAL IV PUSH (16:38)
[2024-10-31] MEDS: ASPIRIN 81 MG ENTERIC TABLET PO (21:43)
[2024-10-31] MEDS: ATORVASTATIN 20 MG TABLET PO (21:43)
[2024-10-31] MEDS: MUPIROCIN 2% OINT 22 GM TUBE 1 APPLIC EACH NARE (21:45)
[2024-11-01] VITALS (8 sets, daily range): BP systolic 157; BP diastolic 73; PULSE 62–77; RESP 16–20; TEMP 35.8; O2SAT 93–97
[2024-11-01] MEDS: ALBUTEROL SULFATE NEB 2.5 MG/3 ML INH INHALATION ×2 (02:40→08:13)
[2024-11-01] MEDS: ACETYLCYSTEINE 20% INHAL SOLN 800 MG/4 ML VIAL 200 MG INHALATION ×2 (02:40→08:13)
[2024-11-01 06:36] LABS: Hematocrit 36.2 % (42.0-52.0); Hemoglobin 11.2 g/dL (14.0-18.0); Mean Corpuscular HGB Conc 30.9 g/dl (32-36); Mean Corpuscular Volume 93.8 fl (80-100); Mean Platelet Volume 11.6 fl (7.4-10.4); Platelet Count Result 314 k/mm3 (150-375); Red Blood Count 3.86 M/mm3 (4.6-6.20); Red Cell Distribution Width 14.9 % (11.5-14.5); White Blood Count 13.6 K/mm3 (4.5-10.0)
[2024-11-01] MEDS: PIPERACILLIN/TAZ 4.5G/NS 100ML 4.5 GM/100 ML BAG IVPB ×2 (06:52→12:17)
[2024-11-01 07:00] LABS: Anion Gap 5 mmol/L (4-12); Blood Urea Nitrogen 19 mg/dL (9-20); Calcium 8.7 mg/dL (8.4-10.2); Carbon Dioxide 28 mmol/L (22-30); Chloride 103 mmol/L (98-107); Estimated CRCL calculation 54 ml/min; Estimated Glomerular Filt Rate > 60; Glucose 88 mg/dL (65-110); Potassium 4.1 mmol/L (3.4-5.0); Sodium 136 mmol/L (137-145)
--- NOTE | 2024-11-01 08:29 | P.PNIM_ITS ---
Progress Note: A&P Assessment and Plan (1) Sepsis: Code(s): A41.9 - Sepsis, unspecified organism Status: Acute Assessment and Plan: Meets SIRS criteria: leukocytosis, tachypnea * lactic acid: 1.2 * sepsis fluids given in ED * suspected source: coccurrent UTI and pneumonia * blood cultures drawn on 10/24, NGTD * UA: Turbid appearance with 2+ protein, 1+ ketones, 1+ blood, 3+ leukocytes, negative nitrates, greater than 100 WBC and 4+ bacteria. * UC obtained on 10/24, ecoli with intermediate response to fluoroquinolones and Unasyn, resistance to Bactrim * Chest/abdomen/pelvis CT: Extensive patchy consolidation in both lower lobes, suspicious for bilateral pneumonia, possibly due to aspiration. Dependent atelectatic changes and alternative consideration. Moderate to advanced emphysema. * see plans for UTI and pneumonia below * WBC improved, down from 18.8 -> 16.0 * Remains hemodynamically stable - afebrile (2) Acute UTI: Code(s): N39.0 - Urinary tract infection, site not specified Status: Acute Assessment and Plan: * UA: Turbid appearance with 2+ protein, 1+ ketones, 1+ blood, 3+ leukocytes, negative nitrates, greater than 100 WBC and 4+ bacteria. * UC obtained on 10/24, E coli with intermediate response to fluoroquinolones and Unasyn, resistance to Bactrim * Chest/abdomen/pelvis showed probable cystitis * No previous micro to be reviewed * started on Rocephin on 10/24, transitioned to zosyn on 10/29 (3) PNA (pneumonia): Code(s): J18.9 - Pneumonia, unspecified organism Status: Acute Assessment and Plan: * Chest/abdomen/pelvis CT: Extensive patchy consolidation in both lower lobes, suspicious for bilateral pneumonia, possibly due to aspiration. Dependent atelectatic changes and alternative consideration. Moderate to advanced emphysema. * started on CAP tx: Rocephin and doxycycline 10/24, flagyl added for aspiration concern. Transitioned to zosyn for monotherapy after discussing with ID pharm. * Viral PCR: negative for Flu/COVID/RSV * legionella and pneumococcal negative. Mycoplasma pending * Sputum culture ordered - still pending * Mucinex ordered given productive cough with difficulty clearing * Started on mucomyst, RT consulted for CPT following treatment * no supplemental O2 requirement * Monitor vital signs, I&Os, neuro status and patient is a fall risk * Follow WBC, serum electrolytes, temperature curves and cultures * evaluated by speech therapy given concern of at patient in and minced moist diet with mildly thick liquids. Speech continues to follow. * MRSA (+) on 10/31, see below (4) Hypokalemia: Code(s): E87.6 - Hypokalemia Status: Acute Assessment and Plan: * K 2.9 on admission, previously 2.9 on 08/03 and resolved with supplementation * K 3.4 on am labs * Mag 1.5 on 10/26, given 2g Mag sulfate x1 on 10/26 * Phos WNL * Continue to monitor * Tele * 10/31 K 3.6 (5) Renal mass: Code(s): N28.89 - Other specified disorders of kidney and ureter Status: Acute Assessment and Plan: * CT chest/abdomen/pelvis showed 4.3 cm left upper pole solid renal mass, suspicious for renal cell carcinoma until proven otherwise. * Abdomen MRI showed 3.9 cm solid left upper pole renal mass is compatible with renal cell carcinoma until proven otherwise. * Renal US biopsy ordered, updated that radiology recommends an ablation or resection prior to biopsy. Biopsy canceled. * Heme/onc consulted * Would also recommend urology consultation. I have provided him my office information. I tried to contact patient's significant other without any luck. Patient should follow-up in the office after urology consultation. * Urology consulted * Options could include partial nephrectomy, cryotherapy, radical nephrectomy, or potentially active surveillance which would have to be a nuanced conversation due to his comorbidities, patient age overall. * Currently no acute surgical intervention is required while inpatient. 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 - Carrier or suspected carrier of Methicillin resistant Staphylococcus aureus Status: Acute Assessment and Plan: * Nasal MRSA (+) on 10/31 * Will initiate Zyvox * Add on mupirocin nare ointment * Placed on isolation (7) Hypertension: Code(s): I10 - Essential (primary) hypertension Status: Acute Assessment and Plan: * Chronic, continue home medications * metoprolol 25 mg twice a day * blood pressures stable, continue to monitor Subjective Date/time seen: 11/01/24 08:29 Interval history: 79 year old male with past medical history of hypertension, CVA, dementia AOx 1- 2 per NH, hyperlipidemia, and GERD presents to the hospital via EMS from custodial for shortness of breath and altered mental status. 11/01/2024 Pt sitting comfortably in bed at time of exam. Review of Systems Review of Systems: All systems reviewed & are unremarkable except as noted in HPI and below ROS unobtainable: Yes unobtainable due to mental status Exam Narrative: General: male in no acute respiratory distress who is nontoxic appearing HEENT: Normocephalic. Atraumatic. Extraocular movement intact. Sclera clear and anicteric. No facial asymmetry. Chest: Lungs are diminished to auscultation bilaterally with slight coarseness to the left base. No wheezes or crackles. Weak cough. CV: Heart was regular rate and rhythm. S1/S2. No murmurs, gallops, or rubs. Abd: Abdomen was soft. Nontender. Nondistended. Positive bowel sounds. Ext: No clubbing, cyanosis, or edema. DP pulses bilaterally. Neuro: Patient is alert and oriented x3 (self, place, and month/year). Intermittent confusion. Speech remains soft and difficult to hear/understand, improved since admission. Objective Data Vital Signs Vital Signs: Vital Signs - 24 hr 10/31/24 10:00 10/31/24 10:20 10/31/24 12:00 Temperature Pulse Rate 64 68 63 Respiratory Rate Blood Pressure Pulse Oximetry Oxygen Delivery 10/31/24 13:52 10/31/24 14:55 10/31/24 15:17 Temperature 96.4 F L Pulse Rate 63 73 77 Respiratory Rate 18 20 20 Blood Pressure 152/74 H Pulse Oximetry 96 Oxygen Delivery 10/31/24 16:00 10/31/24 20:00 10/31/24 20:30 Temperature Pulse Rate 70 74 Respiratory Rate Blood Pressure Pulse Oximetry Oxygen Delivery Room Air 10/31/24 21:04 10/31/24 21:07 10/31/24 21:16 Temperature Pulse Rate 70 72 Respiratory Rate 20 Blood Pressure Pulse Oximetry 93 Oxygen Delivery Room Air 10/31/24 21:19 10/31/24 21:44 10/31/24 22:00 Temperature 96.1 F L 97.6 F Pulse Rate 67 67 Respiratory Rate 20 Blood Pressure 145/69 H Pulse Oximetry 96 Oxygen Delivery 11/01/24 00:00 11/01/24 02:40 11/01/24 04:00 Temperature Pulse Rate 62 77 74 Respiratory Rate 20 Blood Pressure Pulse Oximetry Oxygen Delivery 11/01/24 05:59 11/01/24 08:13 11/01/24 08:13 Temperature 96.5 F L Pulse Rate 63 68 Respiratory Rate 16 20 Blood Pressure 157/73 H Pulse Oximetry 97 93 Oxygen Delivery Room Air Intake/Output Intake/Output: Intake & Output 10/29/24 10/30/24 10/31/24 11/01/24 23:59 23:59 23:59 23:59 Intake Total 710 740 920 Output Total 950 750 900 Balance -240 -10 20 Meds/Results Medications: Active Medications Generic Name Dose Route Start Last Admin Trade Name Freq PRN Reason Stop Dose Admin Acetylcysteine 200 mg 10/26/24 20:00 11/01/24 08:13 Acetylcysteine 20% Inhal Soln 800 Mg/4 Ml Vial INHALATION 200 mg Q6HRT AMELIA Administration Albuterol 2.5 mg 10/26/24 20:00 11/01/24 08:13 Albuterol Sulfate Neb 2.5 Mg/3 Ml Inh INHALATION 2.5 mg Q6HRT AMELIA Administration Aspirin 81 mg 10/24/24 21:00 10/31/24 21:43 Aspirin 81 Mg Enteric Tablet PO 81 mg HS AMELIA Administration Atorvastatin Calcium 20 mg 10/24/24 21:00 10/31/24 21:43 Atorvastatin 20 Mg Tablet PO 20 mg HS AMELIA Administration Enoxaparin Sodium 40 mg 10/25/24 09:00 10/31/24 12:47 Enoxaparin 40 Mg/0.4 Ml Syringe SUB-Q 40 mg DAILY AMELIA Administration Guaifenesin 200 mg 10/31/24 13:06 Guaifenesin 200 Mg/10 Ml Udc PO Q4H PRN Cough Piperacillin Sod/Tazobactam Sod 4.5 gm in 100 mls @ 200 mls/hr 10/29/24 10:00 11/01/24 06:52 Zosyn 4.5 Gm/Ns 100 Ml IVPB 200 mls/hr Q6HR AMELIA Administration Linezolid 600 mg 10/31/24 13:10 10/31/24 21:44 Linezolid 600 Mg Tablet PO 11/06/24 21:01 600 mg Q12HR AMELIA Administration Magnesium Hydroxide 30 ml 10/24/24 10:49 Magnesium Hydroxide Susp 30 Ml Udc PO DAILY PRN constipation Metoprolol Tartrate 25 mg 10/24/24 21:00 10/31/24 21:44 Metoprolol Tartrate 25 Mg Tablet PO 25 mg Q12HR AMELIA Administration Mupirocin 1 applic 10/31/24 21:00 10/31/24 21:45 Mupirocin 2% Oint 22 Gm Tube EACH NARE 11/05/24 09:01 1 applic Q12HR AMELIA Administration Pantoprazole Sodium 40 mg 10/31/24 14:00 10/31/24 16:38 Pantoprazole Sodium Iv 40 Mg Vial IV PUSH 40 mg QAM AMELIA Administration Polyethylene Glycol 17 gm 10/24/24 11:00 10/31/24 15:11 Polyethylene Glycol 3350 17 Gm Powd.Pack PO Not Given DAILY AMELIA Potassium Chloride 20 meq 10/31/24 09:00 10/31/24 10:19 Potassium Chloride 20 Meq Packet (For Liquid) PO 20 meq DAILY AMELIA Administration Sertraline HCl 50 mg 10/25/24 09:00 10/31/24 10:20 Sertraline Hcl 50 Mg Tablet PO 50 mg DAILY AMELIA Administration Tramadol HCl 50 mg 10/24/24 10:49 10/30/24 00:22 Tramadol Hcl (*Crx) 50 Mg Tablet PO 50 mg Q6H PRN Administration pain Radiology Results: ITS Impressions Chest/Abdomen/Pelvis CT 10/24/24 05:27 Impression: 4.3 cm left upper pole solid renal mass, suspicious for renal cell carcinoma until proven otherwise. Extensive patchy consolidation in both lower lobes, suspicious for bilateral pneumonia, possibly due to aspiration. Dependent atelectatic changes and alternative consideration. Moderate to advanced emphysema. Probable cystitis. Correlate with urinalysis. 3.4 cm infrarenal abdominal aortic aneurysm. Head CT 10/24/24 05:32 Impression: No intracranial hemorrhage, mass, or acute infarct. Atrophy and chronic white matter changes, as above. Modified Barium Swallow 10/24/24 16:28 IMPRESSION: Oral pharyngeal dysphagia with laryngeal penetration and aspiration. Please correlate with speech pathologist findings and specific feeding recommendations. Abdomen MRI 10/27/24 13:41 Impression: 3.9 cm solid left upper pole renal mass is compatible with renal cell carcinoma until proven otherwise. This correlates with prior CT finding. Chest X-Ray 10/29/24 11:07 IMPRESSION: Bibasilar atelectasis versus pneumonia more on the left side. Labs Labs: Laboratory Results - last 24 hr 10/31/24 11/01/24 10:40 05:59 WBC 13.6 H RBC 3.86 L Hgb 11.2 L Hct 36.2 L MCV 93.8 MCH 29.0 MCHC 30.9 L RDW 14.9 H Plt Count 314 MPV 11.6 H Sodium 136 L Potassium 4.1 Chloride 103 Carbon Dioxide 28 Anion Gap 5 BUN 19 Creatinine 0.83 Estim Creat Clear Calc 54 Estimated GFR > 60 Glucose 88 Calcium 8.7 Nasal MRSA (PCR) Detected A* Quality VTE Prophylaxis VTE prophylaxis: pharmacologic ordered
[2024-11-01] MEDS: POTASSIUM CHLORIDE 20 MEQ PACKET (FOR LIQUID) PO (09:18)
[2024-11-01] MEDS: SERTRALINE HCL 50 MG TABLET PO (09:18)
[2024-11-01] MEDS: LINEZOLID 600 MG TABLET PO (09:19)
[2024-11-01] MEDS: PANTOPRAZOLE SODIUM IV 40 MG VIAL IV PUSH (09:21)
[2024-11-01] MEDS: ENOXAPARIN 40 MG/0.4 ML SYRINGE SUB-Q (09:21)
[2024-11-01] MEDS: polyethylene glycoL 3350 17 GM POWD.PACK PO (09:21)
[2024-11-01] MEDS: METOPROLOL TARTRATE 25 MG TABLET PO (09:22)
[2024-11-01] MEDS: MUPIROCIN 2% OINT 22 GM TUBE 1 APPLIC EACH NARE (09:22)
--- NOTE | 2024-11-01 12:43 | P.DS_ITS ---
DS: Admitting Diagnosis Discharge Date 11/01/2024 Admitting Diagnosis Sepsis, Renal Mass, Pneumonia DS: Discharge Diagnosis Discharge Diagnosis (1) Sepsis: Code(s): A41.9 - Sepsis, unspecified organism Status: Acute (2) Acute UTI: Code(s): N39.0 - Urinary tract infection, site not specified Status: Acute (3) PNA (pneumonia): Code(s): J18.9 - Pneumonia, unspecified organism Status: Acute (4) Hypokalemia: Code(s): E87.6 - Hypokalemia Status: Acute (5) Renal mass: Code(s): N28.89 - Other specified disorders of kidney and ureter Status: Acute (6) MRSA colonization: Code(s): Z22.322 - Carrier or suspected carrier of Methicillin resistant Staphylococcus aureus Status: Acute (7) Hypertension: Code(s): I10 - Essential (primary) hypertension Status: Acute DS: Summary Hospital Course Reason for hospitalization: shortness of breath Hospital Course: 79 year old male with past medical history of hypertension, CVA, dementia AOx 1- 2 per NH, hyperlipidemia, and GERD presents to the hospital via EMS from assisted for shortness of breath and altered mental status. On assessment patient is at baseline AOx2 (self, year). Patient has no complaints during assessment denying shortness of breath and chest pain. However unsure how accurate given mental status. He does note a slight cough but cannot further elaborate duration and if it is productive. Majority of history and physical obtained via [facility] and EMR. Call made to [facility] to further discuss patient. Per NH RN patient has had no complaints that she is aware of. She does state that he has intermittent coughing with meals but is unaware of any prior aspiration concerns. Denies patient complaining of chest pain, shortness of breath, palpitations, nausea/vomiting. She also notes that patient has not had any urinary complaints either. She notes that patient is bed bound at this point. Discussed code status with NH and patient is currently a full code per POA. ED workup: CBC with WBC 26.1 without bandemia, H/H 12.6/39.6, and PLT 401. CMP with Na 142 and K 2.9. BUN/Cr 28/0.89 with GFR >60. Glucose 111. Lactic 1.2. LFT WNL. Procal 0.7. UA: Turbid appearance with 2+ protein, 1+ ketones, 1+ blood, 3+ leukocytes, negative nitrates, greater than 100 WBC and 4+ bacteria. UC obtained on 10/24, pending. Chest/abdomen/pelvis CT: Extensive patchy consolidation in both lower lobes, suspicious for bilateral pneumonia, possibly due to aspiration. Dependent atelectatic changes and alternative consideration. Moderate to advanced emphysema. Probable cystitis. 3.4 cm infrarenal abdominal aortic aneurysm. 4.3 cm left upper pole solid renal mass, suspicious for renal cell carcinoma. Patient was admitted for altered mental status, sepsis, acute UTI and pneumonia. Oncology and Urology were consulted regarding a renal mass. MRI of the abdomen/pelvis was ordered by Oncology for further investigation. Urology consulted and discussed options with patient and patient's family regarding partial nephrectomy, cryotherapy, radical nephrectomy or potential active surveillance. Was eventually came to the conclusion that no surgical intervent ion was acutely required while inpatient. Patient was placed on IV antibiotics which were eventually broadened given increased white blood cell count. Leukocytosis eventually turned a corner and decreased at end of hospitalization. Interventional radiology was consulted regarding possible biopsy, and the recommended calling Urology about a possible ablation or resection of the renal mass prior to the biopsy. Discussed this with Urology who once again discussed the next steps of care with the patient's partner, who agreed with active surveillance of renal cell carcinoma at this time. Urology recommended following in the next [address] of the abdomen an office visit with Dr. Hart. Urology again agrees with no acute surgical intervention while inpatient at this time. While in the hospital, patient was found to be positive for nasal MRSA. He was subsequently placed on isolation and started on Zyvox and ordered mupirocin ointment. Patient otherwise hemodynamically stable for discharge back to nursing facility at this time. Status at Discharge Functional status at discharge: bed bound Overall status at discharge: patient is progressing back to baseline Time Spent with Patient Time attestation: Total time spent providing and/or coordinating discharge services: 51 Exam Narrative: General: male in no acute respiratory distress who is nontoxic appearing HEENT: Normocephalic. Atraumatic. Extraocular movement intact. Sclera clear and anicteric. No facial asymmetry. Chest: Lungs are diminished to auscultation bilaterally. No wheezes or crackles. Weak cough. CV: Heart was regular rate and rhythm. S1/S2. No murmurs, gallops, or rubs. Abd: Abdomen was soft. Nontender. Nondistended. Positive bowel sounds. Ext: No clubbing, cyanosis, or edema. DP pulses bilaterally. Neuro: Patient is alert and oriented x3 (self, place, and month/year). Intermittent confusion. Speech remains soft and difficult to hear/understand, improved since admission. DS: Data Data Completed and Pending Labs on day of discharge: Labs from last 24 hours 11/01/24 10/31/24 05:59 10:40 WBC 13.6 H RBC 3.86 L Hgb 11.2 L Hct 36.2 L MCV 93.8 MCH 29.0 MCHC 30.9 L RDW 14.9 H Plt Count 314 MPV 11.6 H Sodium 136 L Potassium 4.1 Chloride 103 Carbon Dioxide 28 Anion Gap 5 BUN 19 Creatinine 0.83 Estim Creat Clear Calc 54 Estimated GFR > 60 Glucose 88 Calcium 8.7 Nasal MRSA (PCR) Detected A* Discharge Plan Discharge Attending physician on discharge: Zana Daniels Consulting providers: Shantanu Jo; Deisy Mcdaniels; Ashish Mckee Discharging Clinician: Ashish Mckee Anticipated Discharge Date/Time: 11/01/24 12:32 Patient Disposition: NH Correction/Asst Living Activity: as tolerated Diet: as tolerated Discharge Instructions: Discharge disposition: Stable Take medications as prescribed. You will be prescribed Mupirocin ointment for the nares. 7 additional doses of Augmentin to be taken twice daily, starting tonight. And 11 additional doses of Zyvox to be taken twice daily starting tonight as well. Monitor blood pressures Take caution while standing, rising, or moving Change positions slowly taking a break between each position change If you standing feel dizzy sit back down and take a break Encouraged to continue with yearly vaccinations Return to the emergency department if he developed sudden shortness of breath, chest pain, nausea, vomiting, upset stomach or intractable diarrhea Return to the emergency department if you develop fever greater than 101.5 Follow-up with the primary care physician within 1-2 weeks Follow up with Dr. Hart from Urology's office in 3 months. Thank you for choosing [facility] for your healthcare needs Patient Instructions: Antibiotic Form, Pain Management in Older Adults (DC) Patient Language: Mongolian Stand Alone Forms: General Discharge Information Follow-up/Referrals: PHYSICIAN NOT ON STAFF,NONSTAFF [Primary Care Provider] - Rohan Hart MD [Physician] - Discharge Medications: New amoxicillin-pot clavulanate 875-125 mg tablet 1 tablet PO Q12H Qty: 7 0RF Rx Instructions: Start tonight, take twice daily. linezolid [Zyvox] 600 mg tablet 600 mg PO Q12H Qty: 11 0RF Rx Instructions: Start tonight, take twice daily mupirocin [Centany] 2 % ointment 1 applic topical BID Qty: 15 0RF Rx Instructions: Take for one week. Continued atorvastatin 20 mg tablet 20 mg PO HS pantoprazole 20 mg tablet,delayed release (DR/EC) 20 mg PO BID acetaminophen 325 mg capsule 650 mg PO TID PRN (Reason: pain) aspirin [Adult Aspirin Regimen] 81 mg tablet,delayed release (DR/EC) 81 mg PO HS bisacodyl 5 mg tablet,delayed release (DR/EC) 10 mg PO DAILY metoprolol tartrate 25 mg tablet 25 mg PO BID polyethylene glycol 3350 [Miralax] 17 gram/dose powder 17 g PO DAILY sennosides [senna] 8.6 mg tablet 17.2 mg PO BID tramadol 50 mg tablet 50 mg PO Q6H PRN (Reason: pain) bupropion HCl [Wellbutrin SR] 100 mg tablet sustained-release 12 hr 100 mg PO DAILY magnesium hydroxide [Dulcolax (magnesium hydroxide)] 400 mg/5 mL suspension 30 ml PO DAILY PRN (Reason: constipation) melatonin 3 mg capsule 3 mg PO HS PRN (Reason: insomnia) sertraline 50 mg tablet 50 mg PO DAILY Date of admission: 10/24/24 04:24 Primary Care Provider: PHYSICIAN NOT ON STAFF,NONSTAFF Admitting Provider: Tressa Srivastava Attending physician on admission: Sadia Coon Condition: Stable Quality VTE Prophylaxis VTE prophylaxis: pharmacologic ordered
== END 2024-11-01 15:05 | DRG 871 ==
LOC: ANHED 04:31 → ANH3MEDSUR 04:57
PROVIDERS: Nurse Practitioner; Student in an Organized Health Care Education/Training Program; Admitting Provider Internal Medicine; Emergency Provider Emergency Medicine; Visit Provider Physician Assistant
DX: A41.9 Sepsis, unspecified organism (principal); J18.9 Pneumonia, unspecified organism; E44.0 Moderate protein-calorie malnutrition; Z68.1 Body mass index [BMI] 19.9 or less, adult; N39.0 Urinary tract infection, site not specified; B96.20 Unspecified Escherichia coli [E. coli] as the cause of diseases classified elsewhere; N28.89 Other specified disorders of kidney and ureter; E78.5 Hyperlipidemia, unspecified; E87.6 Hypokalemia; F03.90 Unspecified dementia, unspecified severity, without behavioral disturbance, psychotic disturbance, mood disturbance, and anxiety; I10 Essential (primary) hypertension; I71.40 Abdominal aortic aneurysm, without rupture, unspecified; K21.9 Gastro-esophageal reflux disease without esophagitis; J43.9 Emphysema, unspecified; Z22.322 Carrier or suspected carrier of Methicillin resistant Staphylococcus aureus; Z79.82 Long term (current) use of aspirin; Z86.73 Personal history of transient ischemic attack (TIA), and cerebral infarction without residual deficits; Z87.891 Personal history of nicotine dependence; Z74.01 Bed confinement status
CPT/HCPCS: 36415; 70450; 71045; 71260; 74177; 74183; 74230; 80048; 80053; 81001; 82948; 83605; 83735; 84100; 84132; 84145; 85025; 85027; 85610; 85730; 86738; 87040; 87086; 87186; 87449; 87637; 87641; 87899; 92526; 92610; 92611; 93005; 94640; 94669; 96365; 96366; 96367; 96375; 99285; A9270; A9577; J0696; J1650; J1836; J2470; J2543; J3475; J3480; J7030; J7040; J7120; Q9967

== ENCOUNTER 2024-11-18 00:30 | Inpatient (IN) | payer MEDICARE, MEDICAID, SELFPAY ==
[2024-11-18] VITALS (35 sets, daily range): BP systolic 93–168; BP diastolic 59–83; PULSE 68–128; RESP 20–36; TEMP 36.6–37.6; O2SAT 85–100; BMI 20.9; BMI 15.5
--- NOTE | ~2024-11-18 | XR_ITS ---
Portable chest x-ray Comparison: 10/29/2024 Clinical History: Dyspnea Findings: There is patchy left basilar airspace disease. Right lung clear. Cardiomediastinal silhou ette is stable. Bones and soft tissues are unremarkable. Impression: Probable left basilar pneumonia. Reviewed, dictated and finalized at location . Impression: Probable left basilar pneumonia.
--- NOTE | 2024-11-18 00:33 | ECG_ITS ---
Test Date: 2024-11-18 01:08:41 Measurements Intervals [place] Rate: 116 P: 71 [place]: 162 QRS: 38 QRSD: 86 T: 86 QT: 341 QTc: 474 Interpretive Statements SINUS TACHYCARDIA artifact Electronically Signed On 11-18-2024 22:28:02 CDT by Miguel Angel Coto M.D.
[2024-11-18] MEDS: IPRATROPIUM 0.5 MG/ALBUTEROL SULFATE 2.5 MG AMPUL.NEB 3 ML INHALATION (00:40)
[2024-11-18 00:50] LABS: Hematocrit 32.2 % (42.0-52.0); Hemoglobin 10.3 g/dL (14.0-18.0); Mean Corpuscular HGB Conc 32.0 g/dl (32-36); Mean Corpuscular Hemoglobin 29.1 pg (26-34); Mean Corpuscular Volume 91.0 fl (80-100); Platelet Count Result 286 k/mm3 (150-375); Red Blood Count 3.54 M/mm3 (4.6-6.20); White Blood Count 9.2 K/mm3 (4.5-10.0)
--- NOTE | 2024-11-18 01:02 | ED_ITS ---
HPI - SOB/Dyspnea General Chief Complaint: Shortness of Breath/Dyspnea Stated Complaint: Difficulty breathing Time Seen by Provider: 11/18/24 00:31 History of Present Illness HPI Narrative: Patient presents here with shortness of breath, per alf oxygen saturation was in the 80s, when EMS arrived he was having severe difficulty breathing and coughing, they tried putting him on nasal cannula he was still in the 70s, so they put him on a non-rebreather and transported here. To me, patient denies any complaints, he does have some pain to his butt. Related Data Home Medications ?Medication ?Instructions ?Recorded ?Confirmed ?Last Taken ?Type acetaminophen 325 mg capsule 650 mg PO TID PRN pain 07/29/24 10/24/24 07/29/24 06:55 History aspirin 81 mg tablet,delayed 81 mg PO HS 07/29/24 10/24/24 07/28/24 08:25 History release (Adult Aspirin Regimen) atorvastatin 20 mg tablet 20 mg PO HS 07/29/24 10/24/24 07/28/24 08:25 History bisacodyl 5 mg tablet,delayed 10 mg PO DAILY 07/29/24 10/24/24 Unknown History release bupropion HCl 100 mg tablet,12 hr 100 mg PO DAILY 07/29/24 10/24/24 07/29/24 07:00 History sustained-release (Wellbutrin SR) magnesium hydroxide 400 mg/5 mL 30 ml PO DAILY PRN constipation 07/29/24 10/24/24 Unknown History oral suspension (Dulcolax (magnesium hydroxide)) metoprolol tartrate 25 mg tablet 25 mg PO BID 07/29/24 10/24/24 07/29/24 07:00 History pantoprazole 20 mg tablet,delayed 20 mg PO BID 07/29/24 10/24/24 Unknown History release polyethylene glycol 3350 17 17 g PO DAILY 07/29/24 10/24/24 Unknown History gram/dose oral powder (Miralax) sennosides 8.6 mg tablet (senna) 17.2 mg PO BID 07/29/24 10/24/24 Unknown History tramadol 50 mg tablet 50 mg PO Q6H PRN pain 07/29/24 10/24/24 Unknown History melatonin 3 mg capsule 3 mg PO HS PRN insomnia 10/24/24 10/24/24 Unknown History sertraline 50 mg tablet 50 mg PO DAILY 10/24/24 10/24/24 Unknown History Allergies Allergy/AdvReac Type Severity Reaction Status Date / Time No Known Allergies Allergy Verified 10/24/24 08:03 Review of Systems 2 Review of Systems: ROS unobtainable: Yes unobtainable due to mental status [facility] Past Medical History Medical History (Updated 11/18/24 @ 04:08 by Elizabeth Loyola MD) Hyperlipidemia GERD (gastroesophageal reflux disease) Dementia Hypertension CVA (cerebral vascular accident) Surgical History Surgical History (Updated 10/24/24 @ 10:33 by Sadia Coon PA-C) History of hemiarthroplasty of hip Family History Family History (Updated 10/24/24 @ 08:06 by Laisha Kenyon RN) Other Unknown family medical history Social History Social History Smoking status: Former smoker Alcohol intake: former Substance use: former Substance use type: marijuana Last use: 50 yrs ago Do You Feel Safe in your Home?: Yes Lack of Transportation: No Lack of Food: Never True Current Housing: I Have Housing Concerned About Future Housing: No Difficulty Paying Gas/Electric Bills: No Difficulty Paying for Meds: No Currently Unemployed: No Education: High School Diploma/GED Difficulty w/ Childcare or Family Care: No Spiritual care concerns: No Exam 2 Narrative: EXAMINATION OF ORGAN SYSTEMS/BODY AREAS: Constitutional: Vital signs per nursing GENERAL: Shallow breaths, coughing weakly HEAD: Normal with no signs of head trauma. EYES: EOMI, conjunctiva normal ENT: Hearing grossly intact LUNGS: Crackles bilateral bases HEART: [Regular rate and rhythm] ABD: [Soft], [nontender to palpation] EXT: No obvious deformity NEURO: [Alert. Mumbling.] PSYCH: Normal affect Course Vital Signs Vital signs: Vital Signs Temperature 97.8 F 11/18/24 00:34 Pulse Rate 96 11/18/24 00:34 Respiratory Rate 26 H 11/18/24 00:34 Blood Pressure 123/69 11/18/24 00:34 Pulse Oximetry 92 11/18/24 00:34 Oxygen Delivery Room Air 11/18/24 00:34 Temperature 97.8 F 11/18/24 00:34 Pulse Rate 116 H 11/18/24 03:15 Respiratory Rate 28 H 11/18/24 03:15 Blood Pressure 121/83 11/18/24 02:01 Pulse Oximetry 97 11/18/24 03:15 Oxygen Delivery High Flow Therapy with Nasal Cannula 11/18/24 03:15 Oxygen Flow Rate 40 11/18/24 03:15 Fraction of Inspired Oxygen 50 11/18/24 03:15 Procedures ABG Interpretation ABG Interpretation 1: ABG Results: hyperventilating, resp alkalemia; hypoxic MDM - SOB/Dyspnea MDM Narrative Medical decision making narrative: Patient presents with increased shortness of breath, on my exam he does have crackles bilaterally, he is coughing and and amount of mucus came up and after which he was breathing much more comfortably, 95% on room air. I do suspect may have had a mucus plug causing his symptoms, I will obtain septic workup including for pneumonia. Patient started having trouble coughing up his secretions, and oxygen started dropping, tried 4L NC still around 86%. CPT performed by RT with some improvement, she had also suctioned good amount of mucus out, and started him on HFNC with good improvement in respiratory status. He is also now mentating much better. I did update patient's SO per his request; discussed with his SO; at this time, still a full code but she would be interested in discussing transitioning to optimizing quality of life; he had been in excellent state of health up until last few months where he suffered a series of debilitating strokes. Interested in palliative care consult. Discussed with hospitalist for admission. Rpt lac more elevated likely from albuterol; BNP elevated but on my independent interpretation of chest x-ray, shows stable pneumonia, I will start fluid infusion and antibiotics. Lab Data 11/18/24 00:43 11/18/24 00:43 Labs: Lab Results 11/18/24 11/18/24 11/18/24 Range/Units 00:43 00:43 00:43 WBC 9.2 (4.5-10.0) K/mm3 RBC 3.54 L (4.6-6.20) M/mm3 Hgb 10.3 L (14.0-18.0) g/dL Hct 32.2 L (42.0-52.0) % MCV 91.0 (80-100) fl MCH 29.1 (26-34) pg MCHC 32.0 (32-36) g/dl RDW 15.8 H (11.5-14.5) % Plt Count 286 (150-375) k/mm3 MPV 12.1 H (7.4-10.4) fl Immature Gran % (Auto) Not Reportable Neut % (Auto) Not Reportable Lymph % (Auto) Not Reportable Ferry % (Auto) Not Reportable Eos % (Auto) Not Reportable Baso % (Auto) Not Reportable Lymph # (Auto) Not Reportable Ferry # (Auto) Not Reportable Eos # (Auto) Not Reportable Baso # (Auto) Not Reportable Abs Immat Gran (auto) Not Reportable Absolute Neuts (auto) Not Reportable Absolute Nucleated RBC Not Reportable Total Counted 100 Neutrophils % (Manual) 66 (46-73) % Band Neutrophils % 7 H (0-6) % Lymphocytes % (Manual) 16.0 L (18-44) % Monocytes % (Manual) 10 H (3-9) % Eosinophils % (Manual) 1 (0-4) % Nucleated RBC % Not Reportable Abs Neuts (Manual) 6.71 H (1.3-6.7) K/mm3 Abs Lymphs (Manual) 1.47 (1.1-4.5) K/mm3 Abs Monocytes (Manual) 0.92 H (0.1-0.90) K/mm3 Absolute Eos (Manual) 0.09 (0.02-0.50) K/mm3 Platelet Estimate Adequate (Adequate) Hypochromasia 1+ Schistocytes None seen Methemoglobin (0-1.5) %THb Sodium Cancelled 138 Potassium Cancelled 3.2 L Chloride Cancelled Carbon Dioxide Anion Gap BUN Creatinine Estim Creat Clear Calc Estimated GFR Glucose Lactic Acid (0.7-2.0) mmol/L Calcium Total Bilirubin AST ALT Alkaline Phosphatase NT-Pro-B Natriuret Pep (19.9-100) pg/mL Total Protein Albumin Urine Color (Yellow) Urine Appearance (Clear) Urine pH (5.0-9.0) Ur Specific Gifford (1.001-1.035) Urine Protein (Negative) mg/dL Urine Glucose (UA) (Negative) mg/dL Urine Ketones (Negative) mg/dL Ur Blood (Man) (Negative) Urine Nitrate (Negative) Urine Bilirubin (Negative) Urine Urobilinogen (<2.0) mg/dL Add Ur Microanalysis Leukocyte Esterase Rfl (Negative) NOAH/UL Urine RBC (0-2) /hpf Urine WBC (0-3) /hpf Ur Squamous Epith Cells (Few) /hpf Urine Bacteria /hpf Urine Casts Nasal MRSA (PCR) 11/18/24 11/18/24 11/18/24 Range/Units 00:43 00:43 00:43 WBC (4.5-10.0) K/mm3 RBC (4.6-6.20) M/mm3 Hgb (14.0-18.0) g/dL Hct (42.0-52.0) % MCV (80-100) fl MCH (26-34) pg MCHC (32-36) g/dl RDW (11.5-14.5) % Plt Count (150-375) k/mm3 MPV (7.4-10.4) fl Immature Gran % (Auto) Neut % (Auto) Lymph % (Auto) Ferry % (Auto) Eos % (Auto) Baso % (Auto) Lymph # (Auto) Ferry # (Auto) Eos # (Auto) Baso # (Auto) Abs Immat Gran (auto) Absolute Neuts (auto) Absolute Nucleated RBC Total Counted Neutrophils % (Manual) (46-73) % Band Neutrophils % (0-6) % Lymphocytes % (Manual) (18-44) % Monocytes % (Manual) (3-9) % Eosinophils % (Manual) (0-4) % Nucleated RBC % Abs Neuts (Manual) (1.3-6.7) K/mm3 Abs Lymphs (Manual) (1.1-4.5) K/mm3 Abs Monocytes (Manual) (0.1-0.90) K/mm3 Absolute Eos (Manual) (0.02-0.50) K/mm3 Platelet Estimate (Adequate) Hypochromasia Schistocytes Methemoglobin (0-1.5) %THb Sodium Potassium Chloride 103 Carbon Dioxide Cancelled 27 Anion Gap Cancelled 8 BUN Cancelled Creatinine Estim Creat Clear Calc Estimated GFR Glucose Lactic Acid (0.7-2.0) mmol/L Calcium Total Bilirubin AST ALT Alkaline Phosphatase NT-Pro-B Natriuret Pep (19.9-100) pg/mL Total Protein Albumin Urine Color (Yellow) Urine Appearance (Clear) Urine pH (5.0-9.0) Ur Specific Gifford (1.001-1.035) Urine Protein (Negative) mg/dL Urine Glucose (UA) (Negative) mg/dL Urine Ketones (Negative) mg/dL Ur Blood (Man) (Negative) Urine Nitrate (Negative) Urine Bilirubin (Negative) Urine Urobilinogen (<2.0) mg/dL Add Ur Microanalysis Leukocyte Esterase Rfl (Negative) NOAH/UL Urine RBC (0-2) /hpf Urine WBC (0-3) /hpf Ur Squamous Epith Cells (Few) /hpf Urine Bacteria /hpf Urine Casts Nasal MRSA (PCR) 11/18/24 11/18/24 11/18/24 Range/Units 00:43 00:43 00:43 WBC (4.5-10.0) K/mm3 RBC (4.6-6.20) M/mm3 Hgb (14.0-18.0) g/dL Hct (42.0-52.0) % MCV (80-100) fl MCH (26-34) pg MCHC (32-36) g/dl RDW (11.5-14.5) % Plt Count (150-375) k/mm3 MPV (7.4-10.4) fl Immature Gran % (Auto) Neut % (Auto) Lymph % (Auto) Ferry % (Auto) Eos % (Auto) Baso % (Auto) Lymph # (Auto) Ferry # (Auto) Eos # (Auto) Baso # (Auto) Abs Immat Gran (auto) Absolute Neuts (auto) Absolute Nucleated RBC Total Counted Neutrophils % (Manual) (46-73) % Band Neutrophils % (0-6) % Lymphocytes % (Manual) (18-44) % Monocytes % (Manual) (3-9) % Eosinophils % (Manual) (0-4) % Nucleated RBC % Abs Neuts (Manual) (1.3-6.7) K/mm3 Abs Lymphs (Manual) (1.1-4.5) K/mm3 Abs Monocytes (Manual) (0.1-0.90) K/mm3 Absolute Eos (Manual) (0.02-0.50) K/mm3 Platelet Estimate (Adequate) Hypochromasia Schistocytes Methemoglobin (0-1.5) %THb Sodium Potassium Chloride Carbon Dioxide Anion Gap BUN 27 H Creatinine Cancelled 0.76 Estim Creat Clear Calc Cancelled Not Reportable Estimated GFR Cancelled Glucose Lactic Acid (0.7-2.0) mmol/L Calcium Total Bilirubin AST ALT Alkaline Phosphatase NT-Pro-B Natriuret Pep (19.9-100) pg/mL Total Protein Albumin Urine Color (Yellow) Urine Appearance (Clear) Urine pH (5.0-9.0) Ur Specific Gifford (1.001-1.035) Urine Protein (Negative) mg/dL Urine Glucose (UA) (Negative) mg/dL Urine Ketones (Negative) mg/dL Ur Blood (Man) (Negative) Urine Nitrate (Negative) Urine Bilirubin (Negative) Urine Urobilinogen (<2.0) mg/dL Add Ur Microanalysis Leukocyte Esterase Rfl (Negative) NOAH/UL Urine RBC (0-2) /hpf Urine WBC (0-3) /hpf Ur Squamous Epith Cells (Few) /hpf Urine Bacteria /hpf Urine Casts Nasal MRSA (PCR) 11/18/24 11/18/24 11/18/24 Range/Units 00:43 00:43 00:43 WBC (4.5-10.0) K/mm3 RBC (4.6-6.20) M/mm3 Hgb (14.0-18.0) g/dL Hct (42.0-52.0) % MCV (80-100) fl MCH (26-34) pg MCHC (32-36) g/dl RDW (11.5-14.5) % Plt Count (150-375) k/mm3 MPV (7.4-10.4) fl Immature Gran % (Auto) Neut % (Auto) Lymph % (Auto) Ferry % (Auto) Eos % (Auto) Baso % (Auto) Lymph # (Auto) Ferry # (Auto) Eos # (Auto) Baso # (Auto) Abs Immat Gran (auto) Absolute Neuts (auto) Absolute Nucleated RBC Total Counted Neutrophils % (Manual) (46-73) % Band Neutrophils % (0-6) % Lymphocytes % (Manual) (18-44) % Monocytes % (Manual) (3-9) % Eosinophils % (Manual) (0-4) % Nucleated RBC % Abs Neuts (Manual) (1.3-6.7) K/mm3 Abs Lymphs (Manual) (1.1-4.5) K/mm3 Abs Monocytes (Manual) (0.1-0.90) K/mm3 Absolute Eos (Manual) (0.02-0.50) K/mm3 Platelet Estimate (Adequate) Hypochromasia Schistocytes Methemoglobin (0-1.5) %THb Sodium Potassium Chloride Carbon Dioxide Anion Gap BUN Creatinine Estim Creat Clear Calc Estimated GFR > 60 Glucose Cancelled 101 Lactic Acid 2.1 H (0.7-2.0) mmol/L Calcium Cancelled 9.2 Total Bilirubin Cancelled AST ALT Alkaline Phosphatase NT-Pro-B Natriuret Pep (19.9-100) pg/mL Total Protein Albumin Urine Color (Yellow) Urine Appearance (Clear) Urine pH (5.0-9.0) Ur Specific Gifford (1.001-1.035) Urine Protein (Negative) mg/dL Urine Glucose (UA) (Negative) mg/dL Urine Ketones (Negative) mg/dL Ur Blood (Man) (Negative) Urine Nitrate (Negative) Urine Bilirubin (Negative) Urine Urobilinogen (<2.0) mg/dL Add Ur Microanalysis Leukocyte Esterase Rfl (Negative) NOAH/UL Urine RBC (0-2) /hpf Urine WBC (0-3) /hpf Ur Squamous Epith Cells (Few) /hpf Urine Bacteria /hpf Urine Casts Nasal MRSA (PCR) 11/18/24 11/18/24 11/18/24 Range/Units 00:43 00:43 00:43 WBC (4.5-10.0) K/mm3 RBC (4.6-6.20) M/mm3 Hgb (14.0-18.0) g/dL Hct (42.0-52.0) % MCV (80-100) fl MCH (26-34) pg MCHC (32-36) g/dl RDW (11.5-14.5) % Plt Count (150-375) k/mm3 MPV (7.4-10.4) fl Immature Gran % (Auto) Neut % (Auto) Lymph % (Auto) Ferry % (Auto) Eos % (Auto) Baso % (Auto) Lymph # (Auto) Ferry # (Auto) Eos # (Auto) Baso # (Auto) Abs Immat Gran (auto) Absolute Neuts (auto) Absolute Nucleated RBC Total Counted Neutrophils % (Manual) (46-73) % Band Neutrophils % (0-6) % Lymphocytes % (Manual) (18-44) % Monocytes % (Manual) (3-9) % Eosinophils % (Manual) (0-4) % Nucleated RBC % Abs Neuts (Manual) (1.3-6.7) K/mm3 Abs Lymphs (Manual) (1.1-4.5) K/mm3 Abs Monocytes (Manual) (0.1-0.90) K/mm3 Absolute Eos (Manual) (0.02-0.50) K/mm3 Platelet Estimate (Adequate) Hypochromasia Schistocytes Methemoglobin (0-1.5) %THb Sodium Potassium Chloride Carbon Dioxide Anion Gap BUN Creatinine Estim Creat Clear Calc Estimated GFR Glucose Lactic Acid (0.7-2.0) mmol/L Calcium Total Bilirubin 0.5 AST Cancelled 62 H ALT Cancelled 40 Alkaline Phosphatase Cancelled NT-Pro-B Natriuret Pep (19.9-100) pg/mL Total Protein Albumin Urine Color (Yellow) Urine Appearance (Clear) Urine pH (5.0-9.0) Ur Specific Gifford (1.001-1.035) Urine Protein (Negative) mg/dL Urine Glucose (UA) (Negative) mg/dL Urine Ketones (Negative) mg/dL Ur Blood (Man) (Negative) Urine Nitrate (Negative) Urine Bilirubin (Negative) Urine Urobilinogen (<2.0) mg/dL Add Ur Microanalysis Leukocyte Esterase Rfl (Negative) NOAH/UL Urine RBC (0-2) /hpf Urine WBC (0-3) /hpf Ur Squamous Epith Cells (Few) /hpf Urine Bacteria /hpf Urine Casts Nasal MRSA (PCR) 11/18/24 11/18/24 11/18/24 Range/Units 00:43 00:43 00:43 WBC (4.5-10.0) K/mm3 RBC (4.6-6.20) M/mm3 Hgb (14.0-18.0) g/dL Hct (42.0-52.0) % MCV (80-100) fl MCH (26-34) pg MCHC (32-36) g/dl RDW (11.5-14.5) % Plt Count (150-375) k/mm3 MPV (7.4-10.4) fl Immature Gran % (Auto) Neut % (Auto) Lymph % (Auto) Ferry % (Auto) Eos % (Auto) Baso % (Auto) Lymph # (Auto) Ferry # (Auto) Eos # (Auto) Baso # (Auto) Abs Immat Gran (auto) Absolute Neuts (auto) Absolute Nucleated RBC Total Counted Neutrophils % (Manual) (46-73) % Band Neutrophils % (0-6) % Lymphocytes % (Manual) (18-44) % Monocytes % (Manual) (3-9) % Eosinophils % (Manual) (0-4) % Nucleated RBC % Abs Neuts (Manual) (1.3-6.7) K/mm3 Abs Lymphs (Manual) (1.1-4.5) K/mm3 Abs Monocytes (Manual) (0.1-0.90) K/mm3 Absolute Eos (Manual) (0.02-0.50) K/mm3 Platelet Estimate (Adequate) Hypochromasia Schistocytes Methemoglobin (0-1.5) %THb Sodium Potassium Chloride Carbon Dioxide Anion Gap BUN Creatinine Estim Creat Clear Calc Estimated GFR Glucose Lactic Acid (0.7-2.0) mmol/L Calcium Total Bilirubin AST ALT Alkaline Phosphatase 90 NT-Pro-B Natriuret Pep 3280 H (19.9-100) pg/mL Total Protein Cancelled 6.2 L Albumin Cancelled 3.2 L Urine Color (Yellow) Urine Appearance (Clear) Urine pH (5.0-9.0) Ur Specific Gifford (1.001-1.035) Urine Protein (Negative) mg/dL Urine Glucose (UA) (Negative) mg/dL Urine Ketones (Negative) mg/dL Ur Blood (Man) (Negative) Urine Nitrate (Negative) Urine Bilirubin (Negative) Urine Urobilinogen (<2.0) mg/dL Add Ur Microanalysis Leukocyte Esterase Rfl (Negative) NOAH/UL Urine RBC (0-2) /hpf Urine WBC (0-3) /hpf Ur Squamous Epith Cells (Few) /hpf Urine Bacteria /hpf Urine Casts Nasal MRSA (PCR) 11/18/24 11/18/24 11/18/24 Range/Units 01:18 02:19 03:19 WBC (4.5-10.0) K/mm3 RBC (4.6-6.20) M/mm3 Hgb (14.0-18.0) g/dL Hct (42.0-52.0) % MCV (80-100) fl MCH (26-34) pg MCHC (32-36) g/dl RDW (11.5-14.5) % Plt Count (150-375) k/mm3 MPV (7.4-10.4) fl Immature Gran % (Auto) Neut % (Auto) Lymph % (Auto) Ferry % (Auto) Eos % (Auto) Baso % (Auto) Lymph # (Auto) Ferry # (Auto) Eos # (Auto) Baso # (Auto) Abs Immat Gran (auto) Absolute Neuts (auto) Absolute Nucleated RBC Total Counted Neutrophils % (Manual) (46-73) % Band Neutrophils % (0-6) % Lymphocytes % (Manual) (18-44) % Monocytes % (Manual) (3-9) % Eosinophils % (Manual) (0-4) % Nucleated RBC % Abs Neuts (Manual) (1.3-6.7) K/mm3 Abs Lymphs (Manual) (1.1-4.5) K/mm3 Abs Monocytes (Manual) (0.1-0.90) K/mm3 Absolute Eos (Manual) (0.02-0.50) K/mm3 Platelet Estimate (Adequate) Hypochromasia Schistocytes Methemoglobin 0.3 (0-1.5) %THb Sodium Potassium Chloride Carbon Dioxide Anion Gap BUN Creatinine Estim Creat Clear Calc Estimated GFR Glucose Lactic Acid (0.7-2.0) mmol/L Calcium Total Bilirubin AST ALT Alkaline Phosphatase NT-Pro-B Natriuret Pep (19.9-100) pg/mL Total Protein Albumin Urine Color Yellow (Yellow) Urine Appearance Clear (Clear) Urine pH 5.5 (5.0-9.0) Ur Specific Gifford 1.027 (1.001-1.035) Urine Protein 1+ H (Negative) mg/dL Urine Glucose (UA) Negative (Negative) mg/dL Urine Ketones Negative (Negative) mg/dL Ur Blood (Man) Negative (Negative) Urine Nitrate Negative (Negative) Urine Bilirubin Negative (Negative) Urine Urobilinogen 1.0 (<2.0) mg/dL Add Ur Microanalysis Reviewed Leukocyte Esterase Rfl Trace H (Negative) NOAH/UL Urine RBC 0-2 (0-2) /hpf Urine WBC 0-5 (0-3) /hpf Ur Squamous Epith Cells None seen (Few) /hpf Urine Bacteria None seen /hpf Urine Casts 0-2 Nasal MRSA (PCR) Pending 11/18/24 Range/Units 03:24 WBC (4.5-10.0) K/mm3 RBC (4.6-6.20) M/mm3 Hgb (14.0-18.0) g/dL Hct (42.0-52.0) % MCV (80-100) fl MCH (26-34) pg MCHC (32-36) g/dl RDW (11.5-14.5) % Plt Count (150-375) k/mm3 MPV (7.4-10.4) fl Immature Gran % (Auto) Neut % (Auto) Lymph % (Auto) Ferry % (Auto) Eos % (Auto) Baso % (Auto) Lymph # (Auto) Ferry # (Auto) Eos # (Auto) Baso # (Auto) Abs Immat Gran (auto) Absolute Neuts (auto) Absolute Nucleated RBC Total Counted Neutrophils % (Manual) (46-73) % Band Neutrophils % (0-6) % Lymphocytes % (Manual) (18-44) % Monocytes % (Manual) (3-9) % Eosinophils % (Manual) (0-4) % Nucleated RBC % Abs Neuts (Manual) (1.3-6.7) K/mm3 Abs Lymphs (Manual) (1.1-4.5) K/mm3 Abs Monocytes (Manual) (0.1-0.90) K/mm3 Absolute Eos (Manual) (0.02-0.50) K/mm3 Platelet Estimate (Adequate) Hypochromasia Schistocytes Methemoglobin (0-1.5) %THb Sodium Potassium Chloride Carbon Dioxide Anion Gap BUN Creatinine Estim Creat Clear Calc Estimated GFR Glucose Lactic Acid 4.5 H* (0.7-2.0) mmol/L Calcium Total Bilirubin AST ALT Alkaline Phosphatase NT-Pro-B Natriuret Pep (19.9-100) pg/mL Total Protein Albumin Urine Color (Yellow) Urine Appearance (Clear) Urine pH (5.0-9.0) Ur Specific Gifford (1.001-1.035) Urine Protein (Negative) mg/dL Urine Glucose (UA) (Negative) mg/dL Urine Ketones (Negative) mg/dL Ur Blood (Man) (Negative) Urine Nitrate (Negative) Urine Bilirubin (Negative) Urine Urobilinogen (<2.0) mg/dL Add Ur Microanalysis Leukocyte Esterase Rfl (Negative) NOAH/UL Urine RBC (0-2) /hpf Urine WBC (0-3) /hpf Ur Squamous Epith Cells (Few) /hpf Urine Bacteria /hpf Urine Casts Nasal MRSA (PCR) ABG Data ABG results: 11/18/24 02:19 Puncture Site Right radial ABG pH 7.470 H ABG pCO2 30.8 L ABG pO2 56.5 L ABG PO2/FiO2 Ratio 1.41 ABG HCO3 21.9 L ABG O2 Saturation 91.5 L ABG O2 Content 12.9 L ABG Base Excess -1.1 A-a Gradient 193.3 Oxyhemoglobin 88.3 L Carboxyhemoglobin 0.5 Reduced Hemoglobin 10.9 H Total Hemoglobin 10.4 L O2 Delivery Device Nasal cannula O2 Liters/Min 5.0 FiO2 40 Critical Care Time Critical Care Time Critical Care Time: Yes Total Critical Care Time: 31 Discharge Plan Discharge Clinical Impression: AMS (altered mental status), Acute hypoxic respiratory failure Patient Disposition: Still a Patient Condition: Serious Patient Language: Marshallese Prescriptions: No Action atorvastatin 20 mg tablet 20 mg PO HS pantoprazole 20 mg tablet,delayed release (DR/EC) 20 mg PO BID acetaminophen 325 mg capsule 650 mg PO TID PRN (Reason: pain) aspirin [Adult Aspirin Regimen] 81 mg tablet,delayed release (DR/EC) 81 mg PO HS bisacodyl 5 mg tablet,delayed release (DR/EC) 10 mg PO DAILY metoprolol tartrate 25 mg tablet 25 mg PO BID polyethylene glycol 3350 [Miralax] 17 gram/dose powder 17 g PO DAILY sennosides [senna] 8.6 mg tablet 17.2 mg PO BID tramadol 50 mg tablet 50 mg PO Q6H PRN (Reason: pain) bupropion HCl [Wellbutrin SR] 100 mg tablet sustained-release 12 hr 100 mg PO DAILY magnesium hydroxide [Dulcolax (magnesium hydroxide)] 400 mg/5 mL suspension 30 ml PO DAILY PRN (Reason: constipation) melatonin 3 mg capsule 3 mg PO HS PRN (Reason: insomnia) sertraline 50 mg tablet 50 mg PO DAILY amoxicillin-pot clavulanate 875-125 mg tablet 1 tablet PO Q12H Qty: 7 0RF Rx Instructions: Start tonight, take twice daily. linezolid [Zyvox] 600 mg tablet 600 mg PO Q12H Qty: 11 0RF Rx Instructions: Start tonight, take twice daily mupirocin [Centany] 2 % ointment 1 applic topical BID Qty: 15 0RF Rx Instructions: Take for one week. Follow-up/Referrals: PHYSICIAN NOT ON STAFF,NONSTAFF [Primary Care Provider] -
[2024-11-18 01:03] LABS: Alanine Aminotransferase 40 U/L (6-50); Albumin Level 3.2 g/dL (3.5-5.1); Alkaline Phosphatase 90 U/L (38-126); Anion Gap 8 mmol/L (4-12); Aspartate Amino Transferase 62 U/L (17-59); Bilirubin,Total 0.5 mg/dL (0.2-1.3); Blood Urea Nitrogen 27 mg/dL (9-20); Calcium 9.2 mg/dL (8.4-10.2); Carbon Dioxide 27 mmol/L (22-30); Chloride 103 mmol/L (98-107); Estimated Glomerular Filt Rate > 60; Glucose 101 mg/dL (65-110); Potassium 3.2 mmol/L (3.4-5.0); Sodium 138 mmol/L (137-145); Total Protein 6.2 g/dL (6.3-8.2)
[2024-11-18] MEDS: POTASSIUM CHLORIDE 20 MEQ PACKET (FOR LIQUID) 40 MEQ PO (01:10)
[2024-11-18 01:18] LABS: NT Pro B Type Natriuretic Pept 3280 pg/mL (19.9-100)
--- OUTSIDE RECORDS SUMMARY | 2024-11-18 01:25 | XMS_ITS | Referral Summary ---
Author Organization [facility] [place] Address [address] [place] [address] Care Team Providers Care Ball Mill Mixer Name Role Phone Jay Soriano MD Primary Care Provider [phone] Maddy, Juan Carlos Cortez MD Unavailable Encounters Date Type Department Care Team Description 10/03/2024 2:00 PM CDT Office Visit [facility] Neurology [address] [place] [address] Maddy, Juan Carlos Cortez MD [...] 05/27/2024 Assessment & Plan (05/31/2024 6:30 PM HYDRAULICS ENGINEER): Patient remains asymptomatic, afebrile. WBC currently 12.6. Continue to monitor. Assessment & Plan (05/27/2024 12:05 PM HYDRAULICS ENGINEER): Etiology unclear - no infectious symptoms. UA checked previously and WNL. Prob inflammatory. Continue to monitor Severe vascular dementia wit hout behavioral disturbance, psychotic disturbance, mood disturbance, or anxiety 05/17/2024 Assessment & Plan (05/21/2024 12:19 PM HYDRAULICS ENGINEER): MOCA 10/25, indicating severe cognitive decline. Patient has become much more interactive, appears to be sleeping better. After discussion with geriatric social worker and patient's significant other/caregiver he will need to discharge to a higher level of care after completing rehab. Continue bupropion for mood control, melatonin for sleep. Assessment & Plan (05/17/2024 1:05 PM HYDRAULICS ENGINEER): With history of underlying CVA. [place] 1025 indicating significant cognitive decline. Family reports that this has been progressively worsening with an ongoing physical decline as well. SITE DIRECTOR following, patient will likely need higher level of care at discharge. Pseudofolliculitis barbae 05/13/2024 Assessment & Plan (05/13/2024 9:42 PM HYDRAULICS ENGINEER): Significant irritation after shaving turner. Continue moisturizer. Will monitor for secondary infection. Nurse Outreach Case Manager notified. Stage 3a chronic kidney disease 05/06/2024 Assessment & Plan (05/31/2024 6:29 PM HYDRAULICS ENGINEER): Renal function stable, BUN/creatinine 26/1.36 with a GFR of 53 Assessment & Plan (05/27/2024 12:02 PM HYDRAULICS ENGINEER): Renal function stable/improved. Bun/Cr 20/1.34, GFR 54. Continue to monitor Assessment & Plan (05/21/2024 12:18 PM HYDRAULICS ENGINEER): Renal function about at baseline, BUN/creatinine 32/1.50 with a GFR of 47 Assessment & Plan (05/13/2024 9:38 PM HYDRAULICS ENGINEER): Renal function about at baseline, BUN/creatinine 25/1.41. With a GFR 51 Constipation 05/06/2024 Assessment & Plan (05/21/2024 12:20 PM HYDRAULICS ENGINEER): Increase Daysi Colace to 1 tablet b.i.d., add MiraLax daily, milk of magnesia p.r.n. Assessment & Plan (05/14/2024 8:28 AM HYDRAULICS ENGINEER): He complains of lack of bowel movement. Milk of magnesia ordered Depression 05/06/2024 Assessment & Plan (05/17/2024 1:04 PM HYDRAULICS ENGINEER): Affect flat, patient remains withdrawn. Patient occasionally has difficulty participating with therapy likely due to underlying dementia. Continue bupropion 100 mg daily Assessment & Plan (05/14/2024 8:28 AM HYDRAULICS ENGINEER): This is chronic and stable. Continue bupropion 100 mg daily. TIA (transient ischemic attack) 04/30/2024 Unresponsiveness 04/30/2024 Assessment & Plan (05/27/2024 12:07 PM HYDRAULICS ENGINEER): Pt with vagel episode this am after a large BM - recovered quickly. Increased bowel regimen to reduce straining. 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 Chronic rhinitis 07/20/2021 Hydrocele 08/07/2017 Actinic keratosis 10/29/2015 Essential hypertension 10/29/2015 Assessment & Plan (05/31/2024 6:28 PM HYDRAULICS ENGINEER): Blood pressure stable, continue amlodipine Assessment & Plan (05/27/2024 12:01 PM HYDRAULICS ENGINEER): Stable, continue norvasc Assessment & Plan (05/21/2024 12:18 PM HYDRAULICS ENGINEER): Blood pressure well controlled, continue amlodipine 10 mg daily Assessment & Plan (05/17/2024 1:03 PM HYDRAULICS ENGINEER): Blood pressure well controlled, continue amlodipine 10 mg daily Assessment & Plan (05/14/2024 8:28 AM HYDRAULICS ENGINEER): This is chronic and currently stable. Continue to monitor serial vital signs for trending. Continue amlodipine as scripted Assessment & Plan (05/13/2024 9:37 PM HYDRAULICS ENGINEER): BP controlled, continue norvasc 10mg daily. 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 Assessment & Plan (05/17/2024 1:06 PM HYDRAULICS ENGINEER): Continue post stroke prophylaxis with aspirin, statin, blood pressure control Assessment & Plan (05/13/2024 9:39 PM HYDRAULICS ENGINEER): No new neurologic changes, therapies are in [...] uit: Not Asked; Counseling Given: Not Answered [facility] Utilities Answer Date Recorded In the past 12 months has [employer], [employer], or water [employer] threatened to shut off services in your [...] How often do you attend chur or congregation services? Never 06/20/2024 Do you belong to any clubs o r organizations such as protestant groups, unions, fraternal or athletic groups, or [...] any time in the past 12 m [facility], were you homeless or living in a correction (including now)? No 06/20/2024 Personal Safety Answer [...] 36.4 C (97.5 F) 06/24/2024 7:35 AM HYDRAULICS ENGINEER Respiratory Rate 16 06/24/2024 7:35 AM HYDRAULICS ENGINEER Oxygen Saturation 100% 10/03/2024 1:58 PM CDT Inhaled Oxygen Concentration - - Weight 62.6 kg (138 lb) 10/03/2024 1:58 PM CDT Height 182.9 cm (6' 0.01) 10/03/2024 1:58 PM CD T Body Mass Index 18.71 10/03/2024 1:58 PM CDT Plan of Treatment Not on file Medical Devices Implanted Type Area Ms Sql Developer Device Identifier Shelf Expiration Date Model / Serial / Lot Becerra [employer] Nephew/Richco/ Ortho [place] 28mm Taper Neck Primary Hip +0mm 04/27 Head Femoral Cocr [id number] - [id number] Implanted:Qty: 1 on 06/19/2024 by Sky Diaz MD at [facility] Left: Hip [employer] Nephew/Richco/Or tho [id number] 11/27/2033 [id number] / / [id number] Becerra [employer] Nephew/Richco/ Ortho Tandem Od54 Mm; Id28 Mm Acetabulum Shell/Liner Bipolar Uhmwpe; Co [id number] - [id number] Implanted:Qty: 1 on 06/19/2024 by Sky Diaz MD at [facility] Left: Hip Bec[employer] Nephew/Richco/Or tho [id number] 04/01/2033 [id number] / / [id number] [employer]hew/Richco/ Ortho Synergy 15mm 165mm Standard Offset Hip Stem Femoral Titanium [id number] - [id number] Implanted:Qty: 1 on 06/19/2024 by Sky Diaz MD at [facility] Left: Hip [employer]hew/Richco/Or tho [id number] 10/10/2033 [id number] / / [id number] Bec[employer]hew/Richco/ Ortho Tandem Od54 Mm; Id28 Mm Acetabulum Shell/Liner Bipolar Uhmwpe; Co [id number] - [id number] Implanted:Qty: 1 on 06/19/2024 by Sky Diaz MD at [facility] Left: Hip [employer] Nephew/Richco/Or tho [id number] 07/23/2033 [id number] / / [id number] Insurance [facility] MEDICARE [facility] Advance Directives For more information, please contact: [phone] Documents on File Type Date Recorded Patient Power Saw Operator Expl anation ADVANCE DIRECTIVE 06/21/2024 10:54 AM Power of Tele Marketing Executive-Medical * Full Code (Latest Code Status on [...] specifically selected below: No intubation Care Teams Ball Mill Mixer Relationship Specialty Start Date End Date Jay Soriano MD PCP - General Internal Medicine 09/08/23 [facility] [address] [address] Consulting Physician Neurology 05/04/24
--- OUTSIDE RECORDS SUMMARY | 2024-11-18 01:25 | XMS_ITS | Clinical Summary ---
Author Organization [facility] [place] Address [address] [place] [address] Care Team Providers Care Internet Sales Associate Name Role Phone Macedonian, Jay Lerner MD Primary Care Provider [phone] Maddy, Juan Carlos Cortez MD Unavailable Allergies [...] 05/27/2024 Assessment & Plan (05/31/2024 6:30 PM MINE ADMINISTRATOR SUPERVISOR): Patient remains asymptomatic, afebrile. WBC currently 12.6. Continue to monitor. Assessment & Plan (05/27/2024 12:05 PM MINE ADMINISTRATOR SUPERVISOR): Etiology unclear - no infectious symptoms. UA checked previously and WNL. Prob inflammatory. Continue to monitor Severe vascular dementia wit hout behavioral disturbance, psychotic disturbance, mood disturbance, or anxiety 05/17/2024 Assessment & Plan (05/21/2024 12:19 PM MINE ADMINISTRATOR SUPERVISOR): MOCA 03/08, indicating severe cognitive decline. Patient has become much more interactive, appears to be sleeping better. After discussion with rn social work and patient's significant other/caregiver he will need to discharge to a higher level of care after completing rehab. Continue bupropion for mood control, melatonin for sleep. Assessment & Plan (05/17/2024 1:05 PM MINE ADMINISTRATOR SUPERVISOR): With history of underlying CVA. [place] 10 indicating significant cognitive decline. Family reports that this has been progressively worsening with an ongoing physical decline as well. PAYROLL TAX ANALYST following, patient will likely need higher level of care at discharge. Pseudofolliculitis barbae 05/13/2024 Assessment & Plan (05/13/2024 9:42 PM MINE ADMINISTRATOR SUPERVISOR): Significant irritation after shaving turner. Continue moisturizer. Will monitor for secondary infection. Dry Cleaning Machine Operator Helper notified. Stage 3a chronic kidney disease 05/06/2024 Assessment & Plan (05/31/2024 6:29 PM MINE ADMINISTRATOR SUPERVISOR): Renal function stable, BUN/creatinine 26/1.36 with a GFR of 53 Assessment & Plan (05/27/2024 12:02 PM MINE ADMINISTRATOR SUPERVISOR): Renal function stable/improved. Bun/Cr 20/1.34, GFR 54. Continue to monitor Assessment & Plan (05/21/2024 12:18 PM MINE ADMINISTRATOR SUPERVISOR): Renal function about at baseline, BUN/creatinine 32/1.50 with a GFR of 47 Assessment & Plan (05/13/2024 9:38 PM MINE ADMINISTRATOR SUPERVISOR): Renal function about at baseline, BUN/creatinine 25/1.41. With a GFR 51 Constipation 05/06/2024 Assessment & Plan (05/21/2024 12:20 PM MINE ADMINISTRATOR SUPERVISOR): Increase Daysi Colace to 1 tablet b.i.d., add MiraLax daily, milk of magnesia p.r.n. Assessment & Plan (05/14/2024 8:28 AM MINE ADMINISTRATOR SUPERVISOR): He complains of lack of bowel movement. Milk of magnesia ordered Depression 05/06/2024 Assessment & Plan (05/17/2024 1:04 PM MINE ADMINISTRATOR SUPERVISOR): Affect flat, patient remains withdrawn. Patient occasionally has difficulty participating with therapy likely due to underlying dementia. Continue bupropion 100 mg daily Assessment & Plan (05/14/2024 8:28 AM MINE ADMINISTRATOR SUPERVISOR): This is chronic and stable. Continue bupropion 100 mg daily. TIA (transient ischemic attack) 04/30/2024 Unresponsiveness 04/30/2024 Assessment & Plan (05/27/2024 12:07 PM MINE ADMINISTRATOR SUPERVISOR): Pt with vagel episode this am after a large BM - recovered quickly. Increased bowel regimen to reduce straining. 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 Chronic rhinitis 07/20/2021 Hydrocele 08/07/2017 Actinic keratosis 10/29/2015 Essential hypertension 10/29/2015 Assessment & Plan (05/31/2024 6:28 PM MINE ADMINISTRATOR SUPERVISOR): Blood pressure stable, continue amlodipine Assessment & Plan (05/27/2024 12:01 PM MINE ADMINISTRATOR SUPERVISOR): Stable, continue norvasc Assessment & Plan (05/21/2024 12:18 PM MINE ADMINISTRATOR SUPERVISOR): Blood pressure well controlled, continue amlodipine 10 mg daily Assessment & Plan (05/17/2024 1:03 PM MINE ADMINISTRATOR SUPERVISOR): Blood pressure well controlled, continue amlodipine 10 mg daily Assessment & Plan (05/14/2024 8:28 AM MINE ADMINISTRATOR SUPERVISOR): This is chronic and currently stable. Continue to monitor serial vital signs for trending. Continue amlodipine as scripted Assessment & Plan (05/13/2024 9:37 PM MINE ADMINISTRATOR SUPERVISOR): BP controlled, continue norvasc 10mg daily. 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 Assessment & Plan (05/17/2024 1:06 PM MINE ADMINISTRATOR SUPERVISOR): Continue post stroke prophylaxis with aspirin, statin, blood pressure control Assessment & Plan (05/13/2024 9:39 PM MINE ADMINISTRATOR SUPERVISOR): No new neurologic changes, therapies are in place, monitor patient's progress. Continue post stroke prophylaxis with aspirin, atorvastatin, blood pressure management Resolved Problems Problem Noted Date Diagnosed Date Resolved Date Upper respiratory infection 06/14/2018 06/02/2024 Encounters Date Type Department Care Team Description 10/03/2024 2:00 PM CDT Office Visit [facility] Neurology [address] [place] [address] Juan Carlos Castañeda Si, MD Multiple [...] Not Asked; Counseling Given: Not Answered [facility] Utilities Answer Date Recorded In the past 12 months has th e [employer], gas, oil, or water [employer] threatened to shut off services in your [...] week 06/20/2024 How often do you attend [facility] or baptism services? Never 06/20/2024 Do you belong to any clubs o r organizations such as confucianist groups, unions, fraternal or athletic groups, or [...] any time in the past 12 m [facility], were you homeless or living in [...] 36.4 C (97.5 F) 06/24/2024 7:35 AM MINE ADMINISTRATOR SUPERVISOR Respiratory Rate 16 06/24/2024 7:35 AM MINE ADMINISTRATOR SUPERVISOR Oxygen Saturation 100% 10/03/2024 1:58 PM CDT [...] history exists Medical Devices Implanted Type Area Job Training Specialist Device Identifier Shelf Expiration Date Model / Serial / Lot Becerra [employer] Nephew/Richco/ Ortho [place] 28mm Taper Neck Primary Hip +0mm 04/27 Head Femoral Cocr [id number] - [id number] Implanted:Qty: 1 on 06/19/2024 by Sky Diaz MD at [facility] Left: Hip [employer] Nephew/Richco/Or tho [id number] 11/27/2033 [id number] / / [id number] Bec[employer] Nephew/Richco/ Ortho Tandem Od54 Mm; Id28 Mm Acetabulum Shell/Liner Bipolar Uhmwpe; Co [id number] - [id number] Implanted:Qty: 1 on 06/19/2024 by Sky Diaz MD at [facility] Left: Hip Bec[employer] Nephew/Richco/Or tho [id number] 04/01/2033 [id number] / / [id number] Bec[employer]hew/Richco/ Ortho Synergy 15mm 165mm Standard Offset Hip Stem Femoral Titanium [id number] - [id number] Implanted:Qty: 1 on 06/19/2024 by Sky Diaz MD at [facility] Left: Hip Becerra [employer] Nephew/Richco/Or tho [id number] 10/10/2033 [id number] / / [id number] Becerra [employer] Nephew/Richco/ Ortho Tandem Od54 Mm; Id28 Mm Acetabulum Shell/Liner Bipolar Uhmwpe; Co [id number] - [id number] Implanted:Qty: 1 on 06/19/2024 by Sky Diaz MD at [facility] Left: Hip Becerra [employer] Nephew/Richco/Or tho [id number] 07/23/2033 [id number] / / [id number] [place] [address] MEDICARE [facility] Address: [address] [address] [place] [address] [facility] Advance Directives For more information, please contact: [phone] Documents on File Type Date Recorded Patient Vp Research Expl anation ADVANCE DIRECTIVE 06/21/2024 10:54 AM Power of Detective Homicide Squad-Medical * Full Code (Latest Code Status on [...] specifically selected below: No intubation Care Teams Internet Sales Associate Relationship Specialty Start Date End Date Jay Soriano MD PCP - General Internal Medicine 09/08/23 MaddyJuan Carlos awan Si, MD [address] [address] [place] [address] [place] [id number] Consulting Physician Neurology 05/04/24
[2024-11-18 01:30] LABS: Band Neutrophils Percent 7 % (0-6); Eosinophils Absolute Manual 0.09 K/mm3 (0.02-0.50); Eosinophils Percent Manual 1 % (0-4); Lymphocytes Absolute Manual 1.47 K/mm3 (1.1-4.5); Lymphocytes Percent Manual 16.0 % (18-44); Monocytes Absolute Manual 0.92 K/mm3 (0.1-0.90); Monocytes Percent Manual 10 % (3-9); Neutrophils Absolute Manual 6.71 K/mm3 (1.3-6.7); Neutrophils Percent Manual 66 % (46-73); Total Cells Counted 100
[2024-11-18 01:31] LABS: Schistocytes None Seen
[2024-11-18 01:32] LABS: Hypochromasia 1+
[2024-11-18 01:50] LABS: Add Urine Microscopic? YES; Appearance Urine Clear (Clear); Glucose Urine UA Negative (Negative); Leukocyte Esterase Ur Trace LEU/UL (Negative); Need Manual Microscopic Reviewed; Nitrate Urine Negative (Negative); Non Pathogenic Casts 0-2; Specific Grav Ur 1.027 (1.001-1.035)
[2024-11-18] MEDS: CEFEPIME 1 GM/NS 50 ML 1 GM/50 ML BAG IVPB (02:15)
[2024-11-18 02:25] LABS: Alveolar/Arterial O2 Gradient 193.3 mmHg; Carboxyhemoglobin 0.5 % THb (0-2.0); Fractional Inspired Oxygen 40 %; HCO3 ABG 21.9 mEq/l (22.0-26.0); Methemoglobin ABG 0.3 %THb (0-1.5); Oxygen Content ABG 12.9 %vol (16.0-22.0); Oxygen Saturation ABG 91.5 % (95.0-100.0); PCO2 ABG 30.8 mmHg (35.0-45.0); PO2 ABG 56.5 mmHg (80.0-100.0); PO2 FiO2 Ratio Arterial Blood 1.41 %; Reduced Hemoglobin 10.9 %THb (0-5.0)
[2024-11-18 02:27] LABS: Liters per Minute 5.0 LPM; Modified Allen's Test Pass; Site Drawn RIGHT RADIAL
[2024-11-18] MEDS: VANCOMYCIN 1,250 MG/NS 250 ML 1,250 MG/250 ML BAG 166.67 MG IVPB (02:51)
[2024-11-18] MEDS: LACTATED RINGERS 1,000 ML 150 ML IV CONT (04:09)
[2024-11-18 04:43] LABS: MRSA (PCR) DETECTED (NOT DETECTE)
--- NOTE | 2024-11-18 05:27 | WNDPHOTO ---
PHOTO ONLY - See Nursing Notes and/ or assessments for documentation.
--- NOTE | 2024-11-18 05:50 | WNDPHOTO ---
PHOTO ONLY - See Nursing Notes and/ or assessments for documentation.
--- NOTE | 2024-11-18 05:53 | WNDPHOTO ---
PHOTO ONLY - See Nursing Notes and/ or assessments for documentation.
--- NOTE | 2024-11-18 06:00 | WNDPHOTO ---
PHOTO ONLY - See Nursing Notes and/ or assessments for documentation.
--- NOTE | 2024-11-18 06:07 | ADMGEN ---
This patient, Chris Cooley, was admitted to IMU Room 202-01. Patient/family oriented to hospital policies and general routines including ID bracelet, bed and alarms, visiting hours, pain management, procedures, bathroom and other care routines, personal items, smoking policy, room service/diet, and visiting hours. Information on how to activate the Rapid Response Team has been discussed. Patient/Family are encouraged to report perceived risks to care and to ask questions if they do not understand what they are told or what they should do.
[2024-11-18 06:21] LABS: Influenza A QL RT-PCR Negative (Negative); Influenza B QL RT-PCR Negative (Negative); RSV RNA, RT-PCR Negative (Negative); SARS-CoV-2 RNA PCR Negative (Negative)
--- NOTE | 2024-11-18 06:31 | PM.IMHP ---
H&P: HPI History of Present Illness Date/Time: 11/18/24 06:31 Chief Complaint: Difficulty breathing Narrative: 79-year-old male with a past medical history of essential hypertension, CVA, vascular dementia, hyperlipidemia and GERD who presented to the ER from [facility] due to difficulty breathing. Her prior documentation patient is baseline oriented times 1-2 at baseline. At the time my evaluation patient was actually able to tell me his name and that we were at the hospital in [place] and stated the appropriate year but thought the month was October. Further information was difficult to obtain as patient was too weak to speak loud enough to be heard over the Airvo. As such the majority of the history was obtained from review of past medical records and ER physician report. The patient was recently hospitalized 10/24/2024 through 11/01/[address] at that time demonstrated pneumonia with concern for possible aspiration. He was treated with Rocephin doxy and Flagyl. Urine Legionella pneumococcal antigens were negative and mycoplasma titer was negative. His antibiotics were switched to Zyvox and was discharged back to nursing facility with 5 more days of antibiotic treatment.. On arrival to the ER patient was lethargic. EMS reported the patient was satting 86% on 2 L at the [facility]. In the ER he was noted to be intermittently mucus plugging. 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 His mucous with suctioning was brown to green in color per respiratory therapy report. Patient was afebrile on presentation. He was noted to be tachycardic and significantly tachypneic. He was tried on CPAP but did not tolerate was switched to Airvo and is currently on Airvo 40 L at 50% satting 99%. Chest x-ray demonstrated possible left lower lobe pneumonia. Patient was placed on empiric antibiotic therapy for severe community-acquired pneumonia with cefepime and vancomycin. MRSA screen was obtained which was positive. Patient was admitted to IMU for further treatment. ER physician reported that she talked to the patient's who states the patient has acutely decompensated with his dementia with somewhat rapid progression over the last several months. The patient's his she stated that she wants patient to be a full code but is interested in possible palliative care consult for further information. Patient was admitted in this setting. Review of Systems Review of Systems: Review of systems limited due to patient condition. Patient is having trouble verbalizing due to weakness. [facility] Past Medical History Medical History (Updated 11/18/24 @ 08:06 by Tressa Srivastava DO) Failure of left total hip arthroplasty with dislocation of hip Hyperlipidemia GERD (gastroesophageal reflux disease) Dementia Hypertension CVA (cerebral vascular accident) Surgical History Surgical History (Updated 11/18/24 @ 07:46 by Tressa Srivastava DO) History of hemiarthroplasty of hip Left hip Family History Family History (Updated 10/24/24 @ 08:06 by Laisha Kenyon RN) Other Unknown family medical history Social History Social History Smoking status: Former smoker Alcohol intake: former Substance use: unknown Substance use type: unknown Last use: 50 yrs ago Do You Feel Safe in your Home?: Yes Lack of Transportation: No Lack of Food: Never True Current Housing: I Have Housing Concerned About Future Housing: No Difficulty Paying Gas/Electric Bills: No Difficulty Paying for Meds: No Currently Unemployed: No Education: High School Diploma/GED Difficulty w/ Childcare or Family Care: No Spiritual care concerns: No Meds Home Medications and Allergies Home Medications ?Medication ?Instructions ?Recorded ?Confirmed ?Type acetaminophen 325 mg capsule 650 mg PO Q8H pain 07/29/24 11/18/24 History aspirin 81 mg tablet,delayed 81 mg PO HS 07/29/24 11/18/24 History release (Adult Aspirin Regimen) atorvastatin 20 mg tablet 20 mg PO HS 07/29/24 11/18/24 History bisacodyl 5 mg tablet,delayed 10 mg PO DAILY 07/29/24 11/18/24 History release bupropion HCl 100 mg tablet,12 hr 100 mg PO DAILY 07/29/24 11/18/24 History sustained-release (Wellbutrin SR) magnesium hydroxide 400 mg/5 mL 30 ml PO DAILY PRN constipation 07/29/24 11/18/24 History oral suspension (Dulcolax (magnesium hydroxide)) metoprolol tartrate 25 mg tablet 25 mg PO Q12H 07/29/24 11/18/24 History pantoprazole 20 mg tablet,delayed 20 mg PO BID 07/29/24 11/18/24 History release polyethylene glycol 3350 17 17 g PO DAILY 07/29/24 11/18/24 History gram/dose oral powder (Miralax) sennosides 8.6 mg tablet (senna) 8.6 mg PO BID 07/29/24 11/18/24 History tramadol 50 mg tablet 50 mg PO Q6H PRN pain (scale score 07/29/24 11/18/24 History 4-6) melatonin 3 mg capsule 3 mg PO HS PRN insomnia 10/24/24 11/18/24 History sertraline 50 mg tablet 50 mg PO DAILY 10/24/24 11/18/24 History Allergies Allergy/AdvReac Type Severity Reaction Status Date / Time No Known Allergies Allergy Verified 10/24/24 08:03 Vital Signs Vital Signs - 24 hr 11/18/24 00:34 11/18/24 00:40 11/18/24 00:59 Temperature 97.8 F Pulse Rate 96 97 101 H Respiratory Rate 26 H 22 H 24 H Blood Pressure 123/69 Pulse Oximetry 92 Oxygen Delivery Room Air Oxygen Flow Rate Fraction of Inspired Oxygen 11/18/24 01:09 11/18/24 01:16 11/18/24 01:34 Temperature Pulse Rate 113 H 116 H 118 H Respiratory Rate 27 H 21 H 28 H Blood Pressure 150/59 H 93/60 L 106/72 Pulse Oximetry 92 85 L 91 Oxygen Delivery Oxygen Flow Rate Fraction of Inspired Oxygen 11/18/24 01:46 11/18/24 02:01 11/18/24 02:15 Temperature Pulse Rate 110 H 128 H 102 H Respiratory Rate 36 H 27 H 32 H Blood Pressure 126/71 121/83 Pulse Oximetry 91 91 Oxygen Delivery Oxygen Flow Rate Fraction of Inspired Oxygen 11/18/24 02:46 11/18/24 03:01 11/18/24 03:15 Temperature Pulse Rate 110 H 116 H 116 H Respiratory Rate 35 H 36 H 28 H Blood Pressure 122/67 127/69 Pulse Oximetry 98 90 97 Oxygen Delivery High Flow Therapy with Na Oxygen Flow Rate 40 Fraction of Inspired Oxygen 50 11/18/24 03:15 11/18/24 03:16 11/18/24 04:00 Temperature Pulse Rate 106 H 109 H 107 H Respiratory Rate 32 H 32 H 31 H Blood Pressure 146/73 H Pulse Oximetry 96 98 95 Oxygen Delivery Oxygen Flow Rate Fraction of Inspired Oxygen 11/18/24 04:01 11/18/24 04:15 11/18/24 04:16 Temperature Pulse Rate 105 H 110 H 106 H Respiratory Rate 31 H 28 H 36 H Blood Pressure 122/79 148/81 H Pulse Oximetry 96 97 96 Oxygen Delivery Oxygen Flow Rate Fraction of Inspired Oxygen 11/18/24 04:22 11/18/24 05:04 11/18/24 05:15 Temperature 99.6 F Pulse Rate 107 H 102 H Respiratory Rate 36 H 23 H Blood Pressure 160/82 H 139/67 Pulse Oximetry 93 99 Oxygen Delivery Oxygen Flow Rate Fraction of Inspired Oxygen 50 Exam Narrative: Weight 52 kg BMI 15.5 Const: Other: Acutely ill-appearing, cachectic, deconditioned, elderly HENMT: Other: Airvo in place, mucous membranes are dry, no oral pharyngeal erythema Eyes: Other: Bilateral lens implants noted, positive conjunctival pallor, no scleral icterus Neck: Other: No JVD, no lymphadenopathy Resp: Other: Rhonchi anterior lung corona with labored respirations, frequent productive cough with difficulty clearing secretions Cardio: Other: Sinus tachycardia, 2+ bilateral radial pulses, weak bilateral pedal pulses GI: Other: Hyperactive bowel sounds, nontender, nondistended Skin: Other: Generalized pallor, non jaundice, eschar to the lateral left foot, eschar to the posterior heel of the left foot, blanchable erythema to the left scapula, blanchable erythema to about level T4, blanchable erythema to the T12 spinous process, decubitus ulcer to the buttocks Neuro: Other: Patient is alert oriented to name, place and year he is confused as to the month, speech is slow, patient is markedly tremulous of all extremities with increased tone of upper extremities Extrem: Other: Left lower extremity is internally rotated with chronic dislocation of the left hip, foot wound as discussed above, generalized muscle wasting of all extremities Psych: Other: Pleasantly confused, cooperative H&P: Results Labs Labs: Laboratory Tests 11/18/24 00:43 11/18/24 00:43 11/18/24 11/18/24 11/18/24 00:43 00:43 00:43 WBC 9.2 RBC 3.54 L Hgb 10.3 L Hct 32.2 L MCV 91.0 MCH 29.1 MCHC 32.0 RDW 15.8 H Plt Count 286 MPV 12.1 H Immature Gran % (Auto) Not Reportable Neut % (Auto) Not Reportable Lymph % (Auto) Not Reportable Sargent % (Auto) Not Reportable Eos % (Auto) Not Reportable Baso % (Auto) Not Reportable Lymph # (Auto) Not Reportable Sargent # (Auto) Not Reportable Eos # (Auto) Not Reportable Baso # (Auto) Not Reportable Abs Immat Gran (auto) Not Reportable Absolute Neuts (auto) Not Reportable Absolute Nucleated RBC Not Reportable Total Counted 100 Neutrophils % (Manual) 66 Band Neutrophils % 7 H Lymphocytes % (Manual) 16.0 L Monocytes % (Manual) 10 H Eosinophils % (Manual) 1 Nucleated RBC % Not Reportable Abs Neuts (Manual) 6.71 H Abs Lymphs (Manual) 1.47 Abs Monocytes (Manual) 0.92 H Absolute Eos (Manual) 0.09 Platelet Estimate Adequate Hypochromasia 1+ Schistocytes None seen Puncture Site ABG pH ABG pCO2 ABG pO2 ABG PO2/FiO2 Ratio ABG HCO3 ABG O2 Saturation ABG O2 Content ABG Base Excess A-a Gradient Oxyhemoglobin Carboxyhemoglobin Methemoglobin Reduced Hemoglobin Total Hemoglobin O2 Delivery Device O2 Liters/Min FiO2 Sodium Cancelled 138 Potassium Cancelled 3.2 L Chloride Cancelled Carbon Dioxide Anion Gap BUN Creatinine Estim Creat Clear Calc Estimated GFR Glucose Lactic Acid Calcium Total Bilirubin AST ALT Alkaline Phosphatase NT-Pro-B Natriuret Pep Total Protein Albumin Urine Color Urine Appearance Urine pH Ur Specific Dearing Urine Protein Urine Glucose (UA) Urine Ketones Ur Blood (Man) Urine Nitrate Urine Bilirubin Urine Urobilinogen Add Ur Microanalysis Leukocyte Esterase Rfl Urine RBC Urine WBC Ur Squamous Epith Cells Urine Bacteria Urine Casts Nasal MRSA (PCR) Influenza A (RT-PCR) Influenza B (RT-PCR) RSV (RT-PCR) SARS-CoV-2 RNA (RT-PCR) 11/18/24 11/18/24 11/18/24 00:43 00:43 00:43 WBC RBC Hgb Hct MCV MCH MCHC RDW Plt Count MPV Immature Gran % (Auto) Neut % (Auto) Lymph % (Auto) Sargent % (Auto) Eos % (Auto) Baso % (Auto) Lymph # (Auto) Sargent # (Auto) Eos # (Auto) Baso # (Auto) Abs Immat Gran (auto) Absolute Neuts (auto) Absolute Nucleated RBC Total Counted Neutrophils % (Manual) Band Neutrophils % Lymphocytes % (Manual) Monocytes % (Manual) Eosinophils % (Manual) Nucleated RBC % Abs Neuts (Manual) Abs Lymphs (Manual) Abs Monocytes (Manual) Absolute Eos (Manual) Platelet Estimate Hypochromasia Schistocytes Puncture Site ABG pH ABG pCO2 ABG pO2 ABG PO2/FiO2 Ratio ABG HCO3 ABG O2 Saturation ABG O2 Content ABG Base Excess A-a Gradient Oxyhemoglobin Carboxyhemoglobin Methemoglobin Reduced Hemoglobin Total Hemoglobin O2 Delivery Device O2 Liters/Min FiO2 Sodium Potassium Chloride 103 Carbon Dioxide Cancelled 27 Anion Gap Cancelled 8 BUN Cancelled Creatinine Estim Creat Clear Calc Estimated GFR Glucose Lactic Acid Calcium Total Bilirubin AST ALT Alkaline Phosphatase NT-Pro-B Natriuret Pep Total Protein Albumin Urine Color Urine Appearance Urine pH Ur Specific Dearing Urine Protein Urine Glucose (UA) Urine Ketones Ur Blood (Man) Urine Nitrate Urine Bilirubin Urine Urobilinogen Add Ur Microanalysis Leukocyte Esterase Rfl Urine RBC Urine WBC Ur Squamous Epith Cells Urine Bacteria Urine Casts Nasal MRSA (PCR) Influenza A (RT-PCR) Influenza B (RT-PCR) RSV (RT-PCR) SARS-CoV-2 RNA (RT-PCR) 11/18/24 11/18/24 11/18/24 00:43 00:43 00:43 WBC RBC Hgb Hct MCV MCH MCHC RDW Plt Count MPV Immature Gran % (Auto) Neut % (Auto) Lymph % (Auto) Sargent % (Auto) Eos % (Auto) Baso % (Auto) Lymph # (Auto) Sargent # (Auto) Eos # (Auto) Baso # (Auto) Abs Immat Gran (auto) Absolute Neuts (auto) Absolute Nucleated RBC Total Counted Neutrophils % (Manual) Band Neutrophils % Lymphocytes % (Manual) Monocytes % (Manual) Eosinophils % (Manual) Nucleated RBC % Abs Neuts (Manual) Abs Lymphs (Manual) Abs Monocytes (Manual) Absolute Eos (Manual) Platelet Estimate Hypochromasia Schistocytes Puncture Site ABG pH ABG pCO2 ABG pO2 ABG PO2/FiO2 Ratio ABG HCO3 ABG O2 Saturation ABG O2 Content ABG Base Excess A-a Gradient Oxyhemoglobin Carboxyhemoglobin Methemoglobin Reduced Hemoglobin Total Hemoglobin O2 Delivery Device O2 Liters/Min FiO2 Sodium Potassium Chloride Carbon Dioxide Anion Gap BUN 27 H Creatinine Cancelled 0.76 Estim Creat Clear Calc Cancelled Not Reportable Estimated GFR Cancelled Glucose Lactic Acid Calcium Total Bilirubin AST ALT Alkaline Phosphatase NT-Pro-B Natriuret Pep Total Protein Albumin Urine Color Urine Appearance Urine pH Ur Specific Dearing Urine Protein Urine Glucose (UA) Urine Ketones Ur Blood (Man) Urine Nitrate Urine Bilirubin Urine Urobilinogen Add Ur Microanalysis Leukocyte Esterase Rfl Urine RBC Urine WBC Ur Squamous Epith Cells Urine Bacteria Urine Casts Nasal MRSA (PCR) Influenza A (RT-PCR) Influenza B (RT-PCR) RSV (RT-PCR) SARS-CoV-2 RNA (RT-PCR) 11/18/24 11/18/24 11/18/24 00:43 00:43 00:43 WBC RBC Hgb Hct MCV MCH MCHC RDW Plt Count MPV Immature Gran % (Auto) Neut % (Auto) Lymph % (Auto) Sargent % (Auto) Eos % (Auto) Baso % (Auto) Lymph # (Auto) Sargent # (Auto) Eos # (Auto) Baso # (Auto) Abs Immat Gran (auto) Absolute Neuts (auto) Absolute Nucleated RBC Total Counted Neutrophils % (Manual) Band Neutrophils % Lymphocytes % (Manual) Monocytes % (Manual) Eosinophils % (Manual) Nucleated RBC % Abs Neuts (Manual) Abs Lymphs (Manual) Abs Monocytes (Manual) Absolute Eos (Manual) Platelet Estimate Hypochromasia Schistocytes Puncture Site ABG pH ABG pCO2 ABG pO2 ABG PO2/FiO2 Ratio ABG HCO3 ABG O2 Saturation ABG O2 Content ABG Base Excess A-a Gradient Oxyhemoglobin Carboxyhemoglobin Methemoglobin Reduced Hemoglobin Total Hemoglobin O2 Delivery Device O2 Liters/Min FiO2 Sodium Potassium Chloride Carbon Dioxide Anion Gap BUN Creatinine Estim Creat Clear Calc Estimated GFR > 60 Glucose Cancelled 101 Lactic Acid 2.1 H Calcium Cancelled 9.2 Total Bilirubin Cancelled AST ALT Alkaline Phosphatase NT-Pro-B Natriuret Pep Total Protein Albumin Urine Color Urine Appearance Urine pH Ur Specific Dearing Urine Protein Urine Glucose (UA) Urine Ketones Ur Blood (Man) Urine Nitrate Urine Bilirubin Urine Urobilinogen Add Ur Microanalysis Leukocyte Esterase Rfl Urine RBC Urine WBC Ur Squamous Epith Cells Urine Bacteria Urine Casts Nasal MRSA (PCR) Influenza A (RT-PCR) Influenza B (RT-PCR) RSV (RT-PCR) SARS-CoV-2 RNA (RT-PCR) 11/18/24 11/18/24 11/18/24 00:43 00:43 00:43 WBC RBC Hgb Hct MCV MCH MCHC RDW Plt Count MPV Immature Gran % (Auto) Neut % (Auto) Lymph % (Auto) Sargent % (Auto) Eos % (Auto) Baso % (Auto) Lymph # (Auto) Sargent # (Auto) Eos # (Auto) Baso # (Auto) Abs Immat Gran (auto) Absolute Neuts (auto) Absolute Nucleated RBC Total Counted Neutrophils % (Manual) Band Neutrophils % Lymphocytes % (Manual) Monocytes % (Manual) Eosinophils % (Manual) Nucleated RBC % Abs Neuts (Manual) Abs Lymphs (Manual) Abs Monocytes (Manual) Absolute Eos (Manual) Platelet Estimate Hypochromasia Schistocytes Puncture Site ABG pH ABG pCO2 ABG pO2 ABG PO2/FiO2 Ratio ABG HCO3 ABG O2 Saturation ABG O2 Content ABG Base Excess A-a Gradient Oxyhemoglobin Carboxyhemoglobin Methemoglobin Reduced Hemoglobin Total Hemoglobin O2 Delivery Device O2 Liters/Min FiO2 Sodium Potassium Chloride Carbon Dioxide Anion Gap BUN Creatinine Estim Creat Clear Calc Estimated GFR Glucose Lactic Acid Calcium Total Bilirubin 0.5 AST Cancelled 62 H ALT Cancelled 40 Alkaline Phosphatase Cancelled NT-Pro-B Natriuret Pep Total Protein Albumin Urine Color Urine Appearance Urine pH Ur Specific Dearing Urine Protein Urine Glucose (UA) Urine Ketones Ur Blood (Man) Urine Nitrate Urine Bilirubin Urine Urobilinogen Add Ur Microanalysis Leukocyte Esterase Rfl Urine RBC Urine WBC Ur Squamous Epith Cells Urine Bacteria Urine Casts Nasal MRSA (PCR) Influenza A (RT-PCR) Influenza B (RT-PCR) RSV (RT-PCR) SARS-CoV-2 RNA (RT-PCR) 11/18/24 11/18/24 11/18/24 00:43 00:43 00:43 WBC RBC Hgb Hct MCV MCH MCHC RDW Plt Count MPV Immature Gran % (Auto) Neut % (Auto) Lymph % (Auto) Sargent % (Auto) Eos % (Auto) Baso % (Auto) Lymph # (Auto) Sargent # (Auto) Eos # (Auto) Baso # (Auto) Abs Immat Gran (auto) Absolute Neuts (auto) Absolute Nucleated RBC Total Counted Neutrophils % (Manual) Band Neutrophils % Lymphocytes % (Manual) Monocytes % (Manual) Eosinophils % (Manual) Nucleated RBC % Abs Neuts (Manual) Abs Lymphs (Manual) Abs Monocytes (Manual) Absolute Eos (Manual) Platelet Estimate Hypochromasia Schistocytes Puncture Site ABG pH ABG pCO2 ABG pO2 ABG PO2/FiO2 Ratio ABG HCO3 ABG O2 Saturation ABG O2 Content ABG Base Excess A-a Gradient Oxyhemoglobin Carboxyhemoglobin Methemoglobin Reduced Hemoglobin Total Hemoglobin O2 Delivery Device O2 Liters/Min FiO2 Sodium Potassium Chloride Carbon Dioxide Anion Gap BUN Creatinine Estim Creat Clear Calc Estimated GFR Glucose Lactic Acid Calcium Total Bilirubin AST ALT Alkaline Phosphatase 90 NT-Pro-B Natriuret Pep 3280 H Total Protein Cancelled 6.2 L Albumin Cancelled 3.2 L Urine Color Urine Appearance Urine pH Ur Specific Dearing Urine Protein Urine Glucose (UA) Urine Ketones Ur Blood (Man) Urine Nitrate Urine Bilirubin Urine Urobilinogen Add Ur Microanalysis Leukocyte Esterase Rfl Urine RBC Urine WBC Ur Squamous Epith Cells Urine Bacteria Urine Casts Nasal MRSA (PCR) Influenza A (RT-PCR) Influenza B (RT-PCR) RSV (RT-PCR) SARS-CoV-2 RNA (RT-PCR) 11/18/24 11/18/24 11/18/24 01:18 02:19 03:19 WBC RBC Hgb Hct MCV MCH MCHC RDW Plt Count MPV Immature Gran % (Auto) Neut % (Auto) Lymph % (Auto) Sargent % (Auto) Eos % (Auto) Baso % (Auto) Lymph # (Auto) Sargent # (Auto) Eos # (Auto) Baso # (Auto) Abs Immat Gran (auto) Absolute Neuts (auto) Absolute Nucleated RBC Total Counted Neutrophils % (Manual) Band Neutrophils % Lymphocytes % (Manual) Monocytes % (Manual) Eosinophils % (Manual) Nucleated RBC % Abs Neuts (Manual) Abs Lymphs (Manual) Abs Monocytes (Manual) Absolute Eos (Manual) Platelet Estimate Hypochromasia Schistocytes Puncture Site Right radial ABG pH 7.470 H ABG pCO2 30.8 L ABG pO2 56.5 L ABG PO2/FiO2 Ratio 1.41 ABG HCO3 21.9 L ABG O2 Saturation 91.5 L ABG O2 Content 12.9 L ABG Base Excess -1.1 A-a Gradient 193.3 Oxyhemoglobin 88.3 L Carboxyhemoglobin 0.5 Methemoglobin 0.3 Reduced Hemoglobin 10.9 H Total Hemoglobin 10.4 L O2 Delivery Device Nasal cannula O2 Liters/Min 5.0 FiO2 40 Sodium Potassium Chloride Carbon Dioxide Anion Gap BUN Creatinine Estim Creat Clear Calc Estimated GFR Glucose Lactic Acid Calcium Total Bilirubin AST ALT Alkaline Phosphatase NT-Pro-B Natriuret Pep Total Protein Albumin Urine Color Yellow Urine Appearance Clear Urine pH 5.5 Ur Specific Dearing 1.027 Urine Protein 1+ H Urine Glucose (UA) Negative Urine Ketones Negative Ur Blood (Man) Negative Urine Nitrate Negative Urine Bilirubin Negative Urine Urobilinogen 1.0 Add Ur Microanalysis Reviewed Leukocyte Esterase Rfl Trace H Urine RBC 0-2 Urine WBC 0-5 Ur Squamous Epith Cells None seen Urine Bacteria None seen Urine Casts 0-2 Nasal MRSA (PCR) Detected A* Influenza A (RT-PCR) Influenza B (RT-PCR) RSV (RT-PCR) SARS-CoV-2 RNA (RT-PCR) 11/18/24 11/18/24 03:24 05:40 WBC RBC Hgb Hct MCV MCH MCHC RDW Plt Count MPV Immature Gran % (Auto) Neut % (Auto) Lymph % (Auto) Sargent % (Auto) Eos % (Auto) Baso % (Auto) Lymph # (Auto) Sargent # (Auto) Eos # (Auto) Baso # (Auto) Abs Immat Gran (auto) Absolute Neuts (auto) Absolute Nucleated RBC Total Counted Neutrophils % (Manual) Band Neutrophils % Lymphocytes % (Manual) Monocytes % (Manual) Eosinophils % (Manual) Nucleated RBC % Abs Neuts (Manual) Abs Lymphs (Manual) Abs Monocytes (Manual) Absolute Eos (Manual) Platelet Estimate Hypochromasia Schistocytes Puncture Site ABG pH ABG pCO2 ABG pO2 ABG PO2/FiO2 Ratio ABG HCO3 ABG O2 Saturation ABG O2 Content ABG Base Excess A-a Gradient Oxyhemoglobin Carboxyhemoglobin Methemoglobin Reduced Hemoglobin Total Hemoglobin O2 Delivery Device O2 Liters/Min FiO2 Sodium Potassium Chloride Carbon Dioxide Anion Gap BUN Creatinine Estim Creat Clear Calc Estimated GFR Glucose Lactic Acid 4.5 H* Calcium Total Bilirubin AST ALT Alkaline Phosphatase NT-Pro-B Natriuret Pep Total Protein Albumin Urine Color Urine Appearance Urine pH Ur Specific Dearing Urine Protein Urine Glucose (UA) Urine Ketones Ur Blood (Man) Urine Nitrate Urine Bilirubin Urine Urobilinogen Add Ur Microanalysis Leukocyte Esterase Rfl Urine RBC Urine WBC Ur Squamous Epith Cells Urine Bacteria Urine Casts Nasal MRSA (PCR) Influenza A (RT-PCR) Negative Influenza B (RT-PCR) Negative RSV (RT-PCR) Negative SARS-CoV-2 RNA (RT-PCR) Negative Impressions Chest X-Ray 11/18/24 05:50 Impression: Probable left basilar pneumonia. EKG: Sinus tachycardia rate 116 ST deviation moderate T-wave abnormality consider lateral ischemia interpretation severely impaired by baseline artifact throughout QTC 474. Cardiology interpretation pending All imaging and EKGs personally reviewed and interpreted. And unless stated otherwise agree with radiologic and cardiology interpretation. Assessment and Plan Assessment and plan (1) Sepsis: Qualifiers: Sepsis type: sepsis due to unspecified organism Sepsis acute organ dysfunction status: with acute organ dysfunction Severe sepsis acute organ dysfunction type: acute respiratory failure Acute respiratory failure type: with hypoxia Severe sepsis shock status: without septic shock Qualified Code(s): A41.9 - Sepsis, unspecified organism; R65.20 - Severe sepsis without septic shock; J96.01 - Acute respiratory failure with hypoxia Code(s): A41.9 - Sepsis, unspecified organism Status: Acute (2) Acute hypoxic respiratory failure: Code(s): J96.01 - Acute respiratory failure with hypoxia Status: Acute (3) MRSA colonization: Code(s): Z22.322 - Carrier or suspected carrier of Methicillin resistant Staphylococcus aureus Status: Acute (4) Hypokalemia: Code(s): E87.6 - Hypokalemia Status: Acute (5) Lactic acidosis: Code(s): E87.20 - Acidosis, unspecified Status: Acute Plan Patient has severe sepsis with lactic acidosis, bandemia tachycardia and tachypnea with high oxygen requirement requiring respiratory support with Airvo. Patient been placed on broad-spectrum antibiotic coverage with cefepime, and vancomycin in the ER. Will add azithromycin. MRSA screen was positive but patient has known history for MRSA colonization. Given thick purulent-appearing sputum sputum cultures been sent down for culture and Gram stain. The patient has weak cough and difficulty clearing secretions. CPT is been ordered. Will schedule nebulizer treatments. Pulmonology has been consulted. It is unclear if the patient had swallow eval during last hospitalization I suspect that he did have swallow eval but I cannot locate documentation. Will place patient on aspiration precautions. Given the worsening lactic acidosis will give the patient 1 L fluid bolus the which given the patient's size is close to the patient's 30 mL/kilos fluid requirement given that he has already received 3/4 of a L in the ER. Will in place patient on 100 mL an hour and monitor fluid status closely. Patient has severe protein calorie malnutrition in his had progressive decline in his functional status in recent months. The ER physician reported that the patient's is interested in hearing more information about palliative care subsequently care coordination consult has been placed. Patient had some mild hypokalemia noted on labs in the ER. Potassium supplements were ordered. Will check repeat electrolyte panel and magnesium level with a.m. labs. Will continue GI prophylaxis with Protonix. Will wean oxygen as tolerated. Will repeat lactic acid level after fluid bolus and re-evaluate. Patient has severe protein calorie malnutrition with cachexia. Will provide nutritional supplementation. Clinical condition: Critical Prognosis: Poor MEDICAL DECISION MAKING NARRATIVE -Spoke with the ED provider in detail regarding patient's evaluation, workup and management -Patient seen and examined at bedside -Collaborated with patient's nurse at the bedside in detail and addressed all concerns -Labs, electrolytes, radiology, investigations and test results reviewed -ED/Consult/Nursing/Ancilliary notes on the chart reviewed and appreciated Quality VTE Prophylaxis VTE prophylaxis: mechanical ordered (SCDs) Hospitalist MIPS Advance Care Plan I have confirmed that the patient's Advanced Care Plan is present, code status is documented, or surrogate decision maker is listed in patient medical record.: Yes Medication Reconciliation I have utilized all available resources to obtain, update and review the patients current medications (includes all prescriptions, OTC, herbals, cannabis, and nutritional supplements).: Yes
[2024-11-18] MEDS: SODIUM CHLORIDE 0.9% IV 1,000 ML 999 ML IV CONT (08:18)
[2024-11-18] MEDS: AZITHROMYCIN 500 MG/NS 250 ML 500 MG/250 ML BAG 250 MG IVPB (08:18)
[2024-11-18] MEDS: buPROPion HCL SR (12HR) 100 MG TABCR PO (09:13)
[2024-11-18] MEDS: SERTRALINE HCL 50 MG TABLET PO (09:13)
[2024-11-18] MEDS: METOPROLOL TARTRATE 25 MG TABLET PO ×2 (09:14→20:45)
[2024-11-18] MEDS: BISACODYL 5 MG TABLET EC 10 MG PO (09:14)
[2024-11-18] MEDS: SENNOSIDES 8.6 MG TABLET 17.2 MG PO ×2 (09:14→20:40)
[2024-11-18] MEDS: PANTOPRAZOLE SOD SESQUIHYDRATE 20 MG TAB PO (09:15)
[2024-11-18] MEDS: SODIUM CHLORIDE 0.9% IV 1,000 ML 100 ML IV CONT ×2 (11:00→20:40)
[2024-11-18] MEDS: CEFEPIME 2 GM/NS 50 ML 2 GM/50 ML BAG IVPB (11:01)
--- NOTE | 2024-11-18 19:17 | PM.IMPN ---
Progress Note: A&P Assessment and Plan (1) Sepsis: Qualifiers: Sepsis type: sepsis due to unspecified organism Sepsis acute organ dysfunction status: with acute organ dysfunction Severe sepsis acute organ dysfunction type: acute respiratory failure Acute respiratory failure type: with hypoxia Severe sepsis shock status: without septic shock Qualified Code(s): A41.9 - Sepsis, unspecified organism; R65.20 - Severe sepsis without septic shock; J96.01 - Acute respiratory failure with hypoxia Code(s): A41.9 - Sepsis, unspecified organism Status: Acute Assessment and Plan: Patient has severe sepsis with lactic acidosis, bandemia, tachycardia and tachypnea with acute respiratory failure. CXR showing probable left basilar PNA. Patient given 30mL/kg fluid resuscitation. Remains on IV fluids. COVID, RSV and influenza PCR negative. MRSA nasal swab positive. BCx pending Sputum Cx pending Started on broad-spectrum antibiotic coverage with cefepime, vancomycin and azithromycin. Hx of dysphagia with abnormal swallow eval last admission. Aspiration precautions. The patient has weak cough and difficulty clearing secretions so CPT is been ordered. Follow up on cultures. (2) Acute hypoxic respiratory failure: Code(s): J96.01 - Acute respiratory failure with hypoxia Status: Acute Assessment and Plan: As above. Wean O2 as tolerated (3) MRSA colonization: Code(s): Z22.322 - Carrier or suspected carrier of Methicillin resistant Staphylococcus aureus Status: Acute Assessment and Plan: As above (4) Hypokalemia: Code(s): E87.6 - Hypokalemia Status: Acute Assessment and Plan: Potassium was low and replaced. Follow (5) Severe protein-calorie malnutrition: Code(s): E43 - Unspecified severe protein-calorie malnutrition Status: Acute Assessment and Plan: Patient has severe protein calorie malnutrition in his had progressive decline in his functional status in recent months. The ER physician reported that the patient's is interested in hearing more information about palliative care Care coordination consulted Started nutritional supplementation. (6) Dysphagia: Code(s): R13.10 - Dysphagia, unspecified Status: Acute Assessment and Plan: Patient a MBS 10/24/24 and speech therapy recommended minced and moist, level 5 diet with mildly thick level 2 liquids. Later Speech Therap notes micheline the patient was changed to Level 4 pureed diet. Start diet and monitored closely One on one supervision. Upright to eat. Minimize distractions, No straws, small bites/sips Plan DVT Prophylaxis - SCDs Code status - Full Subjective Date/time seen: 11/18/24 19:17 Interval history: 79yo male with HTN, CVA, vascular dementia, HLD and GERD who presented to the ER from shelter due to difficulty breathing. Patient is alert but confused with a wet cough. He is unable to provide hx. Exam Narrative: AF 98.0 168/66 68 22 99% 4L Gen - NARD Chest - mildly coarse BS, CV - RRR S1/S2. Tele showing PVCs and one episode of 5b run NSVT Abd - Soft, NT/ND, Positive BS Ext - No pedal edema Neuro - Alert but confused. Psych - calm and cooperative. Skin - Warm and dry Objective Data Vital Signs Vital Signs: Vital Signs - 24 hr 11/18/24 00:34 11/18/24 00:40 11/18/24 00:59 Temperature 97.8 F Pulse Rate 96 97 101 H Respiratory Rate 26 H 22 H 24 H Blood Pressure 123/69 Pulse Oximetry 92 Oxygen Delivery Room Air Oxygen Flow Rate Fraction of Inspired Oxygen 11/18/24 01:09 11/18/24 01:16 11/18/24 01:34 Temperature Pulse Rate 113 H 116 H 118 H Respiratory Rate 27 H 21 H 28 H Blood Pressure 150/59 H 93/60 L 106/72 Pulse Oximetry 92 85 L 91 Oxygen Delivery Oxygen Flow Rate Fraction of Inspired Oxygen 11/18/24 01:46 11/18/24 02:01 11/18/24 02:15 Temperature Pulse Rate 110 H 128 H 102 H Respiratory Rate 36 H 27 H 32 H Blood Pressure 126/71 121/83 Pulse Oximetry 91 91 Oxygen Delivery Oxygen Flow Rate Fraction of Inspired Oxygen 11/18/24 02:46 11/18/24 03:01 11/18/24 03:15 Temperature Pulse Rate 110 H 116 H 116 H Respiratory Rate 35 H 36 H 28 H Blood Pressure 122/67 127/69 Pulse Oximetry 98 90 97 Oxygen Delivery High Flow Therapy with Na Oxygen Flow Rate 40 Fraction of Inspired Oxygen 50 11/18/24 03:15 11/18/24 03:16 11/18/24 04:00 Temperature Pulse Rate 106 H 109 H 107 H Respiratory Rate 32 H 32 H 31 H Blood Pressure 146/73 H Pulse Oximetry 96 98 95 Oxygen Delivery Oxygen Flow Rate Fraction of Inspired Oxygen 11/18/24 04:01 11/18/24 04:15 11/18/24 04:16 Temperature Pulse Rate 105 H 110 H 106 H Respiratory Rate 31 H 28 H 36 H Blood Pressure 122/79 148/81 H Pulse Oximetry 96 97 96 Oxygen Delivery Oxygen Flow Rate Fraction of Inspired Oxygen 11/18/24 04:22 11/18/24 05:04 11/18/24 05:15 Temperature 99.6 F Pulse Rate 107 H 102 H Respiratory Rate 36 H 23 H Blood Pressure 160/82 H 139/67 Pulse Oximetry 93 99 Oxygen Delivery Oxygen Flow Rate Fraction of Inspired Oxygen 50 11/18/24 05:26 11/18/24 07:50 11/18/24 08:00 Temperature 98.2 F Pulse Rate 108 H 88 88 Respiratory Rate 24 H 24 H Blood Pressure 133/60 Pulse Oximetry 99 99 Oxygen Delivery High Flow Therapy with Na Oxygen Flow Rate 30 Fraction of Inspired Oxygen 35 11/18/24 08:00 11/18/24 08:00 11/18/24 09:14 Temperature Pulse Rate 86 84 Respiratory Rate Blood Pressure Pulse Oximetry 100 Oxygen Delivery High Flow Therapy with Fa Oxygen Flow Rate 30 Fraction of Inspired Oxygen 35 11/18/24 10:00 11/18/24 11:35 11/18/24 12:00 Temperature 98.2 F Pulse Rate 73 72 73 Respiratory Rate 20 26 H Blood Pressure 151/68 H Pulse Oximetry 100 100 Oxygen Delivery High Flow Nasal Cannula Oxygen Flow Rate 12 Fraction of Inspired Oxygen 11/18/24 12:00 11/18/24 14:00 11/18/24 16:00 Temperature 98 F Pulse Rate 78 75 71 Respiratory Rate 22 H Blood Pressure 168/66 H Pulse Oximetry 100 Oxygen Delivery Oxygen Flow Rate Fraction of Inspired Oxygen 11/18/24 16:00 11/18/24 18:00 11/18/24 18:24 Temperature Pulse Rate 69 68 Respiratory Rate Blood Pressure Pulse Oximetry 99 Oxygen Delivery High Flow Nasal Cannula Oxygen Flow Rate 4 Fraction of Inspired Oxygen Intake/Output Intake/Output: Intake & Output 11/15/24 11/16/24 11/17/24 11/18/24 23:59 23:59 23:59 23:59 Intake Total 742.5 Output Total 400 Balance 342.5 Meds/Results Medications: Active Medications Generic Name Dose Route Start Last Admin Trade Name Freq PRN Reason Stop Dose Admin Aspirin 81 mg 11/18/24 21:00 Aspirin 81 Mg Enteric Tablet PO HS AMELIA Bisacodyl 10 mg 11/18/24 09:00 11/18/24 09:14 Bisacodyl 5 Mg Tablet Ec PO 10 mg DAILY AMELIA Administration Bupropion HCl 100 mg 11/18/24 09:00 11/18/24 09:13 Bupropion Hcl Sr (12hr) 100 Mg Tabcr PO 100 mg DAILY AMELIA Administration Vancomycin HCl 750 mg in 250 mls @ 250 mls/hr 11/19/24 03:00 Vancomycin 750 Mg/Ns 250 Ml IVPB Q24H AMELIA Sodium Chloride 1,000 mls @ 100 mls/hr 11/18/24 08:30 11/18/24 11:00 Normal Saline Iv IV CONT 100 mls/hr .Q10H AMELIA Administration Azithromycin 500 mg/ Sodium 250 mls @ 250 mls/hr 11/19/24 09:00 Chloride IVPB Q24H AMELIA Cefepime HCl 2 gm/ Sodium 50 mls @ 100 mls/hr 11/18/24 21:00 Chloride IVPB Q12HR AMELIA Metoprolol Tartrate 25 mg 11/18/24 09:00 11/18/24 09:14 Metoprolol Tartrate 25 Mg Tablet PO 25 mg Q12HR AMELIA Administration Pantoprazole Sodium 20 mg 11/18/24 09:00 11/18/24 09:15 Pantoprazole Sod Sesquihydrate 20 Mg Tab PO 20 mg Q12HR AMELIA Administration Polyethylene Glycol 17 gm 11/18/24 09:00 11/18/24 18:57 Polyethylene Glycol 3350 17 Gm Powd.Pack PO Not Given DAILY [facility] Senna 17.2 mg 11/18/24 09:00 11/18/24 09:14 Sennosides 8.6 Mg Tablet PO 17.2 mg Q12HR AMELIA Administration Sertraline HCl 50 mg 11/18/24 09:00 11/18/24 09:13 Sertraline Hcl 50 Mg Tablet PO 50 mg DAILY AMELIA Administration Tramadol HCl 50 mg 11/18/24 06:33 Tramadol Hcl (*Crx) 50 Mg Tablet PO Q6H PRN Pain 4-10 Radiology Results: ITS Impressions Chest X-Ray 11/18/24 05:50 Impression: Probable left basilar pneumonia. Labs Labs: Laboratory Results - last 24 hr 11/18/24 11/18/24 11/18/24 00:43 00:43 00:43 WBC 9.2 RBC 3.54 L Hgb 10.3 L Hct 32.2 L MCV 91.0 MCH 29.1 MCHC 32.0 RDW 15.8 H Plt Count 286 MPV 12.1 H Immature Gran % (Auto) Not Reportable Neut % (Auto) Not Reportable Lymph % (Auto) Not Reportable [place] % (Auto) Not Reportable Eos % (Auto) Not Reportable Baso % (Auto) Not Reportable Lymph # (Auto) Not Reportable [place] # (Auto) Not Reportable Eos # (Auto) Not Reportable Baso # (Auto) Not Reportable Abs Immat Gran (auto) Not Reportable Absolute Neuts (auto) Not Reportable Absolute Nucleated RBC Not Reportable Total Counted 100 Neutrophils % (Manual) 66 Band Neutrophils % 7 H Lymphocytes % (Manual) 16.0 L Monocytes % (Manual) 10 H Eosinophils % (Manual) 1 Nucleated RBC % Not Reportable Abs Neuts (Manual) 6.71 H Abs Lymphs (Manual) 1.47 Abs Monocytes (Manual) 0.92 H Absolute Eos (Manual) 0.09 Platelet Estimate Adequate Hypochromasia 1+ Schistocytes None seen Puncture Site ABG pH ABG pCO2 ABG pO2 ABG PO2/FiO2 Ratio ABG HCO3 ABG O2 Saturation ABG O2 Content ABG Base Excess A-a Gradient Oxyhemoglobin Carboxyhemoglobin Methemoglobin Reduced Hemoglobin Total Hemoglobin O2 Delivery Device O2 Liters/Min FiO2 Sodium Cancelled 138 Potassium Cancelled 3.2 L Chloride Cancelled Carbon Dioxide Anion Gap BUN Creatinine Estim Creat Clear Calc Estimated GFR Glucose Lactic Acid Calcium Total Bilirubin AST ALT Alkaline Phosphatase NT-Pro-B Natriuret Pep Total Protein Albumin Urine Color Urine Appearance Urine pH Ur Specific [place] Urine Protein Urine Glucose (UA) Urine Ketones Ur Blood (Man) Urine Nitrate Urine Bilirubin Urine Urobilinogen Add Ur Microanalysis Leukocyte Esterase Rfl Urine RBC Urine WBC Ur Squamous Epith Cells Urine Bacteria Urine Casts Nasal MRSA (PCR) Influenza A (RT-PCR) Influenza B (RT-PCR) RSV (RT-PCR) SARS-CoV-2 RNA (RT-PCR) 11/18/24 11/18/24 11/18/24 00:43 00:43 00:43 WBC RBC Hgb Hct MCV MCH MCHC RDW Plt Count MPV Immature Gran % (Auto) Neut % (Auto) Lymph % (Auto) [place] % (Auto) Eos % (Auto) Baso % (Auto) Lymph # (Auto) [place] # (Auto) Eos # (Auto) Baso # (Auto) Abs Immat Gran (auto) Absolute Neuts (auto) Absolute Nucleated RBC Total Counted Neutrophils % (Manual) Band Neutrophils % Lymphocytes % (Manual) Monocytes % (Manual) Eosinophils % (Manual) Nucleated RBC % Abs Neuts (Manual) Abs Lymphs (Manual) Abs Monocytes (Manual) Absolute Eos (Manual) Platelet Estimate Hypochromasia Schistocytes Puncture Site ABG pH ABG pCO2 ABG pO2 ABG PO2/FiO2 Ratio ABG HCO3 ABG O2 Saturation ABG O2 Content ABG Base Excess A-a Gradient Oxyhemoglobin Carboxyhemoglobin Methemoglobin Reduced Hemoglobin Total Hemoglobin O2 Delivery Device O2 Liters/Min FiO2 Sodium Potassium Chloride 103 Carbon Dioxide Cancelled 27 Anion Gap Cancelled 8 BUN Cancelled Creatinine Estim Creat Clear Calc Estimated GFR Glucose Lactic Acid Calcium Total Bilirubin AST ALT Alkaline Phosphatase NT-Pro-B Natriuret Pep Total Protein Albumin Urine Color Urine Appearance Urine pH Ur Specific [place] Urine Protein Urine Glucose (UA) Urine Ketones Ur Blood (Man) Urine Nitrate Urine Bilirubin Urine Urobilinogen Add Ur Microanalysis Leukocyte Esterase Rfl Urine RBC Urine WBC Ur Squamous Epith Cells Urine Bacteria Urine Casts Nasal MRSA (PCR) Influenza A (RT-PCR) Influenza B (RT-PCR) RSV (RT-PCR) SARS-CoV-2 RNA (RT-PCR) 11/18/24 11/18/24 11/18/24 00:43 00:43 00:43 WBC RBC Hgb Hct MCV MCH MCHC RDW Plt Count MPV Immature Gran % (Auto) Neut % (Auto) Lymph % (Auto) [place] % (Auto) Eos % (Auto) Baso % (Auto) Lymph # (Auto) [place] # (Auto) Eos # (Auto) Baso # (Auto) Abs Immat Gran (auto) Absolute Neuts (auto) Absolute Nucleated RBC Total Counted Neutrophils % (Manual) Band Neutrophils % Lymphocytes % (Manual) Monocytes % (Manual) Eosinophils % (Manual) Nucleated RBC % Abs Neuts (Manual) Abs Lymphs (Manual) Abs Monocytes (Manual) Absolute Eos (Manual) Platelet Estimate Hypochromasia Schistocytes Puncture Site ABG pH ABG pCO2 ABG pO2 ABG PO2/FiO2 Ratio ABG HCO3 ABG O2 Saturation ABG O2 Content ABG Base Excess A-a Gradient Oxyhemoglobin Carboxyhemoglobin Methemoglobin Reduced Hemoglobin Total Hemoglobin O2 Delivery Device O2 Liters/Min FiO2 Sodium Potassium Chloride Carbon Dioxide Anion Gap BUN 27 H Creatinine Cancelled 0.76 Estim Creat Clear Calc Cancelled Not Reportable Estimated GFR Cancelled Glucose Lactic Acid Calcium Total Bilirubin AST ALT Alkaline Phosphatase NT-Pro-B Natriuret Pep Total Protein Albumin Urine Color Urine Appearance Urine pH Ur Specific [place] Urine Protein Urine Glucose (UA) Urine Ketones Ur Blood (Man) Urine Nitrate Urine Bilirubin Urine Urobilinogen Add Ur Microanalysis Leukocyte Esterase Rfl Urine RBC Urine WBC Ur Squamous Epith Cells Urine Bacteria Urine Casts Nasal MRSA (PCR) Influenza A (RT-PCR) Influenza B (RT-PCR) RSV (RT-PCR) SARS-CoV-2 RNA (RT-PCR) 11/18/24 11/18/24 11/18/24 00:43 00:43 00:43 WBC RBC Hgb Hct MCV MCH MCHC RDW Plt Count MPV Immature Gran % (Auto) Neut % (Auto) Lymph % (Auto) [place] % (Auto) Eos % (Auto) Baso % (Auto) Lymph # (Auto) [place] # (Auto) Eos # (Auto) Baso # (Auto) Abs Immat Gran (auto) Absolute Neuts (auto) Absolute Nucleated RBC Total Counted Neutrophils % (Manual) Band Neutrophils % Lymphocytes % (Manual) Monocytes % (Manual) Eosinophils % (Manual) Nucleated RBC % Abs Neuts (Manual) Abs Lymphs (Manual) Abs Monocytes (Manual) Absolute Eos (Manual) Platelet Estimate Hypochromasia Schistocytes Puncture Site ABG pH ABG pCO2 ABG pO2 ABG PO2/FiO2 Ratio ABG HCO3 ABG O2 Saturation ABG O2 Content ABG Base Excess A-a Gradient Oxyhemoglobin Carboxyhemoglobin Methemoglobin Reduced Hemoglobin Total Hemoglobin O2 Delivery Device O2 Liters/Min FiO2 Sodium Potassium Chloride Carbon Dioxide Anion Gap BUN Creatinine Estim Creat Clear Calc Estimated GFR > 60 Glucose Cancelled 101 Lactic Acid 2.1 H Calcium Cancelled 9.2 Total Bilirubin Cancelled AST ALT Alkaline Phosphatase NT-Pro-B Natriuret Pep Total Protein Albumin Urine Color Urine Appearance Urine pH Ur Specific [place] Urine Protein Urine Glucose (UA) Urine Ketones Ur Blood (Man) Urine Nitrate Urine Bilirubin Urine Urobilinogen Add Ur Microanalysis Leukocyte Esterase Rfl Urine RBC Urine WBC Ur Squamous Epith Cells Urine Bacteria Urine Casts Nasal MRSA (PCR) Influenza A (RT-PCR) Influenza B (RT-PCR) RSV (RT-PCR) SARS-CoV-2 RNA (RT-PCR) 11/18/24 11/18/24 11/18/24 00:43 00:43 00:43 WBC RBC Hgb Hct MCV MCH MCHC RDW Plt Count MPV Immature Gran % (Auto) Neut % (Auto) Lymph % (Auto) [place] % (Auto) Eos % (Auto) Baso % (Auto) Lymph # (Auto) [place] # (Auto) Eos # (Auto) Baso # (Auto) Abs Immat Gran (auto) Absolute Neuts (auto) Absolute Nucleated RBC Total Counted Neutrophils % (Manual) Band Neutrophils % Lymphocytes % (Manual) Monocytes % (Manual) Eosinophils % (Manual) Nucleated RBC % Abs Neuts (Manual) Abs Lymphs (Manual) Abs Monocytes (Manual) Absolute Eos (Manual) Platelet Estimate Hypochromasia Schistocytes Puncture Site ABG pH ABG pCO2 ABG pO2 ABG PO2/FiO2 Ratio ABG HCO3 ABG O2 Saturation ABG O2 Content ABG Base Excess A-a Gradient Oxyhemoglobin Carboxyhemoglobin Methemoglobin Reduced Hemoglobin Total Hemoglobin O2 Delivery Device O2 Liters/Min FiO2 Sodium Potassium Chloride Carbon Dioxide Anion Gap BUN Creatinine Estim Creat Clear Calc Estimated GFR Glucose Lactic Acid Calcium Total Bilirubin 0.5 AST Cancelled 62 H ALT Cancelled 40 Alkaline Phosphatase Cancelled NT-Pro-B Natriuret Pep Total Protein Albumin Urine Color Urine Appearance Urine pH Ur Specific [place] Urine Protein Urine Glucose (UA) Urine Ketones Ur Blood (Man) Urine Nitrate Urine Bilirubin Urine Urobilinogen Add Ur Microanalysis Leukocyte Esterase Rfl Urine RBC Urine WBC Ur Squamous Epith Cells Urine Bacteria Urine Casts Nasal MRSA (PCR) Influenza A (RT-PCR) Influenza B (RT-PCR) RSV (RT-PCR) SARS-CoV-2 RNA (RT-PCR) 11/18/24 11/18/24 11/18/24 00:43 00:43 00:43 WBC RBC Hgb Hct MCV MCH MCHC RDW Plt Count MPV Immature Gran % (Auto) Neut % (Auto) Lymph % (Auto) [place] % (Auto) Eos % (Auto) Baso % (Auto) Lymph # (Auto) [place] # (Auto) Eos # (Auto) Baso # (Auto) Abs Immat Gran (auto) Absolute Neuts (auto) Absolute Nucleated RBC Total Counted Neutrophils % (Manual) Band Neutrophils % Lymphocytes % (Manual) Monocytes % (Manual) Eosinophils % (Manual) Nucleated RBC % Abs Neuts (Manual) Abs Lymphs (Manual) Abs Monocytes (Manual) Absolute Eos (Manual) Platelet Estimate Hypochromasia Schistocytes Puncture Site ABG pH ABG pCO2 ABG pO2 ABG PO2/FiO2 Ratio ABG HCO3 ABG O2 Saturation ABG O2 Content ABG Base Excess A-a Gradient Oxyhemoglobin Carboxyhemoglobin Methemoglobin Reduced Hemoglobin Total Hemoglobin O2 Delivery Device O2 Liters/Min FiO2 Sodium Potassium Chloride Carbon Dioxide Anion Gap BUN Creatinine Estim Creat Clear Calc Estimated GFR Glucose Lactic Acid Calcium Total Bilirubin AST ALT Alkaline Phosphatase 90 NT-Pro-B Natriuret Pep 3280 H Total Protein Cancelled 6.2 L Albumin Cancelled 3.2 L Urine Color Urine Appearance Urine pH Ur Specific [place] Urine Protein Urine Glucose (UA) Urine Ketones Ur Blood (Man) Urine Nitrate Urine Bilirubin Urine Urobilinogen Add Ur Microanalysis Leukocyte Esterase Rfl Urine RBC Urine WBC Ur Squamous Epith Cells Urine Bacteria Urine Casts Nasal MRSA (PCR) Influenza A (RT-PCR) Influenza B (RT-PCR) RSV (RT-PCR) SARS-CoV-2 RNA (RT-PCR) 11/18/24 11/18/24 11/18/24 01:18 02:19 03:19 WBC RBC Hgb Hct MCV MCH MCHC RDW Plt Count MPV Immature Gran % (Auto) Neut % (Auto) Lymph % (Auto) [place] % (Auto) Eos % (Auto) Baso % (Auto) Lymph # (Auto) [place] # (Auto) Eos # (Auto) Baso # (Auto) Abs Immat Gran (auto) Absolute Neuts (auto) Absolute Nucleated RBC Total Counted Neutrophils % (Manual) Band Neutrophils % Lymphocytes % (Manual) Monocytes % (Manual) Eosinophils % (Manual) Nucleated RBC % Abs Neuts (Manual) Abs Lymphs (Manual) Abs Monocytes (Manual) Absolute Eos (Manual) Platelet Estimate Hypochromasia Schistocytes Puncture Site Right radial ABG pH 7.470 H ABG pCO2 30.8 L ABG pO2 56.5 L ABG PO2/FiO2 Ratio 1.41 ABG HCO3 21.9 L ABG O2 Saturation 91.5 L ABG O2 Content 12.9 L ABG Base Excess -1.1 A-a Gradient 193.3 Oxyhemoglobin 88.3 L Carboxyhemoglobin 0.5 Methemoglobin 0.3 Reduced Hemoglobin 10.9 H Total Hemoglobin 10.4 L O2 Delivery Device Nasal cannula O2 Liters/Min 5.0 FiO2 40 Sodium Potassium Chloride Carbon Dioxide Anion Gap BUN Creatinine Estim Creat Clear Calc Estimated GFR Glucose Lactic Acid Calcium Total Bilirubin AST ALT Alkaline Phosphatase NT-Pro-B Natriuret Pep Total Protein Albumin Urine Color Yellow Urine Appearance Clear Urine pH 5.5 Ur Specific [place] 1.027 Urine Protein 1+ H Urine Glucose (UA) Negative Urine Ketones Negative Ur Blood (Man) Negative Urine Nitrate Negative Urine Bilirubin Negative Urine Urobilinogen 1.0 Add Ur Microanalysis Reviewed Leukocyte Esterase Rfl Trace H Urine RBC 0-2 Urine WBC 0-5 Ur Squamous Epith Cells None seen Urine Bacteria None seen Urine Casts 0-2 Nasal MRSA (PCR) Detected A* Influenza A (RT-PCR) Influenza B (RT-PCR) RSV (RT-PCR) SARS-CoV-2 RNA (RT-PCR) 11/18/24 11/18/24 03:24 05:40 WBC RBC Hgb Hct MCV MCH MCHC RDW Plt Count MPV Immature Gran % (Auto) Neut % (Auto) Lymph % (Auto) [place] % (Auto) Eos % (Auto) Baso % (Auto) Lymph # (Auto) [place] # (Auto) Eos # (Auto) Baso # (Auto) Abs Immat Gran (auto) Absolute Neuts (auto) Absolute Nucleated RBC Total Counted Neutrophils % (Manual) Band Neutrophils % Lymphocytes % (Manual) Monocytes % (Manual) Eosinophils % (Manual) Nucleated RBC % Abs Neuts (Manual) Abs Lymphs (Manual) Abs Monocytes (Manual) Absolute Eos (Manual) Platelet Estimate Hypochromasia Schistocytes Puncture Site ABG pH ABG pCO2 ABG pO2 ABG PO2/FiO2 Ratio ABG HCO3 ABG O2 Saturation ABG O2 Content ABG Base Excess A-a Gradient Oxyhemoglobin Carboxyhemoglobin Methemoglobin Reduced Hemoglobin Total Hemoglobin O2 Delivery Device O2 Liters/Min FiO2 Sodium Potassium Chloride Carbon Dioxide Anion Gap BUN Creatinine Estim Creat Clear Calc Estimated GFR Glucose Lactic Acid 4.5 H* Calcium Total Bilirubin AST ALT Alkaline Phosphatase NT-Pro-B Natriuret Pep Total Protein Albumin Urine Color Urine Appearance Urine pH Ur Specific [place] Urine Protein Urine Glucose (UA) Urine Ketones Ur Blood (Man) Urine Nitrate Urine Bilirubin Urine Urobilinogen Add Ur Microanalysis Leukocyte Esterase Rfl Urine RBC Urine WBC Ur Squamous Epith Cells Urine Bacteria Urine Casts Nasal MRSA (PCR) Influenza A (RT-PCR) Negative Influenza B (RT-PCR) Negative RSV (RT-PCR) Negative SARS-CoV-2 RNA (RT-PCR) Negative
[2024-11-18] MEDS: CEFEPIME 2 GM in SODIUM CHLORIDE 0.9% IV 50 ML 100 ML IVPB (20:55)
--- NOTE | 2024-11-18 23:02 | PC.NURSE ---
Spoke to patient's power of finance attorney, Artem, and gave update of patient's status. POA had some concerns about patient's code status and whether or not patient would want to be a full code or DNR. Patient alert and oriented at this time and does state that he would remain a full code at this time but would not want to have a poor quality of life. JEN Mcgill would like to be updated twice a day after each shift change of patient's status. RN informed JEN that she was able to call for updates whenever, but to avoid the hours of 645 to 730 as that is when shift change is going on. No further changes at this time.
[2024-11-19] VITALS (22 sets, daily range): BP systolic 131–151; BP diastolic 61–75; PULSE 53–80; RESP 18–21; TEMP 36.1–37.2; O2SAT 93–97
[2024-11-19] MEDS: VANCOMYCIN 750 MG/NS 250 ML 750 MG/250 ML BAG 250 MG IVPB (03:45)
[2024-11-19 04:48] LABS: Hematocrit 27.9 % (42.0-52.0); Hemoglobin 8.5 g/dL (14.0-18.0); Mean Corpuscular HGB Conc 30.5 g/dl (32-36); Mean Corpuscular Hemoglobin 28.2 pg (26-34); Mean Corpuscular Volume 92.7 fl (80-100); Platelet Count Result 340 k/mm3 (150-375); Red Blood Count 3.01 M/mm3 (4.6-6.20); White Blood Count 12.0 K/mm3 (4.5-10.0)
[2024-11-19 05:02] LABS: Anion Gap 9 mmol/L (4-12); Blood Urea Nitrogen 18 mg/dL (9-20); Calcium 8.6 mg/dL (8.4-10.2); Carbon Dioxide 22 mmol/L (22-30); Chloride 111 mmol/L (98-107); Estimated CRCL calculation 57 ml/min; Estimated Glomerular Filt Rate > 60; Glucose 67 mg/dL (65-110); Magnesium 1.6 mg/dL (1.6-2.3); Potassium 2.9 mmol/L (3.4-5.0); Sodium 142 mmol/L (137-145)
[2024-11-19 05:29] LABS: Band Neutrophils Percent 11 % (0-6); Lymphocytes Absolute Manual 0.60 K/mm3 (1.1-4.5); Lymphocytes Percent Manual 5.0 % (18-44); Monocytes Absolute Manual 0.60 K/mm3 (0.1-0.90); Monocytes Percent Manual 5 % (3-9); Neutrophils Absolute Manual 10.80 K/mm3 (1.3-6.7); Neutrophils Percent Manual 79 % (46-73); Total Cells Counted 100
[2024-11-19 05:30] LABS: Anisocytosis 1+; Burr Cells 1+; Schistocytes Rare
[2024-11-19] MEDS: DEXTROSE 50% 25 GM/50 ML SYRINGE IV PUSH (05:41)
[2024-11-19] MEDS: CEFEPIME 2 GM in SODIUM CHLORIDE 0.9% IV 50 ML 100 ML IVPB ×2 (07:59→20:34)
[2024-11-19] MEDS: SERTRALINE HCL 50 MG TABLET PO (08:02)
[2024-11-19] MEDS: BISACODYL 5 MG TABLET EC 10 MG PO (08:02)
[2024-11-19] MEDS: buPROPion HCL SR (12HR) 100 MG TABCR PO (08:03)
[2024-11-19] MEDS: METOPROLOL TARTRATE 25 MG TABLET PO (08:03)
[2024-11-19] MEDS: PANTOPRAZOLE SOD SESQUIHYDRATE 20 MG TAB PO (08:03)
[2024-11-19] MEDS: SENNOSIDES 8.6 MG TABLET 17.2 MG PO (08:04)
[2024-11-19] MEDS: AZITHROMYCIN IV 500 MG in SODIUM CHLORIDE 0.9% IV 250 ML IVPB (08:04)
[2024-11-19] MEDS: POTASSIUM CHLORIDE 20 MEQ PACKET (FOR LIQUID) 40 MEQ PO ×2 (12:01→19:00)
[2024-11-19] MEDS: MAGNESIUM SULF 2 GM/WATER 50ML 2 GM/50 ML BAG IVPB (12:02)
--- NOTE | 2024-11-19 16:29 | P.PNIM_ITS ---
Progress Note: A&P Assessment and Plan (1) Sepsis: Qualifiers: Acute respiratory failure type: with hypoxia Sepsis acute organ dysfunction status: with acute organ dysfunction Sepsis type: sepsis due to unspecified organism Severe sepsis acute organ dysfunction type: acute respiratory failure Severe sepsis shock status: without septic shock Qualified Code(s): A41.9 - Sepsis, unspecified organism; R65.20 - Severe sepsis without septic shock; J96.01 - Acute respiratory failure with hypoxia Code(s): A41.9 - Sepsis, unspecified organism Status: Acute Assessment and Plan: Patient has severe sepsis with lactic acidosis, bandemia, tachycardia and tachypnea with acute respiratory failure. CXR showing probable left basilar PNA. Patient given 30mL/kg fluid resuscitation. COVID, RSV and influenza PCR negative. MRSA nasal swab positive. BCx NGTD Sputum Cx H.flu. Started on broad-spectrum antibiotic coverage with cefepime, vancomycin and azithromycin. Hx of dysphagia with abnormal swallow eval last admission. Aspiration precautions. The patient has weak cough and difficulty clearing secretions so CPT has been ordered. Follow up on cultures and sensitivities. Narrow abx if BCx remain negative and no other source other than H.flu. Will still cover for aspiration given that he is high risk. (2) PNA (pneumonia): Code(s): J18.9 - Pneumonia, unspecified organism Status: Acute Assessment and Plan: As above. (3) Acute hypoxic respiratory failure: Code(s): J96.01 - Acute respiratory failure with hypoxia Status: Acute Assessment and Plan: As above. 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 Follow (6) Severe protein-calorie malnutrition: Code(s): E43 - Unspecified severe protein-calorie malnutrition Status: Acute Assessment and Plan: Patient has severe protein calorie malnutrition related to inadequate energy intake as evidenced by a significant weight loss as documented, low BMI, poor o ral intake for >1 month and NFPE findings for severe subcutaneous fat loss and severe muscle wasting. . The ER physician reported that the patient's is interested in hearing more information about palliative care Care coordination consulted and family changed him to DNR status. They are discussing moving patient to comfort/hospice care. Continue nutritional supplementation. (7) Dysphagia: Code(s): R13.10 - Dysphagia, unspecified Status: Acute Assessment and Plan: Patient a MBS 10/24/24 and speech therapy recommended minced and moist, level 5 diet with mildly thick level 2 liquids. Later Speech Therap notes micheline the patient was changed to Level 4 pureed diet. Start pureed diet and level 2 liquids and monitor closely One on one supervision. Upright to eat. Minimize distractions, No straws, small bites/sips Plan DVT Prophylaxis - SCDs Code status - DNR Subjective Date/time seen: 11/19/24 16:29 Interval history: 79yo male with HTN, CVA, vascular dementia, HLD and GERD who presented to the ER from [facility] due to difficulty breathing. Patient is alert but confused and unable to provide hx. Review of Systems Review of Systems: ROS unobtainable: Yes unobtainable due to mental status Exam Narrative: AF 97.5 148/68 71 20 94% 2L Gen - NARD Chest - mostly clear anteriorly to quiet respirations. CV - RRR S1/S2. Tele showing PVCs and bigeminy Abd - Soft, scaphoid, NT Ext - No pedal edema Neuro - Alert but confused. Psych - calm and cooperative. Skin - Warm and dry Objective Data Vital Signs Vital Signs: Vital Signs - 24 hr 11/18/24 18:00 11/18/24 18:24 11/18/24 19:32 Temperature 98.5 F Pulse Rate 68 72 Respiratory Rate 22 H Blood Pressure 143/64 H Pulse Oximetry 99 98 Oxygen Delivery High Flow Nasal Cannula Oxygen Flow Rate 4 11/18/24 20:00 11/18/24 20:25 11/18/24 20:45 Temperature Pulse Rate 69 72 72 Respiratory Rate 21 H Blood Pressure Pulse Oximetry 95 Oxygen Delivery High Flow Nasal Cannula Oxygen Flow Rate 3 11/18/24 22:00 11/19/24 00:00 11/19/24 00:10 Temperature 98.6 F Pulse Rate 73 67 71 Respiratory Rate 20 Blood Pressure 150/66 H Pulse Oximetry 97 Oxygen Delivery Oxygen Flow Rate 11/19/24 00:15 11/19/24 02:00 11/19/24 04:00 Temperature Pulse Rate 71 70 70 Respiratory Rate 20 20 Blood Pressure Pulse Oximetry 97 97 Oxygen Delivery High Flow Nasal Cannula High Flow Nasal Cannula Oxygen Flow Rate 3 3 11/19/24 04:00 11/19/24 04:21 11/19/24 06:00 Temperature 98.8 F Pulse Rate 69 72 68 Respiratory Rate 21 H Blood Pressure 131/61 Pulse Oximetry 95 Oxygen Delivery Oxygen Flow Rate 11/19/24 07:59 11/19/24 08:00 11/19/24 08:00 Temperature 98.9 F Pulse Rate 70 65 Respiratory Rate 18 Blood Pressure 147/65 H Pulse Oximetry 96 97 Oxygen Delivery High Flow Nasal Cannula Oxygen Flow Rate 2 11/19/24 08:03 11/19/24 08:27 11/19/24 10:00 Temperature Pulse Rate 70 64 Respiratory Rate Blood Pressure Pulse Oximetry 96 Oxygen Delivery Nasal Cannula Oxygen Flow Rate 2 11/19/24 11:43 11/19/24 12:00 11/19/24 16:14 Temperature 96.9 F L 97.5 F L Pulse Rate 53 L 71 Respiratory Rate 20 20 Blood Pressure 150/65 H 148/68 H Pulse Oximetry 93 95 94 Oxygen Delivery High Flow Nasal Cannula Oxygen Flow Rate 2 Intake/Output Intake/Output: Intake & Output 11/16/24 11/17/24 11/18/24 11/19/24 23:59 23:59 23:59 23:59 Intake Total 1787.5 370 Output Total 400 1000 Balance 1387.5 -630 Meds/Results Medications: Active Medications Generic Name Dose Route Start Last Admin Trade Name Freq PRN Reason Stop Dose Admin Aspirin 81 mg 11/18/24 21:00 11/18/24 20:54 Aspirin 81 Mg Enteric Tablet PO Not Given HS [facility] Bisacodyl 10 mg 11/18/24 09:00 11/19/24 08:02 Bisacodyl 5 Mg Tablet Ec PO 10 mg DAILY AMELIA Administration Bupropion HCl 100 mg 11/18/24 09:00 11/19/24 08:03 Bupropion Hcl Sr (12hr) 100 Mg Tabcr PO 100 mg DAILY AMELIA Administration Dextrose 12.5 gm 11/19/24 05:33 11/19/24 05:41 Dextrose 50% 25 Gm/50 Ml Syringe IV PUSH 12.5 gm PRN PRN Administration Hypoglycemia Protocol Glucagon 1 mg 11/19/24 05:33 Glucagon For Inj 1 Mg Vial IM PRN PRN Hypoglycemia Protocol Glucose 15 gm 11/19/24 05:33 Glucose Oral Gel 15 Gm Of Glucse In 37.5 Gm Tube PO PRN PRN Hypoglycemia Protocol Vancomycin HCl 750 mg in 250 mls @ 250 mls/hr 11/19/24 03:00 11/19/24 04:45 Vancomycin 750 Mg/Ns 250 Ml IVPB Infused Q24H AMELIA Infusion Azithromycin 500 mg/ Sodium 250 mls @ 250 mls/hr 11/19/24 09:00 11/19/24 08:04 Chloride IVPB 250 mls/hr Q24H AMELIA Administration Cefepime HCl 2 gm/ Sodium 50 mls @ 100 mls/hr 11/18/24 21:00 11/19/24 07:59 Chloride IVPB 100 mls/hr Q12HR AMELIA Administration Dextrose 1,000 mls @ 100 mls/hr 11/19/24 05:33 Dextrose 5% 1,000 Ml IVPB PRN PRN Hypoglycemia Protocol Metoprolol Tartrate 25 mg 11/18/24 09:00 11/19/24 08:03 Metoprolol Tartrate 25 Mg Tablet PO 25 mg Q12HR AMELIA Administration Pantoprazole Sodium 20 mg 11/18/24 09:00 11/19/24 08:03 Pantoprazole Sod Sesquihydrate 20 Mg Tab PO 20 mg Q12HR AMELIA Administration Polyethylene Glycol 17 gm 11/18/24 09:00 11/19/24 12:01 Polyethylene Glycol 3350 17 Gm Powd.Pack PO 17 gm DAILY AMELIA Administration Senna 17.2 mg 11/18/24 09:00 11/19/24 08:04 Sennosides 8.6 Mg Tablet PO 17.2 mg Q12HR AMELIA Administration Sertraline HCl 50 mg 11/18/24 09:00 11/19/24 08:02 Sertraline Hcl 50 Mg Tablet PO 50 mg DAILY AMELIA Administration Tramadol HCl 50 mg 11/18/24 06:33 Tramadol Hcl (*Crx) 50 Mg Tablet PO Q6H PRN Pain 4-10 Radiology Results: ITS Impressions Chest X-Ray 11/18/24 05:50 Impression: Probable left basilar pneumonia. Labs Labs: Laboratory Results - last 24 hr 11/18/24 11/19/24 11/19/24 21:07 03:59 06:02 WBC 12.0 H RBC 3.01 L Hgb 8.5 L Hct 27.9 L MCV 92.7 MCH 28.2 MCHC 30.5 L RDW 15.9 H Plt Count 340 MPV 12.0 H Immature Gran % (Auto) Not Reportable Neut % (Auto) Not Reportable Lymph % (Auto) Not Reportable [place] % (Auto) Not Reportable Eos % (Auto) Not Reportable Baso % (Auto) Not Reportable Lymph # (Auto) Not Reportable [place] # (Auto) Not Reportable Eos # (Auto) Not Reportable Baso # (Auto) Not Reportable Abs Immat Gran (auto) Not Reportable Absolute Neuts (auto) Not Reportable Absolute Nucleated RBC Not Reportable Total Counted 100 Neutrophils % (Manual) 79 H Band Neutrophils % 11 H Lymphocytes % (Manual) 5.0 L Monocytes % (Manual) 5 Nucleated RBC % Not Reportable Abs Neuts (Manual) 10.80 H Abs Lymphs (Manual) 0.60 L Abs Monocytes (Manual) 0.60 Platelet Estimate Adequate Anisocytosis 1+ Genet Cells 1+ Schistocytes Rare Sodium 142 Potassium 2.9 L Chloride 111 H Carbon Dioxide 22 Anion Gap 9 BUN 18 Creatinine 0.67 L Estim Creat Clear Calc 57 Estimated GFR > 60 Glucose 67 POC Capillary Glucose 171 H Lactic Acid 1.3 Calcium 8.6 Magnesium 1.6 11/19/24 11/19/24 11:14 13:39 WBC RBC Hgb Hct MCV MCH MCHC RDW Plt Count MPV Immature Gran % (Auto) Neut % (Auto) Lymph % (Auto) [place] % (Auto) Eos % (Auto) Baso % (Auto) Lymph # (Auto) [place] # (Auto) Eos # (Auto) Baso # (Auto) Abs Immat Gran (auto) Absolute Neuts (auto) Absolute Nucleated RBC Total Counted Neutrophils % (Manual) Band Neutrophils % Lymphocytes % (Manual) Monocytes % (Manual) Nucleated RBC % Abs Neuts (Manual) Abs Lymphs (Manual) Abs Monocytes (Manual) Platelet Estimate Anisocytosis Genet Cells Schistocytes Sodium Potassium Chloride Carbon Dioxide Anion Gap BUN Creatinine Estim Creat Clear Calc Estimated GFR Glucose POC Capillary Glucose 81 110 H Lactic Acid Calcium Magnesium
[2024-11-19 18:07] LABS: Anion Gap 7 mmol/L (4-12); Blood Urea Nitrogen 17 mg/dL (9-20); Calcium 8.7 mg/dL (8.4-10.2); Carbon Dioxide 23 mmol/L (22-30); Chloride 110 mmol/L (98-107); Estimated CRCL calculation 57 ml/min; Estimated Glomerular Filt Rate > 60; Glucose 97 mg/dL (65-110); Potassium 3.0 mmol/L (3.4-5.0); Sodium 140 mmol/L (137-145)
[2024-11-20] VITALS (8 sets, daily range): BP systolic 150–173; BP diastolic 82–94; PULSE 64–96; RESP 18–20; TEMP 35.8–36.6; O2SAT 94–99
[2024-11-20 02:04] LABS: Hematocrit 29.3 % (42.0-52.0); Hemoglobin 9.1 g/dL (14.0-18.0); Immature Granulocyte Percent A 4.5 % (0-0.5); Lymphocytes Absolute Auto 0.94 K/mm3 (0.9-3.2); Mean Corpuscular HGB Conc 31.1 g/dl (32-36); Mean Corpuscular Hemoglobin 28.7 pg (26-34); Mean Corpuscular Volume 92.4 fl (80-100); Nucleated Red Blood Cells Absolute Auto 0.000 K/mm3 (0.0-0.012); Nucleated Red Blood Cells Perc 0.0 % (0.0-0.2); Platelet Count Result 378 k/mm3 (150-375); Red Blood Count 3.17 M/mm3 (4.6-6.20); White Blood Count 13.5 K/mm3 (4.5-10.0)
--- NOTE | 2024-11-20 02:13 | PC.NURSE ---
This patient, Chris Cooley, was transferred to [facility] on 11/20/24 at 0205. Personal belongings sent with patient. Report given to SUSIE Steele. Appropriate documentation sent with patient.
[2024-11-20 02:18] LABS: Albumin Level 2.7 g/dL (3.5-5.1); Anion Gap 5 mmol/L (4-12); Blood Urea Nitrogen 17 mg/dL (9-20); Calcium 8.6 mg/dL (8.4-10.2); Carbon Dioxide 23 mmol/L (22-30); Chloride 112 mmol/L (98-107); Estimated CRCL calculation 57 ml/min; Estimated Glomerular Filt Rate > 60; Glucose 97 mg/dL (65-110); Magnesium 2.0 mg/dL (1.6-2.3); Potassium 3.3 mmol/L (3.4-5.0); Sodium 140 mmol/L (137-145)
[2024-11-20] MEDS: VANCOMYCIN 750 MG/NS 250 ML 750 MG/250 ML BAG 250 MG IVPB ×2 (04:57→17:05)
[2024-11-20] MEDS: METOPROLOL TARTRATE 25 MG TABLET PO ×2 (08:52→21:22)
[2024-11-20] MEDS: buPROPion HCL SR (12HR) 100 MG TABCR PO (08:52)
[2024-11-20] MEDS: SERTRALINE HCL 50 MG TABLET PO (08:52)
[2024-11-20] MEDS: SENNOSIDES 8.6 MG TABLET 17.2 MG PO ×2 (08:53→21:22)
[2024-11-20] MEDS: AZITHROMYCIN IV 500 MG in SODIUM CHLORIDE 0.9% IV 250 ML IVPB (10:22)
[2024-11-20] MEDS: CEFEPIME 2 GM in SODIUM CHLORIDE 0.9% IV 50 ML 100 ML IVPB (10:23)
--- NOTE | 2024-11-20 11:31 | P.PNIM_ITS ---
Progress Note: A&P Assessment and Plan (1) Severe protein-calorie malnutrition: Code(s): E43 - Unspecified severe protein-calorie malnutrition Status: Acute (2) GERD (gastroesophageal reflux disease): Code(s): K21.9 - Gastro-esophageal reflux disease without esophagitis Status: Acute (3) Sepsis: Code(s): A41.9 - Sepsis, unspecified organism Status: Acute (4) PNA (pneumonia): Code(s): J18.9 - Pneumonia, unspecified organism Status: Acute (5) Acute hypoxic respiratory failure: Code(s): J96.01 - Acute respiratory failure with hypoxia Status: Acute Plan Sepsis: Patient has severe sepsis with lactic acidosis, bandemia, tachycardia and tachypnea with acute respiratory failure. CXR showing probable left basilar PNA. Patient given 30mL/kg fluid resuscitation. COVID, RSV and influenza PCR negative. MRSA nasal swab positive. BCx NGTD Sputum Cx H.flu. Started on broad-spectrum antibiotic coverage with cefepime, vancomycin and azithromycin. Hx of dysphagia with abnormal swallow eval last admission. Aspiration precautions. The patient has weak cough and difficulty clearing secretions so CPT has been ordered. Follow up on cultures and sensitivities. Narrow abx if BCx remain negative and no other source other than H.flu. Will still cover for aspiration given that he is high risk. PNA (pneumonia): Code(s): J18.9 - Pneumonia, unspecified organism Status: Acute Assessment and Plan: patient is on azithromycin cefepime and vancomycin Acute hypoxic respiratory failure: Code(s): J96.01 - Acute respiratory failure with hypoxia Status: Acute Assessment and Plan: As above. 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 Replete with potassium chloride 10 mg IV, D5 normal saline 100 mL/hour 09/20 Severe protein-calorie malnutrition: Code(s): E43 - Unspecified severe protein-calorie malnutrition Status: Acute Assessment and Plan: Patient has severe protein calorie malnutrition related to inadequate energy intake as evidenced by a significant weight loss as documented, low BMI, poor oral intake for >1 month and NFPE findings for severe subcutaneous fat loss and severe muscle wasting. . The ER physician reported that the patient's is interested in hearing more information about palliative care Care coordination consulted and family changed him to DNR status. They are discussing moving patient to comfort/hospice care. Continue nutritional supplementation. Dysphagia: Code(s): R13.10 - Dysphagia, unspecified Status: Acute Assessment and Plan: Patient a MBS 10/24/24 and speech therapy recommended minced and moist, level 5 diet with mildly thick level 2 liquids. Later Speech Therap notes micheline the patient was changed to Level 4 pureed diet. Start pureed diet and level 2 liquids and monitor closely One on one supervision. Upright to eat. Minimize distractions, No straws, small bites/sips Plan DVT Prophylaxis - SCDs Code status - DNR Subjective Date/time seen: 11/20/24 11:31 Interval history: I saw exam patient, patient is confused, not oriented x3, unable to follow command, Patient has dry mucous membrane Afebrile Labs reviewed, leukocytosis persists Potassium 3.3, Exam Narrative: AF 97.5 148/68 71 20 94% 2L Gen - NARD Chest - mostly clear anteriorly to quiet respirations. CV - RRR S1/S2. Tele showing PVCs and bigeminy Abd - Soft, scaphoid, NT Ext - No pedal edema Neuro - Alert but confused. Not oriented x3, unable to follow command Psych - calm and cooperative. Skin - Warm and dry Objective Data Vital Signs Vital Signs: Vital Signs - 24 hr 11/19/24 11:43 11/19/24 12:00 11/19/24 12:00 Temperature 96.9 F L Pulse Rate 53 L 74 Respiratory Rate 20 Blood Pressure 150/65 H Pulse Oximetry 93 95 Oxygen Delivery High Flow Nasal Cannula Oxygen Flow Rate 2 11/19/24 14:00 11/19/24 16:00 11/19/24 16:00 Temperature Pulse Rate 74 78 Respiratory Rate Blood Pressure Pulse Oximetry 95 Oxygen Delivery High Flow Nasal Cannula Oxygen Flow Rate 2 11/19/24 16:14 11/19/24 18:00 11/19/24 20:10 Temperature 97.5 F L 97.6 F Pulse Rate 71 78 80 Respiratory Rate 20 20 Blood Pressure 148/68 H 139/67 Pulse Oximetry 94 97 Oxygen Delivery Oxygen Flow Rate 11/19/24 20:30 11/19/24 23:38 11/19/24 23:49 Temperature 97.7 F Pulse Rate 80 79 Respiratory Rate 20 20 Blood Pressure 151/75 H Pulse Oximetry 97 95 97 Oxygen Delivery High Flow Nasal Cannula High Flow Nasal Cannula Oxygen Flow Rate 2 2 11/20/24 02:40 11/20/24 06:00 11/20/24 08:52 Temperature 97.0 F L 97.5 F L Pulse Rate 96 81 80 Respiratory Rate 20 20 Blood Pressure 154/94 H 167/86 H Pulse Oximetry 95 96 Oxygen Delivery Oxygen Flow Rate 11/20/24 10:20 Temperature Pulse Rate Respiratory Rate Blood Pressure Pulse Oximetry 94 Oxygen Delivery Nasal Cannula Oxygen Flow Rate 2 Intake/Output Intake/Output: Intake & Output 11/17/24 11/18/24 11/19/24 11/20/24 23:59 23:59 23:59 23:59 Intake Total 1787.5 1060 180 Output Total 400 1000 350 Balance 1387.5 60 -170 Meds/Results Medications: Active Medications Generic Name Dose Route Start Last Admin Trade Name Freq PRN Reason Stop Dose Admin Aspirin 81 mg 11/18/24 21:00 11/19/24 20:35 Aspirin 81 Mg Enteric Tablet PO Not Given HS AMELIA Bisacodyl 10 mg 11/18/24 09:00 11/20/24 08:54 Bisacodyl 5 Mg Tablet Ec PO Not Given DAILY AMELIA Bupropion HCl 100 mg 11/18/24 09:00 11/20/24 08:52 Bupropion Hcl Sr (12hr) 100 Mg Tabcr PO 100 mg DAILY AMELIA Administration Dextrose 12.5 gm 11/19/24 05:33 11/19/24 05:41 Dextrose 50% 25 Gm/50 Ml Syringe IV PUSH 12.5 gm PRN PRN Administration Hypoglycemia Protocol Glucagon 1 mg 11/19/24 05:33 Glucagon For Inj 1 Mg Vial IM PRN PRN Hypoglycemia Protocol Glucose 15 gm 11/19/24 05:33 Glucose Oral Gel 15 Gm Of Glucse In 37.5 Gm Tube PO PRN PRN Hypoglycemia Protocol Azithromycin 500 mg/ Sodium 250 mls @ 250 mls/hr 11/19/24 09:00 11/20/24 10:22 Chloride IVPB 250 mls/hr Q24H AMELIA Administration Cefepime HCl 2 gm/ Sodium 50 mls @ 100 mls/hr 11/18/24 21:00 11/20/24 10:23 Chloride IVPB 100 mls/hr Q12HR AMELIA Administration Dextrose 1,000 mls @ 100 mls/hr 11/19/24 05:33 Dextrose 5% 1,000 Ml IVPB PRN PRN Hypoglycemia Protocol Vancomycin HCl 750 mg in 250 mls @ 250 mls/hr 11/20/24 04:00 11/20/24 04:57 Vancomycin 750 Mg/Ns 250 Ml IVPB 250 mls/hr Q12H AMELIA Administration Metoprolol Tartrate 25 mg 11/18/24 09:00 11/20/24 08:52 Metoprolol Tartrate 25 Mg Tablet PO 25 mg Q12HR AMELIA Administration Pantoprazole Sodium 20 mg 11/18/24 09:00 11/20/24 08:54 Pantoprazole Sod Sesquihydrate 20 Mg Tab PO Not Given Q12HR AMELIA Polyethylene Glycol 17 gm 11/18/24 09:00 11/20/24 08:54 Polyethylene Glycol 3350 17 Gm Powd.Pack PO Not Given DAILY AMELIA Senna 17.2 mg 11/18/24 09:00 11/20/24 08:53 Sennosides 8.6 Mg Tablet PO 17.2 mg Q12HR AMELIA Administration Sertraline HCl 50 mg 11/18/24 09:00 11/20/24 08:52 Sertraline Hcl 50 Mg Tablet PO 50 mg DAILY AMELIA Administration Tramadol HCl 50 mg 11/18/24 06:33 Tramadol Hcl (*Crx) 50 Mg Tablet PO Q6H PRN Pain 4-10 Radiology Results: ITS Impressions Chest X-Ray 11/18/24 05:50 Impression: Probable left basilar pneumonia. Labs Labs: Laboratory Results - last 24 hr 11/19/24 11/19/24 11/19/24 11:14 13:39 17:20 WBC RBC Hgb Hct MCV MCH MCHC RDW Plt Count MPV Immature Gran % (Auto) Neut % (Auto) Lymph % (Auto) [place] % (Auto) Eos % (Auto) Baso % (Auto) Lymph # (Auto) [place] # (Auto) Eos # (Auto) Baso # (Auto) Abs Immat Gran (auto) Absolute Neuts (auto) Absolute Nucleated RBC Nucleated RBC % Sodium 140 Potassium 3.0 L Chloride 110 H Carbon Dioxide 23 Anion Gap 7 BUN 17 Creatinine 0.68 L Estim Creat Clear Calc 57 Estimated GFR > 60 Glucose 97 POC Capillary Glucose 81 110 H Calcium 8.7 Phosphorus Magnesium Albumin Vancomycin Trough 11/19/24 11/19/24 11/20/24 17:44 22:58 01:59 WBC 13.5 H RBC 3.17 L Hgb 9.1 L Hct 29.3 L MCV 92.4 MCH 28.7 MCHC 31.1 L RDW 16.1 H Plt Count 378 H MPV 11.0 H Immature Gran % (Auto) 4.5 H Neut % (Auto) 77.7 H Lymph % (Auto) 6.9 L [place] % (Auto) 10.2 H Eos % (Auto) 0.4 Baso % (Auto) 0.3 Lymph # (Auto) 0.94 [place] # (Auto) 1.4 H Eos # (Auto) 0.1 Baso # (Auto) 0.0 Abs Immat Gran (auto) 0.61 H Absolute Neuts (auto) 10.5 H Absolute Nucleated RBC 0.000 Nucleated RBC % 0.0 Sodium 140 Potassium 3.3 L Chloride 112 H Carbon Dioxide 23 Anion Gap 5 BUN 17 Creatinine 0.67 L Estim Creat Clear Calc 57 Estimated GFR > 60 Glucose 97 POC Capillary Glucose 102 132 H Calcium 8.6 Phosphorus 2.2 L Magnesium 2.0 Albumin 2.7 L Vancomycin Trough 7.3 L 11/20/24 05:53 WBC RBC Hgb Hct MCV MCH MCHC RDW Plt Count MPV Immature Gran % (Auto) Neut % (Auto) Lymph % (Auto) [place] % (Auto) Eos % (Auto) Baso % (Auto) Lymph # (Auto) [place] # (Auto) Eos # (Auto) Baso # (Auto) Abs Immat Gran (auto) Absolute Neuts (auto) Absolute Nucleated RBC Nucleated RBC % Sodium Potassium Chloride Carbon Dioxide Anion Gap BUN Creatinine Estim Creat Clear Calc Estimated GFR Glucose POC Capillary Glucose 104 Calcium Phosphorus Magnesium Albumin Vancomycin Trough
[2024-11-20] MEDS: KCL 20 MEQ/SW 100 ML 100 ML 25 MEQ IVPB (13:02)
[2024-11-20] MEDS: DEXTROSE 5%/0.9% SOD CHL 1,000 ML 100 ML IV CONT ×2 (13:02→23:55)
--- NOTE | 2024-11-20 19:38 | PC.NURSE ---
On 11/20/24, the TRANSLATIONAL SPECIALIST, Amber Mattson, provided care and completed [employer] documentation on this patient. I have reviewed the TRANSLATIONAL SPECIALIST's documentation and agree with the findings.
[2024-11-20] MEDS: ASPIRIN 81 MG ENTERIC TABLET PO (21:22)
[2024-11-20] MEDS: PANTOPRAZOLE SOD SESQUIHYDRATE 20 MG TAB PO (21:22)
[2024-11-20] MEDS: cefTRIAXone 2 GM in SODIUM CHLORIDE 0.9% IV 100 ML 200 ML IVPB (21:23)
[2024-11-21] MEDS: VANCOMYCIN 750 MG/NS 250 ML 750 MG/250 ML BAG 250 MG IVPB (03:44)
[2024-11-21 05:25] VITALS: BP 154/75; PULSE 64; RESP 16; TEMP 36.1; O2SAT 98
[2024-11-21 07:19] LABS: Estimated CRCL calculation 68 ml/min; Estimated Glomerular Filt Rate > 60
[2024-11-21 09:01] VITALS: O2SAT 96
[2024-11-21 09:21] VITALS: O2SAT 92
--- NOTE | 2024-11-21 10:15 | P.PNIM_ITS ---
Progress Note: A&P Assessment and Plan (1) Severe protein-calorie malnutrition: Code(s): E43 - Unspecified severe protein-calorie malnutrition Status: Acute (2) GERD (gastroesophageal reflux disease): Code(s): K21.9 - Gastro-esophageal reflux disease without esophagitis Status: Acute (3) Sepsis: Code(s): A41.9 - Sepsis, unspecified organism Status: Acute (4) PNA (pneumonia): Code(s): J18.9 - Pneumonia, unspecified organism Status: Acute (5) Acute hypoxic respiratory failure: Code(s): J96.01 - Acute respiratory failure with hypoxia Status: Acute Plan Sepsis: Patient has severe sepsis with lactic acidosis, bandemia, tachycardia and tachypnea with acute respiratory failure. CXR showing probable left basilar PNA. Patient given 30mL/kg fluid resuscitation. COVID, RSV and influenza PCR negative. MRSA nasal swab positive. BCx NGTD Sputum Cx H.flu. Started on broad-spectrum antibiotic coverage with cefepime, vancomycin and azithromycin. Hx of dysphagia with abnormal swallow eval last admission. Aspiration precautions. The patient has weak cough and difficulty clearing secretions so CPT has been ordered. Follow up on cultures and sensitivities. Narrow abx if BCx remain negative and no other source other than H.flu. Will still cover for aspiration given that he is high risk. PNA (pneumonia): Code(s): J18.9 - Pneumonia, unspecified organism Status: Acute Assessment and Plan: patient is on azithromycin cefepime and vancomycin Acute hypoxic respiratory failure: Code(s): J96.01 - Acute respiratory failure with hypoxia Status: Acute Assessment and Plan: As above. 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 Replete with potassium chloride 10 mg IV, D5 normal saline 100 mL/hour 09/20 Severe protein-calorie malnutrition: Code(s): E43 - Unspecified severe protein-calorie malnutrition Status: Acute Assessment and Plan: Patient has severe protein calorie malnutrition related to inadequate energy intake as evidenced by a significant weight loss as documented, low BMI, poor oral intake for >1 month and NFPE findings for severe subcutaneous fat loss and severe muscle wasting. . The ER physician reported that the patient's is interested in hearing more information about palliative care Care coordination consulted and family changed him to DNR status. They are discussing moving patient to comfort/hospice care. Continue nutritional supplementation. Dysphagia: Code(s): R13.10 - Dysphagia, unspecified Status: Acute Assessment and Plan: Patient a MBS 10/24/24 and speech therapy recommended minced and moist, level 5 diet with mildly thick level 2 liquids. Later Speech Therap notes micheline the patient was changed to Level 4 pureed diet. Start pureed diet and level 2 liquids and monitor closely One on one supervision. Upright to eat. Minimize distractions, No straws, small bites/sips Plan DVT Prophylaxis - SCDs Code status - DNR Patient has multiple comorbidities, at end-stage of life, plan to transfer [facility] back to [facility] for [facility] care Subjective Date/time seen: 11/21/24 10:15 Interval history: I saw exam patient, patient is confused, not oriented x3, unable to follow command, no improvements Patient has dry mucous membrane Afebrile Blood pressure stable On 2 L oxygen Exam Narrative: GENERAL: Cachexia, ill-appearing, - EYES: EOMI. Anicteric. - HENT: Dry mucous membranes. - LUNGS: Clear to auscultation bilateral ly, no wheezing, rhonchi, or rales. - CARDIOVASCULAR: Regular rate and rhyth m. No murmur. No JVD. - ABDOMEN: Soft, non-tender and non-dist ended. No palpable masses. - EXTREMITIES: No edema. Peripheral puls es 2+. Non-tender. - NEUROLOGIC: No focal neurological defi cits. CN II-XII grossly intact. General weakness - PSYCHIATRIC: Awake, Alert and not orie nted x 3. Appropriate mood and affect. - SKIN: No rashes or lesions. Warm. - LYMPH: No cervical lymphadenopathy. Objective Data Vital Signs Vital Signs: Vital Signs - 24 hr 11/20/24 10:20 11/20/24 14:00 11/20/24 21:22 Temperature 96.5 F L Pulse Rate 74 64 Respiratory Rate 18 Blood Pressure 150/86 H Pulse Oximetry 94 99 Oxygen Delivery Nasal Cannula Oxygen Flow Rate 2 11/20/24 21:54 11/21/24 05:25 11/21/24 09:01 Temperature 97.9 F 97.0 F L Pulse Rate 71 64 Respiratory Rate 18 16 Blood Pressure 173/82 H 154/75 H Pulse Oximetry 98 98 96 Oxygen Delivery Nasal Cannula Oxygen Flow Rate 2 11/21/24 09:21 Temperature Pulse Rate Respiratory Rate Blood Pressure Pulse Oximetry 92 Oxygen Delivery Room Air Oxygen Flow Rate Intake/Output Intake/Output: Intake & Output 11/18/24 11/19/24 11/20/24 11/21/24 23:59 23:59 23:59 23:59 Intake Total 1787.5 1060 2240 490 Output Total 400 1000 350 900 Balance 1387.5 60 1890 -410 Meds/Results Medications: Active Medications Generic Name Dose Route Start Last Admin Trade Name Freq PRN Reason Stop Dose Admin Aspirin 81 mg 11/18/24 21:00 11/20/24 21:22 Aspirin 81 Mg Enteric Tablet PO 81 mg HS AMELIA Administration Bisacodyl 10 mg 11/18/24 09:00 11/20/24 08:54 Bisacodyl 5 Mg Tablet Ec PO Not Given DAILY AMELIA Bupropion HCl 100 mg 11/18/24 09:00 11/20/24 08:52 Bupropion Hcl Sr (12hr) 100 Mg Tabcr PO 100 mg DAILY AMELIA Administration Dextrose 12.5 gm 11/19/24 05:33 11/19/24 05:41 Dextrose 50% 25 Gm/50 Ml Syringe IV PUSH 12.5 gm PRN PRN Administration Hypoglycemia Protocol Glucagon 1 mg 11/19/24 05:33 Glucagon For Inj 1 Mg Vial IM PRN PRN Hypoglycemia Protocol Glucose 15 gm 11/19/24 05:33 Glucose Oral Gel 15 Gm Of Glucse In 37.5 Gm Tube PO PRN PRN Hypoglycemia Protocol Azithromycin 500 mg/ Sodium 250 mls @ 250 mls/hr 11/19/24 09:00 11/20/24 10:22 Chloride IVPB 250 mls/hr Q24H AMELIA Administration Dextrose 1,000 mls @ 100 mls/hr 11/19/24 05:33 Dextrose 5% 1,000 Ml IVPB PRN PRN Hypoglycemia Protocol Vancomycin HCl 750 mg in 250 mls @ 250 mls/hr 11/20/24 04:00 11/21/24 04:55 Vancomycin 750 Mg/Ns 250 Ml IVPB Infused Q12H AMELIA Infusion Dextrose/Sodium Chloride 1,000 mls @ 100 mls/hr 11/20/24 12:15 11/20/24 23:55 Dextrose 5% Sodium Chloride 0.9% IV CONT 100 mls/hr .Q10H AMELIA Administration Ceftriaxone Sodium 2 gm/ 100 mls @ 200 mls/hr 11/20/24 21:00 11/20/24 21:23 Sodium Chloride IVPB 200 mls/hr Q24H AMELIA Administration Metoprolol Tartrate 25 mg 11/18/24 09:00 11/20/24 21:22 Metoprolol Tartrate 25 Mg Tablet PO 25 mg Q12HR AMELIA Administration Pantoprazole Sodium 20 mg 11/18/24 09:00 11/20/24 21:22 Pantoprazole Sod Sesquihydrate 20 Mg Tab PO 20 mg Q12HR AMELIA Administration Polyethylene Glycol 17 gm 11/18/24 09:00 11/20/24 08:54 Polyethylene Glycol 3350 17 Gm Powd.Pack PO Not Given DAILY AMELIA Senna 17.2 mg 11/18/24 09:00 11/20/24 21:22 Sennosides 8.6 Mg Tablet PO 17.2 mg Q12HR AMELIA Administration Sertraline HCl 50 mg 11/18/24 09:00 11/20/24 08:52 Sertraline Hcl 50 Mg Tablet PO 50 mg DAILY AMELIA Administration Tramadol HCl 50 mg 11/18/24 06:33 Tramadol Hcl (*Crx) 50 Mg Tablet PO Q6H PRN Pain 4-10 Radiology Results: ITS Impressions Chest X-Ray 11/18/24 05:50 Impression: Probable left basilar pneumonia. Labs Labs: Laboratory Results - last 24 hr 11/20/24 11/20/24 11/20/24 12:14 17:53 23:42 Creatinine Estim Creat Clear Calc Estimated GFR POC Capillary Glucose 110 H 91 112 H 11/21/24 11/21/24 05:51 06:23 Creatinine 0.56 L Estim Creat Clear Calc 68 Estimated GFR > 60 POC Capillary Glucose 102
--- NOTE | 2024-11-21 10:17 | P.DS_ITS ---
DS: Admitting Diagnosis Discharge Date 11/21/24 Admitting Diagnosis (1) Severe protein-calorie malnutrition: Code(s): E43 - Unspecified severe protein-calorie malnutrition Status: Acute (2) GERD (gastroesophageal reflux disease): Code(s): K21.9 - Gastro-esophageal reflux disease without esophagitis Status: Acute (3) Sepsis: Code(s): A41.9 - Sepsis, unspecified organism Status: Acute (4) PNA (pneumonia): Code(s): J18.9 - Pneumonia, unspecified organism Status: Acute (5) Acute hypoxic respiratory failure: Code(s): J96.01 - Acute respiratory failure with hypoxia Status: Acute DS: Discharge Diagnosis Discharge Diagnosis (1) Severe protein-calorie malnutrition: Code(s): E43 - Unspecified severe protein-calorie malnutrition Status: Acute (2) GERD (gastroesophageal reflux disease): Code(s): K21.9 - Gastro-esophageal reflux disease without esophagitis Status: Acute (3) Sepsis: Code(s): A41.9 - Sepsis, unspecified organism Status: Acute (4) PNA (pneumonia): Code(s): J18.9 - Pneumonia, unspecified organism Status: Acute (5) Acute hypoxic respiratory failure: Code(s): J96.01 - Acute respiratory failure with hypoxia Status: Acute DS: Summary Hospital Course Hospital Course: 79-year-old male with a past medical history of essential hypertension, CVA, vascular dementia, hyperlipidemia and GERD who presented to the ER from [facility] due to difficulty breathing. Her prior documentation patient is baseline oriented times 1-2 at baseline. At the time my evaluation patient was actually able to tell me his name and that we were at the hospital in [place] and stated the appropriate year but thought the month was October. Further information was difficult to obtain as patient was too weak to speak loud enough to be heard over the Airvo. As such the majority of the history was obtained from review of past medical records and ER physician report. The patient was recently hospitalized 10/24/2024 through 11/01/[address] at that time demonstrated pneumonia with concern for possible aspiration. He was treated with Rocephin doxy and Flagyl. Urine Legionella pneumococcal antigens were negative and mycoplasma titer was negative. His antibiotics were switched to Zyvox and was discharged back to nursing facility with 5 more days of antibiotic treatment.. On arrival to the ER patient was lethargic. EMS reported the patient was satting 86% on 2 L at the [facility]. In the ER he was noted to be intermittently mucus plugging. When he was PROCUREMENT ASSISTANT suctioned his oxygen saturations with, the 96% on room air but he was rapidly desaturate when he would mucus plug again. His mucous with suctioning was brown to green in color per respiratory therapy report. Patient was afebrile on presentation. He was noted to be tachycardic and significantly tachypneic. He was tried on CPAP but did not tolerate was switched to Airvo and is currently on Airvo 40 L at 50% satting 99%. Chest x-ray demonstrated possible left lower lobe pneumonia. Patient was placed on empiric antibiotic therapy for severe community-acquired pneumonia with cefepime and vancomycin. MRSA screen was obtained which was positive. Patient was admitted to IMU for further treatment. ER physician reported that she talked to the patient's who states the patient has acutely decompensated with his dementia with somewhat rapid progression over the last several months. The patient's his she stated that she wants patient to be a full code but is interested in possible palliative care consult for further information. Patient was admitted in this setting. The following med issues have been addressed during hospitalization Sepsis: Patient has severe sepsis with lactic acidosis, bandemia, tachycardia and tachypnea with acute respiratory failure. CXR showing probable left basilar PNA. Patient given 30mL/kg fluid resuscitation. COVID, RSV and influenza PCR negative. MRSA nasal swab positive. BCx NGTD Sputum Cx H.flu. Started on broad-spectrum antibiotic coverage with cefepime, vancomycin and azithromycin. Hx of dysphagia with abnormal swallow eval last admission. Aspiration precautions. The patient has weak cough and difficulty clearing secretions so CPT has been ordered. Follow up on cultures and sensitivities. Narrow abx if BCx remain negative and no other source other than H.flu. Will still cover for aspiration given that he is high risk. PNA (pneumonia): Code(s): J18.9 - Pneumonia, unspecified organism Status: Acute Assessment and Plan: patient is on azithromycin cefepime and vancomycin Acute hypoxic respiratory failure: Code(s): J96.01 - Acute respiratory failure with hypoxia Status: Acute Assessment and Plan: As above. 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 Replete with potassium chloride 10 mg IV, D5 normal saline 100 mL/hour 09/20 Severe protein-calorie malnutrition: Code(s): E43 - Unspecified severe protein-calorie malnutrition Status: Acute Assessment and Plan: Patient has severe protein calorie malnutrition related to inadequate energy intake as evidenced by a significant weight loss as documented, low BMI, poor oral intake for >1 month and NFPE findings for severe subcutaneous fat loss and severe muscle wasting. . The ER physician reported that the patient's is interested in hearing more information about palliative care Care coordination consulted and family changed him to DNR status. They are discussing moving patient to comfort/hospice care. Continue nutritional supplementation. Dysphagia: Code(s): R13.10 - Dysphagia, unspecified Status: Acute Assessment and Plan: Patient a MBS 10/24/24 and speech therapy recommended minced and moist, level 5 diet with mildly thick level 2 liquids. Later Speech Therap notes micheline the patient was changed to Level 4 pureed diet. Start pureed diet and level 2 liquids and monitor closely One on one supervision. Upright to eat. Minimize distractions, No straws, small bites/sips DVT Prophylaxis - SCDs Code status - DNR Patient has multiple comorbidities, at end-stage of life, plan to transfer patient back to [facility] for hospice care Time Spent with Patient Time attestation: Total time spent providing and/or coordinating discharge services: Exam Narrative: GENERAL: Cachexia, ill-appearing, - EYES: EOMI. Anicteric. - HENT: Dry mucous membranes. - LUNGS: Clear to auscultation bilateral ly, no wheezing, rhonchi, or rales. - CARDIOVASCULAR: Regular rate and rhyth m. No murmur. No JVD. - ABDOMEN: Soft, non-tender and non-dist ended. No palpable masses. - EXTREMITIES: No edema. Peripheral puls es 2+. Non-tender. - NEUROLOGIC: No focal neurological defi cits. CN II-XII grossly intact. General weakness - PSYCHIATRIC: Awake, Alert and not orie nted x 3. Appropriate mood and affect. - SKIN: No rashes or lesions. Warm. - LYMPH: No cervical lymphadenopathy. DS: Data Data Completed and Pending Labs on day of discharge: Labs from last 24 hours 11/21/24 11/21/24 11/20/24 06:23 05:51 23:42 Creatinine 0.56 L Estim Creat Clear Calc 68 Estimated GFR > 60 POC Capillary Glucose 102 112 H 11/20/24 11/20/24 17:53 12:14 Creatinine Estim Creat Clear Calc Estimated GFR POC Capillary Glucose 91 110 H Preliminary micro results at discharge 11/18/24 01:18 Blood Culture - Preliminary Blood 11/18/24 00:43 Blood Culture - Preliminary Blood Discharge Plan Discharge Attending physician on discharge: Erica Roy Discharging Clinician: Erica Roy Anticipated Discharge Date/Time: 11/21/24 10:17 Patient Disposition: SNF Activity: as tolerated Diet: as tolerated Patient Language: Omani Stand Alone Forms: General Discharge Information Discharge Medications: Continued atorvastatin 20 mg tablet 20 mg PO HS pantoprazole 20 mg tablet,delayed release (DR/EC) 20 mg PO BID acetaminophen 325 mg capsule 650 mg PO Q8H aspirin [Adult Aspirin Regimen] 81 mg tablet,delayed release (DR/EC) 81 mg PO HS bisacodyl 5 mg tablet,delayed release (DR/EC) 10 mg PO DAILY metoprolol tartrate 25 mg tablet 25 mg PO Q12H polyethylene glycol 3350 [Miralax] 17 gram/dose powder 17 g PO DAILY sennosides [senna] 8.6 mg tablet 8.6 mg PO BID tramadol 50 mg tablet 50 mg PO Q6H PRN (Reason: pain (scale score 4-6)) bupropion HCl [Wellbutrin SR] 100 mg tablet sustained-release 12 hr 100 mg PO DAILY magnesium hydroxide [Dulcolax (magnesium hydroxide)] 400 mg/5 mL suspension 30 ml PO DAILY PRN (Reason: constipation) melatonin 3 mg capsule 3 mg PO HS PRN (Reason: insomnia) sertraline 50 mg tablet 50 mg PO DAILY Date of admission: 11/18/24 02:37 Primary Care Provider: PHYSICIAN NOT ON STAFF,NONSTAFF Admitting Provider: Tressa Srivastava Attending physician on admission: Tressa Srivastava Condition: Serious
[2024-11-21] MEDS: AZITHROMYCIN IV 500 MG in SODIUM CHLORIDE 0.9% IV 250 ML IVPB (10:34)
[2024-11-21] MEDS: SENNOSIDES 8.6 MG TABLET 17.2 MG PO (10:36)
[2024-11-21 10:37] VITALS: PULSE 66
[2024-11-21] MEDS: SERTRALINE HCL 50 MG TABLET PO (10:37)
[2024-11-21] MEDS: PANTOPRAZOLE SOD SESQUIHYDRATE 20 MG TAB PO (10:37)
[2024-11-21] MEDS: METOPROLOL TARTRATE 25 MG TABLET PO (10:37)
[2024-11-21] MEDS: buPROPion HCL SR (12HR) 100 MG TABCR PO (10:37)
--- NOTE | 2024-11-21 11:25 | PC.NURSE ---
On 11/21/24, the MAPPING ANALYST,Amber Mattson, provided care and completed [employer] documentation on this patient. I have reviewed the MAPPING ANALYST's documentation and agree with the findings.
== END 2024-11-21 11:25 | disposition hospice, home (50) | DRG 871 ==
LOC: ANHED 04:08 → ANHIMU 05:00 → ANH3MEDSUR 11-20 02:15
PROVIDERS: Internal Medicine; Admitting Provider Internal Medicine; Emergency Provider Emergency Medicine; Visit Provider Hospitalist
DX: A41.9 Sepsis, unspecified organism (principal); E43 Unspecified severe protein-calorie malnutrition; R65.21 Severe sepsis with septic shock; J14 Pneumonia due to Hemophilus influenzae; J96.01 Acute respiratory failure with hypoxia; Z68.1 Body mass index [BMI] 19.9 or less, adult; E88.A Wasting disease (syndrome) due to underlying condition; T17.990A Other foreign object in respiratory tract, part unspecified in causing asphyxiation, initial encounter; K21.9 Gastro-esophageal reflux disease without esophagitis; F01.50 Vascular dementia, unspecified severity, without behavioral disturbance, psychotic disturbance, mood disturbance, and anxiety; E86.0 Dehydration; R13.10 Dysphagia, unspecified; I10 Essential (primary) hypertension; E78.5 Hyperlipidemia, unspecified; E87.6 Hypokalemia; Z22.322 Carrier or suspected carrier of Methicillin resistant Staphylococcus aureus; Z86.73 Personal history of transient ischemic attack (TIA), and cerebral infarction without residual deficits; Z20.822 Contact with and (suspected) exposure to COVID-19; Z96.649 Presence of unspecified artificial hip joint; Z66 Do not resuscitate; Z51.5 Encounter for palliative care
CPT/HCPCS: 36415; 36600; 71045; 80048; 80053; 80069; 80202; 81001; 82375; 82565; 82805; 82948; 83050; 83605; 83735; 83880; 85018; 85025; 87040; 87070; 87205; 87637; 87641; 93005; 94640; 96365; 99291; A9270; J0456; J0692; J0696; J3373; J3475; J3480; J7030; J7042; J7050; J7120